=== PATIENT | male | born 1990 | race Caucasian/White ===

== ENCOUNTER → 2019-03-22 16:49 | Outpatient (CLI) | payer OTHER, SELFPAY ==
[2013-05-28 22:03] VITALS: BMI 22.4
== END ==
PROVIDERS: Referring Provider Obstetrics & Gynecology; Visit Provider Obstetrics & Gynecology
DX: Z31.440 Encounter of male for testing for genetic disease carrier status for procreative management (principal)
CPT/HCPCS: 36415

== ENCOUNTER → 2019-12-21 10:20 | Emergency (ER) | payer OTHER, SELFPAY ==
[2019-12-21 10:21] VITALS: BP 130/94; PULSE 104; RESP 16; TEMP 36.6; BMI 27.4
--- NOTE | 2019-12-21 10:32 | ED.DCSUM_ITS ---
History of Present Illness Chief Complaint: Anxiety Informant: Patient Onset: Weeks Context: Gradual Onset Current Severity: Moderate Maximum Severity: Moderate Narrative: Patient presents with vomiting secondary to anxiety. He reports a history of anxiety but stopped his medication about 3 years ago. He has had increased life stressors recently including a recent child support hearing, new baby at home, and a promotion at work. He reports feeling anxious with an upset stomach that leads him to vomit. He is still urinating. He denies suicidal ideation. - Past Medical History (1) Anxiety Status: Chronic Past Medical History - Allergies and Home Meds Allergies/Adverse Reactions: Allergies No Known Allergies Allergy (Verified 12/21/19 10:23) Primary Care Physician: Care Physician,No Primary [Primary Care Provider] - Prior records reviewed: Yes Lives: With Family Smoking Status: Current every day smoker Review of Systems General: Denies: Chills, Fever Eyes: Denies: Visual changes - bilaterally ENT: Denies: Bilateral ear pain Cardiovascular: Denies: Chest pain Respiratory: Denies: Dyspnea, Cough Gastrointestinal: Reports: Nausea, Vomiting. Denies: Abdominal pain, Diarrhea Genitourinary: Denies: Dysuria Musculoskeletal: Denies: Swelling, Extremity Pain Skin: Denies: Rash Psych: Reports: Anxiety. Denies: Suicidal thoughts Hematologic: Denies: Easy bruising, Easy bleeding Allergy: Denies: Uticaria Physical Exam Vital Signs/Narrative: Vital Signs Temp Pulse Resp BP 12/21/19 10:21 97.8 F 104 H 16 130/94 H Inital Vital Signs reviewed: Yes General: Well nourished, Well developed Head: Normocephalic ENT: Moist mucous membranes Neck: Supple Cardiovascular: Regular rate, Regular rhythm Respiratory: No distress, CTA bilaterally Abdomen: Soft, Nontender, Hypoactive bowel sounds Extremities: Nontender Skin: Normal color, No rash Neurological: Alert, Oriented x3, Normal Strength, Normal Sensation Psychological: Normal affect Diagnostic/Tx/Re-eval - Medical Decision Making Patient will be given a dose of Zofran to help with his nausea. We discussed restarting his Ativan that he had been on previously. His physician he had previously seen is retired he will be referred to a new primary care physician. I will also give him information on the behavioral health services to help him with his anxiety. He is given return instructions. ED Disposition - Plan for ED Patient: Disposition: Home or Assisted Living Diagnosis: Anxiety Instructions: ED Stress React Prescriptions: Lorazepam [Ativan] 0.5 - 1 tab PO TID PRN #10 tablet PRN Reason: Anxiety Transmission Status: Sent to [facility] Ondansetron [Zofran Odt] 4 mg PO Q8H PRN PRN #10 tab PRN Reason: Nausea Transmission Status: Pending to [facility] Referrals: Shantanu Segovia MD [NON-STAFF] - As soon as possible Behavioral,Health [facility] [GROUP OF PHYSICIANS] - As soon as possible
[2019-12-21] MEDS: Ondansetron ODT 4 MG Tablet PO (10:47)
--- NOTE | 2019-12-21 11:10 | CM.ED ---
SOCIAL WORK Informant: Dr. Jack Reason for Consult: Anxiety Met with patient in room. Introduced role and reason for referral. Patient reports history of anxiety, social anxiety and ADD. Patient states was treated with Ativan and Adderall in the past. Patient reports stopped taking the medications because he did not like the way they made me feel. Patient reports situational stressors with work and home life that have made him overthink things. Patient reports for the last week and a half would wake up and start thinking about things and then become nauseous and throw up or have diarrhea. Patient states does not have a primary care physician. List of providers reviewed with patient. Patient admits to family history of depression and anxiety and states father and grandfather are alcoholics, it's their way of coping. Patient denies any history of substance abuse for self. Explored options for counseling. Patient states I don't know about counseling. List of agencies given for patient to review. Patient denies any suicidal ideation, plan or intent. Discussed plan of patient getting established with PCP to discuss anxiety and possible medication management. Patient gave permission for this worker to make a follow up phone call to patient to check on status. Patient denies any further needs at this time. Collaboration with Dr. Jack. Dr. Jack writing script for Ativan. Patient to establish with PCP. Plan: Home
== END | disposition home or self-care (01) ==
LOC: ED 10:45
PROVIDERS: Emergency Provider Emergency Medicine
DX: F41.9 Anxiety disorder, unspecified (principal); F17.200 Nicotine dependence, unspecified, uncomplicated
CPT/HCPCS: 99281; 99283

== ENCOUNTER → 2019-12-23 11:47 | Emergency (ER) | payer OTHER, SELFPAY ==
[2019-12-21 10:21] VITALS: BMI 27.4
[2019-12-23 11:48] VITALS: BP 109/81; PULSE 107; RESP 17; TEMP 36.7; O2SAT 99; BMI 27.4
--- NOTE | 2019-12-23 12:11 | EKG12_ITS ---
Test Reason : Blood Pressure : / mmHG Vent. Rate : 082 BPM Atrial Rate : 082 BPM P-R Int : 146 ms QRS Dur : 086 ms QT Int : 348 ms P-R-T Axes : 075 070 062 degrees QTc Int : 406 ms Normal sinus rhythm with sinus arrhythmia Normal ECG Confirmed by MITCH PAZ, BARRON ([id number]), mapping editor MAYA FRANKEL ([id number]) on 12/24/2019 8:25:33 AM Referred By: DURNA Confirmed By:BARRON MEYER MD
[2019-12-23 13:01] LABS: Absolute Lymphocyte Count 1.32 X10^3/uL (0.83-4.51); Absolute Neutrophil Count 3.4 X10^3/uL (2.0-7.7); Basophil# 0.03 X10^3/uL; Basophil% 0.6 % (0-1); Eosinophil# 0.01 X10^3/uL; Eosinophils% 0.2 % (0-5); Hematocrit 47.9 % (40-54); Hemoglobin 16.8 g/dL (13.0-16.5); Lymphocyte # 1.32 X10^3/ul (4.0); Lymphocyte % 25.8 % (19-41); Mean Corp Hgb Conc 35.1 g/dL (32-36); Mean Corpuscular Hgb 30.4 pg (27.0-32.0); Mean Corpuscular Volume 86.8 fL (80-94); Mean Platelet Vol. 9.7 fl (6.2-12.0); Monocyte# 0.35 X10^3/uL; Monocyte% 6.8 % (0-10); NRBC Flagged by Analyzer 0 % (0-5); Neutrophil # 3.39 X10^3/uL (2.7-7.7); Neutrophil % 66.4 % (47-70); Platelet Count 243 K/mm3 (150-450); RBC Distribution Width CV 11.4 % (11.6-14.6); Red Blood Count 5.52 M/mm3 (4.6-6.2); White Blood Count 5.1 K/mm3 (4.4-11.0)
[2019-12-23 13:05] VITALS: BP 109/79
[2019-12-23] MEDS: 0.9% Normal Saline 1,000 ML 1000 ML IV (13:13)
[2019-12-23] MEDS: Ondansetron 4 MG/2 ML Vial IV (13:13)
[2019-12-23 13:14] LABS: AST(SGOT) 13 U/L (15-37); Alanine Aminotransfer ALT/SGPT 24 U/L (16-61); Albumin, Serum 4.2 g/dL (3.2-5.0); Alkaline Phosphatase 50 U/L (45-117); Anion Gap 8 (5-15); BUN 15 mg/dL (7-18); BUN/Creat Ratio 15.4 RATIO (10-20); Bilirubin, Direct 0.24 mg/dL (0.00-0.30); Calcium,Total 9.2 mg/dL (8.5-10.1); Chloride 104 mmol/L (98-107); Creatinine, Serum 0.97 mg/dL (0.70-1.30); EST Glomerular Filtration Rate 95 mL/min (>60); Est Glom Filt Rate - Afr Amer 115 mL/min (>60); Estimated Creatinine Clearance 95.98 ml/min; Globulin 3.6 g/dL (2.2-4.2); Glucose 84 mg/dL (74-106); Lipase 60 U/L (73-393); Protein, Total 7.8 g/dL (6.4-8.2); Sodium Level 139 mmol/L (136-145)
[2019-12-23 13:23] LABS: Lactic Acid 0.9 mmol/L (0.4-1.9)
--- NOTE | 2019-12-23 13:37 | ED.DCSUM_ITS ---
History of Present Illness Chief Complaint: Nausea/Vomiting Narrative: Patient presenting for evaluation secondary to nausea and vomiting. Patient states that over the course about the last 2 weeks he has been dealing with nausea and vomiting. For the initial first week it was associated with vomiting just one time in the morning and then he felt well. Patient states however that this is progressed to him feeling increasingly nauseous throughout the course of the day and having multiple episodes of nonbloody nonbilious emesis throughout the day. Patient was seen about a week ago, it was thought that potentially this was an element of anxiety as he does have a 2-month-old baby at home, new work stressors as well as new life stressors. He has no prior history of chronic anxiety. He was discharged with a course of Ativan which somewhat helps but really did not alleviate his symptoms. Now he states that he is having multiple episodes of emesis per day is having difficulty with tolerating p.o. He has had decreased stooling. There is been no fevers. No sick contacts no recent travel no antibiotic use no exposures to hospitals or been in and around nursing homes. Patient is otherwise healthy. No changes in diet. Review of systems otherwise negative. Past Medical History - Allergies and Home Meds Allergies/Adverse Reactions: Allergies No Known Allergies Allergy (Verified 12/23/19 11:47) Primary Care Physician: Derik Brower DO [Primary Care Provider] - Prior records reviewed: Yes Past Medical History: None Lives: Spouse/ Significant Other Smoking Status: Heavy Smoker (>10/day) Alcohol: None Drugs: None Review of Systems All systems negative except as indicated General: Denies: Chills, Fever, Sweats Eyes: Denies: Visual changes - bilaterally, Diplopia ENT: Denies: Rhinorrhea, Sore throat Cardiovascular: Denies: Chest pain, Palpitations Respiratory: Denies: Dyspnea, Cough, Dyspnea on exertion Gastrointestinal: Reports: Nausea, Vomiting Genitourinary: Denies: Dysuria, Hematuria, Frequency Musculoskeletal: Denies: Back pain, Extremity Pain Skin: Denies: Rash, Wounds Neurological: Denies: Headache, Weakness, Numbness Physical Exam Vital Signs/Narrative: Vital Signs Temp Pulse Resp BP Pulse Ox 12/23/19 13:05 109/79 12/23/19 11:48 98.0 F 107 H 17 109/81 H 99 Inital Vital Signs reviewed: Yes General: Well nourished, Well developed, No Acute Distress Head: Normocephalic, Atraumatic Eyes: Perrl, EOMI ENT: No rhinorrhea, Dry mucous membranes Neck: Supple, Nontender Cardiovascular: Regular rate, Regular rhythm, No murmurs Respiratory: No distress, CTA bilaterally, Chest nontender Abdomen: Soft, Nondistended, Normal bowel sounds, Tender - Left upper quadrant tenderness to palpation with no guarding or rebound. No palpable masses. No evidence of diffuse rigidity. Back: Nontender, Normal Inspection Extremities: Nontender, No edema Skin: Normal color, No rash Neurological: Alert, Oriented x3, Cranial nerves II-XII grossly intact, Normal Strength, Normal Sensation Psychological: Normal affect, Normal Mood Diagnostic/Tx/Re-eval Laboratory Data 12/23/19 12/23/19 12/23/19 12:45 12:45 12:45 WBC 5.1 RBC 5.52 Hgb 16.8 H Hct 47.9 MCV 86.8 MCH 30.4 MCHC 35.1 RDW Std Deviation 36.0 RDW Coeff of Jeancarlos 11.4 L Plt Count 243 MPV 9.7 Immature Gran % (Auto) 0.200 Neut % (Auto) 66.4 Lymph % (Auto) 25.8 [place] % (Auto) 6.8 Eos % (Auto) 0.2 Baso % (Auto) 0.6 Absolute Neuts (auto) 3.4 Absolute Lymphs (auto) 1.32 Nucleated RBC % 0 Sodium 139 Potassium 4.0 Chloride 104 Carbon Dioxide 27.0 Anion Gap 8 BUN 15 Creatinine 0.97 Estim Creat Clear Calc 95.98 Est GFR (MDRD) Af Amer 115 Est GFR (MDRD) Non-Af 95 BUN/Creatinine Ratio 15.4 Glucose 84 Lactic Acid 0.9 Calcium 9.2 Total Bilirubin 0.90 Direct Bilirubin 0.24 AST 13 L ALT 24 Alkaline Phosphatase 50 Total Protein 7.8 Albumin 4.2 Globulin 3.6 Lipase 60 L - EKG Initial EKG Interpretation: - - Sinus rhythm of [address] segments normal T waves normal DE and QTc intervals no evidence of acute ischemia or arrhythmia - Medical Decision Making Patient presented secondary to abdominal pain nausea and vomiting. He has a nonsurgical abdomen, I do not feel that imaging is indicated. IV was established laboratory studies were obtained. He was found to have a somewhat elevated hemoglobin potentially associated with either dehydration or his heavy smoking. Electrolytes are found to be unremarkable. Patient potentially at this point has an element of either gastritis and ulcer versus anxiety versus a combination of both, but I still do not feel he requires admitted. He will be treated with a course of omeprazole and Carafate as well as Phenergan. He will be given a referral to general surgery for upper endoscopy. Patient was discharged. ED Disposition - Plan for ED Patient: Disposition: Home or Assisted Living Diagnosis: PUD (peptic ulcer disease) Instructions: ED PEPTIC ULCER vs GASTRITIS Prescriptions: Sucralfate [Carafate] 1 gm PO 4X/DAY #120 tab Prescription Printed Omeprazole 40 mg PO DAILY #30 capsule.dr Prescription Printed proMETHazine suppository [Phenergan Suppository] 25 mg RECTAL Q6H PRN PRN #6 suppos. PRN Reason: Nausea Prescription Printed proMETHazine tablet [Phenergan] 25 mg PO Q6H PRN PRN #10 tab PRN Reason: Nausea Prescription Printed Referrals: Jose Marques MD [STAFF PHYSICIAN] - As soon as possible
== END | disposition home or self-care (01) ==
PROVIDERS: Emergency Provider Emergency Medicine; PCP Family Medicine
DX: K27.9 Peptic ulcer, site unspecified, unspecified as acute or chronic, without hemorrhage or perforation (principal); F41.9 Anxiety disorder, unspecified; F17.200 Nicotine dependence, unspecified, uncomplicated
CPT/HCPCS: 80048; 80076; 83605; 83690; 85025; 93005; 96361; 96374; 99283; J7030; A4216; J2405

== ENCOUNTER → 2019-12-25 09:56 | Outpatient (CLI) | payer OTHER, SELFPAY ==
[2019-12-23 11:48] VITALS: BMI 27.4
== END ==
PROVIDERS: PCP Family Medicine; Visit Provider Family Medicine
DX: Z20.828 Contact with and (suspected) exposure to other viral communicable diseases (principal); R50.9 Fever, unspecified
CPT/HCPCS: 87635; U0003

== ENCOUNTER 2021-09-20 10:12 | Emergency (ER) | payer OTHER, SELFPAY ==
[2021-09-20 10:13] VITALS: BP 139/89; PULSE 76; RESP 16; TEMP 36.6; O2SAT 100; BMI 23.3
--- NOTE | 2021-09-20 10:22 | EX.ED.UPPERE ---
HPI History of Present Illness Chief Complaint: Upper Extremity Injury Narrative Narrative: This is a 30-year-old male presenting with right shoulder pain for the last 5 days. He states he feels it in the area of the deltoid on the right and in the trapezius on the right. He has no known injury. 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 Patient states he has to move slowly when moving his shoulder. He states that if he leans back on his shoulder blade or holds his shoulder up the pain goes away. No paresthesias. No neck pain. Patient has appointment with orthopedics on but is having worsening pain after waking up this morning. [facility] Medical History (Updated 09/20/21 @ 11:[address] Damir Monahan DO) Shoulder injury Home Medications hydrocodone-acetaminophen 5-325mg 5mg-325mg 1 tab PO Q6H PRN pain 3 days #10 tabs 09/20/21 [Rx Last Taken Unknown] naproxen 500 mg tablet (Naprosyn) 500 mg PO BID PRN pain #20 tabs 09/20/21 [Rx Last Taken Unknown] tizanidine 4 mg capsule (Zanaflex) 4 mg PO Q8H PRN muscle spasticity #14 caps 09/20/21 [Rx Last Taken Unknown] Allergy/AdvReac Type Severity Reaction Status Date / Time No Known Allergies Allergy Verified 09/20/21 10:14 Social History Smoking Status: Heavy Smoker (>10/day) ROS ROS ED Constitutional Constitutional ED: Denies chills, fever(s) or sweats Eyes Eyes: Denies blurry vision or change in vision ENT ENT ED: Denies ear pain, rhinorrhea or sore throat Cardiovascular Cardiovascular: Denies chest pain, palpitations or racing heartbeat Respiratory/Chest Respiratory/Chest: Denies cough, dyspnea or sputum Gastrointestinal Gastrointestinal: Denies abdominal pain, constipation, diarrhea or vomiting Genitourinary Genitourinary ED: Denies dysuria, hematuria or urinary frequency Musculoskeletal Musculoskeletal: Reports other Details: Right shoulder pain ; Denies arthralgias, myalgias or neck pain Integumentary Denies abscess, Abrasions or rash Neurologic Neurologic: Denies headache(s), paresthesias or weakness Psychiatric Psychiatric: Denies anxiety, depression, suicidal ideation or suicidal thoughts Endocrine Endocrinology: Denies polydipsia or polyuria EXAM Physical Exam Const Vital Signs: 09/20/21 10:13 Temperature 97.8 F Temperature Source Temporal Pulse Rate 76 Respiratory Rate 16 Blood Pressure 139/89 H Blood Pressure Mean 105 Pulse Ox 100 Oxygen Delivery Method Room Air Positive well nourished General Appearance ED: NAD HEENT Reports moist mucous membranes Eyes PERRL and EOMs intact bilaterally Chest Wall inspection of chest normal and palpation of chest normal Resp normal respiratory effort and clear to auscultation bilaterally Cardio regular rate and regular rhythm Back/Spine Back/Spine Narrative: There is not appear to be any tenderness to palpation on examination of the trapezius and the right shoulder. There is no cervical spinal tenderness. Patient is able to range his right shoulder actively however he needs slowly. Motor and sensation in the right shoulder and upper extremity seem to be intact. Radial pulse 2+. Brisk cap refill to all 5 fingers of the right hand. Cervical Spine: Negative for cervical spine tenderness Neuro oriented x3 and CN's II-XII intact bilaterally Sensorium / Orientation: alert Psych mental status grossly normal MDM MDM MDM Narrative Medical decision making narrative: Patient was medicated with oxycodone. Right shoulder x-ray on my interpretation shows no acute fracture or subluxation. I do not suspect the patient has a rotator cuff tear. He has a shoulder impingement of some sort. I will give him Naprosyn as an anti-inflammatory. He was given [place] for pain. I did give him a prescription for muscle relaxers that he can alternate but he was counseled not to take them with the [place]. He was also counseled he can take the anti-inflammatory with the [place] or with the muscle relaxer. Patient has follow-up with orthopedics on . Impression: 1. Right shoulder strain Lab Data Attestation: I reviewed the patient's lab results. Discharge Plan Triage Chief Complaint: Upper Extremity Injury ED Provider: Damir Monahan Dx/Rx/DC Orders Instructions: ED Shoulder Impingement Syndrome Prescriptions: New tizanidine [Zanaflex] 4 mg capsule 4 mg PO Q8H PRN (Reason: muscle spasticity) Qty: 14 0RF naproxen [Naprosyn] 500 mg tablet 500 mg PO BID PRN (Reason: pain) Qty: 20 0RF hydrocodone-acetaminophen 5-325 mg tablet 1 tab PO Q6H PRN (Reason: pain) 3 Days Qty: 10 0RF Primary Care Provider: Derik Brower Referrals: Derik Brower DO [Primary Care Provider] - Boris Silverio MD [STAFF PHYSICIAN] - Keep Robert appointment Disposition Disposition: Home, Self Care
[2021-09-20] MEDS: oxyCODONE 5 MG Tablet PO (10:26)
--- NOTE | 2021-09-20 10:30 | RAD_ITS ---
STUDY: X-RAY - RIGHT SHOULDER REASON FOR EXAM: Male, 30 years old. Increasing pain. No history of trauma. TECHNIQUE: 4 view(s) of the shoulder. COMPARISON: None. FINDINGS: Normal glenohumeral articulation. Normal acromioclavicular joint. Normal acromion. Normal humeral head and visualized proximal humerus. The soft tissue structures are unremarkable. Normal visualized pulmonary apex. RAD/Shoulder min 2 Views IMPRESSION: Normal x-ray examination of the shoulder. Electronically Signed: Neel Rodriguez MD at 10:58 EDT ,
== END 2021-09-20 11:25 | disposition home or self-care (01) ==
PROVIDERS: Emergency Provider Student in an Organized Health Care Education/Training Program; PCP Family Medicine; Visit Provider Student in an Organized Health Care Education/Training Program
DX: S46.911A Strain of unspecified muscle, fascia and tendon at shoulder and upper arm level, right arm, initial encounter (principal); X58.XXXA Exposure to other specified factors, initial encounter; M25.811 Other specified joint disorders, right shoulder; F17.200 Nicotine dependence, unspecified, uncomplicated
CPT/HCPCS: 73030; 99283

== ENCOUNTER → 2023-05-09 | Outpatient (CLI) | payer OTHER, SELFPAY ==
--- OUTSIDE RECORDS SUMMARY | 2023-05-09 17:49 | XMS RPT_ITS | CCD ---
Author Name Unknown Address [address] [place] [address] Organization [facility] Care Team Providers Care Field Director Name Role Phone BAY, BRITTANY H Unavailable Unavailable BAY, BRITTANY H Unavailable Unavailable BAY, BRITTANY H Unavailable Unavailable BAY, BRITTANY H Unavailable Unavailable PROVIDER, UNKNOWN Unavailable Unavailable Allergies Allergy Classification Reported Allergen(s) Allergy Type Date of Onset Reaction(s) Facility (1 source) bee venom Drug allergy (disorder) [facility] Repository Results Test Name Value Interpretation Reference Range Facil ity Encounters Encounter Date Encounter Type Care Provider Facility Start: 10-20-2016 End: 10-20-2016 Ambulatory [facility] Payers Date Payer Category Payer Policy ID Unknown [id number] Summary Purpose Family History No Family History Records Found Advance Directives No Advanced Directives Records Found Additional Source Comments (unrecognized sect ion and content) No Status Records Found INFORMATION SOURCE (unrecogn ized section and content) FOR RECORDS PERTAINING TO PATIENTS WHO ARE OR HAVE BEEN ENROLLED IN A CHEMICAL DEPENDENCY/SUBSTANCEABUSE PROGRAM, SOME INFORMATION MAY BE OMITTED. This clinical summary was aggregated from multiple sources. Caution should be exercised in using it in the provision of clinical care. This summary normalizes information from multiple sources, and as a consequence, information in this document may materially change the coding, format and clinical context of patient data. In addition, data may be omitted in some cases. CLINICAL DECISIONS SHOULD BE BASED ON THE PRIMARY CLINICAL RECORDS. [employer] provides no warranty or guarantee of the accuracy or completeness of information in this document.
== END | disposition home or self-care (01) ==
LOC: BFHLAB 13:24 → LABSPEC 13:24
PROVIDERS: PCP Family Medicine; Visit Provider Family Medicine
DX: R31.29 Other microscopic hematuria (principal)
CPT/HCPCS: 87086

== ENCOUNTER 2023-05-17 09:40 | Emergency (ER) | payer OTHER, SELFPAY ==
[2023-05-17 09:41] VITALS: BP 134/110; PULSE 77; RESP 16; TEMP 36.5; O2SAT 100; BMI 26.9
--- NOTE | 2023-05-17 09:56 | CT_ITS ---
STUDY: CT ABDOMEN AND PELVIS WITHOUT CONTRAST REASON FOR EXAM: Male, 32 years old. Right flank pain. History of kidney stone. RADIATION DOSAGE (If Supplied By Facility): CTDIvol = ( 6.21 ) mGy, DLP = ( 325.59 ) mGycm TECHNIQUE: Transaxial images were obtained from the dome of the diaphragm to the symphysis pubis without oral contrast, and without intravenous contrast. Sagittal and coronal images were reconstructed. Individualized dose optimization techniques were used for this CT. COMPARISON: Comparison is made with prior study of August 15, 2016. FINDINGS: The visualized lung bases are unremarkable. The visualized portions of the heart are within normal limits. Normal liver. There is a solitary gallstone. Normal spleen. Normal pancreas. Normal bilateral adrenal glands. Mild degree of right hydronephrosis and right hydroureter. There is a 2 mm calculus at the base of the bladder on the right side suggestive of a recently passed right ureteral calculus. Normal left kidney. Normal visualized stomach. Normal small intestine. Normal colon. The appendix is visualized and appears normal. Normal abdominal aorta. Normal inferior vena cava. Normal retroperitoneum. Normal urinary bladder. There are prostatic calcifications. Normal abdominal wall. Normal osseous structures. CT/Abdomen/Pelvis without Cont IMPRESSION: Solitary gallstone. Findings suggestive of a recently passed calculus from the right ureteral system. The calculus is seen within the base of the bladder. Mild degree of right hydronephrosis and right hydroureter. Electronically Signed: Neel Rodriguez MD at 10:32 EDT ,
--- NOTE | 2023-05-17 09:57 | EDS_ITS ---
HPI History of Present Illness Chief Complaint: Flank Pain Detail of Chief Complaint: Right flank pain Informant: patient Narrative Narrative: Patient presents to the emergency department complaint of right flank pain. Patient tells me has had some blood in his urine off and on for a week. He saw his PCP. Today started having right flank pain that is severe and rates it a 10 out of 10. He said some nausea but no vomiting. He does have history of kidney stones. Denies any falls or injuries. No pain radiating down the legs. PFSH [facility] Medical History (Updated 05/17/23 @ 11:[address] Jose Alfredo Moore DO) Neck pain Shoulder injury Home Medications gabapentin 100 mg capsule 200 mg PO BID 05/17/23 [History Last Taken Unknown] naproxen 500 mg tablet 500 mg PO BID #14 tabs 05/17/23 [Rx Last Taken Unknown] oxycodone-acetaminophen 5 mg-325 mg tablet 1 tab PO Q6H PRN PRN Pain 3 days #12 TABLETS 05/17/23 [Rx Last Taken Unknown] Allergy/AdvReac Type Severity Reaction Status Date / Time No Known Allergies Allergy Verified 05/17/23 09:40 Social History Smoking Status: Heavy Smoker (>10/day) ROS ROS ED Review of Systems ROS Unobtainable: other Constitutional Constitutional ED: Reports lethargy; Denies chills, fever(s), sweats or weight loss Eyes Eyes: Denies blurry vision, change in vision or diplopia ENT ENT ED: Denies rhinorrhea or sore throat Cardiovascular Cardiovascular: Denies chest pain, orthopnea or racing heartbeat Respiratory/Chest Respiratory/Chest: Denies cough, dyspnea, dyspnea on exertion, orthopnea or sputum Gastrointestinal Gastrointestinal: Denies abdominal pain, diarrhea, nausea or vomiting Genitourinary Genitourinary ED: Denies dysuria, hematuria or urinary frequency Musculoskeletal Musculoskeletal: Reports back pain; Denies arthralgias, myalgias or neck pain Integumentary Denies abscess, Abrasions or rash Neurologic Neurologic: Denies headache(s) or weakness Psychiatric Psychiatric: Denies anxiety, depression or suicidal thoughts Endocrine Endocrinology: Denies polydipsia, polyphagia or polyuria Hematologic/Lymphatic Hematologic/Lymphatic: Denies easy bleeding, easy bruising or lymphadenopathy Allergic/Immunologic Allergic/Immunologic ED: Denies mouth swelling, tongue swelling or urticaria EXAM Physical Exam Const Vital Signs: 05/17/23 09:41 05/17/23 09:41 Temperature 97.7 F L Temperature Source Temporal Pulse Rate 77 77 Respiratory Rate 16 16 Blood Pressure 134/110 H Blood Pressure Mean 118 Pulse Ox 100 100 Oxygen Delivery Method Room Air Room Air Positive well nourished and well developed General Appearance ED: well developed and NAD HEENT Reports TM's clear and moist mucous membranes normocephalic and atraumatic; Negative for trauma or tenderness Tympanic Membrane ED: Yes TM's clear Eyes PERRL and EOMs intact bilaterally General Eye ED: Negative for pale conjunctiva or scleral icterus Neck no lymphadenopathy, supple and no JVD General: Negative for tenderness Chest Wall inspection of chest normal and palpation of chest normal Chest: Negative for tenderness Resp normal respiratory effort and clear to auscultation bilaterally Effort and Inspection: Negative for respiratory distress or pain with movement Auscultation: Negative for rhonchi, wheezes or diminished lung sounds Cardio regular rate, regular rhythm, S1 normal heart sound, S2 normal heart sound and no murmurs Peripheral Pulses: pulses 2+ throughout GI normal to inspection, nondistended, normoactive bowel sounds, soft to palpation, non-tender, non-distended and no masses Back/Spine no thoracic nor lumbar tenderness Back/Spine Narrative: CVA tenderness on the right. Extremity normal to inspection General Extremety ED: Negative for edema General Extremity: Negative for edema Neuro oriented x3, CN's II-XII intact bilaterally, no sensory deficits noted and gait normal Sensorium / Orientation: awake, alert, oriented to person, oriented to place and oriented to time Motor Exam: strength 5/5 throughout and strength abnormal Psych mental status grossly normal Skin no rashes or lesions noted and no wounds MDM MDM MDM Narrative Medical decision making narrative: Patient presents with right flank pain typical of kidney stone pain as he has passed stones before. Clinically looks well. IV line established. Patient was medicated with Dilaudid as well as Toradol and Zofran. He had good pain relief with that. Patient has CBC with differential showing a 6.2 with hemoglobin 15 and platelet count of 325. Chemistries unremarkable. Urinalysis showed microscopic blood 25-50 RBCs with no signs of infection otherwise. CT scan of the abdomen pelvis without contrast obtained showed a 2 mm stone within the bladder with signs of recently passed stone such as right-sided hydroureter and mild hydronephrosis. At this point patient will be given urine strainers and he will be discharged to home with a prescription for naproxen and hydrocodone for severe pain. He will be referred to urology for follow-up. Advised to return if worsening pain, fever, vomiting, or condition worsening way. Lab Data Attestation: I reviewed the patient's lab results. Labs: Laboratory Results - last 24 hr 05/17/23 05/17/23 10:02 10:40 WBC 6.2 RBC 5.13 Hgb 15.1 Hct 44.6 MCV 86.9 MCH 29.4 MCHC 33.9 RDW Std Deviation 38.2 RDW Coeff of Jeancarlos 11.9 Plt Count 325 MPV 10.0 Immature Gran % (Auto) 0.300 Neut % (Auto) 39.3 L Lymph % (Auto) 50.5 H [place] % (Auto) 7.1 Eos % (Auto) 1.8 Baso % (Auto) 1.0 Absolute Neuts (auto) 2.5 Absolute Lymphs (auto) 3.14 Nucleated RBC % 0 Sodium 141 Potassium 3.9 Chloride 106 Carbon Dioxide 30.0 Anion Gap 5 BUN 12 Creatinine 0.89 Estim Creat Clear Calc 101.73 Est GFR (MDRD) Af Amer 125 Est GFR (MDRD) Non-Af 103 BUN/Creatinine Ratio 13.4 Glucose 117 H Calcium 9.0 Urine Color Yellow Urine Clarity Cloudy Urine pH 5.0 Ur Specific [place] 1.025 Urine Protein 100 H Urine Glucose (UA) Normal Urine Ketones 5 H Urine Occult Blood 250 H Urine Nitrite Negative Urine Bilirubin Negative Urine Urobilinogen 1 H Ur Leukocyte Esterase 25 H Urine RBC 25-50 SEEN Urine WBC 0-5 SEEN Ur Squamous Epith Cells 0 SEEN Amorphous Sediment 2+ Urine Bacteria 2+ Urine Mucus 0 SEEN Radiography Diagnostic Testing: Clinical Impression(s) from Imaging Studies Abdomen/Pelvis CT 05/17/23 09:56 IMPRESSION: Solitary gallstone. Findings suggestive of a recently passed calculus from the right ureteral system. The calculus is seen within the base of the bladder. Mild degree of right hydronephrosis and right hydroureter. Electronically Signed: Neel Rodriguez MD at 10:32 EDT , Discharge Plan Triage Chief Complaint: Flank Pain ED Provider: Jose Alfredo Moore Dx/Rx/DC Orders Clinical Impression: Urolithiasis Instructions: ED Kidney Stone with Pain Prescriptions: New oxycodone-acetaminophen [oxycodone-acetaminophen] 5-325 mg tablet 1 tab PO Q6H PRN PRN (Reason: Pain) 3 Days Qty: 12 0RF naproxen 500 mg tablet 500 mg PO BID Qty: 14 0RF No Action gabapentin 100 mg capsule 200 mg PO BID Primary Care Provider: Derik Brower Referrals: Miguelangel Sepulveda MD [Med Staff - Active Staff] - 5-7 Days Derik Brower DO [Primary Care Provider] - Disposition Disposition: Home, Self Care
[2023-05-17] MEDS: Ondansetron 4 MG/2 ML Vial IV (10:02)
[2023-05-17] MEDS: Ketorolac 30 MG/ML Syringe IV (10:02)
[2023-05-17] MEDS: HYDROmorphone 1 MG/ML Syringe IV (10:03)
[2023-05-17 10:13] LABS: Absolute Lymphocyte Count 3.14 X10^3/uL (0.83-4.51); Absolute Neutrophil Count 2.5 X10^3/uL (2.0-7.7); Basophil# 0.06 X10^3/uL; Eosinophil# 0.11 X10^3/uL; Eosinophils% 1.8 % (0-5); Hematocrit 44.6 % (40-54); Hemoglobin 15.1 g/dL (13.0-16.5); Lymphocyte # 3.14 X10^3/ul (0.83-4.51); Lymphocyte % 50.5 % (19-41); Mean Corp Hgb Conc 33.9 g/dL (32-36); Mean Corpuscular Hgb 29.4 pg (27.0-32.0); Mean Corpuscular Volume 86.9 fL (80-94); Monocyte# 0.44 X10^3/uL; Monocyte% 7.1 % (0-10); NRBC Flagged by Analyzer 0 % (0-5); Neutrophil # 2.45 X10^3/uL (2.7-7.7); Neutrophil % 39.3 % (47-70); Platelet Count 325 K/mm3 (150-450); RBC Distribution Width CV 11.9 % (11.6-14.6); RBC Distribution Width SD 38.2 fl (35.1-43.9); Red Blood Count 5.13 M/mm3 (4.6-6.2); White Blood Count 6.2 K/mm3 (4.4-11.0)
[2023-05-17 10:26] LABS: Anion Gap 5 (5-15); BUN 12 mg/dL (7-18); BUN/Creat Ratio 13.4 RATIO (10-20); Chloride 106 mmol/L (98-107); Creatinine, Serum 0.89 mg/dL (0.70-1.30); EST Glomerular Filtration Rate 103 mL/min (>60); Est Glom Filt Rate - Afr Amer 125 mL/min (>60); Estimated Creatinine Clearance 101.73 ml/min; Glucose 117 mg/dL (74-106); Potassium 3.9 mmol/L (3.5-5.1); Sodium Level 141 mmol/L (136-145)
[2023-05-17 10:49] LABS: Mucous, Urine 0 SEEN /hpf (<or=2+); Squamous Epithelial Cells - UA 0 SEEN /hpf (0-5)
[2023-05-17 10:53] LABS: Color, Urine Yellow (Yellow); Glucose, Dipstick Normal (Normal); Ketone-Dipstick 5 mg/dl (Negative); Leukocyte Esterase-Dipstick 25 /ul (Negative); Nitrite-Dipstick Negative (Negative); Occult Blood-Urine 250 /ul (Negative); Protein-Dipstick 100 mg/dl (Negative); Specific Gravity, Urine 1.025 (1.002-1.030); Urine Bilirubin Dipstick Negative (Negative); Urine Clarity Cloudy (Clear); Urine Urobilinogen 1 mg/dl (Normal)
[2023-05-17 10:59] LABS: Amorphous Sediment 2+; Bacteria 2+ /hpf (None Seen); Red Blood Cells-Urine 25-50 SEEN /hpf (0-5); White Blood Cells 0-5 SEEN /hpf (0-5)
[2023-05-17 11:22] VITALS: BP 118/78; PULSE 87; RESP 16; TEMP 36.6; O2SAT 99
--- OUTSIDE RECORDS SUMMARY | 2023-05-17 20:04 | XMS RPT_ITS | CCD ---
Author Name Unknown Address [address] [place] [address] Organization [facility] Care Team Providers Care Product Introduction Manager Name Role Phone BAY, BRITTANY H Unavailable Unavailable BAY, BRITTANY H Unavailable Unavailable BAY, BRITTANY H Unavailable Unavailable BAY, BRITTANY H Unavailable Unavailable PROVIDER, UNKNOWN Unavailable Unavailable Allergies Allergy Classification Reported Allergen(s) Allergy Type Date of Onset Reaction(s) Facility (1 source) bee venom Drug allergy (disorder) [facility] Repository Results Test Name Value Interpretation Reference Range Facil ity Encounters Encounter Date Encounter Type Care Provider Facility Start: 10-20-2016 End: 10-20-2016 Ambulatory [facility] Payers Date Payer Category Payer Policy ID Unknown [id number] Summary Purpose Family History No Family History [...] BE BASED ON THE PRIMARY CLINICAL RECORDS. [employer] provides no warranty or guarantee of the accuracy or completeness of information in this document.
== END 2023-05-17 11:25 | disposition home or self-care (01) ==
LOC: ED 11:24
PROVIDERS: Emergency Provider Emergency Medicine; PCP Family Medicine; Visit Provider Emergency Medicine
DX: N21.0 Calculus in bladder (principal); F17.200 Nicotine dependence, unspecified, uncomplicated
CPT/HCPCS: 74176; 80048; 81001; 85025; 96374; 96375; 99282; J7030; A4216; J2405

== ENCOUNTER 2024-10-09 03:20 | Emergency (ER) | payer SELFPAY ==
[2024-10-09 03:21] VITALS: BP 142/87; PULSE 74; RESP 16; TEMP 36.4; O2SAT 100; BMI 26.6
[2024-10-09] MEDS: Lidocaine 2% Viscous15 ML UDC 15 ML PO (03:47)
[2024-10-09] MEDS: 0.9% Normal Saline (1000mL) 1,000 ML 999 ML IV (03:47)
[2024-10-09] MEDS: Pantoprazole Sodium 40 MG in 0.9% Normal Saline (100mL MB+) 100 ML 300 MG IV (03:53)
[2024-10-09 03:55] LABS: Hematocrit 40.7 % (40-54); Hemoglobin 14.2 g/dL (13.0-16.5); Immature Granulocytes Count 0.010 X10^3/uL (0.0-0.0); Mean Corp Hgb Conc 34.9 g/dL (32-36); Mean Corpuscular Volume 86.4 fL (80-94); Mean Platelet Vol. 9.6 fl (6.2-12.0); NRBC Flagged by Analyzer 0 % (0-5); Platelet Count 254 K/mm3 (150-450); RBC Distribution Width CV 11.9 % (11.6-14.6); RBC Distribution Width SD 37.9 fl (35.1-43.9); Red Blood Count 4.71 M/mm3 (4.6-6.2); White Blood Count 5.8 K/mm3 (4.4-11.0)
--- OUTSIDE RECORDS SUMMARY | 2024-10-09 03:59 | XMS RPT_ITS | CCD ---
Author Organization [facility] Care Team Providers Care Cigar Head Holer Name Role Phone EMMA, BRITTANY Mccann Unavailable Unavailable BAY, BRITTANY H Unavailable Unavailable BAY, BRITTANY H Unavailable Unavailable BAY, BRITTANY H Unavailable Unavailable PROVIDER, UNKNOWN Unavailable Unavailable Derik Brower Primary Care Unavailable Derik Brower Attending Unavailable Derik Brower Primary Care Unavailable Jose Alfredo Moore Attending Unavailable Allergies Allergy Classification Reported Allergen(s) Allergy Type Date of Onset Reaction(s) Facility (1 source) bee venom Drug allergy (disorder) [facility] Repository Medications Current Medications Medication Drug Class(es) Dates Sig (Normalized) Sig (Original) acetaminophen 325 mg / oxyCODONE hydrochloride 5 mg oral tablet (1 source) Opioid Agonist Start: 05-17-2023 take 1 tablet by mouth every six hours as needed Oxycodone-Acetami nophen Active 1 TABLET PO EVERY 6 HOURS NEEDED 02 05May 17, 2023 Start: 05-17-2023 take 1 tablet by shira th every six hours as needed Oxycodone-Acetaminophen Active 1 TABLET PO EVERY 6 HOURS NEEDED 12 May 17, 2023 gabapentin 100 mg oral capsule (1 source) Anti-epileptic Agent Start: 05-17-2023 take 200 mg by mouth twice daily Gabapentin Active 200 MG PO TWICE A DAY May 17, 2023 12:00am naproxen 500 mg oral tablet (4 sources) Nonsteroidal Anti-inflammatory Drug Start: 09-20-2021 End: 05-17-2023 take 500 mg by mouth twice daily Naproxen Active 500 MG PO TWICE A DAY May 17, 2023 12:00am Completed/Discontinued Medications Medication Drug Class(es) Dates Sig (Normalized) Sig (Original) acetaminophen 325 mg / HYDROcodone bitartrate 5 mg oral tablet (3 sources) Opioid Agonist Start: 09-20-2021 End: 05-17-2023 take 1 tablet by mouth every six hours Hydrocodone-Acetam inophen Discontinued 1 TABLET PO EVERY 6 HOURS 10 September 20, 2021 May 17, 2023 10:06am tiZANidine 4 mg oral capsule (3 sources) Central alpha-2 Adrenergic Agonist Start: 09-20-2021 End: 05-17-2023 take 1 capsule by mouth every eight hours Tizanidine (Zanaflex) 4 mg capsule Discontinued 4 MG PO Q8H September 20, 2021 12:00am May 17, 2023 10:06am Problems Problem Classification Problem Date Documented Da te Episodic/Chronic Abdominal pain (1 source) Unspecified abdominal pain; Translations: [Unspecified abdominal pain] Onset: 05-23-2023 Episodic Anxiety disorders (3 sources) Anxiety; Translations: [Anxiety disorder, unspecified] 12-21-2019 Chronic Calculus of urinary tract (1 source) Urolithiasis ; Translations: [Urinary calculus, unspecified] 05-17-2023 Episodic Gastroduodenal ulcer (except hemorrhage) (3 sources) Peptic ulcer; Translations: [Peptic ulcer, site unspecified, unspecified as acute or chronic, without hemorrhage or perforation] 12-24-2019 Chronic Genitourinary symptoms and ill-defined conditions (1 source) Other microscopic hematuria; Translations: [Other microscopic hematuria] Onset: 05-14-2023 Episodic Other injuries and conditions due to external causes (3 sources) Injury of shoulder region; Translations: [Unspecified injury of shoulder and upper arm, unspecified arm, initial encounter] 09-20-2021 Episodic Results Test Name Value Interpretation Reference Range Facility Abdomen/Pelvis without Conto n 05-17-2023 Abdomen/Pelvis without Cont [facility] Imaging Services [address] [place] [address] Abdomen/Pelvis without Cont MR#: [id number] Acct: [id number] Name: JIGARAMANDA Hancock Rep #: [id number] : 1990 M 32 From: Neel klein MD PCP: Dr. Derik Brower, DO Status: DEP ER Study: Abdomen/Pelvis without Cont Date of Exam: 05/04 05/27 Exam# [id number] Ordering Dr: Jose Alfredo Moore DO -[id number] STUDY: CT ABDOMEN AND PELVIS WITHOUT CONTRAST REASON FOR EXAM: Male, 32 years old. Right flank pain. History of kidney stone. RADIATION DOSAGE (If Supplied By Facility): CTDIvol = ( 6.21 ) mGy, DLP = ( 325.59 ) mGycm TECHNIQUE: Transaxial images were obtained from the dome of the diaphragm to the symphysis pubis without oral contrast, and without intravenous contrast. Sagittal and coronal images were reconstructed. Individualized dose optimization techniques were used for this CT. COMPARISON: Comparison is made with prior study of August 15, 2016. FINDINGS: The visualized lung bases are unremarkable. The visualized portions of the heart are within normal limits. Normal liver. There is a solitary gallstone. Normal spleen. Normal pancreas. Normal bilateral adrenal glands. Mild degree of right hydronephrosis and right hydroureter. There is a 2 mm calculus at the base of the bladder on the right side suggestive of a recently passed right ureteral calculus. Normal left kidney. Normal visualized stomach. Normal small intestine. Normal colon. The appendix is visualized and appears normal. Normal abdominal aorta. Normal inferior vena cava. Normal retroperitoneum. Normal urinary bladder. There are prostatic calcifications. Normal abdominal wall. Normal osseous structures. CT/Abdomen/Pelvis without Cont IMPRESSION: Solitary gallstone. Findings suggestive of a recently passed calculus from the right ureteral system. The calculus is seen within the base of the bladder. Mild degree of right hydronephrosis and right hydroureter. Electronically Signed: Neel Rodriguez MD at 10:32 EDT , CC: Dr. Derik Brower DO; Dr. Jose Alfredo Moore DO Wireless Sales Associate: Signed Normal [facility] Absolute lymphocyte countOrd ered By: Jose Alfredo Moore on 05-17-2023 Lymphocytes Auto (Unsp spec) [#/Vol] 3.14 10*3/uL 0.83-4.[address] [facility] Amorphous sediment detection in urine sediment by light microscopyOrdered By: Jose Alfredo Moore on 05-17-2023 Amorphous sediment LM Ql (Urine sed) 2+ [facility] Automated lymphocyte count a s percentage of total leukocytesOrdered By: Jose Alfredo Canogeorge on 05-17-2023 Lymphocytes/100 WBC Auto (Unsp spec) 50.5 % 19-[address] [facility] Basic Metabolic Profile (BMP )on 05-17-2023 BUN/CRE 13.4 RATIO Normal 10-[address] [facility] Comment on above: Performed By: #### L 500.2500, L100.0100 #### [facility] [address] [place], [address] CA,Total 9.0 mg/dL Normal 8.5-10.[address] [facility] Comment on above: Performed By: #### L 500.2500, L100.0100 #### [facility] [address] [place], [address] Chloride [Moles/Vol] 106 mmol/L Normal 98-107 [facility] Comment on above: Performed By: #### L 500.2500, L100.0100 #### [facility] [address] [place], [address] CO2 [Moles/Vol] 30.0 mmol/L Normal 21.0-32.[address] [facility] Comment on above: Performed By: #### L 500.2500, L100.0100 #### [facility] [address] [place], [address] Creatinine [Mass/Vol] 0.89 mg/dL Normal 0.70-1.30 [facility] Comment on above: Result Comment: The validity of the calculated GFR GFRAA in patients over 70 years has not been determined. Clinical correlation is essential. Performed By: #### L 500.2500, L100.0100 #### [facility] [address] [place], [address] ECRCL 101.73 ml/min Normal [facility] Comment on above: Performed By: #### L 500.2500, L100.0100 #### [facility] [address] [place], [address] EST GFR - AA 125 mL/min Normal >[address] [facility] Comment on above: Result Comment: Afri can Guamanian GFR Calc Performed By: #### L 500.2500, L100.0100 #### [facility] [address] [place], [address] GAP 5 Normal 5-[address] [facility] Comment on above: Performed By: #### L 500.2500, L100.0100 #### [facility] [address] [place], [address] GFR/1.73 sq M.predicted among non-blacks MDRD (S/P/Bld) [Vol rate/Area] 103 mL/min/{1.73_m2} Normal >[address] [facility] Comment on above: Result Comment: Non- GFR Calc Performed By: #### L 500.2500, L100.0100 #### [facility] [address] [place], [address] Glucose [Mass/Vol] 117 mg/dL High 74-106 [facility] Comment on above: Result Comment: Fast ing Glucose result from 100 to 125 mg/dL suggests IMPAIRED HOMEOSTASIS per A.D.A. criteria. Performed By: #### L 500.2500, L100.0100 #### [facility] [address] [place], [address] Potassium [Moles/Vol] 3.9 mmol/L Normal 3.5-5.1 [facility] Comment on above: Performed By: #### L 500.2500, L100.0100 #### [facility] [address] [place], [address] Sodium [Moles/Vol] 141 mmol/L Normal 136-145 [facility] Comment on above: Performed By: #### L 500.2500, L100.0100 #### [facility] [address] [place], [address] Urea nitrogen [Mass/Vol] 12 mg/dL Normal 7-[address] [facility] Comment on above: Performed By: #### L 500.2500, L100.0100 #### [facility] [address] [place], [address] Basophil percentageOrdered B y: Jose Alfredo Moore on 05-17-2023 Basophil percentage 0-5 SEEN /hpf 0-5 [facility] Basophils/100 WBC (Bld) 1.0 % 0-1 [facility] Chloride [Moles/Vol] 106 mmol/L 98-107 [facility] Eosinophils/100 WBC (Bld) 1.8 % 0-[address] [facility] Glucose [Mass/Vol] 117 mg/dL 74-106 [facility] Comment on above: Fasting Glucose resu lt from 100 to 125 mg/dL suggests IMPAIRED HOMEOSTASIS per A.D.A. criteria. Hemoglobin (Bld) [Mass/Vol] 15.1 g/dL 13.0-16.[address] [facility] Monocytes/100 WBC (Bld) 7.1 % 0-10 [facility] Neutrophils (Bld) [#/Vol] 2.5 10*3/uL 2.0-7.[address] [facility] Neutrophils/100 WBC (Bld) 39.3 % 47-[address] [facility] Potassium [Moles/Vol] 3.9 mmol/L 3.5-5.1 [facility] Sodium [Moles/Vol] 141 mmol/L 136-145 [facility] WBC (Bld) [#/Vol] 6.2 10*3/uL 4.4-11.0 [facility] Bilirubin Test strip Ql (U)O rdered By: Jose Alfredo Moore on 05-17-2023 Bilirubin Ql (U) Negative Negative [facility] CBC W/Diff, Automatedon - Absolute Lymph 3.14 X10 3/uL Normal 0.83-4.[address] [facility] Comment on above: Performed By: #### L 500.2500, L100.0100 #### [facility] [address] [place], [address] Absolute Neut 2.5 X10 3/uL Normal 2.0-7.[address] [facility] Comment on above: Performed By: #### L 500.2500, L100.0100 #### [facility] [address] [place], [address] Basophils/100 WBC (Bld) 1.0 % Normal 0-1 [facility] Comment on above: Performed By: #### L 500.2500, L100.0100 #### [facility] [address] [place], [address] Eosinophils/100 WBC (Bld) 1.8 % Normal 0-[address] [facility] Comment on above: Performed By: #### L 500.2500, L100.0100 #### [facility] [address] [place], [address] Erythrocyte distribution width (RBC) [Ratio] 11.9 % Normal 11.6-14.[address] [facility] Comment on above: Performed By: #### L 500.2500, L100.0100 #### [facility] [address] [place], [address] Hematocrit (Bld) [Volume fraction] 44.6 % Normal 40-[address] [facility] Comment on above: Performed By: #### L 500.2500, L100.0100 #### [facility] [address] [place], [address] Hemoglobin (Bld) [Mass/Vol] 15.1 g/dL Normal 13.0-16.[address] [facility] Comment on above: Performed By: #### L 500.2500, L100.0100 #### [facility] [address] [place], [address] IG% 0.300 Normal 0.0-0.[address] [facility] Comment on above: Result Comment: IG% - Immature Granulocytes (promyelocytes, myelocytes and metamyelocytes) > 1% indicates that a LEFT SHIFT is Present. Performed By: #### L 500.2500, L100.0100 #### [facility] [address] [place], [address] Lymphocytes/100 WBC (Bld) 50.5 % High 19-[address] [facility] Comment on above: Performed By: #### L 500.2500, L100.0100 #### [facility] [address] [place], [address] MCH (RBC) [Entitic mass] 29.4 pg Normal 27.0-32.[address] [facility] Comment on above: Performed By: #### L 500.2500, L100.0100 #### [facility] [address] [place], [address] MCHC (RBC) [Mass/Vol] 33.9 g/dL Normal 32-36 [facility] Comment on above: Performed By: #### L 500.2500, L100.0100 #### [facility] [address] [place], [address] MCV (RBC) [Entitic vol] 86.9 fL Normal 80-94 [facility] Comment on above: Performed By: #### L 500.2500, L100.0100 #### [facility] [address] [place], [address] Monocytes/100 WBC (Bld) 7.1 % Normal 0-10 [facility] Comment on above: Performed By: #### L 500.2500, L100.0100 #### [facility] [address] [place], [address] Neutrophils/100 WBC (Bld) 39.3 % Low 47-[address] [facility] Comment on above: Performed By: #### L 500.2500, L100.0100 #### [facility] [address], [address] Nucleated RBC (Bld) [#/Vol] 0 10*3/uL Normal 0-[address] [facility] Comment on above: Performed By: #### L 500.2500, L100.0100 #### [facility] [address] [place], [address] Platelet mean volume (Bld) [Entitic vol] 10.0 fL Normal 6.2-12.[address] [facility] Comment on above: Performed By: #### L 500.2500, L100.0100 #### [facility] [address] [place], [address] Platelets (Bld) [#/Vol] 325 10*3/uL Normal 150-[address] [facility] Comment on above: Performed By: #### L 500.2500, L100.0100 #### [facility] [address] [place], [address] RBC (Bld) [#/Vol] 5.13 10*6/uL Normal 4.6-6.2 [facility] Comment on above: Performed By: #### L 500.2500, L100.0100 #### [facility] [address] [place], [address] RDW SD 38.2 fl Normal 35.1-43.[address] [facility] Comment on above: Performed By: #### L 500.2500, L100.0100 #### [facility] [address] [place], [address] WBC (Bld) [#/Vol] 6.2 10*3/uL Normal 4.4-11.0 [facility] Comment on above: Performed By: #### L 500.2500, L100.0100 #### [facility] [address] [place], [address] Determination of erythrocyte mean corpuscular volume (MCV)Ordered By: Jose Alfredo Moore on 05-17-2023 MCV (RBC) [Entitic vol] 86.9 fL 80-94 [facility] Emergency Department Summary on 05-17-2023 Emergency Department Summary [facility] Medical Records Department [address] [place] [address] Emergency Department Summary 05/17/23 MR#: [id number] Acct: [id number] Name: AMANDA KIMBALL Rep #: [id number] : 1990 32 From: Jose Alfredo Moore DO PCP: Dr. Derik Brower DO Status:DEP ER Location: ED HPI History of Present Illness Chief Complaint: Flank Pain Detail of Chief Complaint: Right flank pain Informant: patient Narrative Narrative: Patient presents to the emergency department complaint of right flank pain. Patient tells me has had some blood in his urine off and on for a week. He saw his PCP. Today started having right fla nk pain that is severe and rates it a 10 out of 10. He said some nausea but no vomiting. He does have history of kidney stones. Denies any falls or injuries. No pain radiating down the legs. [facility] Medical History (Updated 05/17/23 @ 11:[address] Jose Alfredo Moore DO) Neck pain Shoulder injury Home Medications gabapentin 100 mg capsule 200 mg PO BID 05/17/23 [History Last Taken Unknown] naproxen 500 mg tablet 500 mg PO BID #14 tabs 05/17/23 [Rx Last Taken Unknown] oxycodone-acetamino phen 5 mg-325 mg tablet 1 tab PO Q6H PRN PRN Pain 3 days #12 TABLETS 05/17/23 [Rx Last Taken Unknown] Allergy/AdvReac Type Severity Reaction Status Date / Time No Known Allergies Allergy Verified 05/17/23 09:40 Social History Smoking Status: Heavy Smoker (>10/day) ROS ROS ED Review of Systems ROS Unobtainable: other Constitutional Constitutional ED: Reports lethargy; Denies chills, fever(s), sweats or weight loss Eyes Eyes: Denies blurry vision, change in vision or diplopia ENT ENT ED: Denies rhinorrhea or sore throat Cardiovascular Cardiovascular: Denies chest pain, orthopnea or racing heartbeat Respiratory/Chest Respiratory/Chest: Denies cough, dyspnea, dyspnea on exertion, orthopnea or sputum Gastrointestinal Gastrointestinal: Denies abdominal pain, diarrhea, nausea or vomiting Genitourinary Genitourinary ED: Denies dysuria, hematuria or urinary frequency Musculoskeletal Musculoskeletal: Reports back pain; Denies arthralgias, myalgias or neck pain Integumentary Denies abscess, Abrasions or rash Neurologic Neurologic: Denies headache(s) or weakness Psychiatric Psychiatric: Denies anxiety, depression or suicidal thoughts Endocrine Endocrinology: Denies polydipsia, polyphagia or polyuria Hematologic/Lymphat ic Hematologic/Lymphat ic: Denies easy bleeding, easy bruising or lymphadenopathy Allergic/Immunologi c Allergic/Immunologi c ED: Denies mouth swelling, tongue swelling or urticaria EXAM Physical Exam Const Vital Signs: 05/17/23 09:41 05/17/23 09:41 Temperature 97.7 F L Temperature Source Temporal Pulse Rate 77 77 Respiratory Rate 16 16 Blood Pressure 134/110 H Blood Pressure Mean 118 Pulse Ox 100 100 Oxygen Delivery Method Room Air Room Air Positive well nourished and well developed General Appearance ED: well developed and NAD HEENT Reports TM's clear and moist mucous membranes normocephalic and atraumatic; Negative for trauma or tenderness Tympanic Membrane ED: Yes TM's clear Eyes PERRL and EOMs intact bilaterally General Eye ED: Negative for pale conjunctiva or scleral icterus Neck no lymphadenopathy, supple and no JVD General: Negative for tenderness Chest Wall inspection of chest normal and palpation of chest normal Chest: Negative for tenderness Resp normal respiratory effort and clear to auscultation bilaterally Effort and Inspection: Negative for respiratory distress or pain with movement Auscultation: Negative for rhonchi, wheezes or diminished lung sounds Cardio regular rate, regular rhythm, S1 normal heart sound, S2 normal heart sound and no murmurs Peripheral Pulses: pulses 2+ throughout GI normal to inspection, nondistended, normoactive bowel sounds, soft to palpation, non-tender, non- distended and no masses Back/Spine no thoracic nor lumbar tenderness Back/Spine Narrative: CVA tenderness on the right. Extremity normal to inspection General Extremety ED: Negative for edema General Extremity: Negative for edema Neuro oriented x3, CN's II-XII intact bilaterally, no sensory deficits noted and gait normal Sensorium / Orientation: awake, alert, oriented to person, oriented to place and oriented to time Motor Exam: strength 5/5 throughout and strength abnormal Psych mental status grossly normal Skin no rashes or lesions noted and no wounds MDM MDM MDM Narrative Medical decision making narrative: Patient presents with right flank pain typical of kidney stone pain as he has passed stones before. Clinically looks well. IV line established. Patient was medicated with Dilaudid as well as Toradol and Z (more content not included)... Normal [facility] Erythrocyte distribution wid th ratioOrdered By: Jose Alfredo Moore on 05-17-2023 Erythrocyte distribution width (RBC) [Ratio] 11.9 % 11.6-14.[address] [facility] Erythrocyte distribution wid th standard deviationOrdered By: Jose Alfredo Moore on 05-17-2023 Erythrocyte distribution width (RBC) [Entitic vol] 38.2 fL 35.1-43.9 [facility] Hematocrit Auto (Bld) [Volum e fraction]Ordered By: Jose Alfredo Moore on 05-17-2023 Hematocrit (Bld) [Volume fraction] 44.6 % 40-[address] [facility] Immature granulocytes/100 WB C Auto (Bld)Ordered By: [facility] on 05-17-2023 Immature granulocytes/100 WBC (Bld) 0.300 % 0.0-0.[address] [facility] Comment on above: IG% - Immature Granu locytes (promyelocytes, myelocytes and metamyelocytes) > 1% indicates that a LEFT SHIFT is Present. Ketones Test strip Ql (U)Ord ered By: Jose Alfredo Moore on 05-17-2023 Ketones Ql (U) 5 mg/dl Negative [facility] - Chemistry and C hemistry - challengeOrdered By: Jose Alfredo Moore on 05-17-2023 CO2 [Moles/Vol] 30.0 mmol/L 21.0-32.[address] [facility] Urea nitrogen/Creatinine [Mass ratio] 13.4 mg/mg 10-[address] [facility] - Hematology and Cell countsOrdered By: Jose Alfredo Moore on 05-17-2023 MCH (RBC) [Entitic mass] 29.4 pg 27.0-32.[address] [facility] MCHC (RBC) [Mass/Vol] 33.9 g/dL 32-36 [facility] Nucleated RBC/100 WBC (Bld) [Ratio] 0 % 0-[address] [facility] Platelet mean volume (Bld) [Entitic vol] 10.0 fL 6.2-12.[address] [facility] Platelets (Bld) [#/Vol] 325 10*3/uL 150-[address] [facility] Mucus LM Ql (Urine sed)Order ed By: Jose Alfredo Moore on 05-17-2023 Mucus Ql (Urine sed) 0 SEEN /hpf [facility] Nitrite Test strip Ql (U)Ord ered By: Jose Alfredo Moore on 05-17-2023 Nitrite Ql (U) Negative Negative [facility] No Panel InformationOrdered By: Jose Alfredo Moore on 05-17-2023 Urine RBC 25-50 SEEN /hpf 0-[address] [facility] Estimated Creatinine Clearance Calc 101.73 ml/min [facility] Estimated GFR (MDRD) Amer 125 mL/min >[address] [facility] Comment on above: GFR Calc Estimated GFR (MDRD) Non-Af Amer 103 mL/min >[address] [facility] Comment on above: Non- GFR Calc Protein Test strip Ql (U)Ord ered By: Jose Alfredo Moore on 05-17-2023 Protein Ql (U) 100 mg/dl Negative [facility] RBC Auto (Bld) [#/Vol]Ordere d By: Jose Alfredo Moore on 05-17-2023 RBC (Bld) [#/Vol] 5.13 10*6/uL 4.6-6.[address] [facility] Serum or plasma calcium antionette urement (mass/volume)Ordered By: Jose Alfredo Moore on 05-17-2023 Calcium [Mass/Vol] 9.0 mg/dL 8.5-10.[address] [facility] Serum or plasma creatinine m easurement (mass/volume)Ordered By: Jose Alfredo Moore on 05-17-2023 Creatinine [Mass/Vol] 0.89 mg/dL 0.70-1.30 [facility] Comment on above: The validity of the calculated GFR & GFRAA in patients over 70 years has not been determined. Clinical correlation is essential. Serum or plasma urea nitroge n measurement (mass/volume)Ordered By: Jose Alfredo Moore on 05-17-2023 Urea nitrogen [Mass/Vol] 12 mg/dL 7-[address] [facility] Squamous epithelial cells de tection in urine sediment by light microscopyOrdered By: Jose Alfredo Moore on 05-17-2023 Epithelial cells.squamous LM Ql (Urine sed) 0 SEEN /hpf 0-[address] [facility] Thin prep Papanicolaou smear with manual screeningOrdered By: Jose Alfredo Moore on 05-17-2023 Thin prep Papanicolaou smear with manual screening 5 5-[address] [facility] Urinalysis, Completeon 05-16 AMORPHOUS 2+ Normal [facility] Comment on above: Order Comment: CLEAN CATCH Performed By: #### L 400.0001 #### [facility] [address] [place], [address] BACTERIA 2+ /hpf Normal None Seen [facility] Comment on above: Order Comment: CLEAN CATCH Performed By: #### L 400.0001 #### [facility] [address] [place], [address] RBC 25-50 SEEN Normal 0-[address] [facility] Comment on above: Order Comment: CLEAN CATCH Performed By: #### L 400.0001 #### [facility] [address] [place], [address] WBC 0-5 SEEN Normal 0-[address] [facility] Comment on above: Order Comment: CLEAN CATCH Performed By: #### L 400.0001 #### [facility] [address] [place], [address] EPI,SQUAMOUS 0 SEEN Normal 0-[address] [facility] Comment on above: Order Comment: CLEAN CATCH Performed By: #### L 400.0001 #### [facility] [address] [place], [place], [address] Mucus Ql (Urine sed) 0 SEEN Normal [facility] [facility] Comment on above: Order Comment: CLEAN CATCH Performed By: #### L 400.0001 #### [facility] [address] [place], [place], [address] Urine blood detectionOrdered By: Remus Teresa on 05-17-2023 RBC Ql (U) 250 /ul Negative [facility] Urine clarityOrdered By: Rem us Teresa on 05-17-2023 Clarity (U) Cloudy Clear [facility] Urine color determinationOrd ered By: Remus Moore on 05-17-2023 Color (U) Yellow Yellow [facility] Urine glucose detectionOrder ed By: Remus Teresa on 05-17-2023 Glucose Ql (U) Normal mg/dl Normal [facility] Urine leukocyte esterase det ection by dipstickOrdered By: Remus Moore on 05-17-2023 Leukocyte esterase Test strip Ql (U) 25 /ul Negative [facility] Urine pHOrdered By: Rem Un gur on 05-17-2023 pH (U) 5.0 [pH] 5.0 - 8.[address] [facility] Urine sediment bacteria coun t by microscopy (number/high power field)Ordered By: Jose Alfredo Moore on 05-17-2023 Bacteria LM.HPF (Urine sed) [#/Area] 2 /[HPF] None Seen [facility] Urine specific gravity measu rementOrdered By: Remus Moore on 05-17-2023 Specific gravity (U) [Rel density] 1.025 1.002-1.[address] [facility] Urine urobilinogen measureme ntOrdered By: Remus Teresa on 05-17-2023 Urobilinogen Ql (U) 1 mg/dl Normal [facility] Urine Cultureon 05-10-2023 URC Culture exhibits no growth. Normal [facility] Comment on above: Performed By: #### M 100.2200 #### [facility] [address] [place], [place], [address] Culture, urineOrdered By: Dajuan Brower on 05-09-2023 Bacteria identified Cx Nom (U) Culture exhibits no growth. [facility] CT CHEST W/O CONTRASTon 10-04 CT CHEST W/O CONTRAST [address] [address] Patient: AMANDA KIMBALL Phone#: : 1990 Age: 26 Gender: M Pt. Type: Out Account: [id number] Location: 052 Ordering: [employer] Exam Date: 10/20/2016/13:46 Family Phys: Charge Code: [id number] Physician: Andrews Order #: [id number] DLP Dose#: PROCEDURE: CT CHEST WITHOUT CONTRAST COMPARISON: [facility], CT, CHEST W CON, 06/08/2015, 9:13. INDICATIONS: Pulmonary nodule TECHNIQUE: CT images were created without the administration of contrast material. All CT scans at this facility use dose modulation, iterative reconstruction, and/or weight based dosing when appropriate to reduce radiation dose to as low as reasonably achievable. IV CONTRAST: No IV contrast used,0ml TOTAL DOSE: 3.6 CTDIvol(mGy) FINDINGS: LUNGS: Previously noted nodule in the anterior right upper thorax is similar in size and contour. Associated calcifications are present. There is mild apical pleural thickening at the anterior right upper thorax. No other focal nodule is identified. Previously noted nodular focus in the left lower lobe is stable. VASCULATURE: Normal. Thrombus cannot be excluded without intravenous contrast. ANTONIO: Normal. No mass or adenopathy. MEDIASTINUM: Normal. No mass or adenopathy. CARDIAC: Normal. No enlargement, pericardial thickening, or significant calcification. PLEURA: Normal. No mass or effusion. AORTA: Normal. No aneurysm. CHEST WALL: Normal. No mass or axillary adenopathy. LIMITED ABDOMEN: Abnormal attenuation in the center of the gallbladder raises possibility of a gallbladder calculus. Continued Report - Page 2 of 2 Patient: AMANDA KIMBALL Phone#: : 1990 Age: 26 Gender: M Pt. Type: Out Account: [id number] Location: 052 Ordering: [employer] Exam Date: 10/20/2016/13:46 Family Phys: Charge Code: [id number] Physician: Andrews Order #: [id number] DLP Dose#: BONES: Schmorl's nodes are noted at the lower thoracic and upper lumbar spine. OTHER: Negative. CONCLUSION: 1. Stable right upper lobe and left lower lobe nodular foci. 2. Probable cholelithiasis. Dictated by: Meagan Russo MD on 10/20/2016 at 14:19 Approved by: Meagan Russo MD on 10/20/2016 at 14:19 Normal [facility] Vital Signs Date Time Vital Sign Value Performing Clinician Faci lity 05-17-2023 11:22-0400 Body temperature 97.8 [degF] [facility] 05-17-2023 11:22-0400 Diastolic blood pressure 78 mm[Hg] [facility] 05-17-2023 11:22-0400 Heart rate 87 /min [facility] 05-17-2023 11:22-0400 Respiratory rate 16 /min [facility] 05-17-2023 11:22-0400 SaO2% (BldA) [Mass fraction] 99 % [facility] 05-17-2023 11:22-0400 Systolic blood pressure 118 mm[Hg] [facility] 05-17-2023 09:41-0400 Body height 165.1 cm [facility] 05-17-2023 09:41-0400 Body mass index (BMI) [Ratio] 26.9 kg/m2 [facility] 05-17-2023 09:41-0400 Body weight 73.48 kg [facility] 09-20-2021 10:13-0400 Body height 165.1 cm [facility] Work Phone: 09-20-2021 10:13-0400 Body mass index (BMI) [Ratio] 23.3 kg/m2 [facility] Work Phone: 09-20-2021 10:13-0400 Body temperature 97.8 [degF] [facility] Work Phone: 09-20-2021 10:13-0400 Body weight 63.5 kg [facility] Work Phone: 09-20-2021 10:13-0400 Diastolic blood pressure 89 mm[Hg] [facility] Work Phone: 09-20-2021 10:13-0400 Heart rate 76 /min [facility] Work Phone: 09-20-2021 10:13-0400 Respiratory rate 16 /min [facility] Work Phone: 09-20-2021 10:13-0400 SaO2% (BldA) [Mass fraction] 100 % [facility] Work Phone: 09-20-2021 10:13-0400 Systolic blood pressure 139 mm[Hg] [facility] Work Phone: Encounters Encounter Date Encounter Type Care Provider Facility Start: 05-17-2023 End: 05-17-2023 Emergency department patient visit [facility] Facility:[facility] Start: 05-17-2023 End: 05-17-2023 Emergency department patient visit [facility] Work Phone: Start: 05-09-2023 End: 05-09-2023 [facility] Work Phone: Start: 05-09-2023 End: 05-09-2023 Patient encounter procedure [facility], Specimen Work Phone: Start: 09-20-2021 End: 09-20-2021 Emergency department patient visit [facility] Start: 10-20-2016 End: 10-20-2016 Ambulatory [facility] Procedures Date Procedure Procedure Detail Performing Clinician Start: 05-17-2023 CT of abdomen and pe lvis without contrast Start: 05-09-2023 Urine culture Start: 09-20-2021 Plain X-ray of shoulder Plan of Treatment Date Care Activity Detail Author Start: 05-17-2023 [facility] Patient Education [facility] Work Phone: Patient referral [facility] Work Phone: Payers Date Payer Category Payer Self-pay [id number] 2023 Unknown [id number] Unknown [id number] Unknown [id number] Social History Date Type Detail Facility Start: 09-20-2021 End: 05-17-2023 Tobacco smoking status NHIS Unknown if ever smoked [facility] Start: 12-23-2019 None [facility] Start: 12-23-2019 Spouse/ Signif icant Other [facility] Start: 12-23-2019 Cigarettes [facility] Start: 1990 Sex Assigned At Male [facility] Evaluation note Note Date & Type Note Facility Evaluation note No assessment information availa ble 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 No May 16 24 10:06am Chief Complaint and Reason for Visit Chief Complaint RT SHOULDER PAIN Chief Complaint FLANK PAIN Additional Source Comments (unrecognized sect ion and content) No Status Records FoundNo Status Records Found INFORMATION SOURCE (unrecogn ized section and content) DATE CREATED AUTHOR [facility]/2017 [facility] DATE CREATED AUTHOR AUTHOR'S ORGANIZ ATION 05/24/2023 [facility] Goals (unrecognized section and content) Goals may be documented in a n alternate sectionGoals may be documented in an alternate sectionGoals may be documented in an alternate section Care Teams (unrecognized sec tion and content) Team Status: Active Member Role Status Dates Dr. Brittany Forrest MD Family Provider Active Dr. Derik Brower DO Primary Care Provider Active Team Status: Inactive Member Role Status Dates Dr. Derik Brower DO Primary Care Provider, Attendin g Provider Active Team Status: Inactive Member Role Status Dates Dr. Derik Brower DO Primary Care Provider Active Dr. Jose Alfredo Moore DO Emergency Provider Active FOR RECORDS PERTAINING TO PATIENTS WHO ARE [...] BE BASED ON THE PRIMARY CLINICAL RECORDS. [facility] [employer] provides no warranty or guarantee of the accuracy or completeness of information in this document.
--- NOTE | 2024-10-09 04:10 | RAD_ITS ---
PROCEDURE: ACUTE ABDOMEN INC CHEST 10/09/2024 REASON FOR EXAM: ABD PAIN TECHNIQUE: ACUTE ABDOMEN INC CHEST COMPARISON: CT 05/17/2023 FINDINGS: Normal heart size. Well inflated lungs. Right upper lobe hamartoma. No consolidation, effusion, or pneumothorax. No free air. Nonobstructed bowel. Mild stool. No concerning calcifications. RAD/Acute Abdomen Inc Chest IMPRESSION: Clear lungs. Nonobstructed bowel pattern. Reading [facility]
[2024-10-09 04:23] LABS: AST(SGOT) 35 U/L (<=37); Alanine Aminotransfer ALT/SGPT 36 U/L (<=46); Albumin, Serum 4.3 g/dL (3.5-5.0); Alkaline Phosphatase 62 U/L (40-129); Anion Gap 11 (5-15); BUN 18 mg/dL (4-19); BUN/Creat Ratio 20.8 RATIO (10-20); Bilirubin, Direct 0.11 mg/dL (0.00-0.30); Calcium,Total 9.6 mg/dL (7.6-11.0); Carbon Dioxide 25.8 mmol/L (21.0-32.0); Chloride 104 mmol/L (98-108); Estimated Creatinine Clearance 103.09 ml/min (50-250); Globulin 2.2 g/dL (2.2-4.2); Glucose 117 mg/dL (70-99); Lipase 32 U/L (13-75); Potassium 3.7 mmol/L (3.3-5.1)
[2024-10-09 05:00] VITALS: BP 119/84; PULSE 60; RESP 18; O2SAT 99
--- NOTE | 2024-10-09 05:18 | EDS_ITS ---
HPI History of Present Illness Chief Complaint: Abd Pain Informant: patient Narrative Narrative: Patient is a 33-year-old male with past medical history of anxiety as well as remote history of kidney stone. He states over the past month he has had intermittent upper abdominal discomfort that he describes more as a burning sensation. He states he cannot relate it to physical activity or eating or drinking. He states that typically the symptoms will last for a few minutes or few hours and then resolve spontaneously. He states however this evening the symptoms came on and have not improved keeping him from sleeping and secondary to this he comes in for evaluation [facility] Medical History (Updated 10/09/24 @ 07:[address] Dionte Hendrix, DO) Kidney stones Neck pain Shoulder injury Home Medications ?Medication ?Instructions ?Recorded ?Last Taken ?Type gabapentin 100 mg capsule 200 mg PO BID 05/17/23 Unkno wn History pantoprazole 40 mg tablet,delayed 40 mg PO DAILY 30 da ys #30 tabs 10/09/24 Unknown Rx release (Protonix) Allergy/AdvReac Type Severity Reaction Status Date / Time No Known Allergies Allergy Verified 10/09/24 03:25 Social History Smoking Status: Heavy Smoker (>10/day) ROS ROS ED Constitutional Constitutional ED: Denies chills or fever(s) Eyes Eyes: Denies change in vision ENT ENT ED: Denies sore throat Cardiovascular Cardiovascular: Denies chest pain Respiratory/Chest Respiratory/Chest: Denies cough or dyspnea Gastrointestinal Gastrointestinal: Reports abdominal pain; Denies diarrhea, nausea or vomiting Genitourinary Genitourinary ED: Denies dysuria or hematuria Musculoskeletal Musculoskeletal: Denies back pain Integumentary Denies rash Neurologic Neurologic: Denies headache(s) Psychiatric Psychiatric: Reports anxiety Hematologic/Lymphatic Hematologic/Lymphatic: Denies easy bleeding or easy bruising EXAM Physical Exam Const Vital Signs: 10/09/24 03:21 10/09/24 05:00 10/09/24 05:24 Temperature 97.6 F L 98 F Temperature Source Oral Pulse Rate 74 60 62 Respiratory Rate 16 18 18 Blood Pressure 142/87 H 119/84 H 120/88 H Blood Pressure Mean 105 95 98 Pulse Ox 100 99 100 Oxygen Delivery Method Room Air Room Air Positive well nourished and well developed General Appearance ED: well developed; Negative for pallor HEENT Reports moist mucous membranes HEENT Narrative: No tongue or lip swelling no oral lesions no airway edema or compromise No secondary findings in the posterior pharynx to suggest infection Eyes PERRL and EOMs intact bilaterally General Eye ED: Negative for scleral icterus Neck supple Chest Wall palpation of chest normal Resp normal respiratory effort and clear to auscultation bilaterally Cardio regular rate and regular rhythm Rate: other Other Details: Heart is regular rate and rhythm without murmurs rubs or gallop Radial and carotid pulses are equal and symmetric GI non-distended and no masses GI Narrative: Abdomen is soft and nondistended with normal active bowel sounds. Patient has pain with palpation in the midepigastric and right upper quadrant region. No voluntary guarding or rigidity or pulsatile mass. Negative Pollock sign. Auscultation: normoactive bowel sounds Palpation: soft Back/Spine no CVA tenderness Extremity normal to inspection Neuro oriented x3, CN's II-XII intact bilaterally and no sensory deficits noted Sensorium / Orientation: alert Motor Exam: strength 5/5 throughout Psych Mood & Affect: anxious Skin no rashes or lesions noted and no wounds General Skin Exam: Negative for jaundice or pallor MDM MDM MDM Narrative Medical decision making narrative: Patient arrived to the ER mildly hypertensive but overall stable vitals. With his report of intermittent pain over the past month there is concern for gastritis versus pancreatitis versus biliary colic. His history and exam is most consistent with gastritis as he could not relate the intermittent pain with specific foods or directly tie it towards eating. Basic blood work obtained which showed normal lipase going against acute pancreatitis and normal liver enzymes going against biliary colic or acute cholecystitis. X-ray of the abdomen also revealed no signs of perforation ileus or obstruction. After receiving a GI cocktail and Protonix the patient did report resolution of his symptoms and his abdomen remains soft and nonsurgical. Therefore at this time his workup and exam is most consistent with gastritis and patient's symptoms have resolved with provided care there is no need for CT scan or further intervention in the ER and is otherwise safe for discharge History & Record Review Discussion w/independent historian: Patient Lab Data Attestation: I reviewed the patient's lab results. Labs: Laboratory Results - last 24 hr 10/09/24 03:49 WBC 5.8 RBC 4.71 Hgb 14.2 Hct 40.7 MCV 86.4 MCH 30.1 MCHC 34.9 RDW Std Deviation 37.9 RDW Coeff of Jeancarlos 11.9 Plt Count 254 MPV 9.6 Immature Gran % (Auto) 0.200 Neut % (Auto) 52.8 Lymph % (Auto) 36.4 [place] % (Auto) 8.3 Eos % (Auto) 1.6 Baso % (Auto) 0.7 Absolute Neuts (auto) 3.1 Absolute Lymphs (auto) 2.10 Nucleated RBC % 0 Sodium 140 Potassium 3.7 Chloride 104 Carbon Dioxide 25.8 Anion Gap 11 BUN 18 Creatinine 0.87 Estim Creat Clear Calc 103.09 Est GFR (MDRD) Non-Af 116 BUN/Creatinine Ratio 20.8 H Glucose 117 H Calcium 9.6 Total Bilirubin 0.24 Direct Bilirubin 0.11 AST 35 ALT 36 Alkaline Phosphatase 62 Total Protein 6.5 Albumin 4.3 Globulin 2.2 Lipase 32 Radiography Diagnostic Testing: Clinical Impression(s) from Imaging Studies Acute Abdomen Series 10/09/24 04:10 IMPRESSION: Clear lungs. Nonobstructed bowel pattern. Reading Location: [place] [id number] Acute abdominal series 1 view chest as interpreted by the emergency medicine physician reveals a nonobstructive nonspecific bowel gas pattern and chest x-ray component reveals no acute infiltrate or pneumothorax Discharge Plan Triage Chief Complaint: Abd Pain ED Provider: Dionte Hendrix Dx/Rx/DC Orders Clinical Impression: Gastritis and duodenitis, Anxiety Instructions: Understanding Gastritis, ED Gastritis (Adult) Prescriptions: New pantoprazole [Protonix] 40 mg tablet,delayed release (DR/EC) 40 mg PO DAILY 30 Days Qty: 30 0RF No Action gabapentin 100 mg capsule 200 mg PO BID Primary Care Provider: Derik Brower Referrals: Derik Brower DO [Primary Care Provider] - Activity Restrictions/Additional Instructions: Your history and exam and workup indicate your symptoms are secondary to inflammation throughout the stomach and intestine known as gastritis. Please take the Protonix as prescribed to help reduce your symptoms and control any further pain. Talk to your family doctor about a GI referral for potential EGD and return to the ER should you have any further concerns Print Language: Albanian Disposition Disposition: Home, Self Care Discharge Date/Time: 10/09/24 05:25
[2024-10-09 05:24] VITALS: BP 120/88; PULSE 62; RESP 18; TEMP 36.6; O2SAT 100
== END 2024-10-09 05:25 | disposition home or self-care (01) ==
PROVIDERS: Emergency Provider Emergency Medicine; PCP Family Medicine; Visit Provider Emergency Medicine
DX: K29.70 Gastritis, unspecified, without bleeding (principal); K29.80 Duodenitis without bleeding; F41.9 Anxiety disorder, unspecified; F17.200 Nicotine dependence, unspecified, uncomplicated
CPT/HCPCS: 74022; 80048; 80076; 83690; 85025; 96365; 99283; A4216

== ENCOUNTER 2024-11-17 02:16 | Emergency (ER) | payer BC, SELFPAY ==
[2024-11-17 02:16] VITALS: BP 134/102; PULSE 71; RESP 16; TEMP 36.4; O2SAT 100; BMI 26.7
--- NOTE | 2024-11-17 02:39 | CT_ITS ---
PROCEDURE: ABDOMEN/PELVIS W IV CONT ONLY 11/17/2024 REASON FOR EXAM: EPIGASTRIC ABDOMINAL PAIN Abdominal pain. TECHNIQUE: Procedure Code: [id number] Modality: CT Procedure: ABDOMEN/PELVIS W IV CONT ONLY Coronal and Sagittal reconstruction series were provided. CONTRAST: Isovue 370 VOLUME: 90 mL One or more dose reduction techniques were used (e.g., Automated exposure control, adjustment of the mA and/or kV according to patient size, use of iterative reconstruction technique. RADIATION DOSE SUMMARY: CTDlvol: 30 mGy DLP: 481 mGycm COMPARISON: May 2023. FINDINGS: Lung bases: Negative. ABDOMEN Liver: Negative. Biliary system: Negative. Negative for intrahepatic or extrahepatic ductal dilatation. Gallbladder: Contains stones. Negative for cholecystitis. Spleen: Negative. Pancreas: Negative. Adrenals: Negative. Kidneys: Negative. Negative for kidney stones, cysts or masses. Bowel: Moderate increased stool throughout the colon. Negative for small or large-bowel obstruction. Appendix: Negative. Vasculature: Negative for atherosclerotic vascular calcifications of the abdominal aorta and its branches. Peritoneum / Retroperitoneum: Negative. PELVIS Lymph nodes: Negative for inguinal or iliac adenopathy. Bladder: Urinary bladder negative. Reproductive Organs: Prostate negative. Bones and Soft Tissues: Age appropriate degenerative changes of the lumbar spine hips and pelvis. CT/Abdomen/Pelvis W IV Cont ONLY IMPRESSION: Negative for acute intra-abdominal or pelvic pathology. Cholelithiasis. Reading Location: [id number]
--- NOTE | 2024-11-17 02:41 | EDS_ITS ---
HPI HPI - GI History of Present Illness Chief Complaint: Abd Pain Narrative Narrative: Patient is a 34-year-old male presenting to the emergency department for epigastric abdominal pain. Patient has a past medical history of anxiety as well as kidney stones. States that he was here a month ago for the same pain and was diagnosed with gastritis. States he has been taking his Protonix at home which has been helping with the pain. Reports that this evening around 10:30 PM he developed worsening epigastric pain. It does not radiate anywhere. Denies any chest pain or shortness of breath. Reports nausea with few episodes of nonbloody, nonbilious vomiting. States he has been stooling normally, no diarrhea or constipation. No dysuria or hematuria. Denies any fever or chills. States that the pain was constant since 10:30 PM and he could not fall asleep with it which is why he came in to be evaluated. [facility] Medical History Kidney stones Neck pain Shoulder injury Home Medications ?Medication ?Instructions ?Recorded ?Last Taken ?Type gabapentin 100 mg capsule 200 mg PO BID 05/17/23 Unkno wn History pantoprazole 40 mg tablet,delayed 40 mg PO DAILY 30 da ys #30 tabs 10/09/24 Unknown Rx release (Protonix) sucralfate 1 gram tablet (Carafate) 1 g PO TID 1 week #21 tabs 11/17/24 Unknown Rx Allergy/AdvReac Type Severity Reaction Status Date / Time No Known Allergies Allergy Verified 10/09/24 03:25 Social History Smoking Status: Heavy Smoker (>10/day) ROS ROS ED ROS Narrative See HPI EXAM Physical Exam Narrative Exam Narrative: Vital signs: Reviewed General: Alert and oriented x 3. No acute distress HEENT: Head is normocephalic and atraumatic, sinuses nontender, pupils equal round and reactive. Nares are patent. Oropharynx and throat exams normal. Neck: Supple without lymphadenopathy nontender Cardiovascular: Regular rate and rhythm, no murmurs. No rubs or gallops. Normal S1 and S2 Respiratory: Clear to auscultation bilaterally. No wheezes, rales, rhonchi Abdominal: Soft and tender to palpation in the epigastric and right upper quadrants. No Pollock sign. Normal bowel sounds. No guarding or rebound. Nonsurgical abdomen Extremities: No tenderness. No bruising. Normal range of motion. Normal sensation. Skin: No rash or redness. The rest of the physical exam is unremarkable Const Vital Signs: 11/17/24 02:16 11/17/24 06:52 11/17/24 06:52 Temperature 97.5 F L 97.9 F 97.9 F Temperature Source Oral Oral Pulse Rate 71 68 68 Respiratory Rate 16 16 16 Blood Pressure 134/102 H 120/69 120/69 Blood Pressure Mean 112 86 86 Pulse Ox 100 97 97 Oxygen Delivery Method Room Air Room Air MDM MDM MDM Narrative Medical decision making narrative: Patient is a 34-year-old male presenting to the emergency department for epigastric abdominal pain. Patient was seen and examined. Vitals are stable. He is mildly hypertensive on arrival at 134/102. Differential includes but is not limited to: Gastritis, duodenitis, pancreatitis, biliary colic, less likely perforated ulcer, cholecystitis, choledocholithiasis, ACS Given GI cocktail and protonix as well as zofran for symptomatic control. Labs and imaging ordered. EKG shows sinus bradycardia with a sinus arrhythmia. No ischemic changes. No abnormal T wave inversions, ST elevation or depression. Given the normal EKG and HPI I do not think this is ACS related. CBC with no leukocytosis and normal hemoglobin. CMP with no significant abnormalities. Normal liver enzymes. Normal lipase. CT of the abdomen pelvis negative for acute intra-abdominal abnormalities. There is cholelithiasis but no evidence of acute cholecystitis. Patient reevaluated and feels improved after the GI cocktail and Protonix. Notified of the negative workup. He was prescribed Carafate. States he has been taking his Protonix. I did give him GI follow-up for possible EGD. Patient discharged from the Emergency Department. I do not feel that the patient's evaluation reveals any acute reason for admission at this time. I instructed them to either follow-up with their primary care physician or promptly return to the Emergency Department for reevaluation should symptoms worsen or new symptoms develop. I explained what symptoms would indicate the need to return to the emergency department. Shared decision making was used. The patient voiced understanding of the treatment plan and is agreeable with it. Clinical impression: Gastritis History & Record Review Discussion w/independent historian: Patient Lab Data Attestation: I reviewed the patient's lab results. Labs: Laboratory Results - last 24 hr 11/17/24 02:32 WBC 6.2 RBC 5.00 Hgb 14.9 Hct 42.9 MCV 85.8 MCH 29.8 MCHC 34.7 RDW Std Deviation 36.3 RDW Coeff of Jeancarlos 11.8 Plt Count 273 MPV 9.6 Immature Gran % (Auto) 0.300 Neut % (Auto) 51.5 Lymph % (Auto) 39.3 [place] % (Auto) 7.3 Eos % (Auto) 1.1 Baso % (Auto) 0.5 Absolute Neuts (auto) 3.2 Absolute Lymphs (auto) 2.43 Nucleated RBC % 0 Sodium 140 Potassium 3.8 Chloride 101 Carbon Dioxide 26.8 Anion Gap 12 BUN 15 Creatinine 0.96 Estim Creat Clear Calc 92.53 Est GFR (MDRD) Non-Af 105 BUN/Creatinine Ratio 15.7 Glucose 127 H Calcium 9.5 Total Bilirubin 0.29 AST 19 ALT 16 Alkaline Phosphatase 54 Total Protein 7.1 Albumin 4.5 Globulin 2.6 Albumin/Globulin Ratio 1.7 Lipase 28 Radiography Diagnostic Testing: Clinical Impression(s) from Imaging Studies Abdomen/Pelvis CT 11/17/24 02:39 IMPRESSION: Negative for acute intra-abdominal or pelvic pathology. Cholelithiasis. Reading Location: [id number] Discharge Plan Triage Chief Complaint: Abd Pain ED Provider: Karla Marshall Dx/Rx/DC Orders Clinical Impression: Gastritis Instructions: ED Gastritis (Adult) Prescriptions: New sucralfate [Carafate] 1 gram tablet 1 g PO TID 7 Days Qty: 21 0RF No Action gabapentin 100 mg capsule 200 mg PO BID pantoprazole [Protonix] 40 mg tablet,delayed release (DR/EC) 40 mg PO DAILY 30 Days Qty: 30 0RF Primary Care Provider: Derik Brower Referrals: Derik Brower DO [Primary Care Provider] - Arik Perez DO [Med Staff - Active Staff] - 3-5 Days Activity Restrictions/Additional Instructions: Take the Carafate and Protonix as prescribed. Follow-up with the GI doctor below Dr. Perez. Your evaluation in the Emergency Department did not reveal any acute reason for admission. However, I want to emphasize that you may be early in the course of a disease process or illness even if it is not present. For this reason you should follow-up within 24 hours for reevaluation with either your primary care physician or if necessary back here in the Emergency Department. You should return to the Emergency Department immediately if your symptoms worsen or new symptoms develop. Print Language: Bengali Disposition Disposition: Home, Self Care Discharge Date/Time: 11/17/24 06:54
--- NOTE | 2024-11-17 02:45 | EKG12_ITS ---
Test Reason : DYSRHYTHMIA Blood Pressure : */* mmHG Vent. Rate : 59 BPM Atrial Rate : 59 BPM P-R Int : 160 ms QRS Dur : 88 ms QT Int : 398 ms P-R-T Axes : 77 69 71 degrees QTcB Int : 394 ms Sinus bradycardia with sinus arrhythmia Otherwise normal ECG Confirmed by Nilay Herman ([id number]), newspaper managing editor AUSTEN GOLDSTEIN ([id number]) on 11/18/2024 1:25:06 PM Referred By: Confirmed By: Nilay Herman
[2024-11-17 02:51] LABS: Hematocrit 42.9 % (40-54); Hemoglobin 14.9 g/dL (13.0-16.5); Immature Granulocytes Count 0.020 X10^3/uL (0.0-0.0); Mean Corp Hgb Conc 34.7 g/dL (32-36); Mean Corpuscular Volume 85.8 fL (80-94); Mean Platelet Vol. 9.6 fl (6.2-12.0); NRBC Flagged by Analyzer 0 % (0-5); Platelet Count 273 K/mm3 (150-450); RBC Distribution Width CV 11.8 % (11.6-14.6); RBC Distribution Width SD 36.3 fl (35.1-43.9); Red Blood Count 5.00 M/mm3 (4.6-6.2); White Blood Count 6.2 K/mm3 (4.4-11.0)
[2024-11-17] MEDS: Lidocaine 2% Viscous15 ML UDC 15 ML PO (02:56)
[2024-11-17 03:18] LABS: AST(SGOT) 19 U/L (<=37); Alanine Aminotransfer ALT/SGPT 16 U/L (<=46); Albumin, Serum 4.5 g/dL (3.5-5.0); Alkaline Phosphatase 54 U/L (40-129); Anion Gap 12 (5-15); BUN 15 mg/dL (4-19); BUN/Creat Ratio 15.7 RATIO (10-20); Calcium,Total 9.5 mg/dL (7.6-11.0); Carbon Dioxide 26.8 mmol/L (21.0-32.0); Chloride 101 mmol/L (98-108); Estimated Creatinine Clearance 92.53 ml/min (50-250); Globulin 2.6 g/dL (2.2-4.2); Glucose 127 mg/dL (70-99); Lipase 28 U/L (13-75); Potassium 3.8 mmol/L (3.3-5.1)
--- OUTSIDE RECORDS SUMMARY | 2024-11-17 04:54 | XMS RPT_ITS | CCD ---
Author Organization [facility] Care Team Providers Care Burnisher Name Role Phone EMMA, BRITTANY Mccann Unavailable Unavailable BAY, BRITTANY Mccann Unavailable Unavailable BAY, BRITTANY Mccann Unavailable Unavailable BAY, BRITTANY Mccann Unavailable Unavailable PROVIDER, UNKNOWN Unavailable Unavailable Dr. Derik Brower DO Primary Care Provider [phone] Dr. Diotne Hendrix DO Emergency Provider [phone] Dionte Hendrix Attending Unavailable eDrik Brower Primary Care Unavailable Allergies Allergy Classification Reported Allergen(s) Allergy Type Date of Onset Reaction(s) Facility (1 source) bee venom Drug allergy (disorder) [facility] Repository Medications Current Medications Medication Drug Class(es) Dates Sig (Normalized) Sig (Original) gabapentin 100 mg oral capsule (2 sources) Anti-epileptic Agent Start: 05-17-2023 take 2 capsules by mouth twice daily Gabapentin 100 mg capsule Active 200 mg PO TWICE A DAY May 17, 2023 12:00am Start: 05-17-2023 take 200 mg by mouth twice daily Gabapentin Active 200 MG PO TWICE A DAY May 17, 2023 12:00am pantoprazole 40 mg delayed release oral tablet (1 source) Proton Pump Inhibitor Start: 10-09-2024 take 1 tablet by mouth once daily Pantoprazole (Protonix) 40 mg tablet,delayed release (DR/EC) Active 40 mg PO DAILY 30 30 0 October 09, 2024 12:00am Completed/Discontinued Medications Medication Drug Class(es) Dates Sig (Normalized) Sig (Original) acetaminophen 325 mg / HYDROcodone bitartrate 5 mg oral tablet (4 sources) Opioid Agonist Start: 09-20-2021 End: 05-17-2023 Hydrocodone-Acetami nophen 5-325 mg tablet Discontinued 1 {tbl} PO EVERY 6 HOURS as needed for pain 10 3 0 September 20, 2021 May 17, 2023 10:06am Shoulder injury Start: 09-20-2021 End: 05-17-2023 take 1 tablet by mouth every six hours Hydrocodone-Acetaminophen Discontinued 1 TABLET PO EVERY 6 HOURS 10 September 20, 2021 May 17, 2023 10:06am acetaminophen 325 mg / oxyCODONE hydrochloride 5 mg oral tablet (2 sources) Opioid Agonist Start: 05-17-2023 End: 10-09-2024 Oxycodone-Acetaminophen 5-32 5 mg tablet Discontinued 1 {tbl} PO EVERY 6 HOURS NEEDED as needed for Pain 12 3 May 17, 2023 October 09, 2024 3:24am Urolithiasis Urinary calculus, unspecified Start: 05-17-2023 take 1 tablet by shira th every six hours as needed Oxycodone-Acetaminophen Active 1 TABLET PO EVERY 6 HOURS NEEDED 12 3 May 17, 2023 naproxen 500 mg oral tablet (6 sources) Nonsteroidal Anti-inflammatory Drug Start: 09-20-2021 End: 10-09-2024 take 1 tablet by mouth twice daily Naproxen 500 mg tablet Discontinued 500 mg PO TWICE A DAY 14 0 May 17, 2023 12:00am October 09, 2024 3:24am tiZANidine 4 mg oral capsule (4 sources) Central alpha-2 Adrenergic Agonist Start: 09-20-2021 End: 05-17-2023 take 1 capsule by mouth every eight hours as needed Tizanidine (Zanaflex) 4 mg capsule Discontinued 4 mg PO Q8H as needed for muscle spasticity 14 September 20, 2021 12:00am May 17, 2023 10:06am Problems Problem Classification Problem Date Documented Da te Episodic/Chronic Abdominal pain (1 source) Unspecified abdominal pain; Translations: [Unspecified abdominal pain] Onset: 11-05-2024 Episodic Anxiety disorders (4 sources) Anxiety; Translations: [Anxiety disorder, unspecified] 12-21-2019 Chronic Calculus of urinary tract (2 sources) Urolithiasis ; Translations: [Urinary calculus, unspecified] 05-17-2023 Episodic Gastritis and duodenitis (1 source) Gastroduodenitis; Translations: [Gastroduodenitis, unspecified, without bleeding] 10-09-2024 Episodic Gastroduodenal ulcer (except hemorrhage) (4 sources) Peptic ulcer; Translations: [Peptic ulcer, site unspecified, unspecified as acute or chronic, without hemorrhage or perforation] 12-24-2019 Chronic Other injuries and conditions due to external causes (4 sources) Injury of shoulder region; Translations: [Unspecified injury of shoulder and upper arm, unspecified arm, initial encounter] 09-20-2021 Episodic Results Test Name Value Interpretation Reference Range Facility Absolute lymphocyte countOrd ered By: Dionte Hendrix on 10-09-2024 Lymphocytes Auto (Unsp spec) [#/Vol] 2.10 10*3/uL 0.83-4.51 [facility] Absolute neutrophil countOrd ered By: Dionte Hendrix on 10-09-2024 Neutrophils (Bld) [#/Vol] 3.1 10*3/uL 2.0-7.7 [facility] Acute Abdomen Inc Cheston Acute Abdomen Inc Chest [facility] Imaging Services [address] [place] [address] Acute Abdomen Inc Chest MR#: [id number] Acct: [id number] Name: AMANDA KIMBALL Rep #: [id number] : 1990 M 33 From: Jl Holly MD PCP: Dr. Derik Brower DO Status: REG ER Study: Acute Abdomen Inc Chest Date of Exam: 10/09/24 Exam# [id number] Ordering Dr: Dionte Hendrix DO PROCEDURE: ACUTE ABDOMEN INC CHEST 10/09/2024 REASON FOR EXAM: ABD PAIN TECHNIQUE: ACUTE ABDOMEN INC CHEST COMPARISON: CT 05/17/2023 FINDINGS: Normal heart size. Well inflated lungs. Right upper lobe hamartoma. No consolidation, effusion, or pneumothorax. No free air. Nonobstructed bowel. Mild stool. No concerning calcifications. RAD/Acute Abdomen Inc Chest IMPRESSION: Clear lungs. Nonobstructed bowel pattern. Reading Location: [place] [address] CC: Dr. Derik Brower DO; Dionte Hendrix DO [employer] Supervisor: Signed Normal [facility] Anion gap in Serum or Plasma Ordered By: Dionte Hendrix on 10-09-2024 Anion gap [Moles/Vol] 11 mmol/L 5-15 [facility] Automated lymphocyte count a s percentage of total leukocytesOrdered By: Dionte Hendrix on 10-09-2024 Lymphocytes/100 WBC Auto (Unsp spec) 36.4 % -41 [facility] BUN/creatinine ratioOrdered By: Dionte Hendrix on 10-09-2024 Urea nitrogen/Creatinine [Mass ratio] 20.8 mg/mg High 12-23 [facility] Basic Metabolic Profile (BMP )on 10-09-2024 BUN/CRE 20.8 RATIO High - [facility] Comment on above: Performed By: #### L 500.2500, L501.2450, L100.0100, L500.3400 #### [facility] Laboratory [address] [place], [address] Calcium [Mass/Vol] 9.6 mg/dL Normal 7.6-11.0 [facility] Comment on above: Performed By: #### L 500.2500, L501.2450, L100.0100, L500.3400 #### [facility] Laboratory [address] [place], [address] Chloride [Moles/Vol] 104 mmol/L Normal 98-108 [facility] Comment on above: Performed By: #### L 500.2500, L501.2450, L100.0100, L500.3400 #### [facility] Laboratory [address] [place], [address] CO2 [Moles/Vol] 25.8 mmol/L Normal 21.0-32.0 [facility] Comment on above: Performed By: #### L 500.2500, L501.2450, L100.0100, L500.3400 #### [facility] Laboratory [address] [place], [address] Creatinine [Mass/Vol] 0.87 mg/dL Normal 0.70-1.20 [facility] Comment on above: Performed By: #### L 500.2500, L501.2450, L100.0100, L500.3400 #### [facility] Laboratory [address] [place], [address] ECRCL 103.09 ml/min Normal 50-250 [facility] Comment on above: Performed By: #### L 500.2500, L501.2450, L100.0100, L500.3400 #### [facility] Laboratory [address] [place], [address] GAP 11 Normal 5-15 [facility] Comment on above: Performed By: #### L 500.2500, L501.2450, L100.0100, L500.3400 #### [facility] Laboratory [address] [place], [address] GFR/1.73 sq M.predicted among non-blacks MDRD (S/P/Bld) [Vol rate/Area] 116 mL/min/{1.73_m2} Normal >60 [facility] Comment on above: Result Comment: mL/m in/1.73m2 CKD-EPI Creatinine Equation (2020) Performed By: #### L 500.2500, L501.2450, L100.0100, L500.3400 #### [facility] Laboratory [address] [place], [address] Glucose [Mass/Vol] 117 mg/dL High 70-99 [facility] Comment on above: Performed By: #### L 500.2500, L501.2450, L100.0100, L500.3400 #### [facility] Laboratory [address] [place], [address] Potassium [Moles/Vol] 3.7 mmol/L Normal 3.3-5.1 [facility] Comment on above: Performed By: #### L 500.2500, L501.2450, L100.0100, L500.3400 #### [facility] Laboratory [address] [place], [address] Sodium [Moles/Vol] 140 mmol/L Normal 133-145 [facility] Comment on above: Performed By: #### L 500.2500, L501.2450, L100.0100, L500.3400 #### [facility] Laboratory [address] [place], [address] Urea nitrogen [Mass/Vol] 18 mg/dL Normal 4-19 [facility] Comment on above: Performed By: #### L 500.2500, L501.2450, L100.0100, L500.3400 #### [facility] Laboratory [address] [place], [address] Basophil percentageOrdered B y: Dionte Hendrix on 10-09-2024 Basophils/100 WBC (Bld) 0.7 % 0-1 [facility] Bilirubin directOrdered By: Dionte Hendrix on 10-09-2024 Bilirubin.direct [Mass/Vol] 0.11 mg/dL 0.00-0.30 [facility] Bilirubin, totalOrdered By: Dionte Hendrix on 10-09-2024 Bilirubin [Mass/Vol] 0.24 mg/dL 0.00-1.30 [facility] CBC W/Diff, Automatedon Absolute Lymph 2.10 X10 3/uL Normal 0.83-4.51 [facility] Comment on above: Performed By: #### L 500.2500, L501.2450, L100.0100, L500.3400 #### [facility] Laboratory [address] [place], [address] Absolute Neut 3.1 X10 3/uL Normal 2.0-7.7 [facility] Comment on above: Performed By: #### L 500.2500, L501.2450, L100.0100, L500.3400 #### [facility] Laboratory [address] [place], [address] Basophils/100 WBC (Bld) 0.7 % Normal 0-1 [facility] Comment on above: Performed By: #### L 500.2500, L501.2450, L100.0100, L500.3400 #### [facility] Laboratory [address] [place], [address] Eosinophils/100 WBC (Bld) 1.6 % Normal 0-5 [facility] Comment on above: Performed By: #### L 500.2500, L501.2450, L100.0100, L500.3400 #### [facility] Laboratory [address] [place], [address] Erythrocyte distribution width (RBC) [Ratio] 11.9 % Normal 11.6-14.6 [facility] Comment on above: Performed By: #### L 500.2500, L501.2450, L100.0100, L500.3400 #### [facility] Laboratory [address] [place], [address] Hematocrit (Bld) [Volume fraction] 40.7 % Normal 40-54 [facility] Comment on above: Performed By: #### L 500.2500, L501.2450, L100.0100, L500.3400 #### [facility] Laboratory [address] [place], [address] Hemoglobin (Bld) [Mass/Vol] 14.2 g/dL Normal 13.0-16.5 [facility] Comment on above: Performed By: #### L 500.2500, L501.2450, L100.0100, L500.3400 #### [facility] Laboratory [address] [place], [address] IG% 0.200 Normal 0.0-0.9 [facility] Comment on above: Result Comment: IG% - Immature Granulocytes (promyelocytes, myelocytes and metamyelocytes) > 1% indicates that a LEFT SHIFT is Present. Performed By: #### L 500.2500, L501.2450, L100.0100, L500.3400 #### [facility] Laboratory [address] [place], [address] Lymphocytes/100 WBC (Bld) 36.4 % Normal 19-41 [facility] Comment on above: Performed By: #### L 500.2500, L501.2450, L100.0100, L500.3400 #### [facility] Laboratory [address] [place], [address] MCH (RBC) [Entitic mass] 30.1 pg Normal 27.0-32.0 [facility] Comment on above: Performed By: #### L 500.2500, L501.2450, L100.0100, L500.3400 #### [facility] Laboratory [address] [place], [address] MCHC (RBC) [Mass/Vol] 34.9 g/dL Normal 32-36 [facility] Comment on above: Performed By: #### L 500.2500, L501.2450, L100.0100, L500.3400 #### [facility] Laboratory [address] [place], [address] MCV (RBC) [Entitic vol] 86.4 fL Normal 80-94 [facility] Comment on above: Performed By: #### L 500.2500, L501.2450, L100.0100, L500.3400 #### [facility] Laboratory [address] [place], [address] Monocytes/100 WBC (Bld) 8.3 % Normal 0-10 [facility] Comment on above: Performed By: #### L 500.2500, L501.2450, L100.0100, L500.3400 #### [facility] Laboratory [address] [place], [address] Neutrophils/100 WBC (Bld) 52.8 % Normal 47-70 [facility] Comment on above: Performed By: #### L 500.2500, L501.2450, L100.0100, L500.3400 #### [facility] Laboratory [address] [place], [address] Nucleated RBC (Bld) [#/Vol] 0 10*3/uL Normal 0-5 [facility] Comment on above: Performed By: #### L 500.2500, L501.2450, L100.0100, L500.3400 #### [facility] Laboratory [address] [place], [address] Platelet mean volume (Bld) [Entitic vol] 9.6 fL Normal 6.2-12.0 [facility] Comment on above: Performed By: #### L 500.2500, L501.2450, L100.0100, L500.3400 #### [facility] Laboratory [address] [place], [address] Platelets (Bld) [#/Vol] 254 10*3/uL Normal 150-450 [facility] Comment on above: Performed By: #### L 500.2500, L501.2450, L100.0100, L500.3400 #### [facility] Laboratory [address] [place], [address] RBC (Bld) [#/Vol] 4.71 10*6/uL Normal 4.6-6.2 [facility] Comment on above: Performed By: #### L 500.2500, L501.2450, L100.0100, L500.3400 #### [facility] Laboratory [address] [place], [address] RDW SD 37.9 fl Normal 35.1-43.9 [facility] Comment on above: Performed By: #### L 500.2500, L501.2450, L100.0100, L500.3400 #### [facility] Laboratory [address] [place], [address] WBC (Bld) [#/Vol] 5.8 10*3/uL Normal 4.4-11.0 [facility] Comment on above: Performed By: #### L 500.2500, L501.2450, L100.0100, L500.3400 #### [facility] Laboratory [address] [place], [address] Carbon dioxide, total [Moles /volume] in Central venous bloodOrdered By: Dionte Hendrix on 10-09-2024 CO2 [Moles/Vol] 25.8 mmol/L 21.0-32.0 [facility] Chloride assayOrdered By: Rosa Hendrix on 10-09-2024 Chloride [Moles/Vol] 104 mmol/L 98-108 [facility] Emergency Department Summary on 10-09-2024 Emergency Department Summary [facility] Medical Records Department [address] [place] [address] Emergency Department Summary 10/09/24 MR#: [id number] Acct: [id number] Name: AMANDA KIMBALL Rep #: [id number] : 1990 33 From: Dionte Hendrix DO PCP: Dr. Derik Brower DO Status:DEP ER Location: ED HPI History of Present Illness Chief Complaint: Abd Pain Informant: patient Narrative Narrative: Patient is a 33-year-old male with past medical history of anxiety as well as remote history of kidney stone. He states over the past month he has had intermittent upper abdominal discomfort that he describes more as a burning sensation. He states he cannot relate it to physical activity or eating or drinking. He states that typically the symptoms will last for a few minutes or few hours and then resolve spontaneously. He states however this evening the symptoms came on and have not improved keeping him from sleeping and secondary to this he comes in for evaluation [facility] Medical History (Updated 10/09/24 @ 07:[address] Dionte Hendrix DO) Kidney stones Neck pain Shoulder injury Home Medications ???Medication ???Instructions ???Recorded ???Last Taken ???Type gabapentin 100 mg capsule 200 mg PO BID 05/17/23 Unknown His tory pantoprazole 40 mg tablet,delayed 40 mg PO DAILY 30 days #30 tabs 0 10/09/24 Unknown Rx release (Protonix) Allergy/AdvReac Type Severity Reaction Status Date / Time No Known Allergies Allergy Verified 10/09/24 03:25 Social History Smoking Status: Heavy Smoker (>10/day) ROS ROS ED Constitutional Constitutional ED: Denies chills or fever(s) Eyes Eyes: Denies change in vision ENT ENT ED: Denies sore throat Cardiovascular Cardiovascular: Denies chest pain Respiratory/Chest Respiratory/Chest: Denies cough or dyspnea Gastrointestinal Gastrointestinal: Reports abdominal pain; Denies diarrhea, nausea or vomiting Genitourinary Genitourinary ED: Denies dysuria or hematuria Musculoskeletal Musculoskeletal: Denies back pain Integumentary Denies rash Neurologic Neurologic: Denies headache(s) Psychiatric Psychiatric: Reports anxiety Hematologic/Lymphat ic Hematologic/Lymphat ic: Denies easy bleeding or easy bruising EXAM Physical Exam Const Vital Signs: 10/09/24 03:21 10/09/24 05:00 10/09/24 05:24 Temperature 97.6 F L 98 F Temperature Source Oral Pulse Rate 74 60 62 Respiratory Rate 16 18 18 Blood Pressure 142/87 H 119/84 H 120/88 H Blood Pressure Mean 105 95 98 Pulse Ox 100 99 100 Oxygen Delivery Method Room Air Room Air Positive well nourished and well developed General Appearance ED: well developed; Negative for pallor HEENT Reports moist mucous membranes HEENT Narrative: No tongue or lip swelling no oral lesions no airway edema or compromise No secondary findings in the posterior pharynx to suggest infection Eyes PERRL and EOMs intact bilaterally General Eye ED: Negative for scleral icterus Neck supple Chest Wall palpation of chest normal Resp normal respiratory effort and clear to auscultation bilaterally Cardio regular rate and regular rhythm Rate: other Other Details: Heart is regular rate and rhythm without murmurs rubs or gallop Radial and carotid pulses are equal and symmetric GI non-distended and no masses GI Narrative: Abdomen is soft and nondistended with normal active bowel sounds. Patient has pain with palpation in the midepigastric and right upper quadrant region. No voluntary guarding or rigidity or pulsatile mass. Negative Pollock sign. Auscultation: normoactive bowel sounds Palpation: soft Back/Spine no CVA tenderness Extremity normal to inspection Neuro oriented x3, CN's II-XII intact bilaterally and no sensory deficits noted Sensorium / Orientation: alert Motor Exam: strength 5/5 throughout Psych Mood Affect: anxious Skin no rashes or lesions noted and no wounds General Skin Exam: Negative for jaundice or pallor MDM MDM MDM Narrative Medical decision making narrative: Patient arrived to the ER mildly hypertensive but overall stable vitals. With his report of intermittent pain over the past month there is concern for gastritis versus pancreatitis versus biliary colic. His history and exam is most consistent with gastritis as he could not relate the intermittent pain with specific foods or directly tie it towards eating. Basic blood work obtained which showed normal lipase going against acute pancreatitis and normal liver enzymes going against biliary colic or acute cholecystitis. X-ray of the abdomen also revealed no signs of perforation ileus or obstruction. After receiving a GI cocktail and Protonix the patient did report resolution of his symptoms and his abdomen tom (more content not included)... Normal [facility] Eosinophil percentageOrdered By: Dionte Hendrix on 10-09-2024 Eosinophils/100 WBC (Bld) 1.6 % 0-5 [facility] Erythrocyte distribution wid th ratioOrdered By: Dionte Hendrix on 10-09-2024 Erythrocyte distribution width (RBC) [Ratio] 11.9 % 11.6-14.6 [facility] Erythrocyte distribution wid th standard deviationOrdered By: Dionte Hendrix on 10-09-2024 Erythrocyte distribution width (RBC) [Ratio] 37.9 fl 35.1-43.9 [facility] Glomerular filtration rate ( GFR) estimation/1.73 sq m using serum, plasma, or whole bOrdered By: Dionte Hendrix on 10-09-2024 GFR/1.73 sq M.predicted among non-blacks MDRD (S/P/Bld) [Vol rate/Area] 116 mL/min/{1.73_m2} >60 [facility] Comment on above: mL/min/1.73m2 CKD-EP I Creatinine Equation (2020) Hematocrit Auto (Bld) [Volum e fraction]Ordered By: Dionte Hendrix on 10-09-2024 Hematocrit (Bld) [Volume fraction] 40.7 % 40-54 [facility] Hemoglobin measurementOrdere d By: Dionte Hendrix on 10-09-2024 Hemoglobin (Bld) [Mass/Vol] 14.2 g/dL 13.0-16.5 [facility] Immature granulocytes/100 WB C Auto (Bld)Ordered By: Dionte Hendrix on 10-09-2024 Immature granulocytes/100 WBC (Bld) 0.200 % 0.0-0.9 [facility] Comment on above: IG% - Immature Granu locytes (promyelocytes, myelocytes and metamyelocytes) > 1% indicates that a LEFT SHIFT is Present. Laboratory - Chemistry and C hemistry - challengeOrdered By: Dionte Hendrix on 10-09-2024 AST [Catalytic activity/Vol] 35 U/L <38 [facility] Lipaseon 10-09-2024 Lipase [Catalytic activity/Vol] 32 U/L Normal 13-75 [facility] Comment on above: Result Comment: Marisa vincent note: LIPASE revised reference range effective 22. New Lipase methodology. Expected to produce lower values than the previous assay method. NEW Reference Range: 13 - 75 U/L Performed By: #### L 500.2500, L501.2450, L100.0100, L500.3400 #### [facility] Laboratory [address] [place], [place], [id number] Lipase measurementOrdered By : Dionte Hendrix on 10-09-2024 Lipase [Catalytic activity/Vol] 32 U/L 13-75 [facility] Comment on above: Please note:LIPASE r evised reference range effective 22. New Lipase methodology. Expected to produce lower values than the previous assay method. NEW Reference Range: 13 - 75 U/L Liver Profileon 10-09-2024 Albumin [Mass/Vol] 4.3 g/dL Normal 3.5-5.0 [facility] Comment on above: Performed By: #### L 500.2500, L501.2450, L100.0100, L500.3400 #### [facility] Laboratory [address] [facility] [place], [place], [id number] ALK PHOS 62 U/L Normal 40-129 [facility] Comment on above: Performed By: #### L 500.2500, L501.2450, L100.0100, L500.3400 #### [facility] [address] [place], [address] ALT [Catalytic activity/Vol] 36 U/L Normal <=46 [facility] Comment on above: Performed By: #### L 500.2500, L501.2450, L100.0100, L500.3400 #### [facility] [address] [place], [address] AST [Catalytic activity/Vol] 35 U/L Normal <=37 [facility] Comment on above: Performed By: #### L 500.2500, L501.2450, L100.0100, L500.3400 #### [facility] [address] [place], [address] Bilirubin [Mass/Vol] 0.24 mg/dL Normal 0.00-1.30 [facility] Comment on above: Performed By: #### L 500.2500, L501.2450, L100.0100, L500.3400 #### [facility] [address] [place], [address] Bilirubin.direct [Mass/Vol] 0.11 mg/dL Normal 0.00-0.30 [facility] Comment on above: Performed By: #### L 500.2500, L501.2450, L100.0100, L500.3400 #### [facility] [address] [place], [address] Globulin (S) [Mass/Vol] 2.2 g/dL Normal 2.2-4.2 [facility] Comment on above: Performed By: #### L 500.2500, L501.2450, L100.0100, L500.3400 #### [facility] [address] [place], [address] T PROT 6.5 g/dL Normal 5.9-8.4 [facility] Comment on above: Performed By: #### L 500.2500, L501.2450, L100.0100, L500.3400 #### [facility] Sam Fitzgerald [place], [place], [id number] MCV (mean corpuscular volume ) determinationOrdered By: Dionte Hendrix on 10-09-2024 MCV (RBC) [Entitic vol] 86.4 fL 80-94 [facility] Mean corpuscular hemoglobin (MCH) determinationOrdered By: Dionte Hendrix on 10-09-2024 MCH (RBC) [Entitic mass] 30.1 pg 27.0-32.0 [facility] Mean corpuscular hemoglobin concentration (MCHC) determinationOrdered By: Dionte Hendrix on 10-09-2024 MCHC (RBC) [Mass/Vol] 34.9 g/dL 32-36 [facility] Mean platelet volume determi nationOrdered By: Dionte Hendrix on 10-09-2024 Platelet mean volume (Bld) [Entitic vol] 9.6 fL 6.2-12.0 [facility] Monocyte percentageOrdered B y: Dionte Hendrix on 10-09-2024 Monocytes/100 WBC (Bld) 8.3 % 0-10 [facility] Neutrophil percentageOrdered By: Dionte Hendrix on 10-09-2024 Neutrophils/100 WBC (Bld) 52.8 % 47-70 [facility] Nucleated red blood cell per centageOrdered By: Dionte Hendrix on 10-09-2024 Nucleated RBC/100 WBC (Bld) [Ratio] 0 % 0-5 [facility] Platelet countOrdered By: Rosa Hendrix on 10-09-2024 Platelets (Bld) [#/Vol] 254 10*3/uL 150-450 [facility] Potassium measurement (mass/ volume)Ordered By: Dionte Hendrix on 10-09-2024 Potassium (Unsp spec) [Mass/Vol] 3.7 mmol/L 3.3-5.1 [facility] RBC Auto (Bld) [#/Vol]Ordere d By: Dionte Hendrix on 10-09-2024 RBC (Bld) [#/Vol] 4.71 10*6/uL 4.6-6.2 [facility] Serum creatinine measurement (mass/volume)Ordered By: Dionte Hendrix on 10-09-2024 Creatinine [Mass/Vol] 0.87 mg/dL 0.70-1.20 [facility] Serum globulin measurementOr dered By: Dionte Hendrix on 10-09-2024 Globulin (S) [Mass/Vol] 2.2 g/dL 2.2-4.2 [facility] Serum glucose measurement (m ass/volume)Ordered By: Dionte Hendrix on 10-09-2024 Glucose [Mass/Vol] 117 mg/dL High 70-99 [facility] Serum or plasma alanine smith otransferase (ALT) measurementOrdered By: Dionte Hendrix on 10-09-2024 ALT [Catalytic activity/Vol] 36 U/L <47 [facility] Serum or plasma albumin antionette urement (mass/volume)Ordered By: Dionte Hendrix on 10-09-2024 Albumin [Mass/Vol] 4.3 g/dL 3.5-5.0 [facility] Serum or plasma alkaline jared sphatase measurementOrdered By: Dionte Hendrix on 10-09-2024 ALP [Catalytic activity/Vol] 62 U/L 40-129 [facility] Serum or plasma calcium antionette urement (mass/volume)Ordered By: Dionte Hendrix on 10-09-2024 Calcium [Mass/Vol] 9.6 mg/dL 7.6-11.0 [facility] Serum or plasma urea nitroge n measurement (mass/volume)Ordered By: Dionte Hendrix on 10-09-2024 Urea nitrogen [Mass/Vol] 18 mg/dL 4-19 [facility] Sodium levelOrdered By: Riley Hendrix on 10-09-2024 Sodium [Moles/Vol] 140 mmol/L 133-145 [facility] Total proteinOrdered By: Santos Hendrix on 10-09-2024 Protein [Mass/Vol] 6.5 g/dL 5.9-8.4 [facility] White blood cell (WBC) count Ordered By: Dionte Hendrix on 10-09-2024 WBC (Bld) [#/Vol] 5.8 10*3/uL 4.4-11.0 [facility] Absolute lymphocyte countOrd ered By: Jose Alfredo Moore on 05-17-2023 Lymphocytes Auto (Unsp spec) [#/Vol] 3.14 10*3/uL 0.83-4.51 [facility] Amorphous sediment detection in urine sediment by light microscopyOrdered By: Jose Alfredo Moore on 05-17-2023 Amorphous sediment LM Ql (Urine sed) 2+ [facility] Automated lymphocyte count a s percentage of total leukocytesOrdered By: Jose Alfredo Moore on 05-17-2023 Lymphocytes/100 WBC Auto (Unsp spec) 50.5 % 19-41 [facility] Basophil percentageOrdered B y: Jose Alfredo Moore on 05-17-2023 Basophil percentage 0-5 SEEN /hpf 0-5 [facility] Basophils/100 WBC (Bld) 1.0 % 0-1 [facility] Chloride [Moles/Vol] 106 mmol/L 98-107 [facility] Eosinophils/100 WBC (Bld) 1.8 % 0-5 [facility] Glucose [Mass/Vol] 117 mg/dL 74-106 [facility] Comment on above: Fasting Glucose resu lt from 100 to 125 mg/dL suggests IMPAIRED HOMEOSTASIS per A.D.A. criteria. Hemoglobin (Bld) [Mass/Vol] 15.1 g/dL 13.0-16.5 [facility] Monocytes/100 WBC (Bld) 7.1 % 0-10 [facility] Neutrophils (Bld) [#/Vol] 2.5 10*3/uL 2.0-7.7 [facility] Neutrophils/100 WBC (Bld) 39.3 % 47-70 [facility] Potassium [Moles/Vol] 3.9 mmol/L 3.5-5.1 [facility] Sodium [Moles/Vol] 141 mmol/L 136-145 [facility] WBC (Bld) [#/Vol] 6.2 10*3/uL 4.4-11.0 [facility] Bilirubin Test strip Ql (U)O rdered By: Jose Alfredo Moore on 05-17-2023 Bilirubin Ql (U) Negative Negative [facility] Determination of erythrocyte mean corpuscular volume (MCV)Ordered By: Jose Alfredo Moore on 05-17-2023 MCV (RBC) [Entitic vol] 86.9 fL 80-94 [facility] Erythrocyte distribution wid th ratioOrdered By: Jose Alfredo Moore on 05-17-2023 Erythrocyte distribution width (RBC) [Ratio] 11.9 % 11.6-14.6 [facility] Erythrocyte distribution wid th standard deviationOrdered By: Jose Alfredo Moore on 05-17-2023 Erythrocyte distribution width (RBC) [Entitic vol] 38.2 fL 35.1-43.9 [facility] Hematocrit Auto (Bld) [Volum e fraction]Ordered By: Jose Alfredo Moore on 05-17-2023 Hematocrit (Bld) [Volume fraction] 44.6 % 40-54 [facility] Immature granulocytes/100 WB C Auto (Bld)Ordered By: Jose Alfredo Moore on 05-17-2023 Immature granulocytes/100 WBC (Bld) 0.300 % 0.0-0.9 [facility] Comment on above: IG% - Immature Granu locytes (promyelocytes, myelocytes and metamyelocytes) > 1% indicates that a LEFT SHIFT is Present. Ketones Test strip Ql (U)Ord ered By: Jose Alfredo Moore on 05-17-2023 Ketones Ql (U) 5 mg/dl Negative [facility] - Chemistry and C hemistry - challengeOrdered By: Jose Alfredo Moore on 05-17-2023 CO2 [Moles/Vol] 30.0 mmol/L 21.0-32.0 [facility] Urea nitrogen/Creatinine [Mass ratio] 13.4 mg/mg 10-20 [facility] - Hematology and Cell countsOrdered By: Jose Alfredo Moore on 05-17-2023 MCH (RBC) [Entitic mass] 29.4 pg 27.0-32.0 [facility] MCHC (RBC) [Mass/Vol] 33.9 g/dL 32-36 [facility] Nucleated RBC/100 WBC (Bld) [Ratio] 0 % 0-5 [facility] Platelet mean volume (Bld) [Entitic vol] 10.0 fL 6.2-12.0 [facility] Platelets (Bld) [#/Vol] 325 10*3/uL 150-450 [facility] Mucus LM Ql (Urine sed)Order ed By: Jose Alfredo Moore on 05-17-2023 Mucus Ql (Urine sed) 0 SEEN /hpf [facility] Nitrite Test strip Ql (U)Ord ered By: Jose Alfredo Moore on 05-17-2023 Nitrite Ql (U) Negative Negative [facility] No Panel InformationOrdered By: Jose Alfredo Moore on 05-17-2023 Urine RBC 25-50 SEEN /hpf 0-5 [facility] Estimated Creatinine Clearance Calc 101.73 ml/min [facility] Estimated GFR (MDRD) Amer 125 mL/min >60 [facility] Comment on above: GFR Calc Estimated GFR (MDRD) Non-Af Amer 103 mL/min >60 [facility] Comment on above: Non- GFR Calc Protein Test strip Ql (U)Ord ered By: Jose Alfredo Moore on 05-17-2023 Protein Ql (U) 100 mg/dl Negative [facility] RBC Auto (Bld) [#/Vol]Ordere d By: Jose Alfredo Moore on 05-17-2023 RBC (Bld) [#/Vol] 5.13 10*6/uL 4.6-6.2 [facility] Serum or plasma calcium antionette urement (mass/volume)Ordered By: Jose Alfredo Moore on 05-17-2023 Calcium [Mass/Vol] 9.0 mg/dL 8.5-10.1 [facility] Serum or plasma creatinine m easurement (mass/volume)Ordered By: Jose Alfredo Moore on 05-17-2023 Creatinine [Mass/Vol] 0.89 mg/dL 0.70-1.30 [facility] Comment on above: The validity of the calculated GFR & GFRAA in patients over 70 years has not been determined. Clinical correlation is essential. Serum or plasma urea nitroge n measurement (mass/volume)Ordered By: Jose Alfredo Moore on 05-17-2023 Urea nitrogen [Mass/Vol] 12 mg/dL 7-18 [facility] Squamous epithelial cells de tection in urine sediment by light microscopyOrdered By: Jose Alfredo Moore on 05-17-2023 Epithelial cells.squamous LM Ql (Urine sed) 0 SEEN /hpf 0-5 [facility] Thin prep Papanicolaou smear with manual screeningOrdered By: Jose Alfredo Moore on 05-17-2023 Thin prep Papanicolaou smear with manual screening 5 5-15 [facility] Urine blood detectionOrdered By: Remus Moore on 05-17-2023 RBC Ql (U) 250 /ul Negative [facility] Urine clarityOrdered By: Rem us Teresa on 05-17-2023 Clarity (U) Cloudy Clear [facility] Urine color determinationOrd ered By: Jose Alfredo Moore on 05-17-2023 Color (U) Yellow Yellow [facility] Urine glucose detectionOrder ed By: Remus Moore on 05-17-2023 Glucose Ql (U) Normal mg/dl Normal [facility] Urine leukocyte esterase det ection by dipstickOrdered By: Jose Alfredo Moore on 05-17-2023 Leukocyte esterase Test strip Ql (U) 25 /ul Negative [facility] Urine pHOrdered By: Jose Alfredo Un gur on 05-17-2023 pH (U) 5.0 [pH] 5.0 - 8.0 [facility] Urine sediment bacteria coun t by microscopy (number/high power field)Ordered By: Jose Alfredo Moore on 05-17-2023 Bacteria LM.HPF (Urine sed) [#/Area] 2 /[HPF] None Seen [facility] Urine specific gravity measu rementOrdered By: Jose Alfredo Moore on 05-17-2023 Specific gravity (U) [Rel density] 1.025 1.002-1.030 [facility] Urine urobilinogen measureme ntOrdered By: Jose Alfredo Moore on 05-17-2023 Urobilinogen Ql (U) 1 mg/dl Normal [facility] Culture, urineOrdered By: Dajuan Brower on 05-09-2023 Bacteria identified Cx Nom (U) Culture exhibits no growth. [facility] CT CHEST W/O CONTRASTon 10-04 CT CHEST W/O CONTRAST [place] [address] Patient: AMANDA KIMBALL Phone#: : 1990 Age: 26 Gender: M Pt. Type: Out Account: [id number] Location: 052 Ordering: [email or web address] SHELTON Exam Date: 10/20/2016/13:46 Family Phys: Charge Code: 226623 Physician: [place] Order #: [id number] DLP Dose#: PROCEDURE: CT CHEST WITHOUT CONTRAST COMPARISON: [facility], CT, CHEST W CON, 06/08/2015, 9:13. INDICATIONS: [...] 26 Gender: M Pt. Type: Out Account: [id number] Location: 052 Ordering: [email or web address] SHELTON Exam Date: 10/20/2016/13:46 Family Phys: Charge Code: 544504 Physician: [place] Order #: [id number] DLP Dose#: BONES: Schmorl's nodes are noted at the lower thoracic and upper lumbar spine. OTHER: Negative. CONCLUSION: 1. Stable right upper lobe and left lower lobe nodular foci. 2. Probable cholelithiasis. Dictated by: Meagan Russo MD on 10/20/2016 at 14:19 Approved by: Meagan Russo MD on 10/20/2016 at 14:19 Normal [facility] Vital Signs Date Time Vital Sign Value Performing Clinician [facility] 10-09-2024 05:24-0400 Body temperature 98 [degF] Dr. Derik Brower DO Work Phone: [facility] 10-09-2024 05:24-0400 Diastolic blood pressure 88 mm[Hg] Dr. Derik Brower DO Work Phone: [facility] 10-09-2024 05:24-0400 Heart rate 62 /min Dr. Derik Brower DO Work Phone: [facility] 10-09-2024 05:24-0400 Respiratory rate 18 /min Dr. Derik Brower DO Work Phone: [facility] 10-09-2024 05:24-0400 SaO2% (BldA) [Mass fraction] 100 % Dr. Derik Brower DO Work Phone: [facility] 10-09-2024 05:24-0400 Systolic blood pressure 120 mm[Hg] Dr. Derik Brower DO Work Phone: [facility] 10-09-2024 03:21-0400 Body height 165.[address] Derik Brower DO Work Phone: [facility] 10-09-2024 03:21-0400 Body mass index (BMI) [Ratio] 26.6 kg/m2 Dr. Derik Brower DO Work Phone: [facility] 10-09-2024 03:21-0400 Body weight 72.[address] Derik Brower DO Work Phone: [facility] 05-17-2023 11:22-0400 Body temperature 97.8 [degF] [facility] 05-17-2023 11:22-0400 Diastolic blood pressure 78 mm[Hg] [facility] 05-17-2023 11:22-0400 Heart rate 87 /min [facility] 05-17-2023 11:22-0400 Respiratory rate 16 /min [facility] 05-17-2023 11:22-0400 SaO2% (BldA) [Mass fraction] 99 % [facility] 05-17-2023 11:22-0400 Systolic blood pressure 118 mm[Hg] [facility] 05-17-2023 09:41-0400 Body height 165.1 cm [facility] 05-17-2023 09:41-0400 Body mass index (BMI) [Ratio] 26.9 kg/m2 [facility] 05-17-2023 09:41-0400 Body weight 73.48 kg [facility] 09-20-2021 10:13-0400 Body height 165.1 cm [facility] Work Phone: 09-20-2021 10:13-0400 Body mass index (BMI) [Ratio] 23.3 kg/m2 [facility] Work Phone: 09-20-2021 10:13-0400 Body temperature 97.8 [degF] [facility] Work Phone: 09-20-2021 10:13-0400 Body weight 63.5 kg [facility] Work Phone: 09-20-2021 10:13-0400 Diastolic blood pressure 89 mm[Hg] [facility] Work Phone: 09-20-2021 10:13-0400 Heart rate 76 /min [facility] Work Phone: 09-20-2021 10:13-0400 Respiratory rate 16 /min [facility] Work Phone: 09-20-2021 10:13-0400 SaO2% (BldA) [Mass fraction] 100 % [facility] Work Phone: 09-20-2021 10:13-0400 Systolic blood pressure 139 mm[Hg] [facility] Work Phone: Encounters Encounter Date Encounter Type Care Provider Facility Start: 10-09-2024 End: 10-09-2024 Emergency department patient visit Dr. Derik Brower DO Work Phone: -Emergency Department Work Phone: Start: 05-17-2023 End: 05-17-2023 Emergency department patient visit [facility]Emergency Department Work Phone: Start: 05-09-2023 End: 05-09-2023 ambulatory [facility] Work Phone: Start: 05-09-2023 End: 05-09-2023 Patient encounter procedure [facility]-Laboratory, Specimen Work Phone: Start: 09-20-2021 End: 09-20-2021 Emergency department patient visit [facility]-Emergency Department Start: 10-20-2016 End: 10-20-2016 Ambulatory [facility] Procedures Date Procedure Procedure Detail Performing Clinician Start: 10-09-2024 Plain X-ray abdomen Dr. Derik Brower DO Work Phone: Start: 10-09-[address] Derik Brower DO Work Phone: Start: 05-17-2023 CT of abdomen and pe lvis without contrast Start: 05-09-2023 Urine culture Start: 09-20-2021 Plain X-ray of shoulder Plan of Treatment Date Care Activity Detail Author Start: 10-09-2024 [facility] Start: 10-09-2024 [facility] Start: 05-17-2023 [facility] Patient Education [facility] Work Phone: Patient referral [facility] Work Phone: Payers Date Payer Category Payer Self-pay [id number] 2024 Unknown [id number] Unknown [id number] Unknown [id number] Social History Date Type Detail Facility Start: 09-20-2021 End: 05-17-2023 Tobacco smoking status NHIS Unknown if ever smoked [facility] Start: 12-23-2019 None [facility] Start: 12-23-2019 Spouse/ Signif icant Other [facility] Start: 12-23-2019 Cigarettes [facility] Start: 1990 Sex Assigned At Male [facility] Start: 10-09-2024 Tobacco smoking status NHIS Current Heavy tobacco smoker [facility] Radiology Diagnostic study note 10-09-2024 Note Date & Type Note Facility 10-09-2024 Radiology Diagnostic study note [facility] Imaging Services [address] [place] [address] [facility] Chest MR#: [id number] Acct: [id number] Name: AMANDA KIMBALL Rep #: [id number] : 1990 M 33 From: Bri Holly MD PCP: Dr. Derik Brower DO Status: REG ER Study:Ac[facility] Chest Date of Exam: 10/09/24 Exam# [id number] Ordering Dr: Rosa Hendrix DO PROCEDURE: ACUTE ABDOMEN INC CHEST 10/09/2024 REASON FOR EXAM: ABD PAIN TECHNIQUE: ACUTE ABDOMEN INC CHEST COMPARISON: CT 05/17/2023 FINDINGS: Normal heart size. Well inflated lungs. Right upper lobe hamartoma. No consolidation, effusion, or pneumothorax. No free air. Nonobstructed bowel. Mild stool. No concerning calcifications. RAD/Ac[facility] Chest IMPRESSION: Clear lungs. Nonobstructed bowel pattern. Reading Location: [facility] CC: Dr. Derik Brower DO; Dionte Hendrix DO ~ [employer] Supervisor: Signed [facility] Evaluation note Note Date & Type Note Facility Evaluation note No assessment information availa ble [facility] Work Phone: Hospital Discharge instructions Note Date & Type Note Facility Hospital Discharge instructions Additional Instructions Your history and exam and workup indicate your symptoms are secondary to inflammation throughout the stomach and intestine known as gastritis. Please take the Protonix as prescribed to help reduce your symptoms and control any further pain. Talk to your family doctor about a GI referral for potential EGD and return to the ER should you have any further concerns [facility] Work Phone: Reason for referral (narrative) Note Date & Type Note Facility Reason for referral (narrative) No reason for referral information available [facility] Work Phone: Summary Purpose Family History No Family History Records FoundNo Family History Records Found Advance Directives No Advanced Directives Records Found Advance Directive Response Recorded Date/ Time Living Will No September 20, 2021 10:28am Power of Brim Rounder No September 20 10:28am Advance Directive Response Recorded Date/ Time Living Will No May 17, 2023 10:06am Power of Brim Rounder No May 16 10:06am Advance Directive Response Recorded Date/ Time Do you have a Healthcare Power of Brim Rounder? No October 09, 2024 3:25am Chief Complaint and Reason for Visit Chief Complaint RT SHOULDER PAIN Chief Complaint FLANK PAIN Chief Complaint Admit Date abd pain October 09, 2024 3:2 0am Additional Source Comments (unrecognized sect ion and content) No Status Records FoundNo Status Records Found INFORMATION SOURCE (unrecogn ized section and content) DATE CREATED AUTHOR 08/30/2017 [facility] DATE CREATED AUTHOR AUTHOR'S ORGANIZ ATION 11/06/2024 [facility] Goals (unrecognized section and content) Goals may [...] Jose Alfredo Moore DO Emergency Provider Active Team Status: Active Member Role/Relationship Status Dates Dr. Derik Brower DO Primary Care Provider Active Team Status: Inactive Member Role/Relationship Status Dates Dr. Derik Brower DO Primary Care Provider Active Start: October 09, 2024 End: October 09, 2024 Dr. Dionte Hendrix , Emergency Provider Active Start: October 09, 2024 End: October 09, 2024 FOR RECORDS PERTAINING TO PATIENTS WHO ARE [...] BE BASED ON THE PRIMARY CLINICAL RECORDS. [facility] [employer] [facility]. provides no warranty or guarantee of the accuracy or completeness of information in this document.
[2024-11-17 06:52] VITALS: BP 120/69; PULSE 68; RESP 16; TEMP 36.6; O2SAT 97
== END 2024-11-17 06:54 | disposition home or self-care (01) ==
PROVIDERS: Emergency Provider Student in an Organized Health Care Education/Training Program; PCP Family Medicine; Visit Provider Student in an Organized Health Care Education/Training Program
DX: K29.70 Gastritis, unspecified, without bleeding (principal); K80.20 Calculus of gallbladder without cholecystitis without obstruction; F41.9 Anxiety disorder, unspecified; Z87.442 Personal history of urinary calculi
CPT/HCPCS: 74177; 80053; 83690; 85025; 93005; 96374; 99284; Q9967; A4216; J2405

== ENCOUNTER → 2024-11-19 | Outpatient (CLI) | payer BC, SELFPAY ==
[2024-11-19 15:25] LABS: Hematocrit 44.0 % (40-54); Hemoglobin 15.1 g/dL (13.0-16.5); Immature Granulocytes Count 0.040 X10^3/uL (0.0-0.0); Mean Corp Hgb Conc 34.3 g/dL (32-36); Mean Corpuscular Volume 86.4 fL (80-94); Mean Platelet Vol. 9.3 fl (6.2-12.0); NRBC Flagged by Analyzer 0 % (0-5); Platelet Count 280 K/mm3 (150-450); RBC Distribution Width CV 11.7 % (11.6-14.6); RBC Distribution Width SD 37.0 fl (35.1-43.9); Red Blood Count 5.09 M/mm3 (4.6-6.2); White Blood Count 8.5 K/mm3 (4.4-11.0)
[2024-11-19 16:07] LABS: AST(SGOT) 28 U/L (<=37); Alanine Aminotransfer ALT/SGPT 26 U/L (<=46); Albumin, Serum 4.5 g/dL (3.5-5.0); Alkaline Phosphatase 63 U/L (40-129); Anion Gap 12 (5-15); BUN 16 mg/dL (4-19); BUN/Creat Ratio 21.7 RATIO (10-20); Calcium,Total 9.5 mg/dL (7.6-11.0); Carbon Dioxide 24.4 mmol/L (21.0-32.0); Chloride 103 mmol/L (98-108); Globulin 3.2 g/dL (2.2-4.2); Glucose 110 mg/dL (70-99); Lipase 22 U/L (13-75); Potassium 4.1 mmol/L (3.3-5.1)
== END | disposition home or self-care (01) ==
LOC: LAB 14:54
PROVIDERS: PCP Family Medicine; Referring Provider Student in an Organized Health Care Education/Training Program; Visit Provider Student in an Organized Health Care Education/Training Program
DX: K29.70 Gastritis, unspecified, without bleeding (principal)
CPT/HCPCS: 36415; 80053; 83690; 85025

== ENCOUNTER 2024-11-20 22:19 | Observation (INO) | payer BC, SELFPAY ==
[2024-11-20 22:20] VITALS: BP 125/92; PULSE 86; RESP 18; TEMP 36.5; O2SAT 100
--- NOTE | 2024-11-20 22:31 | CT_ITS ---
PROCEDURE: CT ABDOMEN/PELVIS W IV CONT ONLY 11/20/2024 REASON FOR EXAM: ABD PAIN TECHNIQUE: Procedure Code: [id number] Modality: CT Procedure: ABDOMEN/PELVIS W IV CONT ONLY Coronal and Sagittal reconstruction series were provided. CONTRAST: Isovue 370 VOLUME: 97 mL One or more dose reduction techniques were used (e.g., Automated exposure control, adjustment of the mA and/or kV according to patient size, use of iterative reconstruction technique. RADIATION DOSE SUMMARY: DLP: 528.17 mGycm COMPARISON: 11/17/2024 FINDINGS: Lung bases: Clear. Liver: Unremarkable. Gallbladder: Cholelithiasis. Prominent circumferential gallbladder wall thickening/edema, compatible with acute cholecystitis, new since prior exam. No biliary ductal dilatation. Spleen: Unremarkable. Pancreas: Unremarkable. Adrenals: Unremarkable. Kidneys: Unremarkable. No urolithiasis or hydronephrosis. Bladder: Unremarkable. Reproductive Organs: Unremarkable. Bowel: No evidence of obstruction or active inflammation. Normal appendix. Lymph nodes: No suspicious lymph node enlargement. Vasculature: Normal caliber abdominal aorta and IVC. Peritoneum / Retroperitoneum: No ascites or free air. Bones: Unremarkable. CT/Abdomen/Pelvis W IV Cont ONLY IMPRESSION: Cholelithiasis with acute cholecystitis. No biliary ductal dilatation. Reading Location: [facility]
[2024-11-20] MEDS: 0.9% Normal Saline (1000mL) 1,000 ML 999 ML IV (22:44)
--- NOTE | 2024-11-20 22:45 | EDS_ITS ---
HPI History of Present Illness Chief Complaint: Abd Pain Informant: patient Narrative Narrative: Patient is a 34-year-old male who was seen in October and November 17 secondary to upper abdominal pain. At that time workup was most consistent with gastritis. He followed up with gastroenterology and is on Protonix and Carafate and scheduled to have an EGD. He states that the pain has not completely resolved since his evaluation on November 17 but that it has been bearable. He states that he was sitting at home this evening relaxing roughly 1 hour prior to arrival when he developed severe upper abdominal discomfort that is now starting to radiate to the right lower quadrant. With the worsening pain he presents for evaluation. Patient does state that he smokes and vapes but denies excessive NSAID use or alcohol use. He states he drinks caffeine but only feels this is just a minimal or moderate amount. [facility] Medical History Kidney stones Neck pain Shoulder injury Home Medications ?Medication ?Instructions ?Recorded ?Last Taken ?Type gabapentin 100 mg capsule 200 mg PO BID 05/17/23 Unkno wn History pantoprazole 40 mg tablet,delayed 40 mg PO DAILY 30 da ys #30 tabs 10/09/24 Unknown Rx release (Protonix) sucralfate 1 gram tablet (Carafate) 1 g PO TID 1 week #21 tabs 11/17/24 Unknown Rx sucralfate 100 mg/mL oral 10 ml PO BID #1,000 mL 11/19 Unknown Rx suspension Allergy/AdvReac Type Severity Reaction Status Date / Time No Known Allergies Allergy Verified 11/19/24 14:29 Social History Smoking Status: Heavy Smoker (>10/day) ROS [facility] ED Constitutional Constitutional ED: Denies chills or fever(s) ENT ENT ED: Denies sore throat Cardiovascular Cardiovascular: Denies chest pain Respiratory/Chest Respiratory/Chest: Denies cough or dyspnea Gastrointestinal Gastrointestinal: Reports abdominal pain and nausea; Denies diarrhea or vomiting Genitourinary Genitourinary ED: Denies dysuria Musculoskeletal Musculoskeletal: Denies myalgias Integumentary Denies rash Neurologic Neurologic: Denies headache(s) Hematologic/Lymphatic Hematologic/Lymphatic: Denies easy bleeding or easy bruising EXAM Physical Exam Const Vital Signs: 11/20/24 22:20 11/21/24 00:19 11/21/24 00:22 Temperature 97.7 F L 98.3 F Temperature Source Temporal Pulse Rate 86 80 80 Respiratory Rate 18 18 18 Blood Pressure 125/92 H 108/49 L 108/49 L Blood Pressure Mean 103 68 68 Pulse Ox 100 98 95 Oxygen Delivery Method Room Air Room Air 11/21/24 00:23 Temperature 98.3 F Temperature Source Oral Pulse Rate 80 Respiratory Rate 18 Blood Pressure 108/49 L Blood Pressure Mean 68 Pulse Ox 95 Oxygen Delivery Method Room Air Positive well nourished and well developed General Appearance ED: well developed; Negative for pallor HEENT HEENT Narrative: Normocephalic atraumatic Eyes PERRL and EOMs intact bilaterally General Eye ED: Negative for scleral icterus Neck supple Resp normal respiratory effort and clear to auscultation bilaterally Cardio regular rate and regular rhythm Rate: other Other Details: Heart is regular rate and rhythm without murmurs rubs or gallops Radial and carotid pulses are equal and symmetric GI non-distended GI Narrative: Abdomen is firm and nondistended. Bowel sounds are hypoactive. There is diffuse guarding and pain with palpation without localization. No pulsatile mass. Auscultation: hypoactive bowel sounds Back/Spine no CVA tenderness Extremity normal to inspection Neuro oriented x3, CN's II-XII intact bilaterally and no sensory deficits noted Sensorium / Orientation: alert Motor Exam: strength 5/5 throughout Psych mental status grossly normal Skin no rashes or lesions noted and no wounds General Skin Exam: Negative for jaundice or pallor MDM MDM MDM Narrative Medical decision making narrative: Patient arrived to the ER with stable vitals. He was recently seen for this and had a negative workup including a CT scan with IV contrast. However he reported that the pain was more severe than it has been previously and his abdominal exam showed firmness and guarding concerning for potential infection or perforation. Secondary to this I did elect to perform repeat laboratory studies as well as a CT scan with IV contra. Labs were essentially the same as the previous day with just slight elevation to his AST and ALT which were normal previously. There is no leukocytosis or left shift. The CT scan however does show gallbladder wall thickening and pericholecystic fluid consistent with acute cholecystitis. Secondary to this the case was discussed with general surgery on-call Dr. Sanford. He recommends treatment with Zosyn and admission to his service so that patient can have most likely a laparoscopic cholecystectomy tomorrow. The patient was informed of this plan of care and is agreeable to it. Vitals have remained stable and therefore he is safe for admission to the general medical floor. History & Record Review Discussion w/independent historian: Patient and Family Lab Data Attestation: I reviewed the patient's lab results. Labs: Laboratory Results - last 24 hr 11/20/24 22:45 WBC 7.3 RBC 4.71 Hgb 14.0 Hct 40.3 MCV 85.6 MCH 29.7 MCHC 34.7 RDW Std Deviation 35.9 RDW Coeff of Jeancarlos 11.5 L Plt Count 254 MPV 9.2 Immature Gran % (Auto) 0.300 Neut % (Auto) 56.3 Lymph % (Auto) 34.0 Larue % (Auto) 7.3 Eos % (Auto) 1.7 Baso % (Auto) 0.4 Absolute Neuts (auto) 4.1 Absolute Lymphs (auto) 2.47 Nucleated RBC % 0 Sodium 139 Potassium 3.9 Chloride 102 Carbon Dioxide 25.2 Anion Gap 11 BUN 15 Creatinine 0.83 Est GFR (MDRD) Non-Af 116 BUN/Creatinine Ratio 17.4 Glucose 113 H Calcium 9.4 Total Bilirubin 0.56 Direct Bilirubin 0.29 AST 88 H ALT 57 H Alkaline Phosphatase 75 Total Protein 7.2 Albumin 4.2 Globulin 3.0 Lipase 22 Radiography Diagnostic Testing: Clinical Impression(s) from Imaging Studies Abdomen/Pelvis CT 11/20/24 22:31 IMPRESSION: Cholelithiasis with acute cholecystitis. No biliary ductal dilatation. Reading Location: [facility] Management Discussion w/another healthcare provider: Cv/Cvn Cv Tsc System Operator Discharge Plan Dx/Rx/DC Orders Clinical Impression: Cholelithiasis with acute cholecystitis, Anxiety, Gastritis Disposition Disposition: Acute Care Hospital [facility] Discharge Date/Time: 11/21/24 00:34
[2024-11-20 22:57] LABS: Hematocrit 40.3 % (40-54); Hemoglobin 14.0 g/dL (13.0-16.5); Immature Granulocytes Count 0.020 X10^3/uL (0.0-0.0); Mean Corp Hgb Conc 34.7 g/dL (32-36); Mean Corpuscular Volume 85.6 fL (80-94); Mean Platelet Vol. 9.2 fl (6.2-12.0); NRBC Flagged by Analyzer 0 % (0-5); Platelet Count 254 K/mm3 (150-450); RBC Distribution Width CV 11.5 % (11.6-14.6); RBC Distribution Width SD 35.9 fl (35.1-43.9); Red Blood Count 4.71 M/mm3 (4.6-6.2); White Blood Count 7.3 K/mm3 (4.4-11.0)
[2024-11-20 23:18] LABS: Lipase 22 U/L (13-75)
--- OUTSIDE RECORDS SUMMARY | 2024-11-20 23:18 | XMS RPT_ITS | CCD ---
Author Organization [facility] Care Team Providers Care Development Officer Name Role Phone BAY, MAO H Unavailable Unavailable BAY, MAO H Unavailable Unavailable BAY, MAO H Unavailable Unavailable BAY, MAO H Unavailable Unavailable PROVIDER, UNKNOWN Unavailable Unavailable Dr. Derik Brower DO Primary Care Provider [phone] Dr. Dionte Hendrix DO Emergency Provider Dr. Dionte Hendrix DO Attending Provider Rolando PAZ, Dr. Acosta Emergency Provider Unavailab Dr. Derik Brower DO Referring Provider Torrie Mathur Attending Provider Derik Brower Primary Care Unavailable Karla Marshall Attending Unavailable Ana, Arik Attending Unavailable Derik Brower Primary Care Unavailable Derik Brower Primary Care Unavailable Torrie Cee Referring Unavailable Torrie Cee Attending Unavailable Derik Brower Referring Unavailable Derik Brower Primary Care Unavailable Torrie eCe Attending Unavailable Derik Brower Primary Care Unavailable Dionte Hendrix Attending Unavailable Allergies Allergy Classification Reported Allergen(s) Allergy Type Date of Onset Reaction(s) Facility (1 source) bee venom Drug allergy (disorder) [facility] Repository Medications Current Medications Medication Drug Class(es) Dates Sig (Normalized) Sig (Original) gabapentin 100 mg oral capsule (4 sources) Anti-epileptic Agent Start: 05-17-2023 take 2 capsules by mouth twice daily Gabapentin 100 mg capsule Active 200 mg PO TWICE A DAY May 17, 2023 12:00am Start: 05-17-2023 take 200 mg by mouth twice daily Gabapentin Active 200 MG PO TWICE A DAY May 17, 2023 12:00am pantoprazole 40 mg delayed release oral tablet (3 sources) Proton Pump Inhibitor Start: 10-09-2024 take 1 tablet by mouth once daily Pantoprazole (Protonix) 40 mg tablet,delayed release (DR/EC) Active 40 mg PO DAILY 30 30 0 October 09, 2024 12:00am sucralfate 1000 mg oral tablet (2 sources) Aluminum Complex Start: 11-17-2024 take 1 tablet by mouth three times daily Sucralfate (Carafate) 1 gram tablet Active 1 g PO THREE TIMES A DAY 21 7 0 November 17, 2024 12:00am Sucralfate 100 mg/mL suspension (1 source) Start: 11-19-2024 take 1 mL by mouth twice daily Sucralfate 100 mg/mL suspension Active 10 mL PO TWICE A DAY 1000 1 November 19, 2024 12:00am Completed/Discontinued Medications Medication Drug Class(es) Dates Sig (Normalized) Sig (Original) acetaminophen 325 mg / HYDROcodone bitartrate 5 mg oral tablet (6 sources) Opioid Agonist Start: 09-20-2021 End: 05-17-2023 Hydrocodone-Acetami nophen 5-325 mg tablet Discontinued 1 {tbl} PO EVERY 6 HOURS as needed for pain 10 3 0 September 20, 2021 May 17, 2023 10:06am Shoulder injury Start: 09-20-2021 End: 05-17-2023 take 1 tablet by mouth every six hours Hydrocodone-Acetaminophen Discontinued 1 TABLET PO EVERY 6 HOURS 10 3 September 20, 2021 May 17, 2023 10:06am acetaminophen 325 mg / oxyCODONE hydrochloride 5 mg oral tablet (4 sources) Opioid Agonist Start: 05-17-2023 End: 10-09-2024 Oxycodone-Acetaminophen 5-32 5 mg tablet Discontinued 1 {tbl} PO EVERY 6 HOURS NEEDED as needed for Pain 12 3 0 May 17, 2023 October 09, 2024 3:24am Urolithiasis Urinary calculus, unspecified Start: 05-17-2023 take 1 tablet by shira th every six hours as needed Oxycodone-Acetaminophen Active 1 TABLET PO EVERY 6 HOURS NEEDED 12 3 May 17, 2023 naproxen 500 mg oral tablet (10 sources) Nonsteroidal Anti-inflammatory Drug Start: 09-20-2021 End: 10-09-2024 take 1 tablet by mouth twice daily Naproxen 500 mg tablet Discontinued 500 mg PO TWICE A DAY 14 0 May 17, 2023 12:00am October 09, 2024 3:24am tiZANidine 4 mg oral capsule (6 sources) Central alpha-2 Adrenergic Agonist Start: 09-20-2021 End: 05-17-2023 take 1 capsule by mouth every eight hours as needed Tizanidine (Zanaflex) 4 mg capsule Discontinued 4 mg PO Q8H as needed for muscle spasticity 14 September 20, 2021 12:00am May 17, 2023 10:06am Problems Problem Classification Problem Date Documented Da te Episodic/Chronic Abdominal pain (4 sources) Right upper quadrant pain; Translations: [Right upper quadrant pain] Onset: 11-05-2024 11-19-2024 Episodic Anxiety disorders (6 sources) Anxiety; Translations: [Anxiety disorder, unspecified] 12-21-2019 Chronic Calculus of urinary tract (4 sources) Urolithiasis ; Translations: [Urinary calculus, unspecified] 05-17-2023 Episodic Gastritis and duodenitis (7 sources) Gastroduodenitis; Translations: [Gastroduodenitis, unspecified, without bleeding] Onset: 11-19-2024 10-09-2024 Episodic Gastroduodenal ulcer (except hemorrhage) (6 sources) Peptic ulcer; Translations: [Peptic ulcer, site unspecified, unspecified as acute or chronic, without hemorrhage or perforation] 12-24-2019 Chronic Other injuries and conditions due to external causes (6 sources) Injury of shoulder region; Translations: [Unspecified injury of shoulder and upper arm, unspecified arm, initial encounter] 09-20-2021 Episodic Results Test Name Value Interpretation Reference Range Facility CBC W/Diff, Automatedon 11-04 Absolute Lymph 1.83 X10 3/uL Normal 0.83-4.51 [facility] Comment on above: Performed By: #### L 500.4050, L501.2450, L100.0100 ####[facility] [address] [place], [address] Absolute Neut 5.8 X10 3/uL Normal 2.0-7.7 [facility] Comment on above: Performed By: #### L 500.4050, L501.2450, L100.0100 ####[facility] [address] [place], [address] Basophils/100 WBC (Bld) 0.5 % Normal 0-1 [facility] Comment on above: Performed By: #### L 500.4050, L501.2450, L100.0100 ####[facility] [address] [place], [address] Eosinophils/100 WBC (Bld) 1.5 % Normal 0-5 [facility] Comment on above: Performed By: #### L 500.4050, L501.2450, L100.0100 ####[facility] [address] [place], [address] Erythrocyte distribution width (RBC) [Ratio] 11.7 % Normal 11.6-14.6 [facility] Comment on above: Performed By: #### L 500.4050, L501.2450, L100.0100 ####[facility] [address] [place], [address] Hematocrit (Bld) [Volume fraction] 44.0 % Normal 40-54 [facility] Comment on above: Performed By: #### L 500.4050, L501.2450, L100.0100 ####[facility] [address] [place], [address] Hemoglobin (Bld) [Mass/Vol] 15.1 g/dL Normal 13.0-16.5 [facility] Comment on above: Performed By: #### L 500.4050, L501.2450, L100.0100 ####[facility] [address] [place], [address] IG% 0.500 Normal 0.0-0.9 [facility] Comment on above: Result Comment: IG% - Immature Granulocytes (promyelocytes, myelocytes and metamyelocytes) > 1% indicates that a LEFT SHIFT is Present. Performed By: #### L 500.4050, L501.2450, L100.0100 ####[facility] [address] [place], [address] Lymphocytes/100 WBC (Bld) 21.4 % Normal 19-41 [facility] Comment on above: Performed By: #### L 500.4050, L501.2450, L100.0100 ####[facility] [address] [place], [address] MCH (RBC) [Entitic mass] 29.7 pg Normal 27.0-32.0 [facility] Comment on above: Performed By: #### L 500.4050, L501.2450, L100.0100 ####[facility] [address] [place], [address] MCHC (RBC) [Mass/Vol] 34.3 g/dL Normal 32-36 [facility] Comment on above: Performed By: #### L 500.4050, L501.2450, L100.0100 ####[facility] [address] [place], [address] MCV (RBC) [Entitic vol] 86.4 fL Normal 80-94 [facility] Comment on above: Performed By: #### L 500.4050, L501.2450, L100.0100 ####[facility] [address] [place], [address] Monocytes/100 WBC (Bld) 7.7 % Normal 0-10 [facility] Comment on above: Performed By: #### L 500.4050, L501.2450, L100.0100 ####[facility] [address] [place], [address] Neutrophils/100 WBC (Bld) 68.4 % Normal 47-70 [facility] Comment on above: Performed By: #### L 500.4050, L501.2450, L100.0100 ####[facility] [address] [place], [address] Nucleated RBC (Bld) [#/Vol] 0 10*3/uL Normal 0-5 [facility] Comment on above: Performed By: #### L 500.4050, L501.2450, L100.0100 ####[facility] [address] [place], [address] Platelet mean volume (Bld) [Entitic vol] 9.3 fL Normal 6.2-12.0 [facility] Comment on above: Performed By: #### L 500.4050, L501.2450, L100.0100 ####[facility] [address] [place], [address] Platelets (Bld) [#/Vol] 280 10*3/uL Normal 150-450 [facility] Comment on above: Performed By: #### L 500.4050, L501.2450, L100.0100 ####[facility] [address] [place], [address] RBC (Bld) [#/Vol] 5.09 10*6/uL Normal 4.6-6.2 [facility] Comment on above: Performed By: #### L 500.4050, L501.2450, L100.0100 ####[facility] [address] [place], [address] RDW SD 37.0 fl Normal 35.1-43.9 [facility] Comment on above: Performed By: #### L 500.4050, L501.2450, L100.0100 ####[facility] [address] [place], [address] WBC (Bld) [#/Vol] 8.5 10*3/uL Normal 4.4-11.0 [facility] Comment on above: Performed By: #### L 500.4050, L501.2450, L100.0100 ####[facility] [address] [place], [address] Comprehensive Metabolic Prof ilon 11-19-2024 Albumin [Mass/Vol] 4.5 g/dL Normal 3.5-5.0 [facility] Comment on above: Performed By: #### L 500.4050, L501.2450, L100.0100 ####[facility] [address] [place], [address] Albumin/Globulin [Mass ratio] 1.4 {ratio} Normal 0.9-2.4 [facility] Comment on above: Performed By: #### L 500.4050, L501.2450, L100.0100 ####[facility] [address] [place], [address] ALK PHOS 63 U/L Normal 40-129 [facility] Comment on above: Performed By: #### L 500.4050, L501.2450, L100.0100 ####[facility] [address] [place], [address] ALT [Catalytic activity/Vol] 26 U/L Normal <=46 [facility] Comment on above: Performed By: #### L 500.4050, L501.2450, L100.0100 ####[facility] [address] [place], [address] AST [Catalytic activity/Vol] 28 U/L Normal <=37 [facility] Comment on above: Performed By: #### L 500.4050, L501.2450, L100.0100 ####[facility] [address] [place], [address] Bilirubin [Mass/Vol] 0.45 mg/dL Normal 0.00-1.30 [facility] Comment on above: Performed By: #### L 500.4050, L501.2450, L100.0100 ####[facility] [address] [place], [address] BUN/CRE 21.7 RATIO High 10-20 [facility] Comment on above: Performed By: #### L 500.4050, L501.2450, L100.0100 ####[facility] [address] [place], [address] Calcium [Mass/Vol] 9.5 mg/dL Normal 7.6-11.0 [facility] Comment on above: Performed By: #### L 500.4050, L501.2450, L100.0100 ####[facility] [address] [place], [address] Chloride [Moles/Vol] 103 mmol/L Normal 98-108 [facility] Comment on above: Performed By: #### L 500.4050, L501.2450, L100.0100 ####[facility] [address] [place], [address] CO2 [Moles/Vol] 24.4 mmol/L Normal 21.0-32.0 [facility] Comment on above: Performed By: #### L 500.4050, L501.2450, L100.0100 ####[facility] [address] [place], [address] Creatinine [Mass/Vol] 0.74 mg/dL Normal 0.70-1.20 [facility] Comment on above: Performed By: #### L 500.4050, L501.2450, L100.0100 ####[facility] [address] [place], [address] GAP 12 Normal 5-15 [facility] Comment on above: Performed By: #### L 500.4050, L501.2450, L100.0100 ####[facility] [address] [place], [address] GFR/1.73 sq M.predicted among non-blacks MDRD (S/P/Bld) [Vol rate/Area] 120 mL/min/{1.73_m2} Normal >60 [facility] Comment on above: Result Comment: mL/m in/1.73m2 CKD-EPI Creatinine Equation (2020) Performed By: #### L 500.4050, L501.2450, L100.0100 ####[facility] [address] [place], [address] Globulin (S) [Mass/Vol] 3.2 g/dL Normal 2.2-4.2 [facility] Comment on above: Performed By: #### L 500.4050, L501.2450, L100.0100 ####[facility] [address] [place], [address] Glucose [Mass/Vol] 110 mg/dL High 70-99 [facility] Comment on above: Performed By: #### L 500.4050, L501.2450, L100.0100 ####[facility] [address] [place], [address] Potassium [Moles/Vol] 4.1 mmol/L Normal 3.3-5.1 [facility] Comment on above: Performed By: #### L 500.4050, L501.2450, L100.0100 ####[facility] [address] [place], [address] Sodium [Moles/Vol] 139 mmol/L Normal 133-145 [facility] Comment on above: Performed By: #### L 500.4050, L501.2450, L100.0100 ####[facility] [address] [place], [address] T PROT 7.7 g/dL Normal 5.9-8.4 [facility] Comment on above: Performed By: #### L 500.4050, L501.2450, L100.0100 ####[facility] [address] [place], [address] Urea nitrogen [Mass/Vol] 16 mg/dL Normal 4-19 [facility] Comment on above: Performed By: #### L 500.4050, L501.2450, L100.0100 ####[facility] [address] [place], [address] Gastroenterology Visit Repor ton 11-19-2024 Gastroenterology Visit Report [facility] [address] [place] [address] OFFICE VISIT Date of Service: 11/19/24 MR#: [id number] Acct: [id number] Name: AMANDA KIMBALL Rep #: [id number] : 1990 Provider: EMILY Rahman Age/Sex: 34/M Location: [facility] Status: Signed Intake Vital Signs 11/17/24 02:16 11/18/24 13:14 Height 5 ft 5 in 5 ft 5 in Intake Visit Reasons: ER FU 3-5 DAYS FROM 11/17 Chief Complaint: Abdominal pain Allergies No Known Allergies Allergy (Verified 11/19/24 14:29) Medications ???Medication ???Instructions ???Recorded ???Confirmed ???Type gabapentin 100 mg capsule 200 mg PO BID 05/17/23 11/19/24 Hi story pantoprazole 40 mg tablet,delayed 40 mg PO DAILY 30 days #30 tabs 0 10/09/24 11/19/24 Rx release (Protonix) sucralfate 1 gram tablet (Carafate) 1 g PO TID 1 week #21 tabs 11/0411/19/24 Rx sucralfate 100 mg/mL oral 10 ml PO BID #1,000 mL 11/19/24 Rx suspension PFSH Medical History Kidney stones Neck pain Shoulder injury Social History Smoking Status: Heavy Smoker (>10/day) HPI HPI Chief Complaint: Abdominal pain Details: AMANDA KIMBALL, is a 34 M who presents to the office today for establishment. [facility] ED 10.09.24 intermittent upper abdominal pain and discomfort. Workup unremarkable. GI cocktail and Protonix resolved the symptoms. [facility] 11.17.24 with continued upper abdominal pain. Workup unremarkable. Sent home with Carafate and continue Protonix. OV 11.19.24 patient continues to have upper abdominal pain. Patient feels like the pain is now more right sided and feels swollen. It is worse with certain movements like walking up and down stairs. He has not been eating much so is hard to say if it is worse with eating. Patient continues with Protonix but did not try the Carafate as the pills were too large. He has has not had nausea or vomiting since when he was in the ED. He has never had an EGD or colonoscopy. He does note that he has had gallstones in the past. ROS Const Constitutional: No fatigue, fever(s) or weight change ENT ENT: No difficulty swallowing Gastro GI: Positive for abdominal pain, bloating, excessive flatus, nausea/dyspepsia and vomiting; No belching, change in bowel habits, change in stool character, coffee ground emesis, constipation, cramping, diarrhea, heartburn, difficulty swallowing, feeling full early, incontinent of stools, Vomiting blood/hematemesis, Blood in stool, loose stools, Black,tarry stools, pain with swallowing or other Musc Musculoskeletal: Positive for muscle cramps; No joint pain Skin Skin: No yellowing of the eye or itchy eyes Psych Psychiatric: No anxiety and No depression Endo Endocrine: No fatigue or weight change Aller/Imm Allergy/Immunologic: No itchy eyes Bradley/Lymp Hematologic/Lymphati c: No easy bleeding or easy bruising Exam Const General: cooperative and anxious Nutritional Appearance: average body habitus Orientation: alert HENDC Head: normal to inspection Eyes General: appearance normal, both eyes and all related structures Neck Neck: normal visual inspection Chest Chest palpation inspection: normal inspection of the chest Resp Effort Inspection: normal respiratory effort Cardio Rate: regular rate Rhythm: regular rhythm GI Inspection: normal to inspection and no obesity Auscultation: normal bowel sounds Palpation: soft, no guarding and tender Assessment and Plan Assessment and Plan (1) RUQ pain: Status: Acute Plan: Amanda is a 34-year-old male patient here today for emergency department follow-up. Patient has been having upper abdominal pain over the last 2 months. Pain was intermittent a few times per day but has increased in frequency. Patient was started on Protonix about a month ago which did not provide relief. At his last ED appointment he was started on Carafate however he did not take this as the pills were too large. Workup in the ED was largely unremarkable. CT abdomen pelvis with no acute processes but did show stones within the gallbladder. Will order gallbladder ultrasound to rule out acute cholecystitis. Patient is tender to the right upper quadrant. Patient will also undergo upper endoscopy for assessment of his upper GI tract. Repeat CBC, CMP and lipase ordered. In the interim, he will start sucralfate liquid 10 mL twice daily and continue pantoprazole twice daily. - EGD - Gallbladder ultrasound - CBC, CMP and lipase - Start sucralfate - Increase pantoprazole frequency to 40 mg twice a day (2) Gastritis: Status: Acute Orders: Orders Abdomen Limited Today R10.11 - Right upper quadrant pain CBC W/Diff, Automated Today R10.11 (more content not included)... Normal [facility] Lipaseon 11-19-2024 Lipase [Catalytic activity/Vol] 22 U/L Normal 13-75 [facility] Comment on above: Result Comment: Marisa vincent note: LIPASE revised reference range effective 22. New Lipase methodology. Expected to produce lower values than the previous assay method. NEW Reference Range: 13 - 75 U/L Performed By: #### L 500.4050, L501.2450, L100.0100 ####[facility] [address] [facility] [place], [address] 12 Lead EKGon 11-17-2024 12 Lead EKG [facility] Cardiovascular Services [address] [place] [address] 12 Lead EKG 11/17/24 0300 MR#: [id number] Acct: [id number] Name: AMANDA KIMBALL Rep #: [id number] : 1990 34 From: Nilay Herman MD Attending Dr: Status: DEP ER Ordering Dr: Karla Marshall MD Date: 11/17/24 Location: ED Sex: M C Admitted: Test Reason : DYSRHYTHMIA Blood Pressure : */* mmHG Vent. Rate : 59 BPM Atrial Rate : 59 BPM P-R Int : 160 ms QRS Dur : 88 ms QT Int : 398 ms P-R-T Axes : 77 69 71 degrees QTcB Int : 394 ms Sinus bradycardia with sinus arrhythmia Otherwise normal ECG Confirmed by Nilay Herman ([id number]), communications editor AUSTEN GOLDSTEIN ([id number]) on 11/18/2024 1:25:06 PM Referred By: Confirmed By: Nilay Herman 11/18/24 1325 Date Nilay Herman MD CC: Dr. Karla Marshall MD; Dr. Derik Brower DO Signed Normal [facility] Abdomen/Pelvis W IV Cont ONL Yon 11-17-2024 Abdomen/Pelvis W IV Cont ONLY [facility] Imaging Services [address] [place], [place] [id number] Abdomen/Pelvis W IV Cont ONLY MR#: [id number] Acct: [id number] Name: AMANDA KIMBALL Rep #: [id number] : 1990 M 34 From: Nilay Henriquez MD PCP: Dr. Derik Brower DO Status: REG ER Study: Abdomen/Pelvis W IV Cont ONLY Date of Exam: Exam# [id number] Ordering Dr: Karla Marshall MD PROCEDURE: ABDOMEN/PELVIS W IV CONT ONLY 11/17/2024 REASON FOR EXAM: EPIGASTRIC ABDOMINAL PAIN Abdominal pain. TECHNIQUE: Procedure Code: CTABDPELIV Modality: CT Procedure: ABDOMEN/PELVIS W IV CONT ONLY Coronal and Sagittal reconstruction series were provided. CONTRAST: Isovue 370 VOLUME: 90 mL One or more dose reduction techniques were used (e.g., Automated exposure control, adjustment of the mA and/or kV according to patient size, use of iterative reconstruction technique. RADIATION DOSE SUMMARY: CTDlvol: 30 mGy DLP: 481 mGycm COMPARISON: May 2023. FINDINGS: Lung bases: Negative. ABDOMEN Liver: Negative. Biliary system: Negative. Negative for intrahepatic or extrahepatic ductal dilatation. Gallbladder: Contains stones. Negative for cholecystitis. Spleen: Negative. Pancreas: Negative. Adrenals: Negative. Kidneys: Negative. Negative for kidney stones, cysts or masses. Bowel: Moderate increased stool throughout the colon. Negative for small or large-bowel obstruction. Appendix: Negative. Vasculature: Negative for atherosclerotic vascular calcifications of the abdominal aorta and its branches. Peritoneum / Retroperitoneum: Negative. PELVIS Lymph nodes: Negative for inguinal or iliac adenopathy. Bladder: Urinary bladder negative. Reproductive Organs: Prostate negative. Bones and Soft Tissues: Age appropriate degenerative changes of the lumbar spine hips and pelvis. CT/Abdomen/Pelvis W IV Cont ONLY IMPRESSION: Negative for acute intra-abdominal or pelvic pathology. Cholelithiasis. Reading Location: [facility] CC: Dr. Karla Marshall MD; Dr. Derik Brower DO Care Worker: Signed Normal [facility] Absolute lymphocyte countOrd ered By: Karla Marshall on 11-17-2024 Lymphocytes Auto (Unsp spec) [#/Vol] 2.43 10*3/uL 0.83-4.51 [facility] Absolute neutrophil countOrd ered By: Karla Marshall on 11-17-2024 Neutrophils (Bld) [#/Vol] 3.2 10*3/uL 2.0-7.7 [facility] Anion gap in Serum or Plasma Ordered By: Karla Marshall on 11-17-2024 Anion gap [Moles/Vol] 12 mmol/L 5-15 [facility] Automated lymphocyte count a s percentage of total leukocytesOrdered By: Karla Marshall on 11-17-2024 Lymphocytes/100 WBC Auto (Unsp spec) 39.3 % 19- [facility] BUN/creatinine ratioOrdered By: Karla Marshall on 11-17-2024 Urea nitrogen/Creatinine [Mass ratio] 15.7 mg/mg 10-20 [facility] Basophil percentageOrdered B y: Karla Marshall on 11-17-2024 Basophils/100 WBC (Bld) 0.5 % 0-1 [facility] Bilirubin, totalOrdered By: Karla Marshall on 11-17-2024 Bilirubin [Mass/Vol] 0.29 mg/dL 0.00-1.30 [facility] CBC W/Diff, Automatedon 11-04 Absolute Lymph 2.43 X10 3/uL Normal 0.83-4.51 [facility] Comment on above: Performed By: #### L 100.0100, L500.4050, L501.2450 #### [facility] [address] [place], [address] Absolute Neut 3.2 X10 3/uL Normal 2.0-7.7 [facility] Comment on above: Performed By: #### L 100.0100, L500.4050, L501.2450 #### [facility] [address] [place], [address] Basophils/100 WBC (Bld) 0.5 % Normal 0-1 [facility] Comment on above: Performed By: #### L 100.0100, L500.4050, L501.2450 #### [facility] [address] [place], [address] Eosinophils/100 WBC (Bld) 1.1 % Normal 0-5 [facility] Comment on above: Performed By: #### L 100.0100, L500.4050, L501.2450 #### [facility] [address] [place], [address] Erythrocyte distribution width (RBC) [Ratio] 11.8 % Normal 11.6-14.6 [facility] Comment on above: Performed By: #### L 100.0100, L500.4050, L501.2450 #### [facility] [address] [place], [address] Hematocrit (Bld) [Volume fraction] 42.9 % Normal 40-54 [facility] Comment on above: Performed By: #### L 100.0100, L500.4050, L501.2450 #### [facility] [address] [place], [address] Hemoglobin (Bld) [Mass/Vol] 14.9 g/dL Normal 13.0-16.5 [facility] Comment on above: Performed By: #### L 100.0100, L500.4050, L501.2450 #### [facility] [address] [place], [address] IG% 0.300 Normal 0.0-0.9 [facility] Comment on above: Result Comment: IG% - Immature Granulocytes (promyelocytes, myelocytes and metamyelocytes) > 1% indicates that a LEFT SHIFT is Present. Performed By: #### L 100.0100, L500.4050, L501.2450 #### [facility] [address] [place], [address] Lymphocytes/100 WBC (Bld) 39.3 % Normal 19-41 [facility] Comment on above: Performed By: #### L 100.0100, L500.4050, L501.2450 #### [facility] [address] [place], [address] MCH (RBC) [Entitic mass] 29.8 pg Normal 27.0-32.0 [facility] Comment on above: Performed By: #### L 100.0100, L500.4050, L501.2450 #### [facility] [address] [place], [address] MCHC (RBC) [Mass/Vol] 34.7 g/dL Normal 32-36 [facility] Comment on above: Performed By: #### L 100.0100, L500.4050, L501.2450 #### [facility] [address] [place], [address] MCV (RBC) [Entitic vol] 85.8 fL Normal 80-94 [facility] Comment on above: Performed By: #### L 100.0100, L500.4050, L501.2450 #### [facility] [address] [place], [address] Monocytes/100 WBC (Bld) 7.3 % Normal 0-10 [facility] Comment on above: Performed By: #### L 100.0100, L500.4050, L501.2450 #### [facility] [address] [place], [address] Neutrophils/100 WBC (Bld) 51.5 % Normal 47-70 [facility] Comment on above: Performed By: #### L 100.0100, L500.4050, L501.2450 #### [facility] [address] [place], [address] Nucleated RBC (Bld) [#/Vol] 0 10*3/uL Normal 0-5 [facility] Comment on above: Performed By: #### L 100.0100, L500.4050, L501.2450 #### [facility] [address] [place], [address] Platelet mean volume (Bld) [Entitic vol] 9.6 fL Normal 6.2-12.0 [facility] Comment on above: Performed By: #### L 100.0100, L500.4050, L501.2450 #### [facility] [address] [place], [address] Platelets (Bld) [#/Vol] 273 10*3/uL Normal 150-450 [facility] Comment on above: Performed By: #### L 100.0100, L500.4050, L501.2450 #### [facility] [address] [place], [address] RBC (Bld) [#/Vol] 5.00 10*6/uL Normal 4.6-6.2 [facility] Comment on above: Performed By: #### L 100.0100, L500.4050, L501.2450 #### [facility] [address] [place], [address] RDW SD 36.3 fl Normal 35.1-43.9 [facility] Comment on above: Performed By: #### L 100.0100, L500.4050, L501.2450 #### [facility] [address] [place], [address] WBC (Bld) [#/Vol] 6.2 10*3/uL Normal 4.4-11.0 [facility] Comment on above: Performed By: #### L 100.0100, L500.4050, L501.2450 #### [facility] [address] [place], [address] Carbon dioxide, total [Moles /volume] in Central venous bloodOrdered By: Karla Marshall on 11-17-2024 CO2 [Moles/Vol] 26.8 mmol/L 21.0-32.0 [facility] Chloride assayOrdered By: Gerson Marshall on 11-17-2024 Chloride [Moles/Vol] 101 mmol/L 98-108 [facility] Comprehensive Metabolic Prof ilon 11-17-2024 Albumin [Mass/Vol] 4.5 g/dL Normal 3.5-5.0 [facility] Comment on above: Performed By: #### L 100.0100, L500.4050, L501.2450 ####[facility] [address] [place], [address] Albumin/Globulin [Mass ratio] 1.7 {ratio} Normal 0.9-2.4 [facility] Comment on above: Performed By: #### L 100.0100, L500.4050, L501.2450 ####[facility] [address] [place], [address] ALK PHOS 54 U/L Normal 40-129 [facility] Comment on above: Performed By: #### L 100.0100, L500.4050, L501.2450 ####[facility] [address] [place], [address] ALT [Catalytic activity/Vol] 16 U/L Normal <=46 [facility] Comment on above: Performed By: #### L 100.0100, L500.4050, L501.2450 ####[facility] [address] [place], [address] AST [Catalytic activity/Vol] 19 U/L Normal <=37 [facility] Comment on above: Performed By: #### L 100.0100, L500.4050, L501.2450 ####[facility] [address] [place], [address] Bilirubin [Mass/Vol] 0.29 mg/dL Normal 0.00-1.30 [facility] Comment on above: Performed By: #### L 100.0100, L500.4050, L501.2450 ####[facility] [address] [place], [address] BUN/CRE 15.7 RATIO Normal 10-20 [facility] Comment on above: Performed By: #### L 100.0100, L500.4050, L501.2450 ####[facility] [address] [place], [address] Calcium [Mass/Vol] 9.5 mg/dL Normal 7.6-11.0 [facility] Comment on above: Performed By: #### L 100.0100, L500.4050, L501.2450 ####[facility] [address] [place], [address] Chloride [Moles/Vol] 101 mmol/L Normal 98-108 [facility] Comment on above: Performed By: #### L 100.0100, L500.4050, L501.2450 ####[facility] [address] [place], [address] CO2 [Moles/Vol] 26.8 mmol/L Normal 21.0-32.0 [facility] Comment on above: Performed By: #### L 100.0100, L500.4050, L501.2450 ####[facility] [address] [place], [address] Creatinine [Mass/Vol] 0.96 mg/dL Normal 0.70-1.20 [facility] Comment on above: Performed By: #### L 100.0100, L500.4050, L501.2450 ####[facility] [address] [place], [address] ECRCL 92.53 ml/min Normal 50-250 [facility] Comment on above: Performed By: #### L 100.0100, L500.4050, L501.2450 ####[facility] [address] [place], [address] GAP 12 Normal 5-15 [facility] Comment on above: Performed By: #### L 100.0100, L500.4050, L501.2450 ####[facility] [address] [place], [address] GFR/1.73 sq M.predicted among non-blacks MDRD (S/P/Bld) [Vol rate/Area] 105 mL/min/{1.73_m2} Normal >60 [facility] Comment on above: Result Comment: mL/m in/1.73m2 CKD-EPI Creatinine Equation (2020) Performed By: #### L 100.0100, L500.4050, L501.2450 ####[facility] [address] [place], [address] Globulin (S) [Mass/Vol] 2.6 g/dL Normal 2.2-4.2 [facility] Comment on above: Performed By: #### L 100.0100, L500.4050, L501.2450 ####[facility] [address] [place], [address] Glucose [Mass/Vol] 127 mg/dL High 70-99 [facility] Comment on above: Performed By: #### L 100.0100, L500.4050, L501.2450 ####[facility] [address] [place], [address] Potassium [Moles/Vol] 3.8 mmol/L Normal 3.3-5.1 [facility] Comment on above: Performed By: #### L 100.0100, L500.4050, L501.2450 ####[facility] [address] [place], [address] Sodium [Moles/Vol] 140 mmol/L Normal 133-145 [facility] Comment on above: Performed By: #### L 100.0100, L500.4050, L501.2450 ####[facility] [address] [place], [address] T PROT 7.1 g/dL Normal 5.9-8.4 [facility] Comment on above: Performed By: #### L 100.0100, L500.4050, L501.2450 ####[facility] [address] [place], [address] Urea nitrogen [Mass/Vol] 15 mg/dL Normal 4-19 [facility] Comment on above: Performed By: #### L 100.0100, L500.4050, L501.2450 ####[facility] [address] [place], [address] Emergency Department Summary on 11-17-2024 Emergency Department Summary [facility] Medical Records Department [address] [place] [address] Emergency Department Summary 11/17/24 MR#: [id number] Acct: [id number] Name: AMANDA KIMBALL Rep #: [id number] : 1990 34 From: Karla Marshall MD PCP: Dr. Derik Brower, DO Status:DEP ER Location: ED HPI HPI - GI History of Present Illness Chief Complaint: Abd Pain Narrative Narrative: Patient is a 34-year-old male presenting to the emergency department for epigastric abdominal pain. Patient has a past medical history of anxiety as well as kidney stones. States that he was here a month ago for the same pain and was diagnosed with gastritis. States he has been taking his Protonix at home which has been helping with the pain. Reports that this evening around 10:30 PM he developed worsening epigastric pain. It does not radiate anywhere. Denies any chest pain or shortness of breath. Reports nausea with few episodes of nonbloody, nonbilious vomiting. States he has been stooling normally, no diarrhea or constipation. No dysuria or hematuria. Denies any fever or chills. States that the pain was constant since 10:30 PM and he could not fall asleep with it which is why he came in to be evaluated. [facility] Medical History Kidney stones Neck pain Shoulder injury Home Medications ???Medication ???Instructions ???Recorded ???Last Taken ???Type gabapentin 100 mg capsule 200 mg PO BID 05/17/23 Unknown His tory pantoprazole 40 mg tablet,delayed 40 mg PO DAILY 30 days #30 tabs 0 10/09/24 Unknown Rx release (Protonix) sucralfate 1 gram tablet (Carafate) 1 g PO TID 1 week #21 tabs 11/04 06/28 Unknown Rx Allergy/AdvReac Type Severity Reaction Status Date / Time No Known Allergies Allergy Verified 10/09/24 03:25 Social History Smoking Status: Heavy Smoker (>10/day) ROS ROS ED ROS Narrative See HPI EXAM Physical Exam Narrative Exam Narrative: Vital signs: Reviewed General: Alert and oriented x 3. No acute distress HEENT: Head is normocephalic and atraumatic, sinuses nontender, pupils equal round and reactive. Nares are patent. Oropharynx and throat exams normal. Neck: Supple without lymphadenopathy nontender Cardiovascular: Regular rate and rhythm, no murmurs. No rubs or gallops. Normal S1 and S2 Respiratory: Clear to auscultation bilaterally. No wheezes, rales, rhonchi Abdominal: Soft and tender to palpation in the epigastric and right upper quadrants. No Pollock sign. Normal bowel sounds. No guarding or rebound. Nonsurgical abdomen Extremities: No tenderness. No bruising. Normal range of motion. Normal sensation. Skin: No rash or redness. The rest of the physical exam is unremarkable Const Vital Signs: 11/17/24 02:16 11/17/24 06:52 11/17/24 06:52 Temperature 97.5 F L 97.9 F 97.9 F Temperature Source Oral Oral Pulse Rate 71 68 68 Respiratory Rate 16 16 16 Blood Pressure 134/102 H 120/69 120/69 Blood Pressure Mean 112 86 86 Pulse Ox 100 97 97 Oxygen Delivery Method Room Air Room Air MDM MDM MDM Narrative Medical decision making narrative: Patient is a 34-year-old male presenting to the emergency department for epigastric abdominal pain. Patient was seen and examined. Vitals are stable. He is mildly hypertensive on arrival at 134/102. Differential includes but is not limited to: Gastritis, duodenitis, pancreatitis, biliary colic, less likely perforated ulcer, cholecystitis, choledocholithiasis, ACS Given GI cocktail and protonix as well as zofran for symptomatic control. Labs and imaging ordered. EKG shows sinus bradycardia with a sinus arrhythmia. No ischemic changes. No abnormal T wave inversions, ST elevation or depression. Given the normal EKG and HPI I do not think this is ACS related. CBC with no leukocytosis and normal hemoglobin. CMP with no significant abnormalities. Normal liver enzymes. Normal lipase. CT of the abdomen pelvis negative for acute intra-abdominal abnormalities. There is cholelithiasis but no evidence of acute cholecystitis. Patient reevaluated and feels improved after the GI cocktail and Protonix. Notified of the negative workup. He was prescribed Carafate. States he has been taking his Protonix. I did give him GI follow-up for possible EGD. Patient discharged from the Emergency Department. I do not feel that the patient's evaluation reveals any acute reason for admission at this time. I instructed them to either follow- up with their primary care physician or promptly return to the Emergency Department for reevaluation should symptoms worsen or new symptoms develop. I explained what symptoms would indicate the need to return to the emergency department. Shared decision making was used. The patient voiced (more content not included)... Normal [facility] Eosinophil percentageOrdered By: Karla Marshall on 11-17-2024 Eosinophils/100 WBC (Bld) 1.1 % 0-5 [facility] Erythrocyte distribution wid th ratioOrdered By: [facility] Rolando on 11-17-2024 Erythrocyte distribution width (RBC) [Ratio] 11.8 % 11.6-14.6 [facility] Erythrocyte distribution wid th standard deviationOrdered By: Karlabam Marshall on 11-17-2024 Erythrocyte distribution width (RBC) [Ratio] 36.3 fl 35.1-43.9 [facility] Glomerular filtration rate ( GFR) estimation/1.73 sq m using serum, plasma, or whole bOrdered By: Karlabam Marshall on 11-17-2024 GFR/1.73 sq M.predicted among non-blacks MDRD (S/P/Bld) [Vol rate/Area] 105 mL/min/{1.73_m2} >60 [facility] Comment on above: mL/min/1.73m2 CKD-EP I Creatinine Equation (2020) Hematocrit Auto (Bld) [Volum e fraction]Ordered By: Karla Marshall on 11-17-2024 Hematocrit (Bld) [Volume fraction] 42.9 % 40-54 [facility] Hemoglobin measurementOrdere d By: Karla Marshall on 11-17-2024 Hemoglobin (Bld) [Mass/Vol] 14.9 g/dL 13.0-16.5 [facility] Immature granulocytes/100 WB C Auto (Bld)Ordered By: Karla Marshall on 11-17-2024 Immature granulocytes/100 WBC (Bld) 0.300 % 0.0-0.9 [facility] Comment on above: IG% - Immature Granu locytes (promyelocytes, myelocytes and metamyelocytes) > 1% indicates that a LEFT SHIFT is Present. Laboratory - Chemistry and C hemistry - challengeOrdered By: Karla Marshall on 11-17-2024 AST [Catalytic activity/Vol] 19 U/L <38 [facility] Lipaseon 11-17-2024 Lipase [Catalytic activity/Vol] 28 U/L Normal 13-75 [facility] Comment on above: Result Comment: Marisa vincent note: LIPASE revised reference range effective 22. New Lipase methodology. Expected to produce lower values than the previous assay method. NEW Reference Range: 13 - 75 U/L Performed By: #### L 100.0100, L500.4050, L501.2450 ####[facility] [address] [place], [place], [address] Lipase measurementOrdered By : Karla Marshall on 11-17-2024 Lipase [Catalytic activity/Vol] 28 U/L 13-75 [facility] Comment on above: Please note:LIPASE r evised reference range effective 22. New Lipase methodology. Expected to produce lower values than the previous assay method. NEW Reference Range: 13 - 75 U/L MCV (mean corpuscular volume ) determinationOrdered By: Karla Marshall on 11-17-2024 MCV (RBC) [Entitic vol] 85.8 fL 80-94 [facility] Mean corpuscular hemoglobin (MCH) determinationOrdered By: Karla Marshall on 11-17-2024 MCH (RBC) [Entitic mass] 29.8 pg 27.0-32.0 [facility] Mean corpuscular hemoglobin concentration (MCHC) determinationOrdered By: Karla Marshall on 11-17-2024 MCHC (RBC) [Mass/Vol] 34.7 g/dL 32-36 [facility] Mean platelet volume determi nationOrdered By: Karla Marshall on 11-17-2024 Platelet mean volume (Bld) [Entitic vol] 9.6 fL 6.2-12.0 [facility] Monocyte percentageOrdered B y: Karla Marshall on 11-17-2024 Monocytes/100 WBC (Bld) 7.3 % 0-10 [facility] Neutrophil percentageOrdered By: Karla Marshall on 11-17-2024 Neutrophils/100 WBC (Bld) 51.5 % 47-70 [facility] Nucleated red blood cell per centageOrdered By: Karla Marshall on 11-17-2024 Nucleated RBC/100 WBC (Bld) [Ratio] 0 % 0-5 [facility] Platelet countOrdered By: Gerson Marshall on 11-17-2024 Platelets (Bld) [#/Vol] 273 10*3/uL 150-450 [facility] Potassium measurement (mass/ volume)Ordered By: Karla Marshall on 11-17-2024 Potassium (Unsp spec) [Mass/Vol] 3.8 mmol/L 3.3-5.1 [facility] RBC Auto (Bld) [#/Vol]Ordere d By: Karla Marshall on 11-17-2024 RBC (Bld) [#/Vol] 5.00 10*6/uL 4.6-6.2 [facility] Serum creatinine measurement (mass/volume)Ordered By: Karla Marshall on 11-17-2024 Creatinine [Mass/Vol] 0.96 mg/dL 0.70-1.20 [facility] Serum globulin measurementOr dered By: Karla Marshall on 11-17-2024 Globulin (S) [Mass/Vol] 2.6 g/dL 2.2-4.2 [facility] Serum glucose measurement (m ass/volume)Ordered By: Karla Marshall on 11-17-2024 Glucose [Mass/Vol] 127 mg/dL High 70-99 [facility] Serum or plasma alanine smith otransferase (ALT) measurementOrdered By: Karla Marshall on 11-17-2024 ALT [Catalytic activity/Vol] 16 U/L <47 [facility] Serum or plasma albumin antionette urement (mass/volume)Ordered By: Karla Marshall on 11-17-2024 Albumin [Mass/Vol] 4.5 g/dL 3.5-5.0 [facility] Serum or plasma albumin/glob ulin mass ratioOrdered By: Karla Marshall on 11-17-2024 Albumin/Globulin [Mass ratio] 1.7 {ratio} 0.9-2.4 [facility] Serum or plasma alkaline jared sphatase measurementOrdered By: Karla Marshall on 11-17-2024 ALP [Catalytic activity/Vol] 54 U/L 40-129 [facility] Serum or plasma calcium antionette urement (mass/volume)Ordered By: Karla Marshall on 11-17-2024 Calcium [Mass/Vol] 9.5 mg/dL 7.6-11.0 [facility] Serum or plasma urea nitroge n measurement (mass/volume)Ordered By: Karla Agarwaler on 11-17-2024 Urea nitrogen [Mass/Vol] 15 mg/dL 4-19 [facility] Sodium levelOrdered By: Benitez tang Rolando on 11-17-2024 Sodium [Moles/Vol] 140 mmol/L 133-145 [facility] Total proteinOrdered By: Tiara Agarwaler on 11-17-2024 Protein [Mass/Vol] 7.1 g/dL 5.9-8.4 [facility] White blood cell (WBC) count Ordered By: Karla Agarwaler on 11-17-2024 WBC (Bld) [#/Vol] 6.2 10*3/uL 4.4-11.0 [facility] Absolute lymphocyte countOrd ered By: Diotne Hendrix on 10-09-2024 Lymphocytes Auto (Unsp spec) [#/Vol] 2.10 10*3/uL 0.83-4.51 [facility] Absolute neutrophil countOrd ered By: Dionte Hendrix on 10-09-2024 Neutrophils (Bld) [#/Vol] 3.1 10*3/uL 2.0-7.7 [facility] Acute Abdomen Inc Cheston Acute Abdomen Inc Chest [facility] [address] [place] [address] Acute Abdomen Inc Chest MR#: [id number] Acct: [id number] Name: JIGARAMANDA Hancock Rep #: [id number] : 1990 M 33 From: Jl Holly MD PCP: Dr. Derik Brower, DO Status: REG ER Study: Acute Abdomen Inc Chest Date of Exam: 10/09/24 Exam# [id number] Ordering Dr: Dionte Hendrix DO PROCEDURE: ACUTE ABDOMEN INC CHEST 10/09/2024 REASON FOR EXAM: ABD PAIN TECHNIQUE: ACUTE ABDOMEN INC CHEST COMPARISON: CT 05/17/2023 FINDINGS: Normal heart size. Well inflated lungs. Right upper lobe hamartoma. No consolidation, effusion, or pneumothorax. No free air. Nonobstructed bowel. Mild stool. No concerning calcifications. RAD/Acute Abdomen Inc Chest IMPRESSION: Clear lungs. Nonobstructed bowel pattern. [facility] CC: Dr. Derik Brower DO; Dionte Hendrix DO Care Worker: Signed Normal [facility] Anion gap in Serum or Plasma Ordered By: Dionte Hendrix on 10-09-2024 Anion gap [Moles/Vol] 11 mmol/L 5-15 [facility] Automated lymphocyte count a s percentage of total leukocytesOrdered By: Dionte Hendrix on 10-09-2024 Lymphocytes/100 WBC Auto (Unsp spec) 36.4 % 19-41 [facility] BUN/creatinine ratioOrdered By: Dionte Hendrix on 10-09-2024 Urea nitrogen/Creatinine [Mass ratio] 20.8 mg/mg High 10-20 [facility] Basic Metabolic Profile (BMP )on 10-09-2024 BUN/CRE 20.8 RATIO High 10-20 [facility] Comment on above: Performed By: #### L 500.3400, L500.2500, L501.2450, L100.0100 #### [facility] [address] [place], [address] Calcium [Mass/Vol] 9.6 mg/dL Normal 7.6-11.0 [facility] Comment on above: Performed By: #### L 500.3400, L500.2500, L501.2450, L100.0100 #### [facility] [address] [place], [address] Chloride [Moles/Vol] 104 mmol/L Normal 98-108 [facility] Comment on above: Performed By: #### L 500.3400, L500.2500, L501.2450, L100.0100 #### [facility] [address] [place], [address] CO2 [Moles/Vol] 25.8 mmol/L Normal 21.0-32.0 [facility] Comment on above: Performed By: #### L 500.3400, L500.2500, L501.2450, L100.0100 #### [facility] [address] [place], [address] Creatinine [Mass/Vol] 0.87 mg/dL Normal 0.70-1.20 [facility] Comment on above: Performed By: #### L 500.3400, L500.2500, L501.2450, L100.0100 #### [facility] [address] [place], [address] ECRCL 103.09 ml/min Normal 50-250 [facility] Comment on above: Performed By: #### L 500.3400, L500.2500, L501.2450, L100.0100 #### [facility] [address] [place], [address] GAP 11 Normal 5-15 [facility] Comment on above: Performed By: #### L 500.3400, L500.2500, L501.2450, L100.0100 #### [facility] [address] [place], [address] GFR/1.73 sq M.predicted among non-blacks MDRD (S/P/Bld) [Vol rate/Area] 116 mL/min/{1.73_m2} Normal >60 [facility] Comment on above: Result Comment: mL/m in/1.73m2 CKD-EPI Creatinine Equation (2020) Performed By: #### L 500.3400, L500.2500, L501.2450, L100.0100 #### [facility] [address] [place], [address] Glucose [Mass/Vol] 117 mg/dL High 70-99 [facility] Comment on above: Performed By: #### L 500.3400, L500.2500, L501.2450, L100.0100 #### [facility] [address] [place], [address] Potassium [Moles/Vol] 3.7 mmol/L Normal 3.3-5.1 [facility] Comment on above: Performed By: #### L 500.3400, L500.2500, L501.2450, L100.0100 #### [facility] [address] [place], [address] Sodium [Moles/Vol] 140 mmol/L Normal 133-145 [facility] Comment on above: Performed By: #### L 500.3400, L500.2500, L501.2450, L100.0100 #### [facility] [address] [place], [address] Urea nitrogen [Mass/Vol] 18 mg/dL Normal 4-19 [facility] Comment on above: Performed By: #### L 500.3400, L500.2500, L501.2450, L100.0100 #### [facility] [address] [place], [address] Basophil percentageOrdered B y: Dionte Hendrix on 10-09-2024 Basophils/100 WBC (Bld) 0.7 % 0-1 [facility] Bilirubin directOrdered By: Dionte Hendrix on 10-09-2024 Bilirubin.direct [Mass/Vol] 0.11 mg/dL 0.00-0.30 [facility] Bilirubin, totalOrdered By: Dionte Hendrix on 10-09-2024 Bilirubin [Mass/Vol] 0.24 mg/dL 0.00-1.30 [facility] [facility] CBC W/Diff, Automatedon 08-0 Absolute Lymph 2.10 X10 3/uL Normal 0.83-4.51 [facility] Comment on above: Performed By: #### L 500.3400, L500.2500, L501.2450, L100.0100 #### [facility] [address] [place], [address] Absolute Neut 3.1 X10 3/uL Normal 2.0-7.7 [facility] Comment on above: Performed By: #### L 500.3400, L500.2500, L501.2450, L100.0100 #### [facility] [address] [place], [address] Basophils/100 WBC (Bld) 0.7 % Normal 0-1 [facility] Comment on above: Performed By: #### L 500.3400, L500.2500, L501.2450, L100.0100 #### [facility] [address] [place], [address] Eosinophils/100 WBC (Bld) 1.6 % Normal 0-5 [facility] Comment on above: Performed By: #### L 500.3400, L500.2500, L501.2450, L100.0100 #### [facility] [address] [place], [address] Erythrocyte distribution width (RBC) [Ratio] 11.9 % Normal 11.6-14.6 [facility] Comment on above: Performed By: #### L 500.3400, L500.2500, L501.2450, L100.0100 #### [facility] [address] [place], [address] Hematocrit (Bld) [Volume fraction] 40.7 % Normal 40-54 [facility] Comment on above: Performed By: #### L 500.3400, L500.2500, L501.2450, L100.0100 #### [facility] [address] [place], [address] Hemoglobin (Bld) [Mass/Vol] 14.2 g/dL Normal 13.0-16.5 [facility] Comment on above: Performed By: #### L 500.3400, L500.2500, L501.2450, L100.0100 #### [facility] [address] [place], [address] IG% 0.200 Normal 0.0-0.9 [facility] Comment on above: Result Comment: IG% - Immature Granulocytes (promyelocytes, myelocytes and metamyelocytes) > 1% indicates that a LEFT SHIFT is Present. Performed By: #### L 500.3400, L500.2500, L501.2450, L100.0100 #### [facility] [address] [place], [address] Lymphocytes/100 WBC (Bld) 36.4 % Normal 19-41 [facility] Comment on above: Performed By: #### L 500.3400, L500.2500, L501.2450, L100.0100 #### [facility] [address] [place], [address] MCH (RBC) [Entitic mass] 30.1 pg Normal 27.0-32.0 [facility] Comment on above: Performed By: #### L 500.3400, L500.2500, L501.2450, L100.0100 #### [facility] [address] [place], [address] MCHC (RBC) [Mass/Vol] 34.9 g/dL Normal 32-36 [facility] Comment on above: Performed By: #### L 500.3400, L500.2500, L501.2450, L100.0100 #### [facility] [address] [place], [address] MCV (RBC) [Entitic vol] 86.4 fL Normal 80-94 [facility] Comment on above: Performed By: #### L 500.3400, L500.2500, L501.2450, L100.0100 #### [facility] [address] [place], [address] Monocytes/100 WBC (Bld) 8.3 % Normal 0-10 [facility] Comment on above: Performed By: #### L 500.3400, L500.2500, L501.2450, L100.0100 #### [facility] [address] [place], [address] Neutrophils/100 WBC (Bld) 52.8 % Normal 47-70 [facility] Comment on above: Performed By: #### L 500.3400, L500.2500, L501.2450, L100.0100 #### [facility] [address] [place], [address] Nucleated RBC (Bld) [#/Vol] 0 10*3/uL Normal 0-5 [facility] Comment on above: Performed By: #### L 500.3400, L500.2500, L501.2450, L100.0100 #### [facility] [address] [place], [address] Platelet mean volume (Bld) [Entitic vol] 9.6 fL Normal 6.2-12.0 [facility] Comment on above: Performed By: #### L 500.3400, L500.2500, L501.2450, L100.0100 #### [facility] [address] [place], [address] Platelets (Bld) [#/Vol] 254 10*3/uL Normal 150-450 [facility] Comment on above: Performed By: #### L 500.3400, L500.2500, L501.2450, L100.0100 #### [facility] [address] [place], [address] RBC (Bld) [#/Vol] 4.71 10*6/uL Normal 4.6-6.2 [facility] Comment on above: Performed By: #### L 500.3400, L500.2500, L501.2450, L100.0100 #### [facility] [address] [place], [address] RDW SD 37.9 fl Normal 35.1-43.9 [facility] Comment on above: Performed By: #### L 500.3400, L500.2500, L501.2450, L100.0100 #### [facility] [address] [place], [address] WBC (Bld) [#/Vol] 5.8 10*3/uL Normal 4.4-11.0 [facility] Comment on above: Performed By: #### L 500.3400, L500.2500, L501.2450, L100.0100 #### [facility] [address] [place], [address] Carbon dioxide, total [Moles /volume] in Central venous bloodOrdered By: Dionte Hendrix on 10-09-2024 CO2 [Moles/Vol] 25.8 mmol/L 21.0-32.0 [facility] Chloride assayOrdered By: Rosa Hendrix on 10-09-2024 Chloride [Moles/Vol] 104 mmol/L 98-108 [facility] Emergency Department Summary on 10-09-2024 Emergency Department Summary [facility] Medical Records Department [address] [place] [address] Emergency Department Summary 10/09/24 MR#: [id number] Acct: [id number] Name: AMANDA KIMBALL Rep #: [id number] : 1990 33 From: Dionte Hendrix DO PCP: Dr. Derik Brower, DO Status:DEP ER Location: ED HPI History [...] to this he comes in for evaluation [facility] Medical History (Updated 10/09/24 @ 07:[address] Dionte Hendrix, DO) Kidney stones Neck pain Shoulder injury [...] History Smoking Status: Heavy Smoker (>10/day) ROS [facility] ED Constitutional Constitutional ED: Denies chills or [...] Neurologic: Denies headache(s) Psychiatric Psychiatric: Reports anxiety Hematologic/Lymphati c Hematologic/Lymphati c: Denies easy bleeding or easy bruising EXAM [...] abdomen tom (more content not included)... Normal [facility] Eosinophil percentageOrdered By: Dionte Hendrix on 10-09-2024 Eosinophils/100 WBC (Bld) 1.6 % 0-5 [facility] Erythrocyte distribution wid th ratioOrdered By: Dionte Hendrix on 10-09-2024 Erythrocyte distribution width (RBC) [Ratio] 11.9 % 11.6-14.6 [facility] Erythrocyte distribution wid th standard deviationOrdered By: Dionte Hendrix on 10-09-2024 Erythrocyte distribution width (RBC) [Ratio] 37.9 fl 35.1-43.9 [facility] Glomerular filtration rate ( GFR) estimation/1.73 sq m using serum, plasma, or whole bOrdered By: Dionte Hendrix on 10-09-2024 GFR/1.73 sq M.predicted among non-blacks MDRD (S/P/Bld) [Vol rate/Area] 116 mL/min/{1.73_m2} >60 [facility] Comment on above: mL/min/1.73m2 CKD-EP I Creatinine Equation (2020) Hematocrit Auto (Bld) [Volum e fraction]Ordered By: Dionte Hendrix on 10-09-2024 Hematocrit (Bld) [Volume fraction] 40.7 % 40-54 [facility] Hemoglobin measurementOrdere d By: Dionte Hendrix on 10-09-2024 Hemoglobin (Bld) [Mass/Vol] 14.2 g/dL 13.0-16.5 [facility] Immature granulocytes/100 WB C Auto (Bld)Ordered By: Dionte Hendrix on 10-09-2024 Immature granulocytes/100 WBC (Bld) 0.200 % 0.0-0.9 [facility] Comment on above: IG% - Immature Granu locytes (promyelocytes, myelocytes and metamyelocytes) > 1% indicates that a LEFT SHIFT is Present. Laboratory - Chemistry and C hemistry - challengeOrdered By: Dionte Hendrix on 10-09-2024 AST [Catalytic activity/Vol] 35 U/L <38 [facility] Lipaseon 10-09-2024 Lipase [Catalytic activity/Vol] 32 U/L Normal 13-75 [facility] Comment on above: Result Comment: Pleclyde vincent note: LIPASE revised reference range effective 22. New Lipase methodology. Expected to produce lower values than the previous assay method. NEW Reference Range: 13 - 75 U/L Performed By: #### L 500.3400, L500.2500, L501.2450, L100.0100 #### [facility] [address] [place], [address] Lipase measurementOrdered By : Dionte Hendrix on 10-09-2024 Lipase [Catalytic activity/Vol] 32 U/L 13-75 [facility] Comment on above: Please note:LIPASE r evised reference range effective 22. New Lipase methodology. Expected to produce lower values than the previous assay method. NEW Reference Range: 13 - 75 U/L Liver Profileon 10-09-2024 Albumin [Mass/Vol] 4.3 g/dL Normal 3.5-5.0 [facility] Comment on above: Performed By: #### L 500.3400, L500.2500, L501.2450, L100.0100 #### [facility] [address] [place], [address] ALK PHOS 62 U/L Normal 40-129 [facility] Comment on above: Performed By: #### L 500.3400, L500.2500, L501.2450, L100.0100 #### [facility] [address] [place], [address] ALT [Catalytic activity/Vol] 36 U/L Normal <=46 [facility] Comment on above: Performed By: #### L 500.3400, L500.2500, L501.2450, L100.0100 #### [facility] [address] [place], [address] AST [Catalytic activity/Vol] 35 U/L Normal <=37 [facility] Comment on above: Performed By: #### L 500.3400, L500.2500, L501.2450, L100.0100 #### [facility] [address] [place], [address] Bilirubin [Mass/Vol] 0.24 mg/dL Normal 0.00-1.30 [facility] Comment on above: Performed By: #### L 500.3400, L500.2500, L501.2450, L100.0100 #### [facility] [address] [place], [address] Bilirubin.direct [Mass/Vol] 0.11 mg/dL Normal 0.00-0.30 [facility] Comment on above: Performed By: #### L 500.3400, L500.2500, L501.2450, L100.0100 #### [facility] [address] [place], [address] Globulin (S) [Mass/Vol] 2.2 g/dL Normal 2.2-4.2 [facility] Comment on above: Performed By: #### L 500.3400, L500.2500, L501.2450, L100.0100 #### [facility] [address] [place], [address] T PROT 6.5 g/dL Normal 5.9-8.4 [facility] Comment on above: Performed By: #### L 500.3400, L500.2500, L501.2450, L100.0100 #### [facility] [address] [place], [address] MCV (mean corpuscular volume ) determinationOrdered By: Dionte Hendrix on 10-09-2024 MCV (RBC) [Entitic vol] 86.4 fL 80-94 [facility] Mean corpuscular hemoglobin (MCH) determinationOrdered By: Dionte Hendrix on 10-09-2024 MCH (RBC) [Entitic mass] 30.1 pg 27.0-32.0 [facility] Mean corpuscular hemoglobin concentration (MCHC) determinationOrdered By: Dionte Hendrix on 10-09-2024 MCHC (RBC) [Mass/Vol] 34.9 g/dL 32-36 [facility] Mean platelet volume determi nationOrdered By: Dionte Hendrix on 10-09-2024 Platelet mean volume (Bld) [Entitic vol] 9.6 fL 6.2-12.0 [facility] Monocyte percentageOrdered B y: Dionte Hendrix on 10-09-2024 Monocytes/100 WBC (Bld) 8.3 % 0-10 [facility] Neutrophil percentageOrdered By: Dionte Hendrix on 10-09-2024 Neutrophils/100 WBC (Bld) 52.8 % 47-70 [facility] Nucleated red blood cell per centageOrdered By: Dionte Hendrix on 10-09-2024 Nucleated RBC/100 WBC (Bld) [Ratio] 0 % 0-5 [facility] Platelet countOrdered By: Rosa Hendrix on 10-09-2024 Platelets (Bld) [#/Vol] 254 10*3/uL 150-450 [facility] Potassium measurement (mass/ volume)Ordered By: Dionte Hendrix on 10-09-2024 Potassium (Unsp spec) [Mass/Vol] 3.7 mmol/L 3.3-5.1 [facility] RBC Auto (Bld) [#/Vol]Ordere d By: Dionte Hendrix on 10-09-2024 RBC (Bld) [#/Vol] 4.71 10*6/uL 4.6-6.2 [facility] Serum creatinine measurement (mass/volume)Ordered By: Dionte Hendrix on 10-09-2024 Creatinine [Mass/Vol] 0.87 mg/dL 0.70-1.20 [facility] Serum globulin measurementOr dered By: Dionte Hendrix on 10-09-2024 Globulin (S) [Mass/Vol] 2.2 g/dL 2.2-4.2 [facility] Serum glucose measurement (m ass/volume)Ordered By: Dionte Hendrix on 10-09-2024 Glucose [Mass/Vol] 117 mg/dL High 70-99 [facility] Serum or plasma alanine smith otransferase (ALT) measurementOrdered By: Dionte Hendrix on 10-09-2024 ALT [Catalytic activity/Vol] 36 U/L <47 [facility] Serum or plasma albumin antionette urement (mass/volume)Ordered By: Dionte Hendrix on 10-09-2024 Albumin [Mass/Vol] 4.3 g/dL 3.5-5.0 [facility] Serum or plasma alkaline jared sphatase measurementOrdered By: Dionte Hendrix on 10-09-2024 ALP [Catalytic activity/Vol] 62 U/L 40-129 [facility] Serum or plasma calcium antionette urement (mass/volume)Ordered By: Dionte Hendrix on 10-09-2024 Calcium [Mass/Vol] 9.6 mg/dL 7.6-11.0 [facility] Serum or plasma urea nitroge n measurement (mass/volume)Ordered By: Dionte Hendrix on 10-09-2024 Urea nitrogen [Mass/Vol] 18 mg/dL 4-19 [facility] Sodium levelOrdered By: Riley Hendrix on 10-09-2024 Sodium [Moles/Vol] 140 mmol/L 133-145 [facility] Total proteinOrdered By: Santos Hendrix on 10-09-2024 Protein [Mass/Vol] 6.5 g/dL 5.9-8.4 [facility] White blood cell (WBC) count Ordered By: Dionte Hendrix on 10-09-2024 WBC (Bld) [#/Vol] 5.8 10*3/uL 4.4-11.0 [facility] Absolute lymphocyte countOrd ered By: Jose Alfredo Moore on 05-17-2023 Lymphocytes Auto (Unsp spec) [#/Vol] 3.14 10*3/uL 0.83-4.51 [facility] Amorphous sediment detection in urine sediment by light microscopyOrdered By: Jose Alfredo Moore on 05-17-2023 Amorphous sediment LM Ql (Urine sed) 2+ [facility] Automated lymphocyte count a s percentage of total leukocytesOrdered By: Jose Alfredo Moore on 05-17-2023 Lymphocytes/100 WBC Auto (Unsp spec) 50.5 % 19-41 [facility] Basophil percentageOrdered B y: Jose Alfredo Moore on 05-17-2023 Basophil percentage 0-5 SEEN /hpf 0-5 [facility] Basophils/100 WBC (Bld) 1.0 % 0-1 [facility] Chloride [Moles/Vol] 106 mmol/L 98-107 [facility] Eosinophils/100 WBC (Bld) 1.8 % 0-5 [facility] Glucose [Mass/Vol] 117 mg/dL 74-106 [facility] Comment on above: Fasting Glucose resu lt from 100 to 125 mg/dL suggests IMPAIRED HOMEOSTASIS per A.D.A. criteria. Hemoglobin (Bld) [Mass/Vol] 15.1 g/dL 13.0-16.5 [facility] Monocytes/100 WBC (Bld) 7.1 % 0-10 [facility] Neutrophils (Bld) [#/Vol] 2.5 10*3/uL 2.0-7.7 [facility] Neutrophils/100 WBC (Bld) 39.3 % 47-70 [facility] Potassium [Moles/Vol] 3.9 mmol/L 3.5-5.1 [facility] Sodium [Moles/Vol] 141 mmol/L 136-145 [facility] WBC (Bld) [#/Vol] 6.2 10*3/uL 4.4-11.0 [facility] Bilirubin Test strip Ql (U)O rdered By: Jose Alfredo Moore on 05-17-2023 Bilirubin Ql (U) Negative Negative [facility] Determination of erythrocyte mean corpuscular volume (MCV)Ordered By: Jose Alfredo Moore on 05-17-2023 MCV (RBC) [Entitic vol] 86.9 fL 80-94 [facility] Erythrocyte distribution wid th ratioOrdered By: Jose Alfredo Moore on 05-17-2023 Erythrocyte distribution width (RBC) [Ratio] 11.9 % 11.6-14.6 [facility] Erythrocyte distribution wid th standard deviationOrdered By: Jose Alfredo Moore on 05-17-2023 Erythrocyte distribution width (RBC) [Entitic vol] 38.2 fL 35.1-43.9 [facility] Hematocrit Auto (Bld) [Volum e fraction]Ordered By: Jose Alfredo Moore on 05-17-2023 Hematocrit (Bld) [Volume fraction] 44.6 % 40-54 [facility] Immature granulocytes/100 WB C Auto (Bld)Ordered By: Jose Alfredo Moore on 05-17-2023 Immature granulocytes/100 WBC (Bld) 0.300 % 0.0-0.9 [facility] Comment on above: IG% - Immature Granu locytes (promyelocytes, myelocytes and metamyelocytes) > 1% indicates that a LEFT SHIFT is Present. Ketones Test strip Ql (U)Ord ered By: Jose Alfredo Moore on 05-17-2023 Ketones Ql (U) 5 mg/dl Negative [facility] - Chemistry and C hemistry - challengeOrdered By: Jose Alfredo Moore on 05-17-2023 CO2 [Moles/Vol] 30.0 mmol/L 21.0-32.0 [facility] Urea nitrogen/Creatinine [Mass ratio] 13.4 mg/mg 10-20 [facility] - Hematology and Cell countsOrdered By: Jose Alfredo Moore on 05-17-2023 MCH (RBC) [Entitic mass] 29.4 pg 27.0-32.0 [facility] MCHC (RBC) [Mass/Vol] 33.9 g/dL 32-36 [facility] Nucleated RBC/100 WBC (Bld) [Ratio] 0 % 0-5 [facility] Platelet mean volume (Bld) [Entitic vol] 10.0 fL 6.2-12.0 [facility] Platelets (Bld) [#/Vol] 325 10*3/uL 150-450 [facility] Mucus LM Ql (Urine sed)Order ed By: Jose Alfredo Moore on 05-17-2023 Mucus Ql (Urine sed) 0 SEEN /hpf [facility] Nitrite Test strip Ql (U)Ord ered By: Jose Alfredo Moore on 05-17-2023 Nitrite Ql (U) Negative Negative [facility] No Panel InformationOrdered By: Jose Alfredo Moore on 05-17-2023 Urine RBC 25-50 SEEN /hpf 0-5 [facility] Estimated Creatinine Clearance Calc 101.73 ml/min [facility] Estimated GFR (MDRD) Amer 125 mL/min >60 [facility] Comment on above: GFR Calc Estimated GFR (MDRD) Non-Af Amer 103 mL/min >60 [facility] Comment on above: Non- GFR Calc Protein Test strip Ql (U)Ord ered By: Jose Alfredo Moore on 05-17-2023 Protein Ql (U) 100 mg/dl Negative [facility] RBC Auto (Bld) [#/Vol]Ordere d By: Jose Alfredo Moore on 05-17-2023 RBC (Bld) [#/Vol] 5.13 10*6/uL 4.6-6.2 [facility] Serum or plasma calcium antionette urement (mass/volume)Ordered By: Jose Alfredo Moore on 05-17-2023 Calcium [Mass/Vol] 9.0 mg/dL 8.5-10.1 [facility] Serum or plasma creatinine m easurement (mass/volume)Ordered By: Jose Alfredo Moore on 05-17-2023 Creatinine [Mass/Vol] 0.89 mg/dL 0.70-1.30 [facility] Comment on above: The validity of the calculated GFR & GFRAA in patients over 70 years has not been determined. Clinical correlation is essential. Serum or plasma urea nitroge n measurement (mass/volume)Ordered By: Jose Alfredo Moore on 05-17-2023 Urea nitrogen [Mass/Vol] 12 mg/dL 7-18 [facility] Squamous epithelial cells de tection in urine sediment by light microscopyOrdered By: Jose Alfredo Moore on 05-17-2023 Epithelial cells.squamous LM Ql (Urine sed) 0 SEEN /hpf 0-5 [facility] Thin prep Papanicolaou smear with manual screeningOrdered By: Jose Alfredo Moore on 05-17-2023 Thin prep Papanicolaou smear with manual screening 5 5-15 [facility] Urine blood detectionOrdered By: Jose Alfredo Moore on 05-17-2023 RBC Ql (U) 250 /ul Negative [facility] Urine clarityOrdered By: Eli Moore on 05-17-2023 Clarity (U) Cloudy Clear [facility] Urine color determinationOrd ered By: Jose Alfredo Moore on 05-17-2023 Color (U) Yellow Yellow [facility] Urine glucose detectionOrder ed By: Jose Alfredo Moore on 05-17-2023 Glucose Ql (U) Normal mg/dl Normal [facility] Urine leukocyte esterase det ection by dipstickOrdered By: Jose Alfredo Moore on 05-17-2023 Leukocyte esterase Test strip Ql (U) 25 /ul Negative [facility] Urine pHOrdered By: Jose Alfredo Rodas gur on 05-17-2023 pH (U) 5.0 [pH] 5.0 - 8.0 [facility] Urine sediment bacteria coun t by microscopy (number/high power field)Ordered By: Jose Alfredo Moore on 05-17-2023 Bacteria LM.HPF (Urine sed) [#/Area] 2 /[HPF] None Seen [facility] Urine specific gravity measu rementOrdered By: Jose Alfredo Moore on 05-17-2023 Specific gravity (U) [Rel density] 1.025 1.002-1.030 [facility] Urine urobilinogen measureme ntOrdered By: Jose Alfredo Moore on 05-17-2023 Urobilinogen Ql (U) 1 mg/dl Normal [facility] Culture, urineOrdered By: Dajuan Brower on 05-09-2023 Bacteria identified Cx Nom (U) Culture exhibits no growth. [facility] CT CHEST W/O CONTRASTon 10-04 CT CHEST W/O CONTRAST [place] [address] Patient: AMANDA KIMBALL Phone#: : 1990 Age: 26 Gender: M Pt. Type: Out Account: [id number] Location: [facility] Ordering: MAO FORREST Exam Date: 10/20/2016/13:46 Family Phys: Charge Code: [id number] Physician: Sierra Order #: [id number] DLP Dose#: PROCEDURE: CT CHEST WITHOUT CONTRAST COMPARISON: [facility], CT, CHEST W CON, 06/08/2015, 9:13. [...] 26 Gender: M Pt. Type: Out Account: [id number] Location: 052 Ordering: MAO FORREST Exam Date: 10/20/2016/13:46 Family Phys: Charge Code: 779798 Physician: Sierra Order #: [id number] DLP Dose#: BONES: Schmorl's nodes are noted at the lower thoracic and upper lumbar spine. OTHER: Negative. CONCLUSION: 1. Stable right upper lobe and left lower lobe nodular foci. 2. Probable cholelithiasis. Dictated by: Meagan Russo MD on 10/20/2016 at 14:19 Approved by: Meagan Russo MD on 10/20/2016 at 14:19 Normal [facility] Vital Signs Date Time Vital Sign Value Performing Clinician Faci lity 11-18-2024 13:14-0400 Body height 165.[address] Derik Brower DO Work Phone: [facility] 11-17-2024 06:52-0400 Body temperature 97.9 [degF] Dr. Derik Brower DO Work Phone: [facility] 11-17-2024 06:52-0400 Diastolic blood pressure 69 mm[Hg] Dr. Derik Brower DO Work Phone: [facility] 11-17-2024 06:52-0400 Heart rate 68 /min Dr. Derik Brower DO Work Phone: [facility] 11-17-2024 06:52-0400 Respiratory rate 16 /min Dr. Derik Brower DO Work Phone: [facility] 11-17-2024 06:52-0400 SaO2% (BldA) [Mass fraction] 97 % Dr. Derik Brower DO Work Phone: [facility] 11-17-2024 06:52-0400 Systolic blood pressure 120 mm[Hg] Dr. Derik Brower DO Work Phone: [facility] 11-17-2024 02:16-0400 Body height 165.[address] Derik Brower DO Work Phone: [facility] 11-17-2024 02:16-0400 Body mass index (BMI) [Ratio] 26.7 kg/m2 Dr. Derik Brower DO Work Phone: [facility] 11-17-2024 02:16-0400 Body weight [address] Derik Brower DO Work Phone: [facility] 10-09-2024 05:24-0400 Body temperature 98 [degF] Dr. Derik Brower DO Work Phone: [facility] 10-09-2024 05:24-0400 Diastolic blood pressure 88 mm[Hg] Dr. Derik Brower DO Work Phone: [facility] 10-09-2024 05:24-0400 Heart rate 62 /min Dr. Derik Brower DO Work Phone: [facility] 10-09-2024 05:24-0400 Respiratory rate 18 /min Dr. Derik Brower DO Work Phone: [facility] 10-09-2024 05:24-0400 SaO2% (BldA) [Mass fraction] 100 % Dr. Derik Brower DO Work Phone: [facility] 10-09-2024 05:24-0400 Systolic blood pressure 120 mm[Hg] Dr. Derik Brower DO Work Phone: [facility] 10-09-2024 03:21-0400 Body height 165.[address] Derik Brower DO Work Phone: [facility] 10-09-2024 03:21-0400 Body mass index (BMI) [Ratio] 26.6 kg/m2 Dr. Derik Brower DO Work Phone: [facility] 10-09-2024 03:21-0400 Body weight 72.[address] Derik Brower DO Work Phone: [facility] 05-17-2023 11:22-0400 Body temperature 97.8 [degF] [facility] 05-17-2023 11:22-0400 Diastolic blood pressure 78 mm[Hg] [facility] 05-17-2023 11:22-0400 Heart rate 87 /min [facility] 05-17-2023 11:22-0400 Respiratory rate 16 /min [facility] 05-17-2023 11:22-0400 SaO2% (BldA) [Mass fraction] 99 % [facility] 05-17-2023 11:22-0400 Systolic blood pressure 118 mm[Hg] [facility] 05-17-2023 09:41-0400 Body height 165.1 cm [facility] 05-17-2023 09:41-0400 Body mass index (BMI) [Ratio] 26.9 kg/m2 [facility] 05-17-2023 09:41-0400 Body weight 73.48 kg [facility] 09-20-2021 10:13-0400 Body height 165.1 cm [facility] Work Phone: 09-20-2021 10:13-0400 Body mass index (BMI) [Ratio] 23.3 kg/m2 [facility] Work Phone: 09-20-2021 10:13-0400 Body temperature 97.8 [degF] [facility] Work Phone: 09-20-2021 10:13-0400 Body weight 63.5 kg [facility] Work Phone: 09-20-2021 10:13-0400 Diastolic blood pressure 89 mm[Hg] [facility] Work Phone: 09-20-2021 10:13-0400 Heart rate 76 /min [facility] Work Phone: 09-20-2021 10:13-0400 Respiratory rate 16 /min [facility] Work Phone: 09-20-2021 10:13-0400 SaO2% (BldA) [Mass fraction] 100 % [facility] Work Phone: 09-20-2021 10: Systolic blood pressure 139 mm[Hg] [facility] Work Phone: Encounters Encounter Date Encounter Type Care Provider Facility Start: 11-29-2024 ambulatory Arik Friend Facility :[facility] Start: 11-19-2024 End: 11-19-2024 Patient encounter procedure Torrie DIAZ -[facility] Work Phone: Start: 11-19-2024 End: 11-19-[address] Derik Brower DO Work Phone: -[facility] Start: 11-17-2024 End: 11-17-2024 Emergency department patient visit Dr. Derik Brower DO Work Phone: -Emergency Department Work Phone: Start: 10-09-2024 End: 10-09-2024 Emergency department patient visit Dr. Derik Brower DO Work Phone: -Emergency Department Work Phone: Start: 05-17-2023 End: 05-17-2023 Emergency department patient visit [facility]Emergency Department Work Phone: Start: 05-09-2023 End: 05-09-2023 [facility] Work Phone: Start: 05-09-2023 End: 05-09-2023 Patient encounter procedure [facility]-Laboratory, Specimen Work Phone: Start: 09-20-2021 End: 09-20-2021 Emergency department patient visit [facility]Emergency Department Start: 10-20-2016 End: 10-20-2016 Ambulatory [facility] Procedures Date Procedure Procedure Detail Performing Clinician Start: 11-17-2024 Computed tomography of abdomen and pelvis with intravenous contrast Dr. Derik Brower DO Work Phone: Start: 11-17-[address] Derik Brower DO Work Phone: Start: 10-09-2024 Plain X-ray abdomen Dr. Derik Brower DO Work Phone: Start: 10-09-[address] Derik Brower DO Work Phone: Start: 05-17-2023 CT of abdomen and pe lvis without contrast Start: 05-09-2023 Urine culture Start: 09-20-2021 Plain X-ray of shoulder Plan of Treatment Date Care Activity Detail Author Start: 11-17-2024 [facility] Start: 11-17-2024 [facility] Start: 10-09-2024 [facility] Start: 10-09-2024 [facility] Start: 05-17-2023 [facility] CBC W Auto Different ial panel - Blood [facility] Comprehensive metabo lic 2000 panel - Serum or Plasma [facility] Patient Education [facility] Work Phone: Patient referral [facility] Work Phone: Triacylglycerol lipa se measurement [facility] US Abdomen limited [facility] Payers Date Payer Category Payer Self-pay [id number] 2024 Unknown [id number] Unknown [id number] Unknown [id number] Unknown [id number] Unknown [id number] [id number] Unknown [id number] [id number] [id number] Unknown [id number] Social History Date Type Detail Facility Start: 09-20-2021 End: 05-17-2023 Tobacco smoking status NHIS Unknown if ever smoked [facility] Start: 12-23-2019 None [facility] Start: 12-23-2019 Spouse/ Signif icant Other [facility] Start: 12-23-2019 Cigarettes [facility] Start: 1990 Sex Assigned At Male [facility] Start: 10-09-2024 End: 11-18-2024 Tobacco smoking status NHIS Current Heavy tobacco smoker [facility] Radiology Diagnostic study note 11-17-2024 Note Date & Type Note Facility 11-17-2024 Radiology Diagnostic study note [facility] Imaging Services [address] [place], [place] [id number] Abdomen/Pelvis W IV Cont ONLY MR#: [id number] Acct: [id number] Name: AMANDA KIMBALL Rep #: [id number] : 1990 M 34 From: Issa Henriquez MD PCP: Dr. Derik Brower, DO Status: REG ER Study:Abdomen/Pelvis W IV Cont ONLY Date of E xam: 11/17/24 Exam# [id number] Ordering Dr: Gerson Marshall MD PROCEDURE: ABDOMEN/PELVIS W IV CONT ONLY 11/17/2024 REASON FOR EXAM: EPIGASTRIC ABDOMINAL PAIN Abdominal pain. TECHNIQUE: Procedure Code: [id number] Modality: CT Procedure: ABDOMEN/PELVIS W IV CONT ONLY Coronal and Sagittal reconstruction series were provided. CONTRAST: Isovue 370 VOLUME: 90 mL One or more dose reduction techniques were used (e.g., Automated exposure control, adjustment of the mA and/or kV according to patient size, use of iterative reconstruction technique. RADIATION DOSE SUMMARY: CTDlvol: 30 mGy DLP: 481 mGycm COMPARISON: May 2023. FINDINGS: Lung bases: Negative. ABDOMEN Liver: Negative. Biliary system: Negative. Negative for intrahepatic or extrahepatic ductal dilatation. Gallbladder: Contains stones. Negative for cholecystitis. Spleen: Negative. Pancreas: Negative. Adrenals: Negative. Kidneys: Negative. Negative for kidney stones, cysts or masses. Bowel: Moderate increased stool throughout the colon. Negative for small or large-bowel obstruction. Appendix: Negative. Vasculature: Negative for atherosclerotic vascular calcifications of the abdominal aorta and its branches. Peritoneum / Retroperitoneum: Negative. PELVIS Lymph nodes: Negative for inguinal or iliac adenopathy. Bladder: Urinary bladder negative. Reproductive Organs: Prostate negative. Bones and Soft Tissues: Age appropriate degenerative changes of the lumbar spine hips and pelvis. CT/Abdomen/Pelvis W IV Cont ONLY IMPRESSION: Negative for acute intra-abdominal or pelvic pathology. Cholelithiasis. Reading Location: [id number] CC: Dr. Karla Marshall MD; Dr. Derik Brower DO ~ Care Worker: Signed [facility] Radiology Diagnostic study note 10-09-2024 Note Date & Type Note Facility 10-09-2024 Radiology Diagnostic study note [facility] Imaging Services [address] [place] [id number] Acute Abdomen Inc Chest MR#: [id number] Acct: [id number] Name: AMANDA KIMBALL Rep #: [id number] : 1990 M 33 From: Bri Holly MD PCP: Dr. Derik Brower DO Status: REG ER Study:Acute Abdomen Inc Chest Date of Exam: 10/09/24 Exam# [id number] Ordering Dr: Rosa Hendrix DO PROCEDURE: ACUTE ABDOMEN INC CHEST 10/09/2024 REASON FOR EXAM: ABD PAIN TECHNIQUE: ACUTE ABDOMEN INC CHEST COMPARISON: CT 05/17/2023 FINDINGS: Normal heart size. Well inflated lungs. Right upper lobe hamartoma. No consolidation, effusion, or pneumothorax. No free air. Nonobstructed bowel. Mild stool. No concerning calcifications. RAD/Acute Abdomen Inc Chest IMPRESSION: Clear lungs. Nonobstructed bowel pattern. Reading Location: [facility] CC: Dr. Derik Brower DO; Dionte Hendrix DO ~ Care Worker: Signed [facility] Evaluation note Note Date & Type Note Facility Evaluation note No assessment information availa ble [facility] Work Phone: Evaluation note Note Date & Type Note Facility Evaluation note Diagnosis Onset Date Resolution Gastritis acute Tasha 16th , 2025 2:08pm RUQ pain acute November 2:08pm [facility] Work Phone: Hospital Discharge instructions Note Date [...] ER should you have any further concerns [facility] Work Phone: Hospital Discharge instructions Note Date & Type Note Facility Hospital Discharge instructions Additional Instructions Take the Carafate and Protonix as prescribed. Follow-up with the GI doctor below Dr. Perez. Your evaluation in the Emergency Department did not reveal any acute reason for admission. However, I want to emphasize that you may be early in the course of a disease process or illness even if it is not present. For this reason you should follow-up within 24 hours for reevaluation with either your primary care physician or if necessary back here in the Emergency Department. You should return to the Emergency Department immediately if your symptoms worsen or new symptoms develop. [facility] Work Phone: Reason for referral (narrative) Note Date & Type Note Facility Reason for referral (narrative) No reason for referral information available [facility] Work Phone: Summary Purpose Family History No Family History Records FoundNo Family History Records Found Advance Directives No Advanced Directives Records Found Advance Directive Response Recorded Date/ Time Living Will No September 20, 2021 10:28am Power of Tech Ed/Woodshop Teacher No September 20 10:28am Advance Directive Response Recorded Date/ Time Living Will No May 17, 2023 10:06am Power of Tech Ed/Woodshop Teacher No May 16 10:06am Advance Directive Response Recorded Date/ Time Do you have a Healthcare Power of Tech Ed/Woodshop Teacher? No October 09, 2024 3:25am Advance Directive Response Recorded Date/ Time Do you have a Healthcare Power of Tech Ed/Woodshop Teacher? No October 09, 2024 3:25am Do you have a Healthcare Power of Tech Ed/Woodshop Teacher? No November 17, 2024 2:21am Chief Complaint and Reason for Visit Chief Complaint RT SHOULDER PAIN Chief Complaint FLANK PAIN Chief Complaint Admit Date abd pain October 09, 2024 3:2 0am Chief Complaint Admit Date abd pain October 09, 2024 3:2 0am abd pain November 17, 2024 2:16am Chief Complaint Admit Date abd pain October 09, 2024 3:2 0am abd pain November 17, 2024 2:16am ER FU 3-5 DAYS FROM 11/17November 19, 2024 2:08pm Reason for Visit Admit Date Gastritis November 19, 2024 2:08pm RUQ pain November 19, 2024 2:08pm Additional Source Comments (unrecognized sect ion and content) No Status Records FoundNo Status Records Found INFORMATION SOURCE (unrecogn ized section and content) DATE CREATED AUTHOR 08/30/2017 [facility] DATE CREATED AUTHOR AUTHOR'S ORGANIZ ATION 11/20/2024 [facility] Goals (unrecognized section and content) [...] Status: Active Member Role Status Dates Dr. Mao Forrest MD Family Provider Active Dr. Derik [...] End: October 09, 2024 Dr. Dionte Hendrix DO Emergency Provider Active Start: October 09, 2024 End: October 09, 2024 Team Status: Inactive Member Role/Relationship Status Dates Dr. Derik Brower DO Primary Care Provider Active Start: October 09, 2024 End: October 09, 2024 Dr. Dionte Hendrix DO Attending Provider Active Start: October 09, 2024 End: October 09, 2024 Dr. Dionte Hendrix DO Emergency Provider Active Start: October 09, 2024 End: October 09, 2024 Team Status: Inactive Member Role/Relationship Status Dates Dr. Derik Brower DO Primary Care Provider Active Start: November 17, 2024 End: November 17, 2024 Dr. Karla Marshall MD Emergency Provider Active S tart: November 17, 2024 End: November 17, 2024 Team Status: Inactive Member Role/Relationship Status Dates Dr. Derik Brower DO Primary Care Provider Active Start: November 19, 2024 End: November 19, 2024 Dr. Derik Brower DO Referring Provider Active Start: November 19, 2024 End: November 19, 2024 EMILY Rahman Attending Provider Active Start: November 19, 2024 End: November 19, 2024 FOR RECORDS PERTAINING TO PATIENTS WHO [...] BE BASED ON THE PRIMARY CLINICAL RECORDS. [employer] provides no warranty or guarantee of the accuracy or completeness of information in this document.
[2024-11-20 23:20] LABS: Alanine Aminotransfer ALT/SGPT 57 U/L (<=46); Albumin, Serum 4.2 g/dL (3.5-5.0); Alkaline Phosphatase 75 U/L (40-129); Anion Gap 11 (5-15); BUN 15 mg/dL (4-19); BUN/Creat Ratio 17.4 RATIO (10-20); Bilirubin, Direct 0.29 mg/dL (0.00-0.30); Calcium,Total 9.4 mg/dL (7.6-11.0); Carbon Dioxide 25.2 mmol/L (21.0-32.0); Chloride 102 mmol/L (98-108); Globulin 3.0 g/dL (2.2-4.2); Glucose 113 mg/dL (70-99); Potassium 3.9 mmol/L (3.3-5.1)
[2024-11-20] MEDS: Famotidine 200 MG/20 ML MDV 20 MG in 0.9% Normal Saline (Pres. free 8 ML 300 MG IV (23:25)
[2024-11-20 23:29] LABS: AST(SGOT) 88 U/L (<=37)
[2024-11-21] VITALS (17 sets, daily range): BP systolic 95–130; BP diastolic 49–96; PULSE 61–96; RESP 2–18; TEMP 36.4–36.9; O2SAT 93–100; BMI 25.7
[2024-11-21] MEDS: Piperacil/Tazobactam 3.375 GM in 0.9% Normal Saline (50mL MB+) 50 ML IV ×4 (00:31→21:53)
--- OUTSIDE RECORDS SUMMARY | 2024-11-21 00:35 | XMS RPT_ITS | CCD ---
Author Organization [facility] Care Team Providers Care Material Handler Loader Name Role Phone BAY, MAO H Unavailable Unavailable BAY, MAO H Unavailable Unavailable BAY, MAO H Unavailable Unavailable BAY, MAO H Unavailable Unavailable PROVIDER, UNKNOWN Unavailable Unavailable Dr. Derik Brower DO Primary Care Provider [phone] Dr. Dionte Hendrix DO Emergency Provider Dr. [...] Derik Brower Primary Care Unavailable Torrie Cee Attending Unavailable Derik Brower Primary Care Unavailable Dionte Hendrix Attending Unavailable Allergies Allergy Classification Reported Allergen(s) Allergy Type Date of Onset Reaction(s) Facility (1 source) bee venom Drug allergy (disorder) [facility] Repository Medications Current Medications Medication Drug [...] Absolute Lymph 1.83 X10 3/uL Normal 0.83-4.51 [facility] Comment on above: Performed By: #### L 500.4050, L501.2450, L100.0100 ####[facility] [address] [place], [address] Absolute Neut 5.8 X10 3/uL Normal 2.0-7.7 [facility] Comment on above: Performed By: #### L 500.4050, L501.2450, L100.0100 ####[facility] [address] [place], [address] Basophils/100 WBC (Bld) 0.5 % Normal 0-1 [facility] Comment on above: Performed By: #### L 500.4050, L501.2450, L100.0100 ####[facility] [address] [place], [address] Eosinophils/100 WBC (Bld) 1.5 % Normal 0-5 [facility] Comment on above: Performed By: #### L 500.4050, L501.2450, L100.0100 ####[facility] [address] [place], [address] Erythrocyte distribution width (RBC) [Ratio] 11.7 % Normal 11.6-14.6 [facility] Comment on above: Performed By: #### L 500.4050, L501.2450, L100.0100 ####[facility] [address] [place], [address] Hematocrit (Bld) [Volume fraction] 44.0 % Normal 40-54 [facility] Comment on above: Performed By: #### L 500.4050, L501.2450, L100.0100 ####[facility] [address] [place], [address] Hemoglobin (Bld) [Mass/Vol] 15.1 g/dL Normal 13.0-16.5 [facility] Comment on above: Performed By: #### L 500.4050, L501.2450, L100.0100 ####[facility] [address] [place], [address] IG% 0.500 Normal 0.0-0.9 [facility] Comment on above: Result Comment: IG% - Immature Granulocytes (promyelocytes, myelocytes and metamyelocytes) > 1% indicates that a LEFT SHIFT is Present. Performed By: #### L 500.4050, L501.2450, L100.0100 ####[facility] [address] [place], [address] Lymphocytes/100 WBC (Bld) 21.4 % Normal 19-41 [facility] Comment on above: Performed By: #### L 500.4050, L501.2450, L100.0100 ####[facility] [address] [place], [address] MCH (RBC) [Entitic mass] 29.7 pg Normal 27.0-32.0 [facility] Comment on above: Performed By: #### L 500.4050, L501.2450, L100.0100 ####[facility] [address] [place], [address] MCHC (RBC) [Mass/Vol] 34.3 g/dL Normal 32-36 [facility] Comment on above: Performed By: #### L 500.4050, L501.2450, L100.0100 ####[facility] [address] [place], [address] MCV (RBC) [Entitic vol] 86.4 fL Normal 80-94 [facility] Comment on above: Performed By: #### L 500.4050, L501.2450, L100.0100 ####[facility] [address] [place], [address] Monocytes/100 WBC (Bld) 7.7 % Normal 0-10 [facility] Comment on above: Performed By: #### L 500.4050, L501.2450, L100.0100 ####[facility] [address] [place], [address] Neutrophils/100 WBC (Bld) 68.4 % Normal 47-70 [facility] Comment on above: Performed By: #### L 500.4050, L501.2450, L100.0100 ####[facility] [address] [place], [address] Nucleated RBC (Bld) [#/Vol] 0 10*3/uL Normal 0-5 [facility] Comment on above: Performed By: #### L 500.4050, L501.2450, L100.0100 ####[facility] [address] [place], [address] Platelet mean volume (Bld) [Entitic vol] 9.3 fL Normal 6.2-12.0 [facility] Comment on above: Performed By: #### L 500.4050, L501.2450, L100.0100 ####[facility] [address] [place], [address] Platelets (Bld) [#/Vol] 280 10*3/uL Normal 150-450 [facility] Comment on above: Performed By: #### L 500.4050, L501.2450, L100.0100 ####[facility] [address] [place], [address] RBC (Bld) [#/Vol] 5.09 10*6/uL Normal 4.6-6.2 [facility] Comment on above: Performed By: #### L 500.4050, L501.2450, L100.0100 ####[facility] [address] [place], [address] RDW SD 37.0 fl Normal 35.1-43.9 [facility] Comment on above: Performed By: #### L 500.4050, L501.2450, L100.0100 ####[facility] [address] [place], [address] WBC (Bld) [#/Vol] 8.5 10*3/uL Normal 4.4-11.0 [facility] Comment on above: Performed By: #### L 500.4050, L501.2450, L100.0100 ####[facility] [address] [place], [address] Comprehensive Metabolic Prof ilon 11-19-2024 Albumin [Mass/Vol] 4.5 g/dL Normal 3.5-5.0 [facility] Comment on above: Performed By: #### L 500.4050, L501.2450, L100.0100 ####[facility] [address] [place], [address] Albumin/Globulin [Mass ratio] 1.4 {ratio} Normal 0.9-2.4 [facility] Comment on above: Performed By: #### L 500.4050, L501.2450, L100.0100 ####[facility] [address] [place], [address] ALK PHOS 63 U/L Normal 40-129 [facility] Comment on above: Performed By: #### L 500.4050, L501.2450, L100.0100 ####[facility] [address] [place], [address] ALT [Catalytic activity/Vol] 26 U/L Normal <=46 [facility] Comment on above: Performed By: #### L 500.4050, L501.2450, L100.0100 ####[facility] [address] [place], [address] AST [Catalytic activity/Vol] 28 U/L Normal <=37 [facility] Comment on above: Performed By: #### L 500.4050, L501.2450, L100.0100 ####[facility] [address] [place], [address] Bilirubin [Mass/Vol] 0.45 mg/dL Normal 0.00-1.30 [facility] Comment on above: Performed By: #### L 500.4050, L501.2450, L100.0100 ####[facility] [address] [place], [address] BUN/CRE 21.7 RATIO High 10-20 [facility] Comment on above: Performed By: #### L 500.4050, L501.2450, L100.0100 ####[facility] [address] [place], [address] Calcium [Mass/Vol] 9.5 mg/dL Normal 7.6-11.0 [facility] Comment on above: Performed By: #### L 500.4050, L501.2450, L100.0100 ####[facility] [address] [place], [address] Chloride [Moles/Vol] 103 mmol/L Normal 98-108 [facility] Comment on above: Performed By: #### L 500.4050, L501.2450, L100.0100 ####[facility] [address] [place], [address] CO2 [Moles/Vol] 24.4 mmol/L Normal 21.0-32.0 [facility] Comment on above: Performed By: #### L 500.4050, L501.2450, L100.0100 ####[facility] [address] [place], [address] Creatinine [Mass/Vol] 0.74 mg/dL Normal 0.70-1.20 [facility] Comment on above: Performed By: #### L 500.4050, L501.2450, L100.0100 ####[facility] [address] [place], [address] GAP 12 Normal 5-15 [facility] Comment on above: Performed By: #### L 500.4050, L501.2450, L100.0100 ####[facility] [address] [place], [address] GFR/1.73 sq M.predicted among non-blacks MDRD (S/P/Bld) [Vol rate/Area] 120 mL/min/{1.73_m2} Normal >60 [facility] Comment on above: Result Comment: mL/m in/1.73m2 CKD-EPI Creatinine Equation (2020) Performed By: #### L 500.4050, L501.2450, L100.0100 ####[facility] [address] [place], [address] Globulin (S) [Mass/Vol] 3.2 g/dL Normal 2.2-4.2 [facility] Comment on above: Performed By: #### L 500.4050, L501.2450, L100.0100 ####[facility] [address] [place], [address] Glucose [Mass/Vol] 110 mg/dL High 70-99 [facility] Comment on above: Performed By: #### L 500.4050, L501.2450, L100.0100 ####[facility] [address] [place], [address] Potassium [Moles/Vol] 4.1 mmol/L Normal 3.3-5.1 [facility] Comment on above: Performed By: #### L 500.4050, L501.2450, L100.0100 ####[facility] [address] [place], [address] Sodium [Moles/Vol] 139 mmol/L Normal 133-145 [facility] Comment on above: Performed By: #### L 500.4050, L501.2450, L100.0100 ####[facility] [address] [place], [address] T PROT 7.7 g/dL Normal 5.9-8.4 [facility] Comment on above: Performed By: #### L 500.4050, L501.2450, L100.0100 ####[facility] [address] [place], [address] Urea nitrogen [Mass/Vol] 16 mg/dL Normal 4-19 [facility] Comment on above: Performed By: #### L 500.4050, L501.2450, L100.0100 ####[facility] [address] [place], [address] Gastroenterology Visit Repor ton 11-19-2024 Gastroenterology Visit Report [facility] [address] [place] [place] [address] OFFICE VISIT Date of Service: 11/19/24 MR#: [id number] Acct: [id number] Name: AMANDA KIMBALL Rep #: [id number] : 1990 Provider: EMILY Rahman Age/Sex: 34/M Location: [facility] Status: Signed Intake Vital Signs 11/17/24 02:16 [...] presents to the office today for establishment. [facility] ED 10.09.24 intermittent upper abdominal pain and discomfort. Workup unremarkable. GI cocktail and Protonix resolved the symptoms. [facility] 11.17.24 with continued upper abdominal [...] Nutritional Appearance: average body habitus Orientation: alert HENMS Head: normal to inspection Eyes General: appearance [...] Today R10.11 (more content not included)... Normal [facility] Lipaseon 11-19-2024 Lipase [Catalytic activity/Vol] 22 U/L Normal 13-75 [facility] Comment on above: Result Comment: Marisa vincent note: LIPASE revised reference range effective 22. New Lipase methodology. Expected to produce lower values than the previous assay method. NEW Reference Range: 13 - 75 U/L Performed By: #### L 500.4050, L501.2450, L100.0100 ####[facility] [address] [facility] [place], [address] 12 Lead EKGon 11-17-2024 12 Lead EKG [facility] Cardiovascular Services [address] [place] [address] 12 Lead EKG 11/17/24 0300 MR#: [id number] Acct: [id number] Name: AMANDA KIMBALL Rep #: [id number] : 1990 34 From: Nilay Herman MD [...] Otherwise normal ECG Confirmed by Nilay Herman ([id number]), editor newspaper AUSTEN GOLDSTEIN ([id number]) on 11/18/2024 1:25:06 PM Referred By: Confirmed By: Nilay Herman 11/18/24 1325 Date Nilay Herman MD CC: Dr. Karla Marshall MD; Dr. Derik Brower DO Signed Normal [facility] Abdomen/Pelvis W IV Cont ONL Yon 11-17-2024 Abdomen/Pelvis W IV Cont ONLY [facility] Imaging Services [address] [place], [place] [id number] Abdomen/Pelvis W IV Cont ONLY MR#: [id number] Acct: [id number] Name: AMANDA KIMBALL Rep #: [id number] : 1990 M 34 From: Nilay Henriquez MD PCP: Dr. Derik Brower DO Status: REG ER Study: Abdomen/Pelvis W IV Cont ONLY Date of Exam: Exam# [id number] Ordering Dr: Karla Marshall MD PROCEDURE: ABDOMEN/PELVIS [...] intra-abdominal or pelvic pathology. Cholelithiasis. Reading Location: [facility] CC: Dr. Karla Marshall MD; Dr. Derik Brower DO Cadd Instructor: Signed Normal [facility] Absolute lymphocyte countOrd ered By: Karla Marshall on 11-17-2024 Lymphocytes Auto (Unsp spec) [#/Vol] 2.43 10*3/uL 0.83-4.51 [facility] Absolute neutrophil countOrd ered By: Karla Marshall on 11-17-2024 Neutrophils (Bld) [#/Vol] 3.2 10*3/uL 2.0-7.7 [facility] Anion gap in Serum or Plasma Ordered By: Karla Marshall on 11-17-2024 Anion gap [Moles/Vol] 12 mmol/L 5-15 [facility] Automated lymphocyte count a s percentage of total leukocytesOrdered By: Karla Marshall on 11-17-2024 Lymphocytes/100 WBC Auto (Unsp spec) 39.3 % 19- [facility] BUN/creatinine ratioOrdered By: Karla Marshall on 11-17-2024 Urea nitrogen/Creatinine [Mass ratio] 15.7 mg/mg 10-20 [facility] Basophil percentageOrdered B y: Karla Marshall on 11-17-2024 Basophils/100 WBC (Bld) 0.5 % 0-1 [facility] Bilirubin, totalOrdered By: Karla Marshall on 11-17-2024 Bilirubin [Mass/Vol] 0.29 mg/dL 0.00-1.30 [facility] CBC W/Diff, Automatedon 11-04 Absolute Lymph 2.43 X10 3/uL Normal 0.83-4.51 [facility] Comment on above: Performed By: #### L 100.0100, L500.4050, L501.2450 #### [facility] Laboratory [address] [place], [address] Absolute Neut 3.2 X10 3/uL Normal 2.0-7.7 [facility] Comment on above: Performed By: #### L 100.0100, L500.4050, L501.2450 #### [facility] Laboratory [address] [place], [address] Basophils/100 WBC (Bld) 0.5 % Normal 0-1 [facility] Comment on above: Performed By: #### L 100.0100, L500.4050, L501.2450 #### [facility] Laboratory [address] [place], [address] Eosinophils/100 WBC (Bld) 1.1 % Normal 0-5 [facility] Comment on above: Performed By: #### L 100.0100, L500.4050, L501.2450 #### [facility] Laboratory [address] [place], [address] Erythrocyte distribution width (RBC) [Ratio] 11.8 % Normal 11.6-14.6 [facility] Comment on above: Performed By: #### L 100.0100, L500.4050, L501.2450 #### [facility] Laboratory [address] [place], [address] Hematocrit (Bld) [Volume fraction] 42.9 % Normal 40-54 [facility] Comment on above: Performed By: #### L 100.0100, L500.4050, L501.2450 #### [facility] Laboratory [address] [place], [address] Hemoglobin (Bld) [Mass/Vol] 14.9 g/dL Normal 13.0-16.5 [facility] Comment on above: Performed By: #### L 100.0100, L500.4050, L501.2450 #### [facility] Laboratory [address] [place], [address] IG% 0.300 Normal 0.0-0.9 [facility] Comment on above: Result Comment: IG% - Immature Granulocytes (promyelocytes, myelocytes and metamyelocytes) > 1% indicates that a LEFT SHIFT is Present. Performed By: #### L 100.0100, L500.4050, L501.2450 #### [facility] Laboratory [address] [place], [address] Lymphocytes/100 WBC (Bld) 39.3 % Normal 19-41 [facility] Comment on above: Performed By: #### L 100.0100, L500.4050, L501.2450 #### [facility] Laboratory [address] [place], [address] MCH (RBC) [Entitic mass] 29.8 pg Normal 27.0-32.0 [facility] Comment on above: Performed By: #### L 100.0100, L500.4050, L501.2450 #### [facility] Laboratory [address] [place], [address] MCHC (RBC) [Mass/Vol] 34.7 g/dL Normal 32-36 [facility] Comment on above: Performed By: #### L 100.0100, L500.4050, L501.2450 #### [facility] Laboratory [address] [place], [address] MCV (RBC) [Entitic vol] 85.8 fL Normal 80-94 [facility] Comment on above: Performed By: #### L 100.0100, L500.4050, L501.2450 #### [facility] Laboratory [address] [place], [address] Monocytes/100 WBC (Bld) 7.3 % Normal 0-10 [facility] Comment on above: Performed By: #### L 100.0100, L500.4050, L501.2450 #### [facility] Laboratory [address] [place], [address] Neutrophils/100 WBC (Bld) 51.5 % Normal 47-70 [facility] Comment on above: Performed By: #### L 100.0100, L500.4050, L501.2450 #### [facility] Laboratory [address] [place], [address] Nucleated RBC (Bld) [#/Vol] 0 10*3/uL Normal 0-5 [facility] Comment on above: Performed By: #### L 100.0100, L500.4050, L501.2450 #### [facility] Laboratory [address] [place], [address] Platelet mean volume (Bld) [Entitic vol] 9.6 fL Normal 6.2-12.0 [facility] Comment on above: Performed By: #### L 100.0100, L500.4050, L501.2450 #### [facility] Laboratory [address] [place], [address] Platelets (Bld) [#/Vol] 273 10*3/uL Normal 150-450 [facility] Comment on above: Performed By: #### L 100.0100, L500.4050, L501.2450 #### [facility] Laboratory [address] [place], [address] RBC (Bld) [#/Vol] 5.00 10*6/uL Normal 4.6-6.2 [facility] Comment on above: Performed By: #### L 100.0100, L500.4050, L501.2450 #### [facility] Laboratory [address] [place], [address] RDW SD 36.3 fl Normal 35.1-43.9 [facility] Comment on above: Performed By: #### L 100.0100, L500.4050, L501.2450 #### [facility] Laboratory [address] [place], [address] WBC (Bld) [#/Vol] 6.2 10*3/uL Normal 4.4-11.0 [facility] Comment on above: Performed By: #### L 100.0100, L500.4050, L501.2450 #### [facility] Laboratory [address] [place], [address] Carbon dioxide, total [Moles /volume] in Central venous bloodOrdered By: Karla Marshall on 11-17-2024 CO2 [Moles/Vol] 26.8 mmol/L 21.0-32.0 [facility] Chloride assayOrdered By: Gerson Marshall on 11-17-2024 Chloride [Moles/Vol] 101 mmol/L 98-108 [facility] Comprehensive Metabolic Prof ilon 11-17-2024 Albumin [Mass/Vol] 4.5 g/dL Normal 3.5-5.0 [facility] Comment on above: Performed By: #### L 100.0100, L500.4050, L501.2450 ####[facility] [address] [place], [address] Albumin/Globulin [Mass ratio] 1.7 {ratio} Normal 0.9-2.4 [facility] Comment on above: Performed By: #### L 100.0100, L500.4050, L501.2450 ####[facility] [address] [place], [address] ALK PHOS 54 U/L Normal 40-129 [facility] Comment on above: Performed By: #### L 100.0100, L500.4050, L501.2450 ####[facility] [address] [place], [address] ALT [Catalytic activity/Vol] 16 U/L Normal <=46 [facility] Comment on above: Performed By: #### L 100.0100, L500.4050, L501.2450 ####[facility] [address] [place], [address] AST [Catalytic activity/Vol] 19 U/L Normal <=37 [facility] Comment on above: Performed By: #### L 100.0100, L500.4050, L501.2450 ####[facility] [address] [place], [address] Bilirubin [Mass/Vol] 0.29 mg/dL Normal 0.00-1.30 [facility] Comment on above: Performed By: #### L 100.0100, L500.4050, L501.2450 ####[facility] [address] [place], [address] BUN/CRE 15.7 RATIO Normal 10-20 [facility] Comment on above: Performed By: #### L 100.0100, L500.4050, L501.2450 ####[facility] [address] [place], [address] Calcium [Mass/Vol] 9.5 mg/dL Normal 7.6-11.0 [facility] Comment on above: Performed By: #### L 100.0100, L500.4050, L501.2450 ####[facility] [address] [place], [address] Chloride [Moles/Vol] 101 mmol/L Normal 98-108 [facility] Comment on above: Performed By: #### L 100.0100, L500.4050, L501.2450 ####[facility] [address] [place], [address] CO2 [Moles/Vol] 26.8 mmol/L Normal 21.0-32.0 [facility] Comment on above: Performed By: #### L 100.0100, L500.4050, L501.2450 ####[facility] [address] [place], [address] Creatinine [Mass/Vol] 0.96 mg/dL Normal 0.70-1.20 [facility] Comment on above: Performed By: #### L 100.0100, L500.4050, L501.2450 ####[facility] [address] [place], [address] ECRCL 92.53 ml/min Normal 50-250 [facility] Comment on above: Performed By: #### L 100.0100, L500.4050, L501.2450 ####[facility] [address] [place], [address] GAP 12 Normal 5-15 [facility] Comment on above: Performed By: #### L 100.0100, L500.4050, L501.2450 ####[facility] [address] [place], [address] GFR/1.73 sq M.predicted among non-blacks MDRD (S/P/Bld) [Vol rate/Area] 105 mL/min/{1.73_m2} Normal >60 [facility] Comment on above: Result Comment: mL/m in/1.73m2 CKD-EPI Creatinine Equation (2020) Performed By: #### L 100.0100, L500.4050, L501.2450 ####[facility] [id number] [place], [address] Globulin (S) [Mass/Vol] 2.6 g/dL Normal 2.2-4.2 [facility] Comment on above: Performed By: #### L 100.0100, L500.4050, L501.2450 ####[facility] [id number] [place], [address] Glucose [Mass/Vol] 127 mg/dL High 70-99 [facility] Comment on above: Performed By: #### L 100.0100, L500.4050, L501.2450 ####[facility] [id number] [place], [address] Potassium [Moles/Vol] 3.8 mmol/L Normal 3.3-5.1 [facility] Comment on above: Performed By: #### L 100.0100, L500.4050, L501.2450 ####[facility] [id number] [place], [address] Sodium [Moles/Vol] 140 mmol/L Normal 133-145 [facility] Comment on above: Performed By: #### L 100.0100, L500.4050, L501.2450 ####[facility] [id number] [place], [address] T PROT 7.1 g/dL Normal 5.9-8.4 [facility] Comment on above: Performed By: #### L 100.0100, L500.4050, L501.2450 ####[facility] [id number] [place], [address] Urea nitrogen [Mass/Vol] 15 mg/dL Normal 4-19 [facility] Comment on above: Performed By: #### L 100.0100, L500.4050, L501.2450 ####[facility] [id number] [place], [address] Emergency Department Summary on 11-17-2024 Emergency Department Summary [facility] Medical Records Department [address] [place] [address] Emergency Department Summary 11/17/24 MR#: [id number] Acct: [id number] Name: AMANDA IKMBALL Rep #: [id number] : 1990 34 From: Karla Marshall MD [...] why he came in to be evaluated. [facility] Medical History Kidney stones Neck pain Shoulder [...] patient voiced (more content not included)... Normal [facility] Eosinophil percentageOrdered By: Karla Marshall on 11-17-2024 Eosinophils/100 WBC (Bld) 1.1 % 0-5 [facility] Erythrocyte distribution wid th ratioOrdered By: [facility] Rolando on 11-17-2024 Erythrocyte distribution width (RBC) [Ratio] 11.8 % 11.6-14.6 [facility] Erythrocyte distribution wid th standard deviationOrdered By: Karlabam Marshall on 11-17-2024 Erythrocyte distribution width (RBC) [Ratio] 36.3 fl 35.1-43.9 [facility] Glomerular filtration rate ( GFR) estimation/1.73 sq m using serum, plasma, or whole bOrdered By: Karlabam Marshall on 11-17-2024 GFR/1.73 sq M.predicted among non-blacks MDRD (S/P/Bld) [Vol rate/Area] 105 mL/min/{1.73_m2} >60 [facility] Comment on above: mL/min/1.73m2 CKD-EP I Creatinine Equation (2020) Hematocrit Auto (Bld) [Volum e fraction]Ordered By: Karla Marshall on 11-17-2024 Hematocrit (Bld) [Volume fraction] 42.9 % 40-54 [facility] Hemoglobin measurementOrdere d By: Karla Marshall on 11-17-2024 Hemoglobin (Bld) [Mass/Vol] 14.9 g/dL 13.0-16.5 [facility] Immature granulocytes/100 WB C Auto (Bld)Ordered By: Karla Marshall on 11-17-2024 Immature granulocytes/100 WBC (Bld) 0.300 % 0.0-0.9 [facility] Comment on above: IG% - Immature Granu locytes (promyelocytes, myelocytes and metamyelocytes) > 1% indicates that a LEFT SHIFT is Present. Laboratory - Chemistry and C hemistry - challengeOrdered By: Karla Marshall on 11-17-2024 AST [Catalytic activity/Vol] 19 U/L <38 [facility] Lipaseon 11-17-2024 Lipase [Catalytic activity/Vol] 28 U/L Normal 13-75 [facility] Comment on above: Result Comment: Marisa vincent note: LIPASE revised reference range effective 22. New Lipase methodology. Expected to produce lower values than the previous assay method. NEW Reference Range: 13 - 75 U/L Performed By: #### L 100.0100, L500.4050, L501.2450 ####[facility] [id number] [place], [place], [address] Lipase measurementOrdered By : Karla Marshall on 11-17-2024 Lipase [Catalytic activity/Vol] 28 U/L 13-75 [facility] Comment on above: Please note:LIPASE r evised reference range effective 22. New Lipase methodology. Expected to produce lower values than the previous assay method. NEW Reference Range: 13 - 75 U/L MCV (mean corpuscular volume ) determinationOrdered By: Karla Marshall on 11-17-2024 MCV (RBC) [Entitic vol] 85.8 fL 80-94 [facility] Mean corpuscular hemoglobin (MCH) determinationOrdered By: Karla Marshall on 11-17-2024 MCH (RBC) [Entitic mass] 29.8 pg 27.0-32.0 [facility] Mean corpuscular hemoglobin concentration (MCHC) determinationOrdered By: Karla Marshall on 11-17-2024 MCHC (RBC) [Mass/Vol] 34.7 g/dL 32-36 [facility] Mean platelet volume determi nationOrdered By: Karla Marshall on 11-17-2024 Platelet mean volume (Bld) [Entitic vol] 9.6 fL 6.2-12.0 [facility] Monocyte percentageOrdered B y: Karla Marshall on 11-17-2024 Monocytes/100 WBC (Bld) 7.3 % 0-10 [facility] Neutrophil percentageOrdered By: Karla Marshall on 11-17-2024 Neutrophils/100 WBC (Bld) 51.5 % 47-70 [facility] Nucleated red blood cell per centageOrdered By: Karla Marshall on 11-17-2024 Nucleated RBC/100 WBC (Bld) [Ratio] 0 % 0-5 [facility] Platelet countOrdered By: Gerson Marshall on 11-17-2024 Platelets (Bld) [#/Vol] 273 10*3/uL 150-450 [facility] Potassium measurement (mass/ volume)Ordered By: Karla Marshall on 11-17-2024 Potassium (Unsp spec) [Mass/Vol] 3.8 mmol/L 3.3-5.1 [facility] RBC Auto (Bld) [#/Vol]Ordere d By: Karla Marshall on 11-17-2024 RBC (Bld) [#/Vol] 5.00 10*6/uL 4.6-6.2 [facility] Serum creatinine measurement (mass/volume)Ordered By: Karla Marshall on 11-17-2024 Creatinine [Mass/Vol] 0.96 mg/dL 0.70-1.20 [facility] Serum globulin measurementOr dered By: Karla Marshall on 11-17-2024 Globulin (S) [Mass/Vol] 2.6 g/dL 2.2-4.2 [facility] Serum glucose measurement (m ass/volume)Ordered By: Karla Marshall on 11-17-2024 Glucose [Mass/Vol] 127 mg/dL High 70-99 [facility] Serum or plasma alanine smith otransferase (ALT) measurementOrdered By: Karla Marshall on 11-17-2024 ALT [Catalytic activity/Vol] 16 U/L <47 [facility] Serum or plasma albumin antionette urement (mass/volume)Ordered By: Karla Marshall on 11-17-2024 Albumin [Mass/Vol] 4.5 g/dL 3.5-5.0 [facility] Serum or plasma albumin/glob ulin mass ratioOrdered By: Karla Marshall on 11-17-2024 Albumin/Globulin [Mass ratio] 1.7 {ratio} 0.9-2.4 [facility] Serum or plasma alkaline jared sphatase measurementOrdered By: Karla Marshall on 11-17-2024 ALP [Catalytic activity/Vol] 54 U/L 40-129 [facility] Serum or plasma calcium antionette urement (mass/volume)Ordered By: Karla Marshall on 11-17-2024 Calcium [Mass/Vol] 9.5 mg/dL 7.6-11.0 [facility] Serum or plasma urea nitroge n measurement (mass/volume)Ordered By: Karla Agarwaler on 11-17-2024 Urea nitrogen [Mass/Vol] 15 mg/dL 4-19 [facility] Sodium levelOrdered By: Benitez tang Rolando on 11-17-2024 Sodium [Moles/Vol] 140 mmol/L 133-145 [facility] Total proteinOrdered By: Tiara Agarwaler on 11-17-2024 Protein [Mass/Vol] 7.1 g/dL 5.9-8.4 [facility] White blood cell (WBC) count Ordered By: Karla Agarwaler on 11-17-2024 WBC (Bld) [#/Vol] 6.2 10*3/uL 4.4-11.0 [facility] Absolute lymphocyte countOrd ered By: Dionte Hendrix on 10-09-2024 Lymphocytes Auto (Unsp spec) [#/Vol] 2.10 10*3/uL 0.83-4.51 [facility] Absolute neutrophil countOrd ered By: Dionte Hendrix on 10-09-2024 Neutrophils (Bld) [#/Vol] 3.1 10*3/uL 2.0-7.7 [facility] Acute Abdomen Inc Cheston Acute [facility]domen Inc Chest [facility] Imaging Services [address] [place] [address] Acute [facility]domen Inc Chest MR#: [id number] Acct: [id number] Name: JIGARAMANDA Hancock Rep #: [id number] : 1990 M 33 From: Jl Holly MD PCP: Dr. Derik Brower, DO Status: REG ER Study: Acute [facility]en Inc Chest Date of Exam: 10/09/24 Exam# [id number] Ordering Dr: Dionte Hendrix DO PROCEDURE: ACUTE ABDOMEN INC CHEST 10/09/2024 REASON FOR EXAM: ABD PAIN TECHNIQUE: ACUTE ABDOMEN INC CHEST COMPARISON: CT 05/17/2023 FINDINGS: Normal heart size. Well inflated lungs. Right upper lobe hamartoma. No consolidation, effusion, or pneumothorax. No free air. Nonobstructed bowel. Mild stool. No concerning calcifications. RAD/Acute Abdomen Inc Chest IMPRESSION: Clear lungs. Nonobstructed bowel pattern. Reading [facility] CC: Dr. Derik Brower DO; Dionte Hendrix DO Cadd Instructor: Signed Normal [facility] Anion gap in Serum or Plasma Ordered By: Dionte Hendrix on 10-09-2024 Anion gap [Moles/Vol] 11 mmol/L 5-15 [facility] Automated lymphocyte count a s percentage of total leukocytesOrdered By: Dionte Hendrix on 10-09-2024 Lymphocytes/100 WBC Auto (Unsp spec) 36.4 % 19-41 [facility] BUN/creatinine ratioOrdered By: Dionte Hendrix on 10-09-2024 Urea nitrogen/Creatinine [Mass ratio] 20.8 mg/mg High 10-20 [facility] Basic Metabolic Profile (BMP )on 10-09-2024 BUN/CRE 20.8 RATIO High 10-20 [facility] Comment on above: Performed By: #### L 500.3400, L500.2500, L501.2450, L100.0100 #### [facility] Laboratory [address] [place], [address] Calcium [Mass/Vol] 9.6 mg/dL Normal 7.6-11.0 [facility] Comment on above: Performed By: #### L 500.3400, L500.2500, L501.2450, L100.0100 #### [facility] Laboratory [address] [place], [address] Chloride [Moles/Vol] 104 mmol/L Normal 98-108 [facility] Comment on above: Performed By: #### L 500.3400, L500.2500, L501.2450, L100.0100 #### [facility] Laboratory [address] [place], [address] CO2 [Moles/Vol] 25.8 mmol/L Normal 21.0-32.0 [facility] Comment on above: Performed By: #### L 500.3400, L500.2500, L501.2450, L100.0100 #### [facility] Laboratory [address] [place], [address] Creatinine [Mass/Vol] 0.87 mg/dL Normal 0.70-1.20 [facility] Comment on above: Performed By: #### L 500.3400, L500.2500, L501.2450, L100.0100 #### [facility] Laboratory [address] [place], [address] ECRCL 103.09 ml/min Normal 50-250 [facility] Comment on above: Performed By: #### L 500.3400, L500.2500, L501.2450, L100.0100 #### [facility] Laboratory [address] [place], [address] GAP 11 Normal 5-15 [facility] Comment on above: Performed By: #### L 500.3400, L500.2500, L501.2450, L100.0100 #### [facility] Laboratory [address] [place], [address] GFR/1.73 sq M.predicted among non-blacks MDRD (S/P/Bld) [Vol rate/Area] 116 mL/min/{1.73_m2} Normal >60 [facility] Comment on above: Result Comment: mL/m in/1.73m2 CKD-EPI Creatinine Equation (2020) Performed By: #### L 500.3400, L500.2500, L501.2450, L100.0100 #### [facility] Laboratory [address] [place], [address] Glucose [Mass/Vol] 117 mg/dL High 70-99 [facility] Comment on above: Performed By: #### L 500.3400, L500.2500, L501.2450, L100.0100 #### [facility] Laboratory [address] [place], [address] Potassium [Moles/Vol] 3.7 mmol/L Normal 3.3-5.1 [facility] Comment on above: Performed By: #### L 500.3400, L500.2500, L501.2450, L100.0100 #### [facility] Laboratory [address] [place], [address] Sodium [Moles/Vol] 140 mmol/L Normal 133-145 [facility] Comment on above: Performed By: #### L 500.3400, L500.2500, L501.2450, L100.0100 #### [facility] Laboratory [address] [place], [address] Urea nitrogen [Mass/Vol] 18 mg/dL Normal 4-19 [facility] Comment on above: Performed By: #### L 500.3400, L500.2500, L501.2450, L100.0100 #### [facility] Laboratory [address] [place], [address] Basophil percentageOrdered B y: Dionte Hendrix on 10-09-2024 Basophils/100 WBC (Bld) 0.7 % 0-1 [facility] Bilirubin directOrdered By: Dionte Hendrix on 10-09-2024 Bilirubin.direct [Mass/Vol] 0.11 mg/dL 0.00-0.30 [facility] Bilirubin, totalOrdered By: Dionte Hendrix on 10-09-2024 Bilirubin [Mass/Vol] 0.24 mg/dL 0.00-1.30 [facility] CBC W/Diff, Automatedon 08-0 Absolute Lymph 2.10 X10 3/uL Normal 0.83-4.51 [facility] Comment on above: Performed By: #### L 500.3400, L500.2500, L501.2450, L100.0100 #### [facility] Laboratory [address] [place], [address] Absolute Neut 3.1 X10 3/uL Normal 2.0-7.7 [facility] Comment on above: Performed By: #### L 500.3400, L500.2500, L501.2450, L100.0100 #### [facility] Laboratory [address] [place], [address] Basophils/100 WBC (Bld) 0.7 % Normal 0-1 [facility] Comment on above: Performed By: #### L 500.3400, L500.2500, L501.2450, L100.0100 #### [facility] Laboratory [address] [place], [address] Eosinophils/100 WBC (Bld) 1.6 % Normal 0-5 [facility] Comment on above: Performed By: #### L 500.3400, L500.2500, L501.2450, L100.0100 #### [facility] Laboratory [address] [place], [address] Erythrocyte distribution width (RBC) [Ratio] 11.9 % Normal 11.6-14.6 [facility] Comment on above: Performed By: #### L 500.3400, L500.2500, L501.2450, L100.0100 #### [facility] Laboratory [address] [place], [address] Hematocrit (Bld) [Volume fraction] 40.7 % Normal 40-54 [facility] Comment on above: Performed By: #### L 500.3400, L500.2500, L501.2450, L100.0100 #### [facility] Laboratory [address] [place], [address] Hemoglobin (Bld) [Mass/Vol] 14.2 g/dL Normal 13.0-16.5 [facility] Comment on above: Performed By: #### L 500.3400, L500.2500, L501.2450, L100.0100 #### [facility] Laboratory [address] [place], [address] IG% 0.200 Normal 0.0-0.9 [facility] Comment on above: Result Comment: IG% - Immature Granulocytes (promyelocytes, myelocytes and metamyelocytes) > 1% indicates that a LEFT SHIFT is Present. Performed By: #### L 500.3400, L500.2500, L501.2450, L100.0100 #### [facility] Laboratory [address] [place], [address] Lymphocytes/100 WBC (Bld) 36.4 % Normal 19-41 [facility] Comment on above: Performed By: #### L 500.3400, L500.2500, L501.2450, L100.0100 #### [facility] Laboratory [address] [place], [address] MCH (RBC) [Entitic mass] 30.1 pg Normal 27.0-32.0 [facility] Comment on above: Performed By: #### L 500.3400, L500.2500, L501.2450, L100.0100 #### [facility] Laboratory [address] [place], [address] MCHC (RBC) [Mass/Vol] 34.9 g/dL Normal 32-36 [facility] Comment on above: Performed By: #### L 500.3400, L500.2500, L501.2450, L100.0100 #### [facility] Laboratory [address] [place], [address] MCV (RBC) [Entitic vol] 86.4 fL Normal 80-94 [facility] Comment on above: Performed By: #### L 500.3400, L500.2500, L501.2450, L100.0100 #### [facility] Laboratory [address] [place], [address] Monocytes/100 WBC (Bld) 8.3 % Normal 0-10 [facility] Comment on above: Performed By: #### L 500.3400, L500.2500, L501.2450, L100.0100 #### [facility] Laboratory [address] [place], [address] Neutrophils/100 WBC (Bld) 52.8 % Normal 47-70 [facility] Comment on above: Performed By: #### L 500.3400, L500.2500, L501.2450, L100.0100 #### [facility] Laboratory [address] [place], [address] Nucleated RBC (Bld) [#/Vol] 0 10*3/uL Normal 0-5 [facility] Comment on above: Performed By: #### L 500.3400, L500.2500, L501.2450, L100.0100 #### [facility] Laboratory [address] [place], [address] Platelet mean volume (Bld) [Entitic vol] 9.6 fL Normal 6.2-12.0 [facility] Comment on above: Performed By: #### L 500.3400, L500.2500, L501.2450, L100.0100 #### [facility] Laboratory [address] [place], [address] Platelets (Bld) [#/Vol] 254 10*3/uL Normal 150-450 [facility] Comment on above: Performed By: #### L 500.3400, L500.2500, L501.2450, L100.0100 #### [facility] Laboratory [address] [place], [address] RBC (Bld) [#/Vol] 4.71 10*6/uL Normal 4.6-6.2 [facility] Comment on above: Performed By: #### L 500.3400, L500.2500, L501.2450, L100.0100 #### [facility] Laboratory [address] [place], [address] RDW SD 37.9 fl Normal 35.1-43.9 [facility] Comment on above: Performed By: #### L 500.3400, L500.2500, L501.2450, L100.0100 #### [facility] Laboratory [address] [place], [address] WBC (Bld) [#/Vol] 5.8 10*3/uL Normal 4.4-11.0 [facility] Comment on above: Performed By: #### L 500.3400, L500.2500, L501.2450, L100.0100 #### [facility] Laboratory [address] [place], [address] Carbon dioxide, total [Moles /volume] in Central venous bloodOrdered By: Dionte Hendrix on 10-09-2024 CO2 [Moles/Vol] 25.8 mmol/L 21.0-32.0 [facility] Chloride assayOrdered By: Rosa Hendrix on 10-09-2024 Chloride [Moles/Vol] 104 mmol/L 98-108 [facility] Emergency Department Summary on 10-09-2024 Emergency Department Summary [facility] Medical Records Department [address] [place] [address] Emergency Department Summary 10/09/24 MR#: [id number] Acct: [id number] Name: AMANDA KIMBALL Rep #: [id number] : 1990 33 From: Dionte Hendrix DO [...] to this he comes in for evaluation [facility] Medical History (Updated 10/09/24 @ 07:41 [...] History Smoking Status: Heavy Smoker (>10/day) ROS [facility] ED Constitutional Constitutional ED: Denies chills or [...] (more content not included)... Normal [facility] Eosinophil percentageOrdered By: Dionte Hendrix on 10-09-2024 Eosinophils/100 WBC (Bld) 1.6 % 0-5 [facility] Erythrocyte distribution wid th ratioOrdered By: Dionte Hendrix on 10-09-2024 Erythrocyte distribution width (RBC) [Ratio] 11.9 % 11.6-14.6 [facility] Erythrocyte distribution wid th standard deviationOrdered By: Dionte Hendrix on 10-09-2024 Erythrocyte distribution width (RBC) [Ratio] 37.9 fl 35.1-43.9 [facility] Glomerular filtration rate ( GFR) estimation/1.73 sq m using serum, plasma, or whole bOrdered By: Dionte Hendrix on 10-09-2024 GFR/1.73 sq M.predicted among non-blacks MDRD (S/P/Bld) [Vol rate/Area] 116 mL/min/{1.73_m2} >60 [facility] Comment on above: mL/min/1.73m2 CKD-EP I Creatinine Equation (2020) Hematocrit Auto (Bld) [Volum e fraction]Ordered By: Dionte Hendrix on 10-09-2024 Hematocrit (Bld) [Volume fraction] 40.7 % 40-54 [facility] Hemoglobin measurementOrdere d By: Dionte Hendrix on 10-09-2024 Hemoglobin (Bld) [Mass/Vol] 14.2 g/dL 13.0-16.5 [facility] Immature granulocytes/100 WB C Auto (Bld)Ordered By: Dionte Hendrix on 10-09-2024 Immature granulocytes/100 WBC (Bld) 0.200 % 0.0-0.9 [facility] Comment on above: IG% - Immature Granu locytes (promyelocytes, myelocytes and metamyelocytes) > 1% indicates that a LEFT SHIFT is Present. Laboratory - Chemistry and C hemistry - challengeOrdered By: Dionte Hendrix on 10-09-2024 AST [Catalytic activity/Vol] 35 U/L <38 [facility] Lipaseon 10-09-2024 Lipase [Catalytic activity/Vol] 32 U/L Normal 13-75 [facility] Comment on above: Result Comment: Pleclyde vincent note: LIPASE revised reference range effective 22. New Lipase methodology. Expected to produce lower values than the previous assay method. NEW Reference Range: 13 - 75 U/L Performed By: #### L 500.3400, L500.2500, L501.2450, L100.0100 #### [facility] Laboratory [address] [place], [address] Lipase measurementOrdered By : Dionte Hendrix on 10-09-2024 Lipase [Catalytic activity/Vol] 32 U/L 13-75 [facility] Comment on above: Please note:LIPASE r evised reference range effective 22. New Lipase methodology. Expected to produce lower values than the previous assay method. NEW Reference Range: 13 - 75 U/L Liver Profileon 10-09-2024 Albumin [Mass/Vol] 4.3 g/dL Normal 3.5-5.0 [facility] Comment on above: Performed By: #### L 500.3400, L500.2500, L501.2450, L100.0100 #### [facility] Laboratory [address] [place], [address] ALK PHOS 62 U/L Normal 40-129 [facility] Comment on above: Performed By: #### L 500.3400, L500.2500, L501.2450, L100.0100 #### [facility] Laboratory [address] [place], [address] ALT [Catalytic activity/Vol] 36 U/L Normal <=46 [facility] Comment on above: Performed By: #### L 500.3400, L500.2500, L501.2450, L100.0100 #### [facility] Laboratory [address] [place], [address] AST [Catalytic activity/Vol] 35 U/L Normal <=37 [facility] Comment on above: Performed By: #### L 500.3400, L500.2500, L501.2450, L100.0100 #### [facility] [address] [place], [address] Bilirubin [Mass/Vol] 0.24 mg/dL Normal 0.00-1.30 [facility] Comment on above: Performed By: #### L 500.3400, L500.2500, L501.2450, L100.0100 #### [facility] Laboratory [address] [place], [address] Bilirubin.direct [Mass/Vol] 0.11 mg/dL Normal 0.00-0.30 [facility] Comment on above: Performed By: #### L 500.3400, L500.2500, L501.2450, L100.0100 #### [facility] [address] [place], [address] Globulin (S) [Mass/Vol] 2.2 g/dL Normal 2.2-4.2 [facility] Comment on above: Performed By: #### L 500.3400, L500.2500, L501.2450, L100.0100 #### [facility] [address] [place], [address] T PROT 6.5 g/dL Normal 5.9-8.4 [facility] Comment on above: Performed By: #### L 500.3400, L500.2500, L501.2450, L100.0100 #### [facility] [address] [place], [address] MCV (mean corpuscular volume ) determinationOrdered By: Dionte Hendrix on 10-09-2024 MCV (RBC) [Entitic vol] 86.4 fL 80-94 [facility] Mean corpuscular hemoglobin (MCH) determinationOrdered By: Dionte Hendrix on 10-09-2024 MCH (RBC) [Entitic mass] 30.1 pg 27.0-32.0 [facility] Mean corpuscular hemoglobin concentration (MCHC) determinationOrdered By: Dionte Hendrix on 10-09-2024 MCHC (RBC) [Mass/Vol] 34.9 g/dL 32-36 [facility] Mean platelet volume determi nationOrdered By: Dionte Hendrix on 10-09-2024 Platelet mean volume (Bld) [Entitic vol] 9.6 fL 6.2-12.0 [facility] Monocyte percentageOrdered B y: Dionet Hendrix on 10-09-2024 Monocytes/100 WBC (Bld) 8.3 % 0-10 [facility] Neutrophil percentageOrdered By: Dionte Hendrix on 10-09-2024 Neutrophils/100 WBC (Bld) 52.8 % 47-70 [facility] Nucleated red blood cell per centageOrdered By: Dionte Hendrix on 10-09-2024 Nucleated RBC/100 WBC (Bld) [Ratio] 0 % 0-5 [facility] Platelet countOrdered By: Rosa Hendrix on 10-09-2024 Platelets (Bld) [#/Vol] 254 10*3/uL 150-450 [facility] Potassium measurement (mass/ volume)Ordered By: Dionte Hendrix on 10-09-2024 Potassium (Unsp spec) [Mass/Vol] 3.7 mmol/L 3.3-5.1 [facility] RBC Auto (Bld) [#/Vol]Ordere d By: Dionte Hendrix on 10-09-2024 RBC (Bld) [#/Vol] 4.71 10*6/uL 4.6-6.2 [facility] Serum creatinine measurement (mass/volume)Ordered By: Dionte Hendrix on 10-09-2024 Creatinine [Mass/Vol] 0.87 mg/dL 0.70-1.20 [facility] Serum globulin measurementOr dered By: Dionte Hendrix on 10-09-2024 Globulin (S) [Mass/Vol] 2.2 g/dL 2.2-4.2 [facility] Serum glucose measurement (m ass/volume)Ordered By: Dionte Hendrix on 10-09-2024 Glucose [Mass/Vol] 117 mg/dL High 70-99 [facility] Serum or plasma alanine smith otransferase (ALT) measurementOrdered By: Dionte Hendrix on 10-09-2024 ALT [Catalytic activity/Vol] 36 U/L <47 [facility] Serum or plasma albumin antionette urement (mass/volume)Ordered By: Dionte Hendrix on 10-09-2024 Albumin [Mass/Vol] 4.3 g/dL 3.5-5.0 [facility] Serum or plasma alkaline jared sphatase measurementOrdered By: Dionte Hendrix on 10-09-2024 ALP [Catalytic activity/Vol] 62 U/L 40-129 [facility] Serum or plasma calcium antionette urement (mass/volume)Ordered By: Dionte Hendrix on 10-09-2024 Calcium [Mass/Vol] 9.6 mg/dL 7.6-11.0 [facility] Serum or plasma urea nitroge n measurement (mass/volume)Ordered By: Dionte Hendrix on 10-09-2024 Urea nitrogen [Mass/Vol] 18 mg/dL 4-19 [facility] Sodium levelOrdered By: Riley Hendrix on 10-09-2024 Sodium [Moles/Vol] 140 mmol/L 133-145 [facility] Total proteinOrdered By: Santos Hendrix on 10-09-2024 Protein [Mass/Vol] 6.5 g/dL 5.9-8.4 [facility] White blood cell (WBC) count Ordered By: Dionte Hendrix on 10-09-2024 WBC (Bld) [#/Vol] 5.8 10*3/uL 4.4-11.0 [facility] Absolute lymphocyte countOrd ered By: Jose Alfredo Moore on 05-17-2023 Lymphocytes Auto (Unsp spec) [#/Vol] 3.14 10*3/uL 0.83-4.51 [facility] Amorphous sediment detection in urine sediment by light microscopyOrdered By: Jose Alfredo Moore on 05-17-2023 Amorphous sediment LM Ql (Urine sed) 2+ [facility] Automated lymphocyte count a s percentage of total leukocytesOrdered By: Jose Alfredo Moore on 05-17-2023 Lymphocytes/100 WBC Auto (Unsp spec) 50.5 % 19-41 [facility] Basophil percentageOrdered B y: Jose Alfredo Moore on 05-17-2023 Basophil percentage 0-5 SEEN /hpf 0-5 [facility] Basophils/100 WBC (Bld) 1.0 % 0-1 [facility] Chloride [Moles/Vol] 106 mmol/L 98-107 [facility] Eosinophils/100 WBC (Bld) 1.8 % 0-5 [facility] Glucose [Mass/Vol] 117 mg/dL 74-106 [facility] Comment on above: Fasting Glucose resu lt from 100 to 125 mg/dL suggests IMPAIRED HOMEOSTASIS per A.D.A. criteria. Hemoglobin (Bld) [Mass/Vol] 15.1 g/dL 13.0-16.5 [facility] Monocytes/100 WBC (Bld) 7.1 % 0-10 [facility] Neutrophils (Bld) [#/Vol] 2.5 10*3/uL 2.0-7.7 [facility] Neutrophils/100 WBC (Bld) 39.3 % 47-70 [facility] Potassium [Moles/Vol] 3.9 mmol/L 3.5-5.1 [facility] Sodium [Moles/Vol] 141 mmol/L 136-145 [facility] WBC (Bld) [#/Vol] 6.2 10*3/uL 4.4-11.0 [facility] Bilirubin Test strip Ql (U)O rdered By: Jose Alfredo Moore on 05-17-2023 Bilirubin Ql (U) Negative Negative [facility] Determination of erythrocyte mean corpuscular volume (MCV)Ordered By: Jose Alfredo Moore on 05-17-2023 MCV (RBC) [Entitic vol] 86.9 fL 80-94 [facility] Erythrocyte distribution wid th ratioOrdered By: Jose Alfredo Moore on 05-17-2023 Erythrocyte distribution width (RBC) [Ratio] 11.9 % 11.6-14.6 [facility] Erythrocyte distribution wid th standard deviationOrdered By: Jose Alfredo Moore on 05-17-2023 Erythrocyte distribution width (RBC) [Entitic vol] 38.2 fL 35.1-43.9 [facility] Hematocrit Auto (Bld) [Volum e fraction]Ordered By: Jose Alfredo Moore on 05-17-2023 Hematocrit (Bld) [Volume fraction] 44.6 % 40-54 [facility] Immature granulocytes/100 WB C Auto (Bld)Ordered By: Jose Alfredo Moore on 05-17-2023 Immature granulocytes/100 WBC (Bld) 0.300 % 0.0-0.9 [facility] Comment on above: IG% - Immature Granu locytes (promyelocytes, myelocytes and metamyelocytes) > 1% indicates that a LEFT SHIFT is Present. Ketones Test strip Ql (U)Ord ered By: Jose Alfredo Moore on 05-17-2023 Ketones Ql (U) 5 mg/dl Negative [facility] Laboratory - Chemistry and C hemistry - challengeOrdered By: Jose Alfredo Moore on 05-17-2023 CO2 [Moles/Vol] 30.0 mmol/L 21.0-32.0 [facility] Urea nitrogen/Creatinine [Mass ratio] 13.4 mg/mg 10-20 [facility] Laboratory - Hematology and Cell countsOrdered By: Jose Alfredo Moore on 05-17-2023 MCH (RBC) [Entitic mass] 29.4 pg 27.0-32.0 [facility] MCHC (RBC) [Mass/Vol] 33.9 g/dL 32-36 [facility] Nucleated RBC/100 WBC (Bld) [Ratio] 0 % 0-5 [facility] Platelet mean volume (Bld) [Entitic vol] 10.0 fL 6.2-12.0 [facility] Platelets (Bld) [#/Vol] 325 10*3/uL 150-450 [facility] Mucus LM Ql (Urine sed)Order ed By: Jose Alfredo Moore on 05-17-2023 Mucus Ql (Urine sed) 0 SEEN /hpf [facility] Nitrite Test strip Ql (U)Ord ered By: Jose Alfredo Moore on 05-17-2023 Nitrite Ql (U) Negative Negative [facility] No Panel InformationOrdered By: Jose Alfredo Moore on 05-17-2023 Urine RBC 25-50 SEEN /hpf 0-5 [facility] Estimated Creatinine Clearance Calc 101.73 ml/min [facility] Estimated GFR (MDRD) Amer 125 mL/min >60 [facility] Comment on above: GFR Calc Estimated GFR (MDRD) Non-Af Amer 103 mL/min >60 [facility] Comment on above: Non- GFR Calc Protein Test strip Ql (U)Ord ered By: Jose Alfredo Moore on 05-17-2023 Protein Ql (U) 100 mg/dl Negative [facility] RBC Auto (Bld) [#/Vol]Ordere d By: Jose Alfredo Moore on 05-17-2023 RBC (Bld) [#/Vol] 5.13 10*6/uL 4.6-6.2 [facility] Serum or plasma calcium antionette urement (mass/volume)Ordered By: Jose Alfredo Moore on 05-17-2023 Calcium [Mass/Vol] 9.0 mg/dL 8.5-10.1 [facility] Serum or plasma creatinine m easurement (mass/volume)Ordered By: Jose Alfredo Moore on 05-17-2023 Creatinine [Mass/Vol] 0.89 mg/dL 0.70-1.30 [facility] Comment on above: The validity of the calculated GFR & GFRAA in patients over 70 years has not been determined. Clinical correlation is essential. Serum or plasma urea nitroge n measurement (mass/volume)Ordered By: Jose Alfredo Moore on 05-17-2023 Urea nitrogen [Mass/Vol] 12 mg/dL 7-18 [facility] Squamous epithelial cells de tection in urine sediment by light microscopyOrdered By: Jose Alfredo Moore on 05-17-2023 Epithelial cells.squamous LM Ql (Urine sed) 0 SEEN /hpf 0-5 [facility] Thin prep Papanicolaou smear with manual screeningOrdered By: Jose Alfredo Moore on 05-17-2023 Thin prep Papanicolaou smear with manual screening 5 5-15 [facility] Urine blood detectionOrdered By: Jose Alfredo Moore on 05-17-2023 RBC Ql (U) 250 /ul Negative [facility] Urine clarityOrdered By: Eli Moore on 05-17-2023 Clarity (U) Cloudy Clear [facility] Urine color determinationOrd ered By: Jose Alfredo Moore on 05-17-2023 Color (U) Yellow Yellow [facility] Urine glucose detectionOrder ed By: Jose Alfredo Moore on 05-17-2023 Glucose Ql (U) Normal mg/dl Normal [facility] Urine leukocyte esterase det ection by dipstickOrdered By: Jose Alfredo Moore on 05-17-2023 Leukocyte esterase Test strip Ql (U) 25 /ul Negative [facility] Urine pHOrdered By: Jose Alfredo Rodas gur on 05-17-2023 pH (U) 5.0 [pH] 5.0 - 8.0 [facility] Urine sediment bacteria coun t by microscopy (number/high power field)Ordered By: Jose Alfredo Moore on 05-17-2023 Bacteria LM.HPF (Urine sed) [#/Area] 2 /[HPF] None Seen [facility] Urine specific gravity measu rementOrdered By: Jose Alfredo Moore on 05-17-2023 Specific gravity (U) [Rel density] 1.025 1.002-1.030 [facility] Urine urobilinogen measureme ntOrdered By: Jose Alfredo Moore on 05-17-2023 Urobilinogen Ql (U) 1 mg/dl Normal [facility] Culture, urineOrdered By: Dajuan Brower on 05-09-2023 Bacteria identified Cx Nom (U) Culture exhibits no growth. [facility] CT CHEST W/O CONTRASTon 10-04 CT CHEST W/O CONTRAST [place] [address] Patient: AMANDA KIMBALL Phone#: : 1990 Age: 26 Gender: M Pt. Type: Out Account: [id number] Location: [facility] Ordering: MAO FORREST Exam Date: 10/20/2016/13:46 Family Phys: Charge Code: [id number] Physician: Harris Order #: [id number] DLP Dose#: PROCEDURE: CT CHEST WITHOUT CONTRAST COMPARISON: [facility], CT, CHEST W CON, 06/08/2015, 9:13. [...] 26 Gender: M Pt. Type: Out Account: [id number] Location: 052 Ordering: MAO FORREST Exam Date: 10/20/2016/13:46 Family Phys: Charge Code: [id number] Physician: Harris Order #: [id number] DLP Dose#: BONES: Schmorl's nodes are noted at the lower thoracic and upper lumbar spine. OTHER: Negative. CONCLUSION: 1. Stable right upper lobe and left lower lobe nodular foci. 2. Probable cholelithiasis. Dictated by: Meagan Russo MD on 10/20/2016 at 14:19 Approved by: Meagan Russo MD on 10/20/2016 at 14:[address] [facility] Vital Signs Date Time Vital Sign Value Performing Clinician Faci lity 11-18-2024 13:14-0400 Body height 165.[address] Derik Brower DO Work Phone: [facility] 11-17-2024 06:52-0400 Body temperature 97.9 [degF] Dr. Derik Brower DO Work Phone: [facility] 11-17-2024 06:52-0400 Diastolic blood pressure 69 mm[Hg] Dr. Derik Brower DO Work Phone: [facility] 11-17-2024 06:52-0400 Heart rate 68 /min Dr. Derik Brower DO Work Phone: [facility] 11-17-2024 06:52-0400 Respiratory rate 16 /min Dr. Derik Brower DO Work Phone: [facility] 11-17-2024 06:52-0400 SaO2% (BldA) [Mass fraction] 97 % Dr. Derik Brower DO Work Phone: [facility] 11-17-2024 06:52-0400 Systolic blood pressure 120 mm[Hg] Dr. Derik Brower DO Work Phone: [facility] 11-17-2024 02:16-0400 Body height 165.[address] Derik Brower DO Work Phone: [facility] 11-17-2024 02:16-0400 Body mass index (BMI) [Ratio] 26.7 kg/m2 Dr. Derik Brower DO Work Phone: [facility] 11-17-2024 02:16-0400 Body weight [address] Derik Brower DO Work Phone: [facility] 10-09-2024 05:24-0400 Body temperature 98 [degF] Dr. Derik Brower DO Work Phone: [facility] 10-09-2024 05:24-0400 Diastolic blood pressure 88 mm[Hg] Dr. Derik Brower DO Work Phone: [facility] 10-09-2024 05:24-0400 Heart rate 62 /min Dr. Derik Brower DO Work Phone: [facility] 10-09-2024 05:24-0400 Respiratory rate 18 /min Dr. Derik Brower DO Work Phone: [facility] 10-09-2024 05:24-0400 SaO2% (BldA) [Mass fraction] 100 % Dr. Derik Brower DO Work Phone: [facility] 10-09-2024 05:24-0400 Systolic blood pressure 120 mm[Hg] Dr. Derik Brower DO Work Phone: [facility] 10-09-2024 03:21-0400 Body height 165.[address] Derik Brower DO Work Phone: [facility] 10-09-2024 03:21-0400 Body mass index (BMI) [Ratio] 26.6 kg/m2 Dr. Derik Brower DO Work Phone: [facility] 10-09-2024 03:21-0400 Body weight 72.[address] Derik Brower DO Work Phone: [facility] 05-17-2023 11:22-0400 Body temperature 97.8 [degF] [facility] 05-17-2023 11:22-0400 Diastolic blood pressure 78 mm[Hg] [facility] 05-17-2023 11:22-0400 Heart rate 87 /min [facility] 05-17-2023 11:22-0400 Respiratory rate 16 /min [facility] 05-17-2023 11:22-0400 SaO2% (BldA) [Mass fraction] 99 % [facility] 05-17-2023 11:22-0400 Systolic blood pressure 118 mm[Hg] [facility] 05-17-2023 09:41-0400 Body height 165.1 cm [facility] 05-17-2023 09:41-0400 Body mass index (BMI) [Ratio] 26.9 kg/m2 [facility] 05-17-2023 09:41-0400 Body weight 73.48 kg [facility] 09-20-2021 10:13-0400 Body height 165.1 cm [facility] Work Phone: 09-20-2021 10:13-0400 Body mass index (BMI) [Ratio] 23.3 kg/m2 [facility] Work Phone: 09-20-2021 10:13-0400 Body temperature 97.8 [degF] [facility] Work Phone: 09-20-2021 10:13-0400 Body weight 63.5 kg [facility] Work Phone: 09-20-2021 10:13-0400 Diastolic blood pressure 89 mm[Hg] [facility] Work Phone: 09-20-2021 10:13-0400 Heart rate 76 /min [facility] Work Phone: 09-20-2021 10:13-0400 Respiratory rate 16 /min [facility] Work Phone: 09-20-2021 10:13-0400 SaO2% (BldA) [Mass fraction] 100 % [facility] Work Phone: 09-20-2021 10: Systolic blood pressure 139 mm[Hg] [facility] Work Phone: Encounters Encounter Date Encounter Type Care Provider Facility Start: 11-29-2024 ambulatory Arik Friend Facility :[facility] Start: 11-19-2024 End: 11-19-2024 Patient encounter procedure Torrie DIAZ -[facility] Work Phone: Start: 11-19-2024 End: 11-19-[address] Derik Brower DO Work Phone: -[facility] Start: 11-17-2024 End: 11-17-2024 Emergency department patient visit Dr. Derik Brower DO Work Phone: -Emergency Department Work Phone: Start: 10-09-2024 End: 10-09-2024 Emergency department patient visit Dr. Derik Brower DO Work Phone: -Emergency Department Work Phone: Start: 05-17-2023 End: 05-17-2023 Emergency department patient visit [facility]Emergency Department Work Phone: Start: 05-09-2023 End: 05-09-2023 ambulatory [facility] Work Phone: Start: 05-09-2023 End: 05-09-2023 Patient encounter procedure [facility]-Laboratory, Specimen Work Phone: Start: 09-20-2021 End: 09-20-2021 Emergency department patient visit [facility]-Emergency Department Start: 10-20-2016 End: 10-20-2016 Ambulatory [facility] Procedures Date Procedure Procedure Detail Performing [...] Date Care Activity Detail Author Start: 11-17-2024 [facility] Start: 11-17-2024 [facility] Start: 10-09-2024 [facility] Start: 10-09-2024 [facility] Start: 05-17-2023 [facility] CBC W Auto Different ial panel - Blood [facility] Comprehensive metabo lic 2000 panel - Serum or Plasma [facility] Patient Education [facility] Work Phone: Patient referral [facility] Work Phone: Triacylglycerol lipa se measurement [facility] US Abdomen limited [facility] Payers Date Payer Category Payer Self-pay [id number] 2024 Unknown [id number] Unknown [id number] Unknown [id number] Unknown [id number] [id number] [id number] Unknown [id number] 2.16.8 [id number] Unknown [id number] 2.16.8 [id number] Unknown [id number] 2.16.8 [id number] Social History Date Type Detail Facility Start: 09-20-2021 End: 05-17-2023 Tobacco smoking status NHIS Unknown if ever smoked [facility] Start: 12-23-2019 None [facility] Start: 12-23-2019 Spouse/ Signif icant Other [facility] Start: 12-23-2019 Cigarettes [facility] Start: 1990 Sex Assigned At Male [facility] Start: 10-09-2024 End: 11-18-2024 Tobacco smoking status NHIS Current Heavy tobacco smoker [facility] Radiology Diagnostic study note 11-17-2024 Note Date & Type Note Facility 11-17-2024 Radiology Diagnostic study note [facility] Imaging Services [address] [place], [place] [address] Abdomen/Pelvis W IV Cont ONLY MR#: [id number] Acct: [id number] Name: AMANDA KIMBALL Rep #: [id number] : 1990 M 34 From: Issa Henriquez MD PCP: Dr. Derik Brower, DO Status: REG ER Study:Abdomen/Pelvis W IV Cont ONLY Date of E xam: 11/17/24 Exam# [id number] Ordering Dr: Gerson Marshall MD PROCEDURE: ABDOMEN/PELVIS [...] intra-abdominal or pelvic pathology. Cholelithiasis. Reading Location: [id number] CC: Dr. Karla Marshall MD; Dr. Derik Brower DO ~ Cadd Instructor: Signed [facility] Radiology Diagnostic study note 10-09-2024 Note Date & Type Note Facility 10-09-2024 Radiology Diagnostic study note [facility] Imaging Services [address] [place] [address] Acute Abdomen Inc Chest MR#: [id number] Acct: [id number] Name: AMANDA KIMBALL Rep #: [id number] 21 : 1990 M 33 From: Bri Holly MD PCP: Dr. Derik Brower DO Status: REG ER Study:Acute Abdomen Inc Chest Date of Exam: 10/09/24 Exam# [id number] Ordering Dr: Rosa Hendrix DO PROCEDURE: ACUTE [...] Derik Brower DO; Dionte Hendrix DO ~ Cadd Instructor: Signed [facility] Evaluation note Note Date & Type Note Facility Evaluation note No assessment information availa ble [facility] Work Phone: Evaluation note Note Date & Type Note Facility Evaluation note Diagnosis Onset Date Resolution Gastritis acute Tasha 16th , 2025 2:08pm RUQ pain acute November 2:08pm [facility] Work Phone: Hospital Discharge instructions Note [...] you have any further concerns [facility] Work Phone: Hospital Discharge instructions Note Date [...] your symptoms worsen or new symptoms develop. [facility] Work Phone: Reason for referral (narrative) Note Date & Type Note Facility Reason for referral (narrative) No reason for referral information available [facility] Work Phone: Summary Purpose Family History No Family History Records FoundNo Family History Records Found Advance Directives No Advanced Directives Records Found Advance Directive Response Recorded Date/ Time Living Will No September 20, 2021 10:28am Power of Water Leak Repairer No September 20 10:28am Advance Directive Response Recorded Date/ Time Living Will No May 17, 2023 10:06am Power of Water Leak Repairer No May 16 10:06am Advance Directive Response Recorded Date/ Time Do you have a Healthcare Power of Water Leak Repairer? No October 09, 2024 3:25am Advance Directive Response Recorded Date/ Time Do you have a Healthcare Power of Water Leak Repairer? No October 09, 2024 3:25am Do you have a Healthcare Power of Water Leak Repairer? No November 17, 2024 2:21am Chief Complaint [...] section and content) DATE CREATED AUTHOR 08/30/2017 [facility] DATE CREATED AUTHOR AUTHOR'S ORGANIZ ATION 11/20/2024 [facility] Goals (unrecognized section and content) Goals may [...] BE BASED ON THE PRIMARY CLINICAL RECORDS. [employer] provides no warranty or guarantee of the accuracy or completeness of information in this document.
[2024-11-21] MEDS: 0.9% Normal Saline (1000mL) 1,000 ML 100 ML IV ×2 (01:12→10:06)
[2024-11-21 05:50] LABS: Hematocrit 37.9 % (40-54); Hemoglobin 13.2 g/dL (13.0-16.5); Immature Granulocytes Count 0.010 X10^3/uL (0.0-0.0); Mean Corp Hgb Conc 34.8 g/dL (32-36); Mean Corpuscular Volume 86.7 fL (80-94); Mean Platelet Vol. 9.5 fl (6.2-12.0); NRBC Flagged by Analyzer 0 % (0-5); Platelet Count 223 K/mm3 (150-450); RBC Distribution Width CV 11.6 % (11.6-14.6); RBC Distribution Width SD 36.8 fl (35.1-43.9); Red Blood Count 4.37 M/mm3 (4.6-6.2); White Blood Count 4.4 K/mm3 (4.4-11.0)
--- OUTSIDE RECORDS SUMMARY | 2024-11-21 05:56 | XMS RPT_ITS | CCD ---
Author Organization [facility] CliniSynh Care Team Providers Care [employer] Operator Name Role Phone BAY, MAO H Unavailable Unavailable BAY, MAO H Unavailable Unavailable BAY, MAO H Unavailable Unavailable BAY, MAO H Unavailable Unavailable PROVIDER, UNKNOWN Unavailable Unavailable LeonardaDr. Derik lennon DO Primary Care Provider Dr. Dionte Hendrix DO Emergency Provider Andquique VAIL, Dr. Rapp Attending Provider Rolando PAZ, Dr. Acosta Emergency Provider Unavailab le Leonarda VAIL, Dr. More Referring Provider Torrie Mathur Attending Provider Leonarda, Derik Primary Care Unavailable Karla Marshall Attending Unavailable Ana, Arik Attending Unavailable Leonarda, Derik Primary Care Unavailable Leonarda, Derik Primary Care Unavailable Torrie Cee Referring Unavailable Torrie Cee Attending Unavailable Leonarda, Derik Referring Unavailable Leonarda, Derik Primary Care Unavailable AtanasTorrie guadalupe Attending Unavailable Leonarda, Derik Primary Care Unavailable Dionte Hendrix Attending Unavailable LeonardaDr. Derik lennon DO Primary Care Physician Dr. Dionte Hendrix DO Attending Physician Dr. Dionte Hendrix DO Emergency Department Physic lien Dr. Karla Marshall MD Emergency Department Physici an Unavailable Torrie Mathur Attending Physician Torrie Mathur Referring Provider Juvenal PAZ, Dr. Pina Admitting Physician Dr. Amanda Sanford MD Attending Physician Allergies Allergy Classification Reported Allergen(s) Allergy Type Date of Onset Reaction(s) Facility (1 source) bee venom Drug allergy (disorder) [facility] Repository Medications Current Medications Medication Drug Class(es) Dates Sig (Normalized) Sig (Original) gabapentin 100 mg oral capsule (5 sources) Anti-epileptic Agent Start: 05-17-2023 take 2 capsules by mouth twice daily Gabapentin 100 mg capsule Active 200 mg PO TWICE A DAY May 17, 2023 12:00am Complies with drug therapy Start: 05-17-2023 take 200 mg by mouth twice daily Gabapentin Active 200 MG PO TWICE A DAY May 17, 2023 12:00am pantoprazole 40 mg delayed release oral tablet (4 sources) Proton Pump Inhibitor Start: 10-09-2024 take 1 tablet by mouth once daily Pantoprazole (Protonix) 40 mg tablet,delayed release (DR/EC) Active 40 mg PO DAILY 30 30 0 October 09, 2024 12:00am Complies with drug therapy sucralfate 100 mg/ml oral suspension (4 sources) Aluminum Complex Start: 11-19-2024 take 1 mL by mouth twice daily Sucralfate 100 mg/mL suspension Active 10 mL PO TWICE A DAY 1000 November 19, 2024 12:00am Complies with drug therapy Start: 11-17-2024 take 1 tablet by mouth three t imes daily Sucralfate 100 mg/mL suspension (1 source) Start: 11-19-2024 take 1 mL by mouth twice daily Sucralfate 100 mg/mL suspension Active 10 mL PO TWICE A DAY 1000 November 19, 2024 12:00am Completed/Discontinued Medications Medication Drug Class(es) Dates Sig (Normalized) Sig (Original) acetaminophen 325 mg / HYDROcodone bitartrate 5 mg oral tablet (7 sources) Opioid Agonist Start: 09-20-2021 End: 05-17-2023 [...] / oxyCODONE hydrochloride 5 mg oral tablet (5 sources) Opioid Agonist Start: 05-17-2023 End: 10-09-2024 [...] 17, 2023 naproxen 500 mg oral tablet (12 sources) Nonsteroidal Anti-inflammatory Drug Start: 09-20-2021 End: 10-09-2024 take 1 tablet by mouth twice daily Naproxen 500 mg tablet Discontinued 500 mg PO TWICE A DAY 14 May 17, 2023 12:00am October 09, 2024 3:24am tiZANidine 4 mg oral capsule (7 sources) Central alpha-2 Adrenergic Agonist Start: 09-20-2021 End: 05-17-2023 take 1 capsule by mouth every eight hours as needed Tizanidine (Zanaflex) 4 mg capsule Discontinued 4 mg PO Q8H as needed for muscle spasticity 14 September 20, 2021 12:00am May 17, 2023 10:06am Problems Problem Classification Problem Date Documented Da te Episodic/Chronic Abdominal pain (6 sources) Right upper quadrant pain; Translations: [Right upper quadrant pain] Onset: 11-05-2024 11-19-2024 Episodic Anxiety disorders (7 sources) Anxiety; Translations: [Anxiety disorder, unspecified] 12-21-2019 Chronic Calculus of urinary tract (5 sources) Urolithiasis ; Translations: [Urinary calculus, unspecified] 05-17-2023 Episodic Gastritis and duodenitis (10 sources) Gastroduodenitis; Translations: [Gastroduodenitis, unspecified, without bleeding] Onset: 11-19-2024 10-09-2024 Episodic Gastroduodenal ulcer (except hemorrhage) (7 sources) Peptic ulcer; Translations: [Peptic ulcer, site unspecified, unspecified as acute or chronic, without hemorrhage or perforation] 12-24-2019 Chronic Other injuries and conditions due to external causes (7 sources) Injury of shoulder region; Translations: [Unspecified injury of shoulder and upper arm, unspecified arm, initial encounter] 09-20-2021 Episodic Results Test Name Value Interpretation Reference Range Facility Absolute lymphocyte countOrd ered By: Dionte Hendrix on 11-20-2024 Lymphocytes Auto (Unsp spec) [#/Vol] 2.47 10*3/uL 0.83-4.51 [facility] Absolute neutrophil countOrd ered By: Dionte Hendrix on 11-20-2024 Neutrophils (Bld) [#/Vol] 4.1 10*3/uL 2.0-7.7 [facility] Anion gap in Serum or Plasma Ordered By: Dionte Hendrix on 11-20-2024 Anion gap [Moles/Vol] 11 mmol/L 5-[address] [facility] Automated lymphocyte count a s percentage of total leukocytesOrdered By: Dionte Henrdix on 11-20-2024 Lymphocytes/100 WBC Auto (Unsp spec) 34.0 % 19-41 [facility] BUN/creatinine ratioOrdered By: Dionte Hendrix on 11-20-2024 Urea nitrogen/Creatinine [Mass ratio] 17.4 mg/mg 10-20 [facility] Basophil percentageOrdered B y: Dionte Hendrix on 11-20-2024 Basophils/100 WBC (Bld) 0.4 % 0-1 [facility] Bilirubin directOrdered By: Dionte Hendrix on 11-20-2024 Bilirubin.direct [Mass/Vol] 0.29 mg/dL 0.00-0.30 [facility] Bilirubin, totalOrdered By: Dionte Hendrix on 11-20-2024 Bilirubin [Mass/Vol] 0.56 mg/dL 0.00-1.30 [facility] Carbon dioxide, total [Moles /volume] in Central venous bloodOrdered By: Dionte Hendrix on 11-20-2024 CO2 [Moles/Vol] 25.2 mmol/L 21.0-32.0 [facility] Chloride assayOrdered By: Rosa Hendrix on 11-20-2024 Chloride [Moles/Vol] 102 mmol/L 98-108 [facility] Eosinophil percentageOrdered By: Dionte Hendrix on 11-20-2024 Eosinophils/100 WBC (Bld) 1.7 % 0-5 [facility] Erythrocyte distribution wid th ratioOrdered By: Dionte Hendrix on 11-20-2024 Erythrocyte distribution width (RBC) [Ratio] 11.5 % Low 11.6-14.6 [facility] Erythrocyte distribution wid th standard deviationOrdered By: Dionte Hendrix on 11-20-2024 Erythrocyte distribution width (RBC) [Ratio] 35.9 fl 35.1-43.9 [facility] Glomerular filtration rate ( GFR) estimation/1.73 sq m using serum, plasma, or whole bOrdered By: Dionte Hendrix on 11-20-2024 GFR/1.73 sq M.predicted among non-blacks MDRD (S/P/Bld) [Vol rate/Area] 116 mL/min/{1.73_m2} >60 [facility] Comment on above: mL/min/1.73m2 CKD-EP I Creatinine Equation (2020) Hematocrit Auto (Bld) [Volum e fraction]Ordered By: Dionte Hendrix on 11-20-2024 Hematocrit (Bld) [Volume fraction] 40.3 % 40-54 [facility] Hemoglobin measurementOrdere d By: Dionte Hendrix on 11-20-2024 Hemoglobin (Bld) [Mass/Vol] 14.0 g/dL 13.0-16.5 [facility] Immature granulocytes/100 WB C Auto (Bld)Ordered By: Dionte Hendrix on 11-20-2024 Immature granulocytes/100 WBC (Bld) 0.300 % 0.0-0.9 [facility] Comment on above: IG% - Immature Granu locytes (promyelocytes, myelocytes and metamyelocytes) > 1% indicates that a LEFT SHIFT is Present. Laboratory - Chemistry and C hemistry - challengeOrdered By: Dionte Hendrix on 11-20-2024 AST [Catalytic activity/Vol] 88 U/L High <38 [facility] Lipase measurementOrdered By : Dionte Hendrix on 11-20-2024 Lipase [Catalytic activity/Vol] 22 U/L 13-75 [facility] Comment on above: Please note:LIPASE r evised reference range effective 22. New Lipase methodology. Expected to produce lower values than the previous assay method. NEW Reference Range: 13 - 75 U/L MCV (mean corpuscular volume ) determinationOrdered By: Dionte Hendrix on 11-20-2024 MCV (RBC) [Entitic vol] 85.6 fL 80-94 [facility] Mean corpuscular hemoglobin (MCH) determinationOrdered By: Dionte Hendrix on 11-20-2024 MCH (RBC) [Entitic mass] 29.7 pg 27.0-32.0 [facility] Mean corpuscular hemoglobin concentration (MCHC) determinationOrdered By: Dionte Hendrix on 11-20-2024 MCHC (RBC) [Mass/Vol] 34.7 g/dL 32-[address] [facility] Mean platelet volume determi nationOrdered By: Dionte Hendrix on 11-20-2024 Platelet mean volume (Bld) [Entitic vol] 9.2 fL 6.2-12.0 [facility] Monocyte percentageOrdered B y: Dionte Hendrix on 11-20-2024 Monocytes/100 WBC (Bld) 7.3 % 0-10 [facility] Neutrophil percentageOrdered By: Dionte Hendrix on 11-20-2024 Neutrophils/100 WBC (Bld) 56.3 % 47-70 [facility] Nucleated red blood cell per centageOrdered By: Dionte Hendrix on 11-20-2024 Nucleated RBC/100 WBC (Bld) [Ratio] 0 % 0-5 [facility] Platelet countOrdered By: Rosa Hendrix on 11-20-2024 Platelets (Bld) [#/Vol] 254 10*3/uL 150-450 [facility] Potassium measurement (mass/ volume)Ordered By: Dionte Hendrix on 11-20-2024 Potassium (Unsp spec) [Mass/Vol] 3.9 mmol/L 3.3-5.1 [facility] RBC Auto (Bld) [#/Vol]Ordere d By: Dionte Hendrix on 11-20-2024 RBC (Bld) [#/Vol] 4.71 10*6/uL 4.6-6.[address] [facility] Serum creatinine measurement (mass/volume)Ordered By: Dionte Hendrix on 11-20-2024 Creatinine [Mass/Vol] 0.83 mg/dL 0.70-1.[address] [facility] Serum globulin measurementOr dered By: Dionte Hendrix on 11-20-2024 Globulin (S) [Mass/Vol] 3.0 g/dL 2.2-4.2 [facility] Serum glucose measurement (m ass/volume)Ordered By: Dionte Hendrix on 11-20-2024 Glucose [Mass/Vol] 113 mg/dL High 70-99 [facility] Serum or plasma alanine smith otransferase (ALT) measurementOrdered By: Dionte Hendrix on 11-20-2024 ALT [Catalytic activity/Vol] 57 U/L High <47 [facility] Serum or plasma albumin antionette urement (mass/volume)Ordered By: Dionte Hendrix on 11-20-2024 Albumin [Mass/Vol] 4.2 g/dL 3.5-5.0 [facility] Serum or plasma alkaline jared sphatase measurementOrdered By: Dionte Hendrix on 11-20-2024 ALP [Catalytic activity/Vol] 75 U/L 40-129 [facility] Serum or plasma calcium antionette urement (mass/volume)Ordered By: Dionte Hendrix on 11-20-2024 Calcium [Mass/Vol] 9.4 mg/dL 7.6-11.0 [facility] Serum or plasma urea nitroge n measurement (mass/volume)Ordered By: Dionte Hendrix on 11-20-2024 Urea nitrogen [Mass/Vol] 15 mg/dL 4-19 [facility] Sodium levelOrdered By: Riley Hendrix on 11-20-2024 Sodium [Moles/Vol] 139 mmol/L 133-145 [facility] Total proteinOrdered By: Santos Hendrix on 11-20-2024 Protein [Mass/Vol] 7.2 g/dL 5.9-8.4 [facility] White blood cell (WBC) count Ordered By: Dionte Hendrix on 11-20-2024 WBC (Bld) [#/Vol] 7.3 10*3/uL 4.4-11.0 [facility] Absolute lymphocyte countOrd ered By: Torrie Cee on 11-19-2024 Lymphocytes Auto (Unsp spec) [#/Vol] 1.83 10*3/uL 0.83-4.51 [facility] Absolute neutrophil countOrd ered By: Torrie Cee on 11-19-2024 Neutrophils (Bld) [#/Vol] 5.8 10*3/uL 2.0-7.7 [facility] Anion gap in Serum or Plasma Ordered By: Torrie Cee on 11-19-2024 Anion gap [Moles/Vol] 12 mmol/L 5-[address] [facility] Automated lymphocyte count a s percentage of total leukocytesOrdered By: Torrie Cee on 11-19-2024 Lymphocytes/100 WBC Auto (Unsp spec) 21.4 % - [facility] BUN/creatinine ratioOrdered By: Torrie Cee on 11-19-2024 Urea nitrogen/Creatinine [Mass ratio] 21.7 mg/mg High 10- [facility] Basophil percentageOrdered B y: Torrie Cee on 11-19-2024 Basophils/100 WBC (Bld) 0.5 % 0-1 [facility] Bilirubin, totalOrdered By: Torrie Cee on 11-19-2024 Bilirubin [Mass/Vol] 0.45 mg/dL 0.00-1.30 [facility] CBC W/Diff, Automatedon 11-04 Absolute Lymph 1.83 X10 3/uL Normal 0.83-4.51 [facility] Comment on above: Performed By: #### L 500.4050, L501.2450, L100.0100 ####[facility] [address] [place], [address] Absolute Neut 5.8 X10 3/uL Normal 2.0-7.7 [facility] Comment on above: Performed By: #### L 500.4050, L501.2450, L100.0100 ####[facility] [address] [place], [address] Basophils/100 WBC (Bld) 0.5 % Normal 0-1 [facility] Comment on above: Performed By: #### L 500.4050, L501.2450, L100.0100 ####[facility] [address] [place], [address] Eosinophils/100 WBC (Bld) 1.5 % Normal 0-5 [facility] Comment on above: Performed By: #### L 500.4050, L501.2450, L100.0100 ####[facility] [address] [place], [address] Erythrocyte distribution width (RBC) [Ratio] 11.7 % Normal 11.6-14.6 [facility] Comment on above: Performed By: #### L 500.4050, L501.2450, L100.0100 ####[facility] [address] [place], [address] Hematocrit (Bld) [Volume fraction] 44.0 % Normal 40-54 [facility] Comment on above: Performed By: #### L 500.4050, L501.2450, L100.0100 ####[facility] [address] [place], [address] Hemoglobin (Bld) [Mass/Vol] 15.1 g/dL Normal 13.0-16.5 [facility] Comment on above: Performed By: #### L 500.4050, L501.2450, L100.0100 ####[facility] [address] [place], [address] IG% 0.500 Normal 0.0-0.9 [facility] Comment on above: Result Comment: IG% - Immature Granulocytes (promyelocytes, myelocytes and metamyelocytes) > 1% indicates that a LEFT SHIFT is Present. Performed By: #### L 500.4050, L501.2450, L100.0100 ####[facility] [address] [place], [address] Lymphocytes/100 WBC (Bld) 21.4 % Normal 19-41 [facility] Comment on above: Performed By: #### L 500.4050, L501.2450, L100.0100 ####[facility] [address] [place], [address] MCH (RBC) [Entitic mass] 29.7 pg Normal 27.0-32.0 [facility] Comment on above: Performed By: #### L 500.4050, L501.2450, L100.0100 ####[facility] [address] [place], [address] MCHC (RBC) [Mass/Vol] 34.3 g/dL Normal 32-[address] [facility] Comment on above: Performed By: #### L 500.4050, L501.2450, L100.0100 ####[facility] [address] [place], [address] MCV (RBC) [Entitic vol] 86.4 fL Normal 80-94 [facility] Comment on above: Performed By: #### L 500.4050, L501.2450, L100.0100 ####[facility] [address] [place], [address] Monocytes/100 WBC (Bld) 7.7 % Normal 0-10 [facility] Comment on above: Performed By: #### L 500.4050, L501.2450, L100.0100 ####[facility] [address] [place], [address] Neutrophils/100 WBC (Bld) 68.4 % Normal 47-70 [facility] Comment on above: Performed By: #### L 500.4050, L501.2450, L100.0100 ####[facility] [address] [place], [address] Nucleated RBC (Bld) [#/Vol] 0 10*3/uL Normal 0-5 [facility] Comment on above: Performed By: #### L 500.4050, L501.2450, L100.0100 ####[facility] [address] [place], [address] Platelet mean volume (Bld) [Entitic vol] 9.3 fL Normal 6.2-12.0 [facility] Comment on above: Performed By: #### L 500.4050, L501.2450, L100.0100 ####[facility] [address] [place], [address] Platelets (Bld) [#/Vol] 280 10*3/uL Normal 150-450 [facility] Comment on above: Performed By: #### L 500.4050, L501.2450, L100.0100 ####[facility] [address] [place], [address] RBC (Bld) [#/Vol] 5.09 10*6/uL Normal 4.6-6.[address] [facility] Comment on above: Performed By: #### L 500.4050, L501.2450, L100.0100 ####[facility] [address] [place], [address] RDW SD 37.0 fl Normal 35.1-43.9 [facility] Comment on above: Performed By: #### L 500.4050, L501.2450, L100.0100 ####[facility] [address] [place], [address] WBC (Bld) [#/Vol] 8.5 10*3/uL Normal 4.4-11.0 [facility] Comment on above: Performed By: #### L 500.4050, L501.2450, L100.0100 ####[facility] [address] [place], [address] Carbon dioxide, total [Moles /volume] in Central venous bloodOrdered By: Torrie Cee on 11-19-2024 CO2 [Moles/Vol] 24.4 mmol/L 21.0-32.0 [facility] Chloride assayOrdered By: Karli Cee on 11-19-2024 Chloride [Moles/Vol] 103 mmol/L 98-108 [facility] Comprehensive Metabolic Prof ilon 11-19-2024 Albumin [Mass/Vol] 4.5 g/dL Normal 3.5-5.0 [facility] Comment on above: Performed By: #### L 500.4050, L501.2450, L100.0100 ####[facility] [address] [place], [address] Albumin/Globulin [Mass ratio] 1.4 {ratio} Normal 0.9-2.4 [facility] Comment on above: Performed By: #### L 500.4050, L501.2450, L100.0100 ####[facility] [address] [place], [address] ALK PHOS 63 U/L Normal 40-129 [facility] Comment on above: Performed By: #### L 500.4050, L501.2450, L100.0100 ####[facility] [address] [place], [address] ALT [Catalytic activity/Vol] 26 U/L Normal <=46 [facility] Comment on above: Performed By: #### L 500.4050, L501.2450, L100.0100 ####[facility] [address] [place], [address] AST [Catalytic activity/Vol] 28 U/L Normal <=37 [facility] Comment on above: Performed By: #### L 500.4050, L501.2450, L100.0100 ####[facility] [address] [place], [address] Bilirubin [Mass/Vol] 0.45 mg/dL Normal 0.00-1.30 [facility] Comment on above: Performed By: #### L 500.4050, L501.2450, L100.0100 ####[facility] [address] [place], [address] BUN/CRE 21.7 RATIO High 10-20 [facility] Comment on above: Performed By: #### L 500.4050, L501.2450, L100.0100 ####[facility] [address] [place], [address] Calcium [Mass/Vol] 9.5 mg/dL Normal 7.6-11.0 [facility] Comment on above: Performed By: #### L 500.4050, L501.2450, L100.0100 ####[facility] [address] [place], [address] Chloride [Moles/Vol] 103 mmol/L Normal 98-108 [facility] Comment on above: Performed By: #### L 500.4050, L501.2450, L100.0100 ####[facility] [address] [place], [address] CO2 [Moles/Vol] 24.4 mmol/L Normal 21.0-32.0 [facility] Comment on above: Performed By: #### L 500.4050, L501.2450, L100.0100 ####[facility] [address] [place], [address] Creatinine [Mass/Vol] 0.74 mg/dL Normal 0.70-1.[address] [facility] Comment on above: Performed By: #### L 500.4050, L501.2450, L100.0100 ####[facility] [address] [place], [address] GAP 12 Normal 5-15 [facility] Comment on above: Performed By: #### L 500.4050, L501.2450, L100.0100 ####[facility] [address] [place], [address] GFR/1.73 sq M.predicted among non-blacks MDRD (S/P/Bld) [Vol rate/Area] 120 mL/min/{1.73_m2} Normal >60 [facility] Comment on above: Result Comment: mL/m in/1.73m2 CKD-EPI Creatinine Equation (2020) Performed By: #### L 500.4050, L501.2450, L100.0100 ####[facility] [address] [place], [address] Globulin (S) [Mass/Vol] 3.2 g/dL Normal 2.2-4.2 [facility] Comment on above: Performed By: #### L 500.4050, L501.2450, L100.0100 ####[facility] [address] [place], [address] Glucose [Mass/Vol] 110 mg/dL High 70-99 [facility] Comment on above: Performed By: #### L 500.4050, L501.2450, L100.0100 ####[facility] [address] [place], [address] Potassium [Moles/Vol] 4.1 mmol/L Normal 3.3-5.[address] [facility] Comment on above: Performed By: #### L 500.4050, L501.2450, L100.0100 ####[facility] [address] [place], [address] Sodium [Moles/Vol] 139 mmol/L Normal 133-145 [facility] Comment on above: Performed By: #### L 500.4050, L501.2450, L100.0100 ####[facility] [address] [place], [address] T PROT 7.7 g/dL Normal 5.9-8.4 [facility] Comment on above: Performed By: #### L 500.4050, L501.2450, L100.0100 ####[facility] [address] [place], [address] Urea nitrogen [Mass/Vol] 16 mg/dL Normal 4-19 [facility] Comment on above: Performed By: #### L 500.4050, L501.2450, L100.0100 ####[facility] [address] [place], [address] Eosinophil percentageOrdered By: Torrie Cee on 11-19-2024 Eosinophils/100 WBC (Bld) 1.5 % 0-5 [facility] Erythrocyte distribution wid th ratioOrdered By: Torrie Cee on 11-19-2024 Erythrocyte distribution width (RBC) [Ratio] 11.7 % 11.6-14.6 [facility] Erythrocyte distribution wid th standard deviationOrdered By: Torrie Cee on 11-19-2024 Erythrocyte distribution width (RBC) [Ratio] 37.0 fl 35.1-43.9 [facility] Gastroenterology Visit Repor ton 11-19-2024 Gastroenterology Visit Report [facility] [address] [place] [address] OFFICE VISIT Date of Service: 11/19/24 MR#: [id number] Acct: [id number] Name: AMANDA KIMBALL Rep #: [id number] : 1990 Provider: EMILY Rahman Age/Sex: 34/M Location: [facility] Status: Signed Intake Vital Signs 11/17/24 02:16 [...] presents to the office today for establishment. [facility] 10.09.24 intermittent upper abdominal pain and discomfort. Workup unremarkable. GI cocktail and Protonix resolved the symptoms. [facility] 11.17.24 with continued upper abdominal pain. Workup [...] Nutritional Appearance: average body habitus Orientation: alert HENMT Head: normal to inspection Eyes General: appearance [...] Today R10.11 (more content not included)... Normal [facility] Glomerular filtration rate ( GFR) estimation/1.73 sq m using serum, plasma, or whole bOrdered By: Torrie Cee on 11-19-2024 GFR/1.73 sq M.predicted among non-blacks MDRD (S/P/Bld) [Vol rate/Area] 120 mL/min/{1.73_m2} >60 [facility] Comment on above: mL/min/1.73m2 CKD-EP I Creatinine Equation (2020) Hematocrit Auto (Bld) [Volum e fraction]Ordered By: Torrie Cee on 11-19-2024 Hematocrit (Bld) [Volume fraction] 44.0 % 40-54 [facility] Hemoglobin measurementOrdere d By: Torrie Cee on 11-19-2024 Hemoglobin (Bld) [Mass/Vol] 15.1 g/dL 13.0-16.5 [facility] Immature granulocytes/100 WB C Auto (Bld)Ordered By: Torrie Cee on 11-19-2024 Immature granulocytes/100 WBC (Bld) 0.500 % 0.0-0.9 [facility] Comment on above: IG% - Immature Granu locytes (promyelocytes, myelocytes and metamyelocytes) > 1% indicates that a LEFT SHIFT is Present. Laboratory - Chemistry and C hemistry - challengeOrdered By: Torrie Cee on 11-19-2024 AST [Catalytic activity/Vol] 28 U/L <38 [facility] Lipaseon 11-19-2024 Lipase [Catalytic activity/Vol] 22 U/L Normal 13-75 [facility] Comment on above: Result Comment: Marisa vincent note: LIPASE revised reference range effective 22. New Lipase methodology. Expected to produce lower values than the previous assay method. NEW Reference Range: 13 - 75 U/L Performed By: #### L 500.4050, L501.2450, L100.0100 ####[facility] [address] [place], [address] Lipase measurementOrdered By : Torrie Cee on 11-19-2024 Lipase [Catalytic activity/Vol] 22 U/L 13-75 [facility] Comment on above: Please note:LIPASE r evised reference range effective 22. New Lipase methodology. Expected to produce lower values than the previous assay method. NEW Reference Range: 13 - 75 U/L MCV (mean corpuscular volume ) determinationOrdered By: Torrie Cee on 11-19-2024 MCV (RBC) [Entitic vol] 86.4 fL 80-94 [facility] Mean corpuscular hemoglobin (MCH) determinationOrdered By: Torrie Cee on 11-19-2024 MCH (RBC) [Entitic mass] 29.7 pg 27.0-32.0 [facility] Mean corpuscular hemoglobin concentration (MCHC) determinationOrdered By: Torrie Cee on 11-19-2024 MCHC (RBC) [Mass/Vol] 34.3 g/dL 32-[address] [facility] Mean platelet volume determi nationOrdered By: Torrie Cee on 11-19-2024 Platelet mean volume (Bld) [Entitic vol] 9.3 fL 6.2-12.0 [facility] Monocyte percentageOrdered B y: Torrie Cee on 11-19-2024 Monocytes/100 WBC (Bld) 7.7 % 0-10 [facility] Neutrophil percentageOrdered By: Torrie Cee on 11-19-2024 Neutrophils/100 WBC (Bld) 68.4 % 47-70 [facility] Nucleated red blood cell per centageOrdered By: Torrie Cee on 11-19-2024 Nucleated RBC/100 WBC (Bld) [Ratio] 0 % 0-5 [facility] Platelet countOrdered By: Karli Cee on 11-19-2024 Platelets (Bld) [#/Vol] 280 10*3/uL 150-450 [facility] Potassium measurement (mass/ volume)Ordered By: Torrie Cee on 11-19-2024 Potassium (Unsp spec) [Mass/Vol] 4.1 mmol/L 3.3-5.1 [facility] RBC Auto (Bld) [#/Vol]Ordere d By: Torrie Cee on 11-19-2024 RBC (Bld) [#/Vol] 5.09 10*6/uL 4.6-6.[address] [facility] Serum creatinine measurement (mass/volume)Ordered By: Torrie Cee on 11-19-2024 Creatinine [Mass/Vol] 0.74 mg/dL 0.70-1.[address] [facility] Serum globulin measurementOr dered By: Torrie Cee on 11-19-2024 Globulin (S) [Mass/Vol] 3.2 g/dL 2.2-4.2 [facility] Serum glucose measurement (m ass/volume)Ordered By: Torrei Cee on 11-19-2024 Glucose [Mass/Vol] 110 mg/dL High 70-99 [facility] Serum or plasma alanine smith otransferase (ALT) measurementOrdered By: Torrie Cee on 11-19-2024 ALT [Catalytic activity/Vol] 26 U/L <47 [facility] Serum or plasma albumin antionette urement (mass/volume)Ordered By: Torrie Cee on 11-19-2024 Albumin [Mass/Vol] 4.5 g/dL 3.5-5.0 [facility] Serum or plasma albumin/glob ulin mass ratioOrdered By: Torrie Cee on 11-19-2024 Albumin/Globulin [Mass ratio] 1.4 {ratio} 0.9-2.4 [facility] Serum or plasma alkaline jared sphatase measurementOrdered By: Torrie Cee on 11-19-2024 ALP [Catalytic activity/Vol] 63 U/L 40-129 [facility] Serum or plasma calcium antionette urement (mass/volume)Ordered By: Torrie Cee on 11-19-2024 Calcium [Mass/Vol] 9.5 mg/dL 7.6-11.0 [facility] Serum or plasma urea nitroge n measurement (mass/volume)Ordered By: Torrie Cee on 11-19-2024 Urea nitrogen [Mass/Vol] 16 mg/dL 4-19 [facility] Sodium levelOrdered By: Marino Cee on 11-19-2024 Sodium [Moles/Vol] 139 mmol/L 133-145 [facility] Total proteinOrdered By: Ariana Cee on 11-19-2024 Protein [Mass/Vol] 7.7 g/dL 5.9-8.4 [facility] White blood cell (WBC) count Ordered By: Torrie Cee on 11-19-2024 WBC (Bld) [#/Vol] 8.5 10*3/uL 4.4-11.0 [facility] 12 Lead EKGon 11-17-2024 12 Lead EKG [facility] Cardiovascular Services [address] [place] [address] 12 Lead EKG 11/17/24 0300 MR#: [id number] Acct: [id number] Name: AMANDA KIMBALL Rep #: [id number] : 1990 34 From: Nilay Herman MD [...] Otherwise normal ECG Confirmed by Nilay Herman ([id number]), newspaper editor managing AUSTEN GOLDSTEIN ([id number]) on 11/18/2024 1:25:06 PM Referred By: Confirmed By: Nilay Herman 11/18/24 1325 Date Nilay Herman MD CC: Dr. Karla Marshall MD; Dr. Derik Brower DO Signed Normal [facility] Abdomen/Pelvis W IV Cont ONL Yon 11-17-2024 Abdomen/Pelvis W IV Cont ONLY [facility] Imaging Services [address] [place] [id number] Abdomen/Pelvis W IV Cont ONLY MR#: [id number] Acct: [id number] Name: AMANDA KIMBALL Rep #: [id number] : 1990 M 34 From: Nilay Henriquez MD PCP: Dr. Derik Brower DO Status: REG ER Study: Abdomen/Pelvis W IV Cont ONLY Date of Exam: Exam# [id number] Ordering Dr: Karla Marshall MD PROCEDURE: ABDOMEN/PELVIS [...] intra-abdominal or pelvic pathology. Cholelithiasis. Reading Location: [id number] CC: Dr. Karla Marshall MD; Dr. 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 Automated lymphocyte count a s percentage of total leukocytesOrdered By: Karla Marshall on 11-17-2024 Lymphocytes/100 WBC Auto (Unsp spec) 39.3 % -41 [facility] BUN/creatinine ratioOrdered By: Karla Marshall on 11-17-2024 Urea nitrogen/Creatinine [Mass ratio] 15.7 mg/mg 10-20 [facility] Basophil percentageOrdered B y: Karla Marshall on 11-17-2024 Basophils/100 WBC (Bld) 0.5 % 0-1 [facility] Bilirubin, totalOrdered By: Karla Marshall on 11-17-2024 Bilirubin [Mass/Vol] 0.29 mg/dL 0.00-1.30 [facility] CBC W/Diff, Automatedon 11-04 Absolute Lymph 2.43 X10 3/uL Normal 0.83-4.51 [facility] Comment on above: Performed By: #### L 100.0100, L500.4050, L501.2450 #### [facility] [address] [place], [address] Absolute Neut 3.2 X10 3/uL Normal 2.0-7.7 [facility] Comment on above: Performed By: #### L 100.0100, L500.4050, L501.2450 #### [facility] [address] [place], [address] Basophils/100 WBC (Bld) 0.5 % Normal 0-1 [facility] Comment on above: Performed By: #### L 100.0100, L500.4050, L501.2450 #### [facility] [address] [place], [address] Eosinophils/100 WBC (Bld) 1.1 % Normal 0-5 [facility] Comment on above: Performed By: #### L 100.0100, L500.4050, L501.2450 #### [facility] [address] [place], [address] Erythrocyte distribution width (RBC) [Ratio] 11.8 % Normal 11.6-14.6 [facility] Comment on above: Performed By: #### L 100.0100, L500.4050, L501.2450 #### [facility] [address] [place], [address] Hematocrit (Bld) [Volume fraction] 42.9 % Normal 40-54 [facility] Comment on above: Performed By: #### L 100.0100, L500.4050, L501.2450 #### [facility] [address] [place], [address] Hemoglobin (Bld) [Mass/Vol] 14.9 g/dL Normal 13.0-16.5 [facility] Comment on above: Performed By: #### L 100.0100, L500.4050, L501.2450 #### [facility] [address] [place], [address] IG% 0.300 Normal 0.0-0.9 [facility] Comment on above: Result Comment: IG% - Immature Granulocytes (promyelocytes, myelocytes and metamyelocytes) > 1% indicates that a LEFT SHIFT is Present. Performed By: #### L 100.0100, L500.4050, L501.2450 #### [facility] [address] [place], [address] Lymphocytes/100 WBC (Bld) 39.3 % Normal 19-41 [facility] Comment on above: Performed By: #### L 100.0100, L500.4050, L501.2450 #### [facility] [address] [place], [address] MCH (RBC) [Entitic mass] 29.8 pg Normal 27.0-32.0 [facility] Comment on above: Performed By: #### L 100.0100, L500.4050, L501.2450 #### [facility] [address] [place], [address] MCHC (RBC) [Mass/Vol] 34.7 g/dL Normal 32-[address] [facility] Comment on above: Performed By: #### L 100.0100, L500.4050, L501.2450 #### [facility] [address] [place], [address] MCV (RBC) [Entitic vol] 85.8 fL Normal 80-94 [facility] Comment on above: Performed By: #### L 100.0100, L500.4050, L501.2450 #### [facility] [address] [place], [address] Monocytes/100 WBC (Bld) 7.3 % Normal 0-10 [facility] Comment on above: Performed By: #### L 100.0100, L500.4050, L501.2450 #### [facility] [address] [place], [address] Neutrophils/100 WBC (Bld) 51.5 % Normal 47-70 [facility] Comment on above: Performed By: #### L 100.0100, L500.4050, L501.2450 #### [facility] [address] [place], [address] Nucleated RBC (Bld) [#/Vol] 0 10*3/uL Normal 0-5 [facility] Comment on above: Performed By: #### L 100.0100, L500.4050, L501.2450 #### [facility] [address] [place], [address] Platelet mean volume (Bld) [Entitic vol] 9.6 fL Normal 6.2-12.0 [facility] Comment on above: Performed By: #### L 100.0100, L500.4050, L501.2450 #### [facility] [address] [place], [address] Platelets (Bld) [#/Vol] 273 10*3/uL Normal 150-450 [facility] Comment on above: Performed By: #### L 100.0100, L500.4050, L501.2450 #### [facility] [address] [place], [address] RBC (Bld) [#/Vol] 5.00 10*6/uL Normal 4.6-6.[address] [facility] Comment on above: Performed By: #### L 100.0100, L500.4050, L501.2450 #### [facility] [address] [place], [address] RDW SD 36.3 fl Normal 35.1-43.9 [facility] Comment on above: Performed By: #### L 100.0100, L500.4050, L501.2450 #### [facility] [address] [place], [address] WBC (Bld) [#/Vol] 6.2 10*3/uL Normal 4.4-11.0 [facility] Comment on above: Performed By: #### L 100.0100, L500.4050, L501.2450 #### [facility] [address] [place], [address] Carbon dioxide, total [Moles /volume] in Central venous bloodOrdered By: Karla Marshall on 11-17-2024 CO2 [Moles/Vol] 26.8 mmol/L 21.0-32.0 [facility] Chloride assayOrdered By: Gerson Marshall on 11-17-2024 Chloride [Moles/Vol] 101 mmol/L 98-108 [facility] Comprehensive Metabolic Prof ilon 11-17-2024 Albumin [Mass/Vol] 4.5 g/dL Normal 3.5-5.0 [facility] Comment on above: Performed By: #### L 100.0100, L500.4050, L501.2450 ####[facility] [address] [place], [address] Albumin/Globulin [Mass ratio] 1.7 {ratio} Normal 0.9-2.4 [facility] Comment on above: Performed By: #### L 100.0100, L500.4050, L501.2450 ####[facility] [address] [place], [address] ALK PHOS 54 U/L Normal 40-129 [facility] Comment on above: Performed By: #### L 100.0100, L500.4050, L501.2450 ####[facility] [address] [place], [address] ALT [Catalytic activity/Vol] 16 U/L Normal <=46 [facility] Comment on above: Performed By: #### L 100.0100, L500.4050, L501.2450 ####[facility] [address] [place], [address] AST [Catalytic activity/Vol] 19 U/L Normal <=37 [facility] Comment on above: Performed By: #### L 100.0100, L500.4050, L501.2450 ####[facility] [address] [place], [address] Bilirubin [Mass/Vol] 0.29 mg/dL Normal 0.00-1.30 [facility] Comment on above: Performed By: #### L 100.0100, L500.4050, L501.2450 ####[facility] [address] [place], [address] BUN/CRE 15.7 RATIO Normal 10-20 [facility] Comment on above: Performed By: #### L 100.0100, L500.4050, L501.2450 ####[facility] [address] [place], [address] Calcium [Mass/Vol] 9.5 mg/dL Normal 7.6-11.0 [facility] Comment on above: Performed By: #### L 100.0100, L500.4050, L501.2450 ####[facility] [address] [place], [address] Chloride [Moles/Vol] 101 mmol/L Normal 98-108 [facility] Comment on above: Performed By: #### L 100.0100, L500.4050, L501.2450 ####[facility] [address] [place], [address] CO2 [Moles/Vol] 26.8 mmol/L Normal 21.0-32.0 [facility] Comment on above: Performed By: #### L 100.0100, L500.4050, L501.2450 ####[facility] [address] [place], [address] Creatinine [Mass/Vol] 0.96 mg/dL Normal 0.70-1.[address] [facility] Comment on above: Performed By: #### L 100.0100, L500.4050, L501.2450 ####[facility] [address] [place], [address] ECRCL 92.53 ml/min Normal 50-250 [facility] Comment on above: Performed By: #### L 100.0100, L500.4050, L501.2450 ####[facility] [address] [place], [address] GAP 12 Normal 5-15 [facility] Comment on above: Performed By: #### L 100.0100, L500.4050, L501.2450 ####[facility] [address] [place], [address] GFR/1.73 sq M.predicted among non-blacks MDRD (S/P/Bld) [Vol rate/Area] 105 mL/min/{1.73_m2} Normal >60 [facility] Comment on above: Result Comment: mL/m in/1.73m2 CKD-EPI Creatinine Equation (2020) Performed By: #### L 100.0100, L500.4050, L501.2450 ####[facility] [address] [place], [address] Globulin (S) [Mass/Vol] 2.6 g/dL Normal 2.2-4.2 [facility] Comment on above: Performed By: #### L 100.0100, L500.4050, L501.2450 ####[facility] [address] [place], [address] Glucose [Mass/Vol] 127 mg/dL High 70-99 [facility] Comment on above: Performed By: #### L 100.0100, L500.4050, L501.2450 ####[facility] [address] [place], [address] Potassium [Moles/Vol] 3.8 mmol/L Normal 3.3-5.[address] [facility] Comment on above: Performed By: #### L 100.0100, L500.4050, L501.2450 ####[facility] [address] [place], [address] Sodium [Moles/Vol] 140 mmol/L Normal 133-145 [facility] Comment on above: Performed By: #### L 100.0100, L500.4050, L501.2450 ####[facility] [address] [place], [address] T PROT 7.1 g/dL Normal 5.9-8.4 [facility] Comment on above: Performed By: #### L 100.0100, L500.4050, L501.2450 ####[facility] [address] [place], [address] Urea nitrogen [Mass/Vol] 15 mg/dL Normal 4-19 [facility] Comment on above: Performed By: #### L 100.0100, L500.4050, L501.2450 ####[facility] [address] [place], [address] Emergency Department Summary on 11-17-2024 Emergency Department Summary [facility] Medical Records Department [address] [place] [address] Emergency Department Summary 11/17/24 MR#: [id number] Acct: [id number] Name: AMANDA KIMBALL Rep #: [id number] : 1990 34 From: Karla Marshall MD [...] why he came in to be evaluated. [facility] Medical History Kidney stones Neck pain [...] patient voiced (more content not included)... Normal [facility] Eosinophil percentageOrdered By: Karla Marshall on 11-17-2024 Eosinophils/100 WBC (Bld) 1.1 % 0-5 [facility] Erythrocyte distribution wid th ratioOrdered By: Karlabam Marshall on 11-17-2024 Erythrocyte distribution width (RBC) [Ratio] 11.8 % 11.6-14.6 [facility] Erythrocyte distribution wid th standard deviationOrdered By: Karla Marshall on 11-17-2024 Erythrocyte distribution width (RBC) [Ratio] 36.3 fl 35.1-43.9 [facility] Glomerular filtration rate ( GFR) estimation/1.73 sq m using serum, plasma, or whole bOrdered By: Karla Marshall on 11-17-2024 GFR/1.73 sq M.predicted among non-blacks MDRD (S/P/Bld) [Vol rate/Area] 105 mL/min/{1.73_m2} >60 [facility] Comment on above: mL/min/1.73m2 CKD-EP I Creatinine Equation (2020) Hematocrit Auto (Bld) [Volum e fraction]Ordered By: Karla Marshall on 11-17-2024 Hematocrit (Bld) [Volume fraction] 42.9 % 40-54 [facility] Hemoglobin measurementOrdere d By: Karla Marshall on 11-17-2024 Hemoglobin (Bld) [Mass/Vol] 14.9 g/dL 13.0-16.5 [facility] Immature granulocytes/100 WB C Auto (Bld)Ordered By: Karla Marshall on 11-17-2024 Immature granulocytes/100 WBC (Bld) 0.300 % 0.0-0.9 [facility] Comment on above: IG% - Immature Granu locytes (promyelocytes, myelocytes and metamyelocytes) > 1% indicates that a LEFT SHIFT is Present. Laboratory - Chemistry and C hemistry - challengeOrdered By: Karla Marshall on 11-17-2024 AST [Catalytic activity/Vol] 19 U/L <38 [facility] Lipaseon 11-17-2024 Lipase [Catalytic activity/Vol] 28 U/L Normal 13-75 [facility] Comment on above: Result Comment: Marisa vincent note: LIPASE revised reference range effective 22. New Lipase methodology. Expected to produce lower values than the previous assay method. NEW Reference Range: 13 - 75 U/L Performed By: #### L 100.0100, L500.4050, L501.2450 ####[facility] [address] [place], [address] Lipase measurementOrdered By : Karla Marshall on 11-17-2024 Lipase [Catalytic activity/Vol] 28 U/L 13-75 [facility] Comment on above: Please note:LIPASE r evised reference range effective 22. New Lipase methodology. Expected to produce lower values than the previous assay method. NEW Reference Range: 13 - 75 U/L MCV (mean corpuscular volume ) determinationOrdered By: Karla Marshall on 11-17-2024 MCV (RBC) [Entitic vol] 85.8 fL 80-94 [facility] Mean corpuscular hemoglobin (MCH) determinationOrdered By: Karla Marshall on 11-17-2024 MCH (RBC) [Entitic mass] 29.8 pg 27.0-32.0 [facility] Mean corpuscular hemoglobin concentration (MCHC) determinationOrdered By: Karla Marshall on 11-17-2024 MCHC (RBC) [Mass/Vol] 34.7 g/dL 32-[address] [facility] Mean platelet volume determi nationOrdered By: Karla Marshall on 11-17-2024 Platelet mean volume (Bld) [Entitic vol] 9.6 fL 6.2-12.0 [facility] Monocyte percentageOrdered B y: Karla Marshall on 11-17-2024 Monocytes/100 WBC (Bld) 7.3 % 0-10 [facility] Neutrophil percentageOrdered By: Karla Marshall on 11-17-2024 Neutrophils/100 WBC (Bld) 51.5 % 47-70 [facility] Nucleated red blood cell per centageOrdered By: Karla Marshall on 11-17-2024 Nucleated RBC/100 WBC (Bld) [Ratio] 0 % 0-5 [facility] Platelet countOrdered By: Gerson Marshall on 11-17-2024 Platelets (Bld) [#/Vol] 273 10*3/uL 150-450 [facility] Potassium measurement (mass/ volume)Ordered By: Karla Marshall on 11-17-2024 Potassium (Unsp spec) [Mass/Vol] 3.8 mmol/L 3.3-5.1 [facility] RBC Auto (Bld) [#/Vol]Ordere d By: Karla Marshall on 11-17-2024 RBC (Bld) [#/Vol] 5.00 10*6/uL 4.6-6.[address] [facility] Serum creatinine measurement (mass/volume)Ordered By: Karla Marshall on 11-17-2024 Creatinine [Mass/Vol] 0.96 mg/dL 0.70-1.[address] [facility] Serum globulin measurementOr dered By: Karla Marshall on 11-17-2024 Globulin (S) [Mass/Vol] 2.6 g/dL 2.2-4.2 [facility] Serum glucose measurement (m ass/volume)Ordered By: Karla Marshall on 11-17-2024 Glucose [Mass/Vol] 127 mg/dL High 70-99 [facility] Serum or plasma alanine smith otransferase (ALT) measurementOrdered By: Karla Marshall on 11-17-2024 ALT [Catalytic activity/Vol] 16 U/L <47 [facility] Serum or plasma albumin antionette urement (mass/volume)Ordered By: Karla Marshall on 11-17-2024 Albumin [Mass/Vol] 4.5 g/dL 3.5-5.0 [facility] Serum or plasma albumin/glob ulin mass ratioOrdered By: Karla Marshall on 11-17-2024 Albumin/Globulin [Mass ratio] 1.7 {ratio} 0.9-2.4 [facility] Serum or plasma alkaline jared sphatase measurementOrdered By: Karla Marshall on 11-17-2024 ALP [Catalytic activity/Vol] 54 U/L 40-129 [facility] Serum or plasma calcium antionette urement (mass/volume)Ordered By: Karla Marshall on 11-17-2024 Calcium [Mass/Vol] 9.5 mg/dL 7.6-11.0 [facility] Serum or plasma urea nitroge n measurement (mass/volume)Ordered By: Karla Agarwaler on 11-17-2024 Urea nitrogen [Mass/Vol] 15 mg/dL 4-19 [facility] Sodium levelOrdered By: Benitez tang Rolando on 11-17-2024 Sodium [Moles/Vol] 140 mmol/L 133-145 [facility] Total proteinOrdered By: Tiara Agarwaler on 11-17-2024 Protein [Mass/Vol] 7.1 g/dL 5.9-8.4 [facility] White blood cell (WBC) count Ordered By: Karla Agarwaler on 11-17-2024 WBC (Bld) [#/Vol] 6.2 10*3/uL 4.4-11.0 [facility] Absolute lymphocyte countOrd ered By: Dionte Hendrix on 10-09-2024 Lymphocytes Auto (Unsp spec) [#/Vol] 2.10 10*3/uL 0.83-4.51 [facility] Absolute neutrophil countOrd ered By: Dionte Hendrix on 10-09-2024 Neutrophils (Bld) [#/Vol] 3.1 10*3/uL 2.0-7.7 [facility] Acute Abdomen Inc Cheston Acute [facility]domen Inc Chest [facility] Imaging Services [address] [place] [address] Acute Abdomen Inc Chest MR#: [id number] Acct: [id number] Name: AMANDA KIMBALL Rep #: [id number] : 1990 M 33 From: Jl Holly MD PCP: Dr. Derik Brower, DO Status: REG ER Study: Acute Abdomen Inc Chest Date of Exam: 10/09/24 Exam# [id number] Ordering Dr: Dionte Hendrix DO PROCEDURE: ACUTE ABDOMEN INC CHEST 10/09/2024 REASON FOR EXAM: ABD PAIN TECHNIQUE: ACUTE ABDOMEN INC CHEST COMPARISON: CT 05/17/2023 FINDINGS: Normal heart size. Well inflated lungs. Right upper lobe hamartoma. No consolidation, effusion, or pneumothorax. No free air. Nonobstructed bowel. Mild stool. No concerning calcifications. RAD/Acute Abdomen Inc Chest IMPRESSION: Clear lungs. Nonobstructed bowel pattern. Reading Location: [place] [address] CC: Dr. Derik Brower DO; Dionte Hendrix DO [employer]neyman: Signed Normal [facility] Anion gap in Serum or Plasma Ordered By: Dionte Hendrix on 10-09-2024 Anion gap [Moles/Vol] 11 mmol/L 5-[address] [facility] Automated lymphocyte count a s percentage of total leukocytesOrdered By: Dionte Hendrix on 10-09-2024 Lymphocytes/100 WBC Auto (Unsp spec) 36.4 % 19-41 [facility] BUN/creatinine ratioOrdered By: Dionte Hendrix on 10-09-2024 Urea nitrogen/Creatinine [Mass ratio] 20.8 mg/mg High 10-20 [facility] Basic Metabolic Profile (BMP )on 10-09-2024 BUN/CRE 20.8 RATIO High 10-20 [facility] Comment on above: Performed By: #### L 500.3400, L500.2500, L501.2450, L100.0100 #### [facility] [address] [place], [address] Calcium [Mass/Vol] 9.6 mg/dL Normal 7.6-11.0 [facility] [facility] Comment on above: Performed By: #### L 500.3400, L500.2500, L501.2450, L100.0100 #### [facility] [address] [place], [address] Chloride [Moles/Vol] 104 mmol/L Normal 98-108 [facility] Comment on above: Performed By: #### L 500.3400, L500.2500, L501.2450, L100.0100 #### [facility] [address] [place], [address] CO2 [Moles/Vol] 25.8 mmol/L Normal 21.0-32.0 [facility] Comment on above: Performed By: #### L 500.3400, L500.2500, L501.2450, L100.0100 #### [facility] [address] [place], [address] Creatinine [Mass/Vol] 0.87 mg/dL Normal 0.70-1.[address] [facility] Comment on above: Performed By: #### L 500.3400, L500.2500, L501.2450, L100.0100 #### [facility] [address] [place], [address] ECRCL 103.09 ml/min Normal 50-250 [facility] Comment on above: Performed By: #### L 500.3400, L500.2500, L501.2450, L100.0100 #### [facility] [address] [place], [address] GAP 11 Normal 5-15 [facility] Comment on above: Performed By: #### L 500.3400, L500.2500, L501.2450, L100.0100 #### [facility] [address] [place], [address] GFR/1.73 sq M.predicted among non-blacks MDRD (S/P/Bld) [Vol rate/Area] 116 mL/min/{1.73_m2} Normal >60 [facility] Comment on above: Result Comment: mL/m in/1.73m2 CKD-EPI Creatinine Equation (2020) Performed By: #### L 500.3400, L500.2500, L501.2450, L100.0100 #### [facility] [address] [place], [address] Glucose [Mass/Vol] 117 mg/dL High 70-99 [facility] Comment on above: Performed By: #### L 500.3400, L500.2500, L501.2450, L100.0100 #### [facility] [address] [place], [address] Potassium [Moles/Vol] 3.7 mmol/L Normal 3.3-5.[address] [facility] Comment on above: Performed By: #### L 500.3400, L500.2500, L501.2450, L100.0100 #### [facility] [address] [place], [address] Sodium [Moles/Vol] 140 mmol/L Normal 133-145 [facility] Comment on above: Performed By: #### L 500.3400, L500.2500, L501.2450, L100.0100 #### [facility] [address] [place], [address] Urea nitrogen [Mass/Vol] 18 mg/dL Normal 4-19 [facility] Comment on above: Performed By: #### L 500.3400, L500.2500, L501.2450, L100.0100 #### [facility] [address] [place], [address] Basophil percentageOrdered B y: Dionte Hendrix on 10-09-2024 Basophils/100 WBC (Bld) 0.7 % 0-1 [facility] Bilirubin directOrdered By: Dionte Hendrix on 10-09-2024 Bilirubin.direct [Mass/Vol] 0.11 mg/dL 0.00-0.30 [facility] Bilirubin, totalOrdered By: Dionte Hendrix on 10-09-2024 Bilirubin [Mass/Vol] 0.24 mg/dL 0.00-1.30 [facility] CBC W/Diff, Automatedon 08-0 6-2024 Absolute Lymph 2.10 X10 3/uL Normal 0.83-4.51 [facility] Comment on above: Performed By: #### L 500.3400, L500.2500, L501.2450, L100.0100 #### [facility] [address] [place], [address] Absolute Neut 3.1 X10 3/uL Normal 2.0-7.7 [facility] Comment on above: Performed By: #### L 500.3400, L500.2500, L501.2450, L100.0100 #### [facility] [address] [place], [address] Basophils/100 WBC (Bld) 0.7 % Normal 0-1 [facility] Comment on above: Performed By: #### L 500.3400, L500.2500, L501.2450, L100.0100 #### [facility] [address] [place], [address] Eosinophils/100 WBC (Bld) 1.6 % Normal 0-5 [facility] Comment on above: Performed By: #### L 500.3400, L500.2500, L501.2450, L100.0100 #### [facility] [address] [place], [address] Erythrocyte distribution width (RBC) [Ratio] 11.9 % Normal 11.6-14.6 [facility] Comment on above: Performed By: #### L 500.3400, L500.2500, L501.2450, L100.0100 #### [facility] [address] [place], [address] Hematocrit (Bld) [Volume fraction] 40.7 % Normal 40-54 [facility] Comment on above: Performed By: #### L 500.3400, L500.2500, L501.2450, L100.0100 #### [facility] [address] [place], [address] Hemoglobin (Bld) [Mass/Vol] 14.2 g/dL Normal 13.0-16.5 [facility] Comment on above: Performed By: #### L 500.3400, L500.2500, L501.2450, L100.0100 #### [facility] [address] [place], [address] IG% 0.200 Normal 0.0-0.9 [facility] Comment on above: Result Comment: IG% - Immature Granulocytes (promyelocytes, myelocytes and metamyelocytes) > 1% indicates that a LEFT SHIFT is Present. Performed By: #### L 500.3400, L500.2500, L501.2450, L100.0100 #### [facility] [address] [place], [address] Lymphocytes/100 WBC (Bld) 36.4 % Normal 19-41 [facility] Comment on above: Performed By: #### L 500.3400, L500.2500, L501.2450, L100.0100 #### [facility] [address] [place], [address] MCH (RBC) [Entitic mass] 30.1 pg Normal 27.0-32.0 [facility] Comment on above: Performed By: #### L 500.3400, L500.2500, L501.2450, L100.0100 #### [facility] [address] [place], [address] MCHC (RBC) [Mass/Vol] 34.9 g/dL Normal 32-[address] [facility] Comment on above: Performed By: #### L 500.3400, L500.2500, L501.2450, L100.0100 #### [facility] [address] [place], [address] MCV (RBC) [Entitic vol] 86.4 fL Normal 80-94 [facility] Comment on above: Performed By: #### L 500.3400, L500.2500, L501.2450, L100.0100 #### [facility] [address] [place], [address] Monocytes/100 WBC (Bld) 8.3 % Normal 0-10 [facility] Comment on above: Performed By: #### L 500.3400, L500.2500, L501.2450, L100.0100 #### [facility] [address] [place], [address] Neutrophils/100 WBC (Bld) 52.8 % Normal 47-70 [facility] Comment on above: Performed By: #### L 500.3400, L500.2500, L501.2450, L100.0100 #### [facility] [address] [place], [address] Nucleated RBC (Bld) [#/Vol] 0 10*3/uL Normal 0-5 [facility] Comment on above: Performed By: #### L 500.3400, L500.2500, L501.2450, L100.0100 #### [facility] [address] [place], [address] Platelet mean volume (Bld) [Entitic vol] 9.6 fL Normal 6.2-12.0 [facility] Comment on above: Performed By: #### L 500.3400, L500.2500, L501.2450, L100.0100 #### [facility] [address] [place], [address] Platelets (Bld) [#/Vol] 254 10*3/uL Normal 150-450 [facility] Comment on above: Performed By: #### L 500.3400, L500.2500, L501.2450, L100.0100 #### [facility] [address] [place], [address] RBC (Bld) [#/Vol] 4.71 10*6/uL Normal 4.6-6.[address] [facility] Comment on above: Performed By: #### L 500.3400, L500.2500, L501.2450, L100.0100 #### [facility] [address] [place], [address] RDW SD 37.9 fl Normal 35.1-43.9 [facility] Comment on above: Performed By: #### L 500.3400, L500.2500, L501.2450, L100.0100 #### [facility] [address] [place], [address] WBC (Bld) [#/Vol] 5.8 10*3/uL Normal 4.4-11.0 [facility] Comment on above: Performed By: #### L 500.3400, L500.2500, L501.2450, L100.0100 #### [facility] [address] [place], [address] Carbon dioxide, total [Moles /volume] in Central venous bloodOrdered By: Dionte Hendrix on 10-09-2024 CO2 [Moles/Vol] 25.8 mmol/L 21.0-32.0 [facility] Chloride assayOrdered By: Rosa Hendrix on 10-09-2024 Chloride [Moles/Vol] 104 mmol/L 98-108 [facility] Emergency Department Summary on 10-09-2024 Emergency Department Summary [facility] Medical Records Department [address] [place] [address] Emergency Department Summary 10/09/24 MR#: [id number] Acct: [id number] Name: AMANDA KIMBALL Rep #: [id number] : 1990 33 From: Dionte Hendrix DO [...] to this he comes in for evaluation [facility] Medical History (Updated 10/09/24 @ 07:41 [...] abdomen tom (more content not included)... Normal [facility] Eosinophil percentageOrdered By: Dionte Hendrix on 10-09-2024 Eosinophils/100 WBC (Bld) 1.6 % 0-5 [facility] Erythrocyte distribution wid th ratioOrdered By: Dionte Hendrix on 10-09-2024 Erythrocyte distribution width (RBC) [Ratio] 11.9 % 11.6-14.6 [facility] Erythrocyte distribution wid th standard deviationOrdered By: Dionte Hendrix on 10-09-2024 Erythrocyte distribution width (RBC) [Ratio] 37.9 fl 35.1-43.9 [facility] Glomerular filtration rate ( GFR) estimation/1.73 sq m using serum, plasma, or whole bOrdered By: Dionte Hendrix on 10-09-2024 GFR/1.73 sq M.predicted among non-blacks MDRD (S/P/Bld) [Vol rate/Area] 116 mL/min/{1.73_m2} >60 [facility] Comment on above: mL/min/1.73m2 CKD-EP I Creatinine Equation (2020) Hematocrit Auto (Bld) [Volum e fraction]Ordered By: Dionte Hendrix on 10-09-2024 Hematocrit (Bld) [Volume fraction] 40.7 % 40-54 [facility] Hemoglobin measurementOrdere d By: Dionte Hendrix on 10-09-2024 Hemoglobin (Bld) [Mass/Vol] 14.2 g/dL 13.0-16.5 [facility] Immature granulocytes/100 WB C Auto (Bld)Ordered By: Dionte Hendrix on 10-09-2024 Immature granulocytes/100 WBC (Bld) 0.200 % 0.0-0.9 [facility] Comment on above: IG% - Immature Granu locytes (promyelocytes, myelocytes and metamyelocytes) > 1% indicates that a LEFT SHIFT is Present. Laboratory - Chemistry and C hemistry - challengeOrdered By: Dionte Hendrix on 10-09-2024 AST [Catalytic activity/Vol] 35 U/L <38 [facility] Lipaseon 10-09-2024 Lipase [Catalytic activity/Vol] 32 U/L Normal 13-75 [facility] Comment on above: Result Comment: Marisa vincent note: LIPASE revised reference range effective 22. New Lipase methodology. Expected to produce lower values than the previous assay method. NEW Reference Range: 13 - 75 U/L Performed By: #### L 500.3400, L500.2500, L501.2450, L100.0100 #### [facility] [address] [place], [address] Lipase measurementOrdered By : Dionte Hendrix on 10-09-2024 Lipase [Catalytic activity/Vol] 32 U/L 13-75 [facility] Comment on above: Please note:LIPASE r evised reference range effective 22. New Lipase methodology. Expected to produce lower values than the previous assay method. NEW Reference Range: 13 - 75 U/L Liver Profileon 10-09-2024 Albumin [Mass/Vol] 4.3 g/dL Normal 3.5-5.0 [facility] Comment on above: Performed By: #### L 500.3400, L500.2500, L501.2450, L100.0100 #### [facility] [address] [place], [address] ALK PHOS 62 U/L Normal 40-129 [facility] Comment on above: Performed By: #### L 500.3400, L500.2500, L501.2450, L100.0100 #### [facility] [address] [place], [address] ALT [Catalytic activity/Vol] 36 U/L Normal <=46 [facility] Comment on above: Performed By: #### L 500.3400, L500.2500, L501.2450, L100.0100 #### [facility] [address] [place], [address] AST [Catalytic activity/Vol] 35 U/L Normal <=37 [facility] Comment on above: Performed By: #### L 500.3400, L500.2500, L501.2450, L100.0100 #### [facility] [address] [place], [address] Bilirubin [Mass/Vol] 0.24 mg/dL Normal 0.00-1.30 [facility] Comment on above: Performed By: #### L 500.3400, L500.2500, L501.2450, L100.0100 #### [facility] [address] [place], [address] Bilirubin.direct [Mass/Vol] 0.11 mg/dL Normal 0.00-0.30 [facility] Comment on above: Performed By: #### L 500.3400, L500.2500, L501.2450, L100.0100 #### [facility] [address] [place], [address] Globulin (S) [Mass/Vol] 2.2 g/dL Normal 2.2-4.2 [facility] Comment on above: Performed By: #### L 500.3400, L500.2500, L501.2450, L100.0100 #### [facility] [address] [place], [address] T PROT 6.5 g/dL Normal 5.9-8.4 [facility] Comment on above: Performed By: #### L 500.3400, L500.2500, L501.2450, L100.0100 #### [facility] [address] [place], [address] MCV (mean corpuscular volume ) determinationOrdered By: Dionte Hendrix on 10-09-2024 MCV (RBC) [Entitic vol] 86.4 fL 80-94 [facility] Mean corpuscular hemoglobin (MCH) determinationOrdered By: Dionte Hendrix on 10-09-2024 MCH (RBC) [Entitic mass] 30.1 pg 27.0-32.0 [facility] Mean corpuscular hemoglobin concentration (MCHC) determinationOrdered By: Dionte Hendrix on 10-09-2024 MCHC (RBC) [Mass/Vol] 34.9 g/dL 32-[address] [facility] Mean platelet volume determi nationOrdered By: Dionte Hendrix on 10-09-2024 Platelet mean volume (Bld) [Entitic vol] 9.6 fL 6.2-12.0 [facility] Monocyte percentageOrdered B y: Dionte Hendrix on 10-09-2024 Monocytes/100 WBC (Bld) 8.3 % 0-10 [facility] Neutrophil percentageOrdered By: Dionte Hendrix on 10-09-2024 Neutrophils/100 WBC (Bld) 52.8 % 47-70 [facility] Nucleated red blood cell per centageOrdered By: Dionte Hendrix on 10-09-2024 Nucleated RBC/100 WBC (Bld) [Ratio] 0 % 0-5 [facility] Platelet countOrdered By: Rosa Hendrix on 10-09-2024 Platelets (Bld) [#/Vol] 254 10*3/uL 150-450 [facility] Potassium measurement (mass/ volume)Ordered By: Dionte Hendrix on 10-09-2024 Potassium (Unsp spec) [Mass/Vol] 3.7 mmol/L 3.3-5.1 [facility] RBC Auto (Bld) [#/Vol]Ordere d By: Dionte Hendrix on 10-09-2024 RBC (Bld) [#/Vol] 4.71 10*6/uL 4.6-6.[address] [facility] Serum creatinine measurement (mass/volume)Ordered By: Dionte Hendrix on 10-09-2024 Creatinine [Mass/Vol] 0.87 mg/dL 0.70-1.[address] [facility] Serum globulin measurementOr dered By: Dionte Hendrix on 10-09-2024 Globulin (S) [Mass/Vol] 2.2 g/dL 2.2-4.2 [facility] Serum glucose measurement (m ass/volume)Ordered By: Dionte Hendrix on 10-09-2024 Glucose [Mass/Vol] 117 mg/dL High 70-99 [facility] Serum or plasma alanine smith otransferase (ALT) measurementOrdered By: Dionte Hendrix on 10-09-2024 ALT [Catalytic activity/Vol] 36 U/L <47 [facility] Serum or plasma albumin antionette urement (mass/volume)Ordered By: Dionte Hendrix on 10-09-2024 Albumin [Mass/Vol] 4.3 g/dL 3.5-5.0 [facility] Serum or plasma alkaline jared sphatase measurementOrdered By: Dionte Hendrix on 10-09-2024 ALP [Catalytic activity/Vol] 62 U/L 40-129 [facility] Serum or plasma calcium antionette urement (mass/volume)Ordered By: Dionte Hendrix on 10-09-2024 Calcium [Mass/Vol] 9.6 mg/dL 7.6-11.0 [facility] Serum or plasma urea nitroge n measurement (mass/volume)Ordered By: Dionte Hendrix on 10-09-2024 Urea nitrogen [Mass/Vol] 18 mg/dL 4-19 [facility] Sodium levelOrdered By: Riley Hendrix on 10-09-2024 Sodium [Moles/Vol] 140 mmol/L 133-145 [facility] Total proteinOrdered By: Santos Hendrix on 10-09-2024 Protein [Mass/Vol] 6.5 g/dL 5.9-8.4 [facility] White blood cell (WBC) count Ordered By: Dionte Hendrix on 10-09-2024 WBC (Bld) [#/Vol] 5.8 10*3/uL 4.4-11.0 [facility] Absolute lymphocyte countOrd ered By: Jose Alfredo Moore on 05-17-2023 Lymphocytes Auto (Unsp spec) [#/Vol] 3.14 10*3/uL 0.83-4.51 [facility] Amorphous sediment detection in urine sediment by light microscopyOrdered By: Jose Alfredo Moore on 05-17-2023 Amorphous sediment LM Ql (Urine sed) 2+ [facility] Automated lymphocyte count a s percentage of total leukocytesOrdered By: Jose Alfredo Moore on 05-17-2023 Lymphocytes/100 WBC Auto (Unsp spec) 50.5 % 19-41 [facility] Basophil percentageOrdered B y: Jose Alfredo Moore on 05-17-2023 Basophil percentage 0-5 SEEN /hpf 0-5 [facility] Basophils/100 WBC (Bld) 1.0 % 0-1 [facility] Chloride [Moles/Vol] 106 mmol/L 98-107 [facility] Eosinophils/100 WBC (Bld) 1.8 % 0-5 [facility] Glucose [Mass/Vol] 117 mg/dL 74-106 [facility] Comment on above: Fasting Glucose resu lt from 100 to 125 mg/dL suggests IMPAIRED HOMEOSTASIS per A.D.A. criteria. Hemoglobin (Bld) [Mass/Vol] 15.1 g/dL 13.0-16.5 [facility] Monocytes/100 WBC (Bld) 7.1 % 0-10 [facility] Neutrophils (Bld) [#/Vol] 2.5 10*3/uL 2.0-7.7 [facility] Neutrophils/100 WBC (Bld) 39.3 % 47-70 [facility] Potassium [Moles/Vol] 3.9 mmol/L 3.5-5.[address] [facility] Sodium [Moles/Vol] 141 mmol/L 136-145 [facility] WBC (Bld) [#/Vol] 6.2 10*3/uL 4.4-11.0 [facility] Bilirubin Test strip Ql (U)O rdered By: Jose Alfredo Moore on 05-17-2023 Bilirubin Ql (U) Negative Negative [facility] Determination of erythrocyte mean corpuscular volume (MCV)Ordered By: Jose Alfredo Moore on 05-17-2023 MCV (RBC) [Entitic vol] 86.9 fL 80-94 [facility] Erythrocyte distribution wid th ratioOrdered By: Jose Alfredo Moore on 05-17-2023 Erythrocyte distribution width (RBC) [Ratio] 11.9 % 11.6-14.6 [facility] Erythrocyte distribution wid th standard deviationOrdered By: Jose Alfredo Moore on 05-17-2023 Erythrocyte distribution width (RBC) [Entitic vol] 38.2 fL 35.1-43.9 [facility] Hematocrit Auto (Bld) [Volum e fraction]Ordered By: Jose Alfredo Moore on 05-17-2023 Hematocrit (Bld) [Volume fraction] 44.6 % 40-54 [facility] Immature granulocytes/100 WB C Auto (Bld)Ordered By: Jose Alfredo Moore on 05-17-2023 Immature granulocytes/100 WBC (Bld) 0.300 % 0.0-0.9 [facility] Comment on above: IG% - Immature Granu locytes (promyelocytes, myelocytes and metamyelocytes) > 1% indicates that a LEFT SHIFT is Present. Ketones Test strip Ql (U)Ord ered By: Jose Alfredo Moore on 05-17-2023 Ketones Ql (U) 5 mg/dl Negative [facility] - Chemistry and C hemistry - challengeOrdered By: Jose Alfredo Moore on 05-17-2023 CO2 [Moles/Vol] 30.0 mmol/L 21.0-32.0 [facility] Urea nitrogen/Creatinine [Mass ratio] 13.4 mg/mg 10-20 [facility] - Hematology and Cell countsOrdered By: Jose Alfredo Moore on 05-17-2023 MCH (RBC) [Entitic mass] 29.4 pg 27.0-32.0 [facility] MCHC (RBC) [Mass/Vol] 33.9 g/dL 32-[address] [facility] Nucleated RBC/100 WBC (Bld) [Ratio] 0 % 0-5 [facility] Platelet mean volume (Bld) [Entitic vol] 10.0 fL 6.2-12.0 [facility] Platelets (Bld) [#/Vol] 325 10*3/uL 150-450 [facility] Mucus LM Ql (Urine sed)Order ed By: Jose Alfredo Moore on 05-17-2023 Mucus Ql (Urine sed) 0 SEEN /hpf [facility] Nitrite Test strip Ql (U)Ord ered By: Jose Alfredo Moore on 05-17-2023 Nitrite Ql (U) Negative Negative [facility] No Panel InformationOrdered By: Jose Alfredo Moore on 05-17-2023 Urine RBC 25-50 SEEN /hpf 0-5 [facility] Estimated Creatinine Clearance Calc 101.73 ml/min [facility] Estimated GFR (MDRD) Amer 125 mL/min >60 [facility] Comment on above: GFR Calc Estimated GFR (MDRD) Non-Af Amer 103 mL/min >60 [facility] Comment on above: Non- GFR Calc Protein Test strip Ql (U)Ord ered By: Jose Alfredo Moore on 05-17-2023 Protein Ql (U) 100 mg/dl Negative [facility] RBC Auto (Bld) [#/Vol]Ordere d By: Jose Alfredo Moore on 05-17-2023 RBC (Bld) [#/Vol] 5.13 10*6/uL 4.6-6.[address] [facility] Serum or plasma calcium antionette urement (mass/volume)Ordered By: Jose Alfredo Moore on 03-13-2024 Calcium [Mass/Vol] 9.0 mg/dL 8.5-10.1 [facility] Serum or plasma creatinine m easurement (mass/volume)Ordered By: Jose Alfredo Moore on 05-17-2023 Creatinine [Mass/Vol] 0.89 mg/dL 0.70-1.[address] [facility] Comment on above: The validity of the calculated GFR & GFRAA in patients over 70 years has not been determined. Clinical correlation is essential. Serum or plasma urea nitroge n measurement (mass/volume)Ordered By: Jose Alfredo Moore on 05-17-2023 Urea nitrogen [Mass/Vol] 12 mg/dL 7-18 [facility] Squamous epithelial cells de tection in urine sediment by light microscopyOrdered By: Jose Alfredo Moore on 05-17-2023 Epithelial cells.squamous LM Ql (Urine sed) 0 SEEN /hpf 0-5 [facility] Thin prep Papanicolaou smear with manual screeningOrdered By: Jose Alfredo Moore on 05-17-2023 Thin prep Papanicolaou smear with manual screening 5 5-15 [facility] Urine blood detectionOrdered By: Jose Alfredo Moore on 05-17-2023 RBC Ql (U) 250 /ul Negative [facility] Urine clarityOrdered By: Eli Moore on 05-17-2023 Clarity (U) Cloudy Clear [facility] Urine color determinationOrd ered By: Jose Alfredo Moore on 05-17-2023 Color (U) Yellow Yellow [facility] Urine glucose detectionOrder ed By: Jose Alfredo Moore on 05-17-2023 Glucose Ql (U) Normal mg/dl Normal [facility] Urine leukocyte esterase det ection by dipstickOrdered By: Jose Alfredo Moore on 05-17-2023 Leukocyte esterase Test strip Ql (U) 25 /ul Negative [facility] Urine pHOrdered By: Jose Alfredo Rodas gur on 05-17-2023 pH (U) 5.0 [pH] 5.0 - 8.0 [facility] Urine sediment bacteria coun t by microscopy (number/high power field)Ordered By: Jose Alfredo Moore on 05-17-2023 Bacteria LM.HPF (Urine sed) [#/Area] 2 /[HPF] None Seen [facility] Urine specific gravity measu rementOrdered By: Jose Alfredo Moore on 05-17-2023 Specific gravity (U) [Rel density] 1.025 1.002-1.030 [facility] Urine urobilinogen measureme ntOrdered By: Jose Alfredo Moore on 05-17-2023 Urobilinogen Ql (U) 1 mg/dl Normal [facility] Culture, urineOrdered By: Dajuan Brower on 05-09-2023 Bacteria identified Cx Nom (U) Culture exhibits no growth. [facility] CT CHEST W/O CONTRASTon 10-04 CT CHEST W/O CONTRAST [place] [id number] Patient: AMANDA KIMBALL Phone#: : 1990 Age: 26 Gender: M Pt. Type: Out Account: [id number] Location: [facility] Ordering: MAO FORREST Exam Date: 10/20/2016/13:46 Family Phys: Charge Code: 300257 Physician: Kimble Order #: [id number] DLP Dose#: PROCEDURE: CT CHEST WITHOUT CONTRAST COMPARISON: [facility], CT, CHEST W CON, 06/08/2015, [...] 26 Gender: M Pt. Type: Out Account: [id number] Location: [facility] Ordering: MOA FORREST Exam Date: 10/20/2016/13:46 Family Phys: Charge Code: [id number] Physician: Kimble Order #: [id number] DLP Dose#: BONES: Schmorl's nodes are noted at the lower thoracic and upper lumbar spine. OTHER: Negative. CONCLUSION: 1. Stable right upper lobe and left lower lobe nodular foci. 2. Probable cholelithiasis. Dictated by: Meagan Russo MD on 10/20/2016 at 14:19 Approved by: Meagan Russo MD on 10/20/2016 at 14:19 Normal [facility] Vital Signs Date Time Vital Sign Value Performing Clinician Faci lity 11-21-2024 00:23-0400 Body temperature 98.3 [degF] Dr. Derik Brower DO Work Phone: [facility] 11-21-2024 00:23-0400 Diastolic blood pressure 49 mm[Hg] Dr. Derik Brower DO Work Phone: [facility] 11-21-2024 00:23-0400 Heart rate 80 /min Dr. Derik Brower DO Work Phone: [facility] 11-21-2024 00:23-0400 Respiratory rate 18 /min Dr. Derik Brower DO Work Phone: [facility] 11-21-2024 00:23-0400 SaO2% (BldA) [Mass fraction] 95 % Dr. Derik Brower DO Work Phone: [facility] 11-21-2024 00:23-0400 Systolic blood pressure 108 mm[Hg] Dr. Derik Brower DO Work Phone: [facility] 11-20-2024 22:20-0400 Body height 165.[address] Derik Brower DO Work Phone: [facility] 11-18-2024 13:14-0400 Body height 165.[address] Derik Brower DO Work Phone: [facility] 11-17-2024 06:52-0400 Body temperature 97.9 [degF] Dr. Derik Brower DO Work Phone: [facility] 11-17-2024 06:52-0400 Diastolic blood pressure 69 mm[Hg] Dr. Derik Brower DO Work Phone: [facility] 11-17-2024 06:52-0400 Heart rate 68 /min Dr. Derik Brower DO Work Phone: [facility] 11-17-2024 06:52-0400 Respiratory rate 16 /min Dr. Derik Brower DO Work Phone: [facility] 11-17-2024 06:52-0400 SaO2% (BldA) [Mass fraction] 97 % Dr. Derik Brower DO Work Phone: [facility] 11-17-2024 06:52-0400 Systolic blood pressure 120 mm[Hg] Dr. Derik Brower DO Work Phone: [facility] 11-17-2024 02:16-0400 Body height 165.[address] Derik Brower DO Work Phone: [facility] 11-17-2024 02:16-0400 Body mass index (BMI) [Ratio] 26.7 kg/m2 Dr. Derik Brower DO Work Phone: [facility] 11-17-2024 02:16-0400 Body weight [address] Derik Brower DO Work Phone: [facility] 10-09-2024 05:24-0400 Body temperature 98 [degF] Dr. Derik Brower DO Work Phone: [facility] 10-09-2024 05:24-0400 Diastolic blood pressure 88 mm[Hg] Dr. Derik Brower DO Work Phone: [facility] 10-09-2024 05:24-0400 Heart rate 62 /min Dr. Derik Brower DO Work Phone: [facility] 10-09-2024 05:24-0400 Respiratory rate 18 /min Dr. Derik Brower DO Work Phone: [facility] 10-09-2024 05:24-0400 SaO2% (BldA) [Mass fraction] 100 % Dr. Derik Brower DO Work Phone: [facility] 10-09-2024 05:24-0400 Systolic blood pressure 120 mm[Hg] Dr. Derik Brower DO Work Phone: [facility] 10-09-2024 03:21-0400 Body height 165.[address] Derik Brower DO Work Phone: [facility] 10-09-2024 03:21-0400 Body mass index (BMI) [Ratio] 26.6 kg/m2 Dr. Derik Brower DO Work Phone: [facility] 10-09-2024 03:21-0400 Body weight 72.[address] Derik Brower DO Work Phone: [facility] 05-17-2023 11:22-0400 Body temperature 97.8 [degF] [facility] 05-17-2023 11:22-0400 Diastolic blood pressure 78 mm[Hg] [facility] 05-17-2023 11:22-0400 Heart rate 87 /min [facility] 05-17-2023 11:22-0400 Respiratory rate 16 /min [facility] 05-17-2023 11:22-0400 SaO2% (BldA) [Mass fraction] 99 % [facility] 05-17-2023 11:22-0400 Systolic blood pressure 118 mm[Hg] [facility] 05-17-2023 09:41-0400 Body height 165.1 cm [facility] 05-17-2023 09:41-0400 Body mass index (BMI) [Ratio] 26.9 kg/m2 [facility] 05-17-2023 09:41-0400 Body weight 73.48 kg [facility] 09-20-2021 10:13-0400 Body height 165.1 cm [facility] Work Phone: 09-20-2021 10:13-0400 Body mass index (BMI) [Ratio] 23.3 kg/m2 [facility] Work Phone: 09-20-2021 10:13-0400 Body temperature 97.8 [degF] [facility] Work Phone: 09-20-2021 10:13-0400 Body weight 63.5 kg [facility] Work Phone: 09-20-2021 10:13-0400 Diastolic blood pressure 89 mm[Hg] [facility] Work Phone: 09-20-2021 10:13-0400 Heart rate 76 /min [facility] Work Phone: 09-20-2021 10:13-0400 Respiratory rate 16 /min [facility] Work Phone: 09-20-2021 10:13-0400 SaO2% (BldA) [Mass fraction] 100 % [facility] Work Phone: 09-20-2021 10:13-0400 Systolic blood pressure 139 mm[Hg] [facility] Work Phone: Encounters Encounter Date Encounter Type Care Provider Facility Start: 11-29-2024 ambulatory Arik Friend Facility :[facility] Start: 11-21-2024 Evaluation and management of inpatient Dr. Amanda Sanford MD -Progressive Care Unit Work Phone: Start: 11-19-2024 End: 11-19-2024 Patient encounter procedure Torrie DIAZ -[facility] Work Phone: Start: 11-19-2024 End: 11-19-[address] Derik Brower DO Work Phone: -[facility] Start: 11-17-2024 End: 11-17-2024 Emergency department patient visit Dr. Derik Brower DO Work Phone: -Emergency Department Work Phone: Start: 10-09-2024 End: 10-09-2024 Emergency department patient visit Dr. Derik Brower DO Work Phone: -Emergency Department Work Phone: Start: 05-17-2023 End: 05-17-2023 Emergency department patient visit [facility]-Emergency Department Work Phone: Start: 05-09-2023 End: 05-09-2023 ambulatory [facility] Work Phone: Start: 05-09-2023 End: 05-09-2023 Patient encounter procedure [facility]-Laboratory, Specimen Work Phone: Start: 09-20-2021 End: 09-20-2021 Emergency department patient visit [facility]-Emergency Department Start: 10-20-2016 End: 10-20-2016 Ambulatory [facility] Procedures Date Procedure Procedure Detail Performing Clinician Start: 11-20-2024 Ct abdomen & pelvis w/contrast material Dr. Derik Brower DO Work Phone: Start: 11-17-2024 Computed tomography of abdomen and [...] Treatment Date Care Activity Detail Author Start: 11-21-2024 Hospital admission, emergency, from emergency room, medical nature [facility] Start: 11-17-2024 [facility] Start: 11-17-2024 [facility] Start: 10-09-2024 [facility] Start: 10-09-2024 [facility] Start: 05-17-2023 [facility] CBC W Auto Different ial panel - Blood [facility] Comprehensive metabo lic 2000 panel - Serum or Plasma [facility] Patient Education [facility] Work Phone: Patient referral [facility] Work Phone: Triacylglycerol lipa se measurement [facility] US Abdomen limited [facility] Payers Date Payer Category Payer Self-pay [id number] 2024 Unknown [id number] Unknown [id number] Unknown [id number] Unknown [id number] Unknown [id number] Unknown [id number] Unknown [id number] Social History Date Type Detail Facility Start: 09-20-2021 End: 05-17-2023 Tobacco smoking status NHIS Unknown if ever smoked [facility] Start: 12-23-2019 None [facility] Start: 12-23-2019 Spouse/ Signif icant Other [facility] Start: 12-23-2019 Cigarettes [facility] Start: 1990 Sex Assigned At Male [facility] Start: 10-09-2024 End: 11-20-2024 Tobacco smoking status NHIS Current Heavy tobacco smoker [facility] Sex Male [facility] Radiology Diagnostic study note 11-21-2024 Note Date & Type Note Facility 11-21-2024 Radiology Diagnostic study note [facility] Imaging Services [address] [place] [address] Abdomen/Pelvis W IV Cont ONLY MR#: [id number] Acct: [id number] Name: AMANDA KIMBALL Rep #: [id number] : 1990 M 34 From: Reynold Villavicencio MD PCP: Dr. Derik Brower, Status: REG ER Study:Abdomen/Pelvis W IV Cont ONLY Date of E xam: 11/20/24 Exam# [id number] Ordering Dr: Rosa Hendrix DO PROCEDURE: CT ABDOMEN/PELVIS W IV CONT ONLY 11/20/2024 REASON FOR EXAM: ABD PAIN TECHNIQUE: Procedure Code: [id number] Modality: CT Procedure: ABDOMEN/PELVIS W IV CONT ONLY Coronal and Sagittal reconstruction series were provided. CONTRAST: Isovue 370 VOLUME: 97 mL One or more dose reduction techniques were used (e.g., Automated exposure control, adjustment of the mA and/or kV according to patient size, use of iterative reconstruction technique. RADIATION DOSE SUMMARY: DLP: 528.17 mGycm COMPARISON: 11/17/2024 FINDINGS: Lung bases: Clear. Liver: Unremarkable. Gallbladder: Cholelithiasis. Prominent circumferential gallbladder wall thickening/edema, compatible with acute cholecystitis, new since prior exam. No biliary ductal dilatation. Spleen: Unremarkable. Pancreas: Unremarkable. Adrenals: Unremarkable. Kidneys: Unremarkable. No urolithiasis or hydronephrosis. Bladder: Unremarkable. Reproductive Organs: Unremarkable. Bowel: No evidence of obstruction or active inflammation. Normal appendix. Lymph nodes: No suspicious lymph node enlargement. Vasculature: Normal caliber abdominal aorta and IVC. Peritoneum / Retroperitoneum: No ascites or free air. Bones: Unremarkable. CT/Abdomen/Pelvis W IV Cont ONLY IMPRESSION: Cholelithiasis with acute cholecystitis. No biliary ductal dilatation. Reading Location: [facility] CC: Dr. Derik Brower DO; Dionte Hendrix DO ~ [employer]aste[employer] Journeyman: Signed [facility] Evaluation note 11-19-2024 Note Date & Type Note Facility 11-19-2024 Evaluation note Diagnosis Onset Date Resolution Gastritis acute November 2:08pm RUQ pain acute November 2:08pm [facility] Work Phone: Radiology Diagnostic study note 11-17-2024 Note Date & Type Note Facility 11-17-2024 Radiology Diagnostic study note [facility] Imaging Services [address] [place], [place] [id number] Abdomen/Pelvis W IV Cont ONLY MR#: [id number] Acct: [id number] Name: AMANDA KIMBALL Rep #: [id number] : 1990 M 34 From: Issa Henriquez MD PCP: Dr. Derik Brower DO Status: REG ER Study:Abdomen/Pelvis W IV Cont ONLY Date of E xam: 11/17/24 Exam# [id number] Ordering Dr: Gerson Marshall MD PROCEDURE: ABDOMEN/PELVIS [...] intra-abdominal or pelvic pathology. Cholelithiasis. Reading Location: [id number] CC: Dr. Karla Marshall MD; Dr. 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 Derik Brower DO Status: REG ER Study:Acute Abdomen Inc Chest Date of Exam: 10/09/24 Exam# [id number] Ordering Dr: Rosa Hendrix DO PROCEDURE: ACUTE ABDOMEN INC CHEST 10/09/2024 REASON FOR EXAM: ABD PAIN TECHNIQUE: ACUTE ABDOMEN INC CHEST COMPARISON: CT 05/17/2023 FINDINGS: Normal heart size. Well inflated lungs. Right upper lobe hamartoma. No consolidation, effusion, or pneumothorax. No free air. Nonobstructed bowel. Mild stool. No concerning calcifications. RAD/Acute Abdomen Inc Chest IMPRESSION: Clear lungs. Nonobstructed bowel pattern. Reading Location: [facility] CC: Dr. Derik Brower DO; Dionte Hendrix DO ~ Plasterer Journeyman: Signed [facility] Evaluation note Note Date & Type Note Facility Evaluation note No assessment information availa ble [facility] Work Phone: Evaluation note Note Date & Type Note Facility Evaluation note Diagnosis Onset Date Resolution Gastritis acute November 2:08pm RUQ pain acute November 2:08pm [facility] Work Phone: Hospital Discharge instructions [...] ER should you have any further concerns [facility] Work Phone: Hospital Discharge instructions Note [...] your symptoms worsen or new symptoms develop. [facility] Work Phone: Reason for referral (narrative) Note Date & Type Note Facility Reason for referral (narrative) No reason for referral information available [facility] Work Phone: Summary Purpose Family History No Family History Records FoundNo Family History Records Found Advance Directives Advance Directive Response Recorded Date/ Time Living Will No September 20, 2021 10:28am Power of Laboratory Chief No September 20 10:28am Advance Directive Response Recorded Date/ Time Living Will No May 17, 2023 10:06am Power of Laboratory Chief No May 16 10:06am Advance Directive Response Recorded Date/ Time Do you have a Healthcare Power of Laboratory Chief? No October 09, 2024 3:25am Advance Directive Response Recorded Date/ Time Do you have a Healthcare Power of Laboratory Chief? No October 09, 2024 3:25am Do you have a Healthcare Power of Laboratory Chief? No November 17, 2024 2:21am Advance Directive Response Recorded Date/ Time Do you have a Healthcare Power of Laboratory Chief? No October 09, 2024 3:25am Do you have a Healthcare Power of Laboratory Chief? No November 17, 2024 2:21am Do you have a Healthcare Power of Laboratory Chief? No November 20, 2024 10:49pm Chief Complaint and Reason for Visit Chief [...] 2:08pm RUQ pain November 19, 2024 2:08pm Chief Complaint Admit Date abd pain October 09, 2024 3:2 0am abd pain November 17, 2024 2:16am ER FU 3-5 DAYS FROM 11/17November 19, 2024 2:08pm INT LAB ORDERS November 19, 2024 2:54pm CHOLELITHIASIS WITH ACUTE CHOLECYSTITIS November 21, 2024 12:31am Additional Source Comments (unrecognized sect ion and content) No Status Records FoundNo Status Records Found INFORMATION SOURCE (unrecogn ized section and content) DATE CREATED AUTHOR 08/30/2017 [facility] DATE CREATED AUTHOR AUTHOR'S JESSICA SÁNCHEZ 11/20/2024 [facility] Goals (unrecognized section and content) Goals may [...] MD Family Provider Active Dr. Derik Brower , DO Primary Care Provider Active Team Status: Inactive Member Role Status Dates Dr. Derik Brower , DO Primary Care Provider, Attendin g Provider Active Team Status: Inactive Member Role Status Dates Dr. Derik Brower , DO Primary Care Provider Active Dr. Jose Alfredo Moore , DO Emergency Provider Active Team Status: Active [...] November 19, 2024 End: November 19, 2024 Team Status: Active Member Role/Relationship Status Dates Dr. Derik Brower DO Primary care physician Active Team Status: Inactive Member Role/Relationship Status Dates Dr. Derik Brower DO Primary care physician Active Start: October 09, 2024 End: October 09, 2024 Dr. Dionte Hendrix DO Attending physician Active Start: October 09, 2024 End: October 09, 2024 Dr. Dionte Hendrix DO Emergency Department Physician A ctive Start: October 09, 2024 End: October 09, 2024 Team Status: Inactive Member Role/Relationship Status Dates Dr. Derik Brower DO Primary care physician Active Start: November 17, 2024 End: November 17, 2024 Dr. Karla Marshall MD Emergency Departmen t Physician Active Start: November 17, 2024 End: November 17, 2024 Team Status: Inactive Member Role/Relationship Status Dates Dr. Derik Brower DO Primary care physician Active Start: November 19, 2024 End: November 19, 2024 Dr. Derik Brower DO Referring Provider Active Start: November 19, 2024 End: November 19, 2024 EMILY Rahman Attending physician Active Start: November 19, 2024 End: November 19, 2024 Team Status: Active Member Role/Relationship Status Dates Dr. Derik Brower DO Primary care physician Active Start: November 19, 2024 EMILY Rahman Attending physician Active Start: November 19, 2024 EMILY Rahman Referring Provider Active Start: November 19, 2024 Team Status: Active Member Role/Relationship Status Dates Dr. Derik Brower DO Primary care physician Active Start: November 21, 2024 Dr. Dionte Hendrix DO Emergency Departme nt Physician Active Start: November 21, 2024 Dr. Amanda Sanford MD Admitting physician Active Start: November 21, 2024 Dr. Amanda Sanford MD Attending physician Active Start: November 21, 2024 FOR RECORDS PERTAINING TO PATIENTS WHO [...] BE BASED ON THE PRIMARY CLINICAL RECORDS. [employer] provides no warranty or guarantee of the accuracy or completeness of information in this document.
[2024-11-21 06:14] LABS: AST(SGOT) 555 U/L (<=37); Alanine Aminotransfer ALT/SGPT 402 U/L (<=46); Albumin, Serum 3.8 g/dL (3.5-5.0); Alkaline Phosphatase 113 U/L (40-129); Anion Gap 11 (5-15); BUN 12 mg/dL (4-19); BUN/Creat Ratio 17.2 RATIO (10-20); Calcium,Total 8.7 mg/dL (7.6-11.0); Carbon Dioxide 23.9 mmol/L (21.0-32.0); Chloride 106 mmol/L (98-108); Estimated Creatinine Clearance 125.12 ml/min (50-250); Globulin 2.6 g/dL (2.2-4.2); Glucose 107 mg/dL (70-99); Potassium 4.1 mmol/L (3.3-5.1)
--- NOTE | 2024-11-21 07:39 | PCM.HP.STD ---
HPI - General General Date of Admission: 11/21/24 HPI Narrative AMANDA KIMBALL, is a 34 M who presents with a history of right upper quadrant pain. The patient has been being treated with Carafate and omeprazole. The patient was recently here over the weekend and had a CT that showed cholelithiasis. He reports the pain got worse and he came in last night. Last night CT scan showed thickening of the gallbladder wall along with cholelithiasis. White count was normal. LFTs were slightly elevated. This morning LFTs are more elevated. [facility] Medical History Kidney stones Neck pain Shoulder injury Home Medications ?Medication ?Instructions ?Recorded ?Last Taken ?Type gabapentin 100 mg capsule 200 mg PO BID 05/17/23 Unknown History pantoprazole 40 mg tablet,delayed 40 mg PO DAILY 30 days #30 tabs 10/09/24 Unknown Rx release (Protonix) sucralfate 1 gram tablet (Carafate) 1 g PO TID 1 week #21 tabs 11/17/24 Unknown Rx sucralfate 100 mg/mL oral 10 ml PO BID #1,000 mL 11/19/24 Unknown Rx suspension Allergy/AdvReac Type Severity Reaction Status Date / Time No Known Allergies Allergy Verified 11/19/24 14:29 Social History Smoking Status: Heavy Smoker (>10/day) Vital Signs Vital Signs Vital Signs: 11/20/24 22:20 11/21/24 00:19 11/21/24 00:22 Temperature 97.7 F L 98.3 F Temperature Source Temporal Pulse Rate 86 80 80 Respiratory Rate 18 18 18 Respiratory Effort Respiratory Depth Respiratory Pattern Blood Pressure 125/92 H 108/49 L 108/49 L Blood Pressure Mean 103 68 68 Blood Pressure Source Blood Pressure Position Blood Pressure Location Pulse Ox 100 98 95 Oxygen Delivery Method Room Air Room Air 11/21/24 00:23 11/21/24 00:55 11/21/24 01:06 Temperature 98.3 F 98.3 F Temperature Source Oral Oral Pulse Rate 80 79 Respiratory Rate 18 17 Respiratory Effort Normal Non-Labored Respiratory Depth Normal Respiratory Pattern Normal Blood Pressure 108/49 L 102/80 Blood Pressure Mean 68 87 Blood Pressure Source Blood Pressure Position Blood Pressure Location Pulse Ox 95 100 Oxygen Delivery Method Room Air Room Air Room Air 11/21/24 06:10 Temperature 98.3 F Temperature Source Oral Pulse Rate 61 Respiratory Rate 16 Respiratory Effort Respiratory Depth Respiratory Pattern Blood Pressure 102/72 Blood Pressure Mean 82 Blood Pressure Source Monitor Blood Pressure Position Semi-Fowlers Blood Pressure Location Right Arm Pulse Ox 99 Oxygen Delivery Method Room Air Weight Weight: 155 lb Body Mass Index (BMI) 25.7 Physical Exam Const alert and oriented x3 HEENT normocephalic Eyes PERRL Resp normal respiratory effort and normal air movement Cardio regular rate and regular rhythm GI soft to palpation and non-distended Palpation: tender RUQ Extremity normal to inspection Results Lab / Micro Data 11/21/24 05:13 11/21/24 05:13 Labs: Laboratory Results - last 24 hr 11/20/24 22:45: WBC 7.3, RBC 4.71, Hgb 14.0, Hct 40.3, MCV 85.6, MCH 29.7, MCHC 34.7, RDW Std Deviation 35.9, RDW Coeff of Jeancarlos 11.5 L, Plt Count 254, MPV 9.2, Immature Gran % (Auto) 0.300, Neut % (Auto) 56.3, Lymph % (Auto) 34.0, [place] % (Auto) 7.3, Eos % (Auto) 1.7, Baso % (Auto) 0.4, Absolute Neuts (auto) 4.1, Absolute Lymphs (auto) 2.47, Nucleated RBC % 0, Sodium 139, Potassium 3.9, Chloride 102, Carbon Dioxide 25.2, Anion Gap 11, BUN 15, Creatinine 0.83, Est GFR (MDRD) Non-Af 116, BUN/Creatinine Ratio 17.4, Glucose 113 H, Calcium 9.4, Total Bilirubin 0.56, Direct Bilirubin 0.29, AST 88 H, ALT 57 H, Alkaline Phosphatase 75, Total Protein 7.2, Albumin 4.2, Globulin 3.0, Lipase 22 11/21/24 05:13: WBC 4.4, RBC 4.37 L, Hgb 13.2, Hct 37.9 L, MCV 86.7, MCH 30.2, MCHC 34.8, RDW Std Deviation 36.8, RDW Coeff of Jeancarlos 11.6, Plt Count 223, MPV 9.5, Immature Gran % (Auto) 0.200, Neut % (Auto) 60.8, Lymph % (Auto) 26.8, [place] % (Auto) 10.8 H, Eos % (Auto) 0.9, Baso % (Auto) 0.5, Absolute Neuts (auto) 2.7, Absolute Lymphs (auto) 1.17, Nucleated RBC % 0, Sodium 141, Potassium 4.1, Chloride 106, Carbon Dioxide 23.9, Anion Gap 11, BUN 12, Creatinine 0.71, Estim Creat Clear Calc 125.12, Est GFR (MDRD) Non-Af 122, BUN/Creatinine Ratio 17.2, Glucose 107 H, Calcium 8.7, Total Bilirubin 1.41 H, AST 555 H, ALT 402 H, Alkaline Phosphatase 113, Total Protein 6.4, Albumin 3.8, Globulin 2.6, Albumin/Globulin Ratio 1.5 Imaging Radiology Impression Abdomen/Pelvis CT 11/20/24 22:31 IMPRESSION: Cholelithiasis with acute cholecystitis. No biliary ductal dilatation. Reading Location: [facility] Assessment & Plan Assessment/Plan (1) Cholelithiasis with acute cholecystitis: PLAN: The patient has CT scan that showed cholelithiasis with thickening of the gallbladder wall concerning for acute cholecystitis. The patient has right upper quadrant tenderness. I recommended laparoscopic cholecystectomy with cholangiograms. I discussed the procedure in detail with the patient. I discussed the risks, benefits, and alternatives of the procedure. I discussed the risks including but not limited to bleeding, infection, injury to surrounding organs such as the liver, bile duct, bowels. I did discuss the possibility of having to convert to an open procedure as well as the possibility that if any injuries occurred this may necessitate further surgery at a tertiary care center. I also discussed the possibility of a partial cholecystectomy. Amanda Sanford MD Pager: [facility] [address] [place] [address], [address] [place] [address] Office:
--- NOTE | 2024-11-21 10:52 | PCM.PRE.AN2 ---
ASA Classification* ASA Classification ASA Classification: 2 Assessment & Plan Anesthesia* Anesthesia Assessment Anesthesia Assessment: Discussed sedation and/or anesthesia options, risks, benefits, and alternatives with patient/parents/legal guardian/POA. Questions invited. The patient/parents/legal guardian/POA seems to understand and agrees to proceed with anesthesia plan. Reviewed the physical assessment, medical history, allergy history and patient home medications list prior to surgery/procedure/anesthetic and documented any changes. Performed airway and anesthesia risk assessments. Anesthesia Type Anesthesia Type: General History Source History Obtained from:: Patient and Chart Anesthesia Focused Assessment* Temperature: 97.7 F Pulse Rate: 63 Blood Pressure: 95/68 Respiratory Rate: 18 Pulse Ox: 99 Oxygen Delivery Method: Room Air Airway Assessment Mouth opens: >3 cm Mallampati Score: III Teeth Condition: Dentures (Patient has full upper and lower dentures. Lower dentures are out. Upper dentures will come out.) Neck Range of motion (ROM): Full ROM Comment: Full castelan Labs Anesthesia Preop lab: CBC WBC, (4.4-11.0) 4.4 K/mm3 Today, 05:13 RBC, (4.6-6.2) 4.37 M/mm3 L Today, 05:13 Hgb, (13.0-16.5) 13.2 g/dL Today, 05:13 Hct, (40-54) 37.9 % L Today, 05:13 Plt Count, (150-450) 223 K/mm3 Today, 05:13 CHEMISTRY Potassium, (3.3-5.1) 4.1 mmol/L Today, 05:13 Sodium, (133-145) 141 mmol/L Today, 05:13 BUN, (4-19) 12 mg/dL Today, 05:13 Creatinine, (0.70-1.20) 0.71 mg/dL Today, 05:13 Glucose, (70-99) 107 mg/dL H Today, 05:13 TSH, (0.358-3.74) 1.37 uIU/mL 03/08/16, 13:13 COAG Pre-Assessment Diagnosis/Proposed Procedure Planned Operative Procedure(s): Laparoscopic cholecystectomy with cholangiograms. Anesthesia History Anesthesia History - medical assistant dermatology: Anesthesia History - medical assistant dermatology Hx Hospitalization No 11/18/24 13:14 Any Problems With Anesthesia No 11/21/24 00:54 Cholinesterase deficiency No 11/21/24 00:54 You/Your Family Experience No 11/21/24 00:54 fever (hyperthermia) with Relationship Recent Exposure to Contagious No 11/21/24 00:54 Disease Does patient have nerve No 11/21/24 00:54 stimulator Patient instructed to have No 11/21/24 00:54 device shut off --Does patient have Pacemaker No 11/21/24 06:10 or ICD? When Was Last Pacemaker Check QUESTION #4 FULL TEXT: You/Your Family Experience fever (hyperthermia) with Anesthesia Last Oral Intake Last Oral intake: Last Oral Intake NPO since 01:00 11/21/24 06:10 Meds taken in AM with sips of No 11/21/24 06:10 water? Meds patient instructed to take am of surgery PONV PONV - medical assistant dermatology: PONV - medical assistant dermatology Female HX of Motion Sickness HX of N/V After Surgery Non-Smoker Duration of Surgery greater than 60 minutes Number of Risk Factors PONV Score Height & Weight Height & Weight: Anesthesia: Height & Weight Height 5 ft 5 in 11/21/24 06:10 Weight: 70.307 kg 11/21/24 06:10 Body Mass Index (BMI) 25.7 11/21/24 06:10 Respiratory Assessment Respiratory Assessment - medical assistant dermatology: Respiratory Tract Infection Hx - medical assistant dermatology Hx Respiratory Tract Infection No 11/21/24 00:54 STOP Sleep Apnea STOP Sleep Apnea - medical assistant dermatology: STOP Sleep Apnea - medical assistant dermatology Hx Hypertension No 11/21/24 00:45 Hx Sleep Apnea No 11/21/24 00:45 CPAP BIPAP Do you snore loudly (louder No 11/21/24 00:45 than talking or can be heard Do you often feel tired/ No 11/21/24 00:45 fatigued/ sleepy during daytime? Has anyone observed you stop No 11/21/24 00:45 breathing during sleep? STOP Results Negative 11/21/24 00:45 QUESTION #5 FULL TEXT : Do you snore loudly (louder than talking or can be heard through closed doors)? Tobacco Use History Tobacco Use History - medical assistant dermatology: Tobacco Use History - medical assistant dermatology Tobacco Use Smoking Status Heavy Smoker (>10/day) 11/21/24 00:45 Hx Tobacco Use Yes 11/21/24 00:45 Years Smoking Packs Smoked per Day Smoking Cessation Date was within the last 15 years Hx Smoking Cessation Date Hx Smoking Cessation Counseling Any additional information?: Yes Smoking Status: Current every day smoker (Patient did not smoke today.) Hematologic Medial History Hematologic Hx - medical assistant dermatology: Hematologic Medical Hx - scallop shucker Hx of Blood Transfusion No 11/21/24 00:45 Hx of Transfusion in last 3 No 11/21/24 00:45 Months Date of Last Transfusion (if within last 3 months) Ever experience any problems No 11/21/24 00:45 with transfusion(s)? Specify any problems Hx of Preganancy in last 3 N/A 11/21/24 00:45 Months Nurse Filling Out Transfusion JGALLOWAY 11/21/24 00:45 & Questions: Date: 11/21/24 11/21/24 00:45 Time: 00:58 11/21/24 00:45 Patient unable to answer at this time (ie. confused, unrespo /Reproduction History /Reproductive History - medical assistant dermatology: /Reproductive Hx- medical assistant dermatology Hx Now No 11/21/24 00:54 Gestational Age (in weeks): EDC: Hx Hx Para Hx Section SAB No 11/21/24 00:54 Active Medications Active Medications: Current Medications Generic Name Dose Route Start Last Admin Trade Name Freq PRN Reason Stop Dose Admin Sodium Chloride 1,000 mls @ 100 mls/hr 11/21/24 00:35 11/21/24 10:06 IV 100 mls/hr .Q10H PETER Administration Piperacillin Sod/Tazobactam 50 mls @ 12.5 mls/hr 11/21/24 06:00 11/21/24 10:26 Sod 3.375 gm/ Sodium Chloride IV Infused Q8 PETER Infusion Sodium Chloride 250 mls @ 15 mls/hr 11/21/24 00:46 IV .[id number] PRN Saline Flush Sodium Chloride 250 mls @ 15 mls/hr 11/21/24 00:46 IV .[id number] PRN Additional IVPB Infusion Morphine Sulfate 2 - 4 mg 11/21/24 00:34 Morphine 2 Mg/Ml Syringe IV Q2H PRN PRN Pain Score 4-10 Ondansetron HCl 4 mg 11/21/24 00:34 Ondansetron 4 Mg/2 Ml Vial IV Q6H PRN PRN NAUSEA/VOMITING Sodium Chloride 10 - 40 ml 11/21/24 00:34 0.9% Saline Lock 10 Ml Syringe IV UD PRN SALINE FLUSH Sodium Chloride 10 - 40 ml 11/21/24 00:34 0.9% Saline Lock 10 Ml Syringe IV UD PRN SALINE FLUSH Sodium Chloride 10 - 40 ml 11/21/24 00:46 0.9% Saline Lock 10 Ml Syringe IV UD PRN SALINE FLUSH PFSH Medical History Kidney stones Neck pain Shoulder injury Home Medications ?Medication ?Instructions ?Recorded ?Last Taken ?Type gabapentin 100 mg capsule 200 mg PO BID 05/17/23 Unknown History pantoprazole 40 mg tablet,delayed 40 mg PO DAILY 30 days #30 tabs 10/09/24 Unknown Rx release (Protonix) sucralfate 1 gram tablet (Carafate) 1 g PO TID 1 week #21 tabs 11/17/24 Unknown Rx sucralfate 100 mg/mL oral 10 ml PO BID #1,000 mL 11/19/24 Unknown Rx suspension Allergy/AdvReac Type Severity Reaction Status Date / Time No Known Allergies Allergy Verified 11/19/24 14:29 Social History Smoking Status: Heavy Smoker (>10/day) Review of Systems (Anesthesia) ROS Narrative System reviewed and no additional complaints, except as documented.
[2024-11-21] MEDS: Midazolam 2 MG/2 ML Syringe IV (11:14)
[2024-11-21] MEDS: Lidocaine 1% (5 ml sdv) 5 ML Vial IV (11:21)
[2024-11-21] MEDS: fentaNYL 100 MCG/2 ML Ampul 200 MCG IV (11:31)
--- NOTE | 2024-11-21 11:37 | RAD_ITS ---
PROCEDURE: CHOLANGIOGRAM/ O R,INITIAL 11/21/2024 REASON FOR EXAM: LAP JARED WITH IOC TECHNIQUE: Procedure Code: RADCHO Modality: DX Procedure: CHOLANGIOGRAM/ O R,INITIAL Fluoroscopy time: 21.3 seconds Total images: 1 fluoroscopic series. COMPARISON: November 20, 2024 FINDINGS: Intraoperative fluoroscopic spot image was obtained during an intraoperative cholangiogram. An attempt was made at cannulating the cystic duct remnant. Contrast was instilled with contrast extravasating in the surgical bed. There was no outlining of the intrahepatic or extrahepatic biliary tree. RAD/Cholangiogram/ O R,Initial IMPRESSION: Fluoroscopic localization and guidance. Correlate with surgical note. Reading Location: [facility]
--- NOTE | 2024-11-21 12:02 | CASEMGMT ---
Dx: Acute Cholecystitis LACE: 2 6-Clicks: 23 Medical record reviewed and patient evaluated for identification of discharge planning needs. Based on this review, at this time criteria are not present to indicate a need for discharge planning. Will remain available to assist with discharge planning needs as identified or requested.
[2024-11-21] MEDS: 0.9% Normal Saline (1000mL) 2,000 ML 2000 ML IV (12:15)
--- NOTE | 2024-11-21 12:15 | GALL_PTH ---
PATIENT: AMANDA KIMBALL LOC: [facility] U#:[id number] AGE/SX: 34/M ROOM: [facility] RE11/21/[address]: Dr. Amanda Sanford MD : 1990 BED: 1 DIS: 11/22/2024 SPEC #: [id number] RECD: 11/21/24 13:50 STATUS: FRITZ ABNER #: [id number] CHERYL: 11/21/24 12:[address]: Amanda Sanford DEPT: SURGICAL PATHOLOGY RECD BY: Ayo Hernandez ENTERED: 11/21/24 14:46 SP TYPE: DEMETRI JONES DR: Dr. Derik Brower, DO Tissues: A - Gallbladder, NOS Procedures: Surgery Specimen Level III HEADER OPERATION: Laparoscopic cholecystectomy with IOC PRE-OP DIAGNOSIS: Cholelithiasis with acute cholecystitis TISSUE SUBMITTED: A- Gallbladder MICROSCOPIC DIAGNOSIS A. Gallbladder, laparoscopic cholecystectomy: * Acute on chronic cholecystitis with cholelithiasis. * Reactive epithelial change with focal intestinal metaplasia. * Negative for dysplasia. * Benign pericystic lymph node x1. MICROSCOPIC DESCRIPTION Slides are reviewed. GROSS DESCRIPTION A. Received in formalin labeled with the patient's name and date of . Designated as gallbladder is a 8.3 x 4.2 x 1.6 cm previously opened, crum-pink to red, fatty gallbladder with attached cystic duct (inked black, shaved); the patency is unable to be determined. A 1.4 cm lymph node is present. Opening reveals pink-red trabeculated and granular mucosa with patchy foci of necrosis; sectioning reveals edematous, fatty and somewhat necrotic cut surfaces with maximum wall thickness of 0.8 cm. There are multiple irregular, dark green choleliths within the container, ranging 0.3 cm to 2.5 cm. Cholesterolosis is not present. Masonry Teacher sections are submitted in 3 cassettes as follows: A1: Margin, lymph node (one half), [id number]: Cross-sections OH 11/21/2024 CPT:47735
[2024-11-21] MEDS: Bupiv/Epi 0.25% 30 ML Vial (12:18)
--- NOTE | 2024-11-21 12:21 | OP.PCM_ITS ---
Operative Report (Standard) Operative Information Date of Procedure: 11/21/24 Pre-Operative Diagnosis: Acute cholecystitis Post-Operative Diagnosis: Acute cholecystitis Surgery/Procedure Performed: Laparoscopic cholecystectomy with attempted cholangiograms golf ball marker: Yes Health And Nutrition Specialist: Anais Fernando Tasks completed by bilingual administrative assistant: Opening & closing and Retracting Type of Anesthesia: General/Regional RN Documented Start/Stop Times: Operation Date: 11/21/24 12:15 Case Time Into Pre-Op 11/21/24 10:42 Out of Pre-Op 11/21/24 11:11 Anesthesia Start 11/21/24 11:14 Into Room 11/21/24 11:14 Procedure Start 11/21/24 11:30 Procedure Start Time: 11:30 Procedure Stop Time: 12:30 Select all DRAINS/GRAFTS/IMPLANTS that apply: None Estimated Blood Loss: 10 Specimen collected: Yes Description of specimen(s) removed: Gallbladder and contents Description of surgery: After obtaining informed consent patient was brought back to the operating room. General anesthesia was induced. The abdomen was prepped and draped in usual sterile fashion. A small midline incision was made superior to the umbilicus and deepened to the level of fascia. The fascia was elevated and incised. Next the peritoneum was elevated and incised in the same fashion. Finger sweep was performed and the Parra trocar was placed into the abdomen. The balloon was inflated. The abdomen was inflated to 15 mmHg. Next a camera was introduced into the abdomen and the abdomen was inspected. Next under direct visualization three 5-mm ports were placed one subxiphoid and 2 subcostal. Next the gallbladder was elevated and retracted toward the right shoulder. The peritoneum was stripped from the gallbladder. The infundibulum was located and retracted laterally. Next the triangle of Calot was dissected and the cystic duct and cystic artery were identified. Cholangiograms were attempted. The Guerrero clamp was used to clamp across the infundibulum and the catheter needle was inserted into the gallbladder. Under fluoroscopy contrast was instilled into the gallbladder but I could not get any contrast to enter the cystic duct as it must have been occluded. The clamp was removed as well as the needle and the infundibulum was grasped once more. Three hemolock clips were placed across the cystic duct. The cystic duct was then divided leaving 2 clips on the stump. The cystic artery was clipped and divided in the same fashion. The hook cautery was then used to take the gallbladder off of the gallbladder bed. Hemostasis was obtained. Gallbladder fossa was irrigated and no active bleeding or bile leakage was noted. Next the camera was introduced in the subxiphoid port. An Endopouch bag was placed through the umbilical port and the g allbladder was placed into it. The gallbladder was then removed through the umbilical incision. The camera was then reinserted through the umbilical port. The gallbladder fossa was inspected once more and noted to be hemostatic with no leaking bile. The abdomen was suctioned dry. The 5 mm ports were removed under direct visualization. The umbilical port was then removed and the air was removed from the abdomen. Next using an 0 Vicryl suture the umbilical fascia was closed in a [id number] fashion. The umbilical port site was irrigated local anesthetic was administered to all the incisions. All the incisions were closed with interrupted subcuticular 4-0 Monocryl sutures followed by Steri- Strips and dressings. The patient was awoken and taken to PACU in stable condition. Surgical Findings: Very inflamed gallbladder, wound class contaminated Complications Complications: No Admit VTE Documentation VTE Mechan Device Prophylaxis: SCD's
--- NOTE | 2024-11-21 12:24 | DS.PCM_ITS ---
Providers Date of Admission: 11/21/24 Primary Care Physician: Dr. Derik Brower DO Reason For Visit: ACUTE CHOLECYSTITIS Diagnosis Discharge Diagnosis (1) Cholelithiasis with acute cholecystitis: Status: Acute Code(s): K80.00 - Calculus of gallbladder with acute cholecystitis without obstruction Plan: The patient has CT scan that showed cholelithiasis with thickening of the gallbladder wall concerning for acute cholecystitis. The patient has right upper quadrant tenderness. I recommended laparoscopic cholecystectomy with cholangiograms. I discussed the procedure in detail with the patient. I discussed the risks, benefits, and alternatives of the procedure. I discussed the risks including but not limited to bleeding, infection, injury to surrounding organs such as the liver, bile duct, bowels. I did discuss the possibility of having to convert to an open procedure as well as the possibility that if any injuries occurred this may necessitate further surgery at a tertiary care center. I also discussed the possibility of a partial cholecystectomy. Yovani Sanford MD Pager: [facility] [address] [place] [address] [address] [place] [address] Office: Medications at Discharge Home Medications gabapentin 100 mg capsule 200 mg PO BID 05/17/23 pantoprazole 40 mg tablet,delayed release (Protonix) 40 mg PO DAILY 30 days #30 tabs 10/09/24 sucralfate 1 gram tablet (Carafate) 1 g PO TID 1 week #21 tabs 11/17/24 sucralfate 100 mg/mL oral suspension 10 ml PO BID #1,000 mL 11/19/24 acetaminophen 325 mg tablet 650 mg (2 x 325 mg) PO Q4H PRN PRN Pain 1-10 Or Fever #0 tabs 11/21/24 oxycodone 5 mg tablet 5 - 10 mg (1 - 2 x 5 mg) PO Q4H PRN PRN Pain Score 4-10 5 days #20 tabs 11/21/24 Hospital Course Operations cholecystecomy Procedures None Summary of Care Provided Hospital Course: The patient was admitted with acute cholecystitis. He was taken for surgery and had a laparoscopic cholecystectomy. He tolerated the procedure well. He will be started on a diet and lateral zoey rechecked in the morning as long as labs are doing well and he is tolerating diet he will be discharged home Weight / BMI Weight Weight: 155 lb Body Mass Index (BMI) 25.7 ABG / Lab / Microbiology Data 11/21/24 05:13 11/21/24 05:13 Laboratory: Laboratory Results - last 24 hr 11/20/24 22:45: WBC 7.3, RBC 4.71, Hgb 14.0, Hct 40.3, MCV 85.6, MCH 29.7, MCHC 34.7, RDW Std Deviation 35.9, RDW Coeff of Jeancarlos 11.5 L, Plt Count 254, MPV 9.2, Immature Gran % (Auto) 0.300, Neut % (Auto) 56.3, Lymph % (Auto) 34.0, [place] % (Auto) 7.3, Eos % (Auto) 1.7, Baso % (Auto) 0.4, Absolute Neuts (auto) 4.1, Absolute Lymphs (auto) 2.47, Nucleated RBC % 0, Sodium 139, Potassium 3.9, Chloride 102, Carbon Dioxide 25.2, Anion Gap 11, BUN 15, Creatinine 0.83, Est GFR (MDRD) Non-Af 116, BUN/Creatinine Ratio 17.4, Glucose 113 H, Calcium 9.4, Total Bilirubin 0.56, Direct Bilirubin 0.29, AST 88 H, ALT 57 H, Alkaline Phosphatase 75, Total Protein 7.2, Albumin 4.2, Globulin 3.0, Lipase 22 11/21/24 05:13: WBC 4.4, RBC 4.37 L, Hgb 13.2, Hct 37.9 L, MCV 86.7, MCH 30.2, MCHC 34.8, RDW Std Deviation 36.8, RDW Coeff of Jeancarlos 11.6, Plt Count 223, MPV 9.5, Immature Gran % (Auto) 0.200, Neut % (Auto) 60.8, Lymph % (Auto) 26.8, [place] % (Auto) 10.8 H, Eos % (Auto) 0.9, Baso % (Auto) 0.5, Absolute Neuts (auto) 2.7, Absolute Lymphs (auto) 1.17, Nucleated RBC % 0, Sodium 141, Potassium 4.1, Chloride 106, Carbon Dioxide 23.9, Anion Gap 11, BUN 12, Creatinine 0.71, Estim Creat Clear Calc 125.12, Est GFR (MDRD) Non-Af 122, BUN/Creatinine Ratio 17.2, G lucose 107 H, Calcium 8.7, Total Bilirubin 1.41 H, AST 555 H, ALT 402 H, Alkaline Phosphatase 113, Total Protein 6.4, Albumin 3.8, Globulin 2.6, Albumin/Globulin Ratio 1.5 Radiography Diagnostic Testing: Radiology Impression Abdomen/Pelvis CT 11/20/24 22:31 IMPRESSION: Cholelithiasis with acute cholecystitis. No biliary ductal dilatation. Reading Location: [facility] D/ Instructions Discharge Activity: May Not Drive (for 2-3 days or while taking narcotic pain medications.) and - (Do not drive, work heavy equipment or sign legal documents for 24 hours.) May shower in (days): 1 Lifting Restrictions: 20 lbs for 2 weeks Additional Activity Instructions: Pain medication may cause nausea. You should typically eat light foods as you take your pain medications. Pain medication may also cause constipation. If this is a problem for you, please discuss with your doctor. Alternate ibuprofen and Tylenol for pain control, oxycodone for breakthrough pain Call your doctor if your incision/area has: Continuous Slow Oozing, Sudden Increased Bleeding, Increased Pain/ Swelling, Increased Redness and Foul Smelling Discharge Call your doctor if you observe: Fever of 101 or Higher Suture Line Care: Avoid Pulling/Pushing and Avoid Pinching/Bending Remove Dressing in: 2 days Additional Dressing/Incision Instructions: Leave operative bandaids on for 2 days. When you remove dressing, leave Steri-Strips on until your follow-up appointment, or until the Steri-Strips fall off on their own. DC O2, CPAP, BIPAP Needs Home O2 Discharge instructions: No Please Follow Up With: Yovani Sanford MD When: Please call to schedule 2 week follow up appointment. [phone] Meaningful Use Info Meaningful Use Meaningful Use Diagnoses (Choose all that apply): None applicable Discharge Plan Admission Admit Date/Time: 11/21/24 00:34 Attending Provider: Yovani Sanford Primary Care Provider: Derik Brower Discharge Orders/Prescriptions Prescriptions: New acetaminophen 325 mg Tablet 650 mg PO Q4H PRN PRN (Reason: Pain 1-10 Or Fever) Qty: 0 0RF oxycodone 5 mg Tablet 5 - 10 mg PO Q4H PRN PRN (Reason: Pain Score 4-10) 5 Days Qty: 20 0RF Continued sucralfate 100 mg/mL suspension 10 ml PO BID Qty: 1000 1RF gabapentin 100 mg capsule 200 mg PO BID pantoprazole [Protonix] 40 mg tablet,delayed release (DR/EC) 40 mg PO DAILY 30 Days Qty: 30 0RF sucralfate [Carafate] 1 gram tablet 1 g PO TID 7 Days Qty: 21 0RF Referrals / Follow Up: Derik Brower DO [Primary Care Provider, Family Practice] Disposition Disposition (needs filled in before D/C Order can be placed): Home, Self Care
--- NOTE | 2024-11-21 12:38 | PCM.POST.ANE ---
Anesthesia: Postop Eval I Current Vital Signs Temperature: 97.6 F Pulse Rate: 96 Blood Pressure: 128/87 Respiratory Rate: 2 Pulse Ox: 95 Oxygen Delivery Method: Room Air Assessment Airway patent: Yes Spontaneous unlabored respirations: Yes Mental status: Awake and Calm nausea: No Vomiting: No Anesthesia Complication: No Fluid Hydration Crystalloid volume administer (ml): 1,100 Total IV fluid infused: 1,100 Progress Note Anesthesia document: Postop Eval 1 completed: Yes
--- NOTE | 2024-11-21 16:07 | POSTOPAN2_ITS ---
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
--- NOTE | 2024-11-21 16:07 | PCM.POSTANE2 ---
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
[2024-11-21] MEDS: 0.9% Saline Lock 10 ML Syringe IV (16:58)
[2024-11-22 03:31] VITALS: BP 103/71; PULSE 64; RESP 18; TEMP 36.6; O2SAT 98
[2024-11-22] MEDS: Piperacil/Tazobactam 3.375 GM in 0.9% Normal Saline (50mL MB+) 50 ML IV (05:31)
[2024-11-22 06:31] LABS: Hematocrit 36.9 % (40-54); Hemoglobin 13.0 g/dL (13.0-16.5); Immature Granulocytes Count 0.050 X10^3/uL (0.0-0.0); Mean Corp Hgb Conc 35.2 g/dL (32-36); Mean Corpuscular Volume 85.8 fL (80-94); Mean Platelet Vol. 9.7 fl (6.2-12.0); NRBC Flagged by Analyzer 0 % (0-5); Platelet Count 271 K/mm3 (150-450); RBC Distribution Width CV 11.8 % (11.6-14.6); RBC Distribution Width SD 36.7 fl (35.1-43.9); Red Blood Count 4.30 M/mm3 (4.6-6.2); White Blood Count 8.2 K/mm3 (4.4-11.0)
[2024-11-22 06:50] LABS: AST(SGOT) 241 U/L (<=37); Alanine Aminotransfer ALT/SGPT 351 U/L (<=46); Albumin, Serum 3.6 g/dL (3.5-5.0); Alkaline Phosphatase 115 U/L (40-129); Anion Gap 11 (5-15); BUN 6 mg/dL (4-19); BUN/Creat Ratio 8.0 RATIO (10-20); Calcium,Total 9.0 mg/dL (7.6-11.0); Carbon Dioxide 23.4 mmol/L (21.0-32.0); Chloride 104 mmol/L (98-108); Estimated Creatinine Clearance 125.12 ml/min (50-250); Globulin 2.8 g/dL (2.2-4.2); Glucose 124 mg/dL (70-99); Potassium 3.9 mmol/L (3.3-5.1)
--- NOTE | 2024-11-22 08:45 | PN.SURG_ITS ---
Subjective Subjective Patient's pain much improved from before surgery still has some incisional pain. Patient's LFTs are slightly improved. Objective Data Objective Data Vital Signs: Vital Signs Temp Pulse Resp BP Pulse Ox O2 Del Method 97.8 F 64 18 103/71 98 Room Air 11/22/24 03:31 11/22/24 03:31 11/22/24 03:31 11/22/24 03:31 11/22/24 03:31 11/22/24 03:31 Oxygen Delivery Method Room Air Weight: 155 lb Body Mass Index (BMI) 25.7 Intake & Output: Intake and Output for Last 24 Hours 11/20/24 11/21/24 11/22/24 23:59 23:59 23:59 Intake Total 1010 / 1010 1576.67 / 1576.67 50 / 50 Output Total Balance 1010 / 1010 1556.67 / 1556.67 50 / 50 Lab / Micro Data 11/22/24 05:59 11/22/24 05:59 Labs: Laboratory Results - last 24 hr 11/22/24 05:59: WBC 8.2, RBC 4.30 L, Hgb 13.0, Hct 36.9 L, MCV 85.8, MCH 30.2, MCHC 35.2, RDW Std Deviation 36.7, RDW Coeff of Jeancarlos 11.8, Plt Count 271, MPV 9.7, Immature Gran % (Auto) 0.600, Neut % (Auto) 79.0 H, Lymph % (Auto) 12.9 L, Cochran % (Auto) 7.3, Eos % (Auto) 0.0, Baso % (Auto) 0.2, Absolute Neuts (auto) 6.5, Absolute Lymphs (auto) 1.06, Nucleated RBC % 0, Sodium 138, Potassium 3.9, Chloride 104, Carbon Dioxide 23.4, Anion Gap 11, BUN 6, Creatinine 0.71, Estim Creat Clear Calc 125.12, Est GFR (MDRD) Non-Af 122, BUN/Creatinine Ratio 8.0 L, Glucose 124 H, Calcium 9.0, Total Bilirubin 1.52 H, AST 241 H, ALT 351 H, Alkaline Phosphatase 115, Total Protein 6.4, Albumin 3.6, Globulin 2.8, Albumin/Globulin Ratio 1.3 Radiography Diagnostic Testing: Radiology Impression Cholangiogram 11/21/24 11:37 IMPRESSION: Fluoroscopic localization and guidance. Correlate with surgical note. Reading Location: [id number] Physical Exam Resp normal respiratory effort Cardio regular rate GI GI Narrative: Abdomen: Soft, nondistended, tender near incision's dressed clean dry and intact, no peritoneal signs Assessment & Plan Assessment/Plan (1) Cholelithiasis with acute cholecystitis: PLAN: Patient's LFTs have slightly improved AST and ALT patient's total bilirubin slightly up at 1.52 from 1.41 likely due to acute cholecystitis. Patient states he feels much better than before surgery. Patient is able to tolerate diet we will DC. Will have him recheck LFTs on Monday. And follow-up with Dr. Safnord in 2 weeks. Davida Ulloa M.D. Pager: [phone] [facility] [address] [place] [address], [address] [place] [address] Office: [phone]
[2024-11-22 09:05] LABS: Bilirubin, Direct 0.98 mg/dL (0.00-0.30)
[2024-11-22 09:11] VITALS: BP 123/83; PULSE 74; RESP 18; TEMP 36.7; O2SAT 100
--- NOTE | 2024-11-22 10:07 | PHA.DC.MC.R ---
Pharmacy [facility] Counseling Pharmacy Service has performed discharge medication reconciliation and counseling for this patient. The patient's discharge medication list was reviewed for discrepancies and discrepancies were resolved. The patient was counseled on the following discharge medications and changes in medications for homegoing were reviewed. The Reason for Use, instructions for use, and potential side effects were reviewed for all new medications. The patient's questions regarding all of their medications were answered. 1. Oxycodone 5 -10 mg PO Q4H PRN pain 2. Acetaminophen 650 mg PO Q4H PRN pain The patient was able to verbally demonstrate an understanding of their discharge medications. Medications at Discharge Home Medications gabapentin 100 mg capsule 200 mg PO BID nerve pain 05/17/23 pantoprazole 40 mg tablet,delayed release (Protonix) 40 mg PO DAILY reflux 30 days #30 tabs 10/09/24 sucralfate 1 gram tablet (Carafate) 1 g PO TID 1 week #21 tabs 11/17/24 acetaminophen 325 mg tablet 650 mg (2 x 325 mg) PO Q4H PRN PRN Pain 1-10 Or Fever #0 tabs 11/21/24 oxycodone 5 mg tablet 5 - 10 mg (1 - 2 x 5 mg) PO Q4H PRN PRN Pain Score 4-10 5 days #20 tabs 11/21/24
== END 2024-11-22 13:34 | disposition home or self-care (01) ==
LOC: ED 23:16 → PCU 11-21 05:54
PROVIDERS: Surgery; Admitting Provider Surgery; Emergency Provider Emergency Medicine; PCP Family Medicine; Visit Provider Surgery
PROC: (CPT 47610; principal; 2024-11-21 11:55)
DX: K80.12 Calculus of gallbladder with acute and chronic cholecystitis without obstruction (principal); F17.290 Nicotine dependence, other tobacco product, uncomplicated; Z79.899 Other long term (current) drug therapy; K29.70 Gastritis, unspecified, without bleeding
CPT/HCPCS: 47562; 00790; 36415; 74177; 74300; 76000; 80048; 80053; 80076; 82248; 83690; 85025; 88304; 96365; 96366; 96375; 96376; 99221; 99284; Q9967; A4216; G0378; J2405

== ENCOUNTER 2024-11-24 19:01 | Emergency (ER) | payer BC, SELFPAY ==
[2024-11-24 19:04] VITALS: BP 126/88; PULSE 77; RESP 18; TEMP 36.9; O2SAT 97; BMI 25.6
--- OUTSIDE RECORDS SUMMARY | 2024-11-24 20:14 | XMS RPT_ITS | CCD ---
Author Organization [facility] Care Team Providers Care Founder / Ceo Name Role Phone BAY, MAO H Unavailable Unavailable BAY, MAO H Unavailable Unavailable BAY, MAO H Unavailable Unavailable BAY, MAO H Unavailable Unavailable PROVIDER, UNKNOWN Unavailable Unavailable Dr. Derik Brower DO Primary Care Provider Dr. Dionte Hendrix DO Emergency Provider Andquique VAIL, Dr. Rapp Attending Provider Dr. Karla Marshall MD Emergency Provider Unavailab le Leonarda VAIL, Dr. More Referring Provider Torrie Mathur Attending Provider Dr. Derik Brower DO Primary Care Physician Simeon VAIL, Dr. Rapp Attending Physician Dr. Dionte Hendrix DO Emergency Department Physic lien Dr. Karla Marshall MD Emergency Department Physici an Unavailable Torrie Mathur Attending Physician Torrie Mathur Referring Provider Dr. Amanda Sanford MD Admitting Physician Dr. Amanda Sanford MD Attending Physician Derik Brower Primary Care Unavailable Torrie Cee Attending Unavailable Torrie Cee Referring Unavailable Amanda Sanford Attending Unavailable Amanda Sanford Admitting Unavailable Derik Brower Primary Care Unavailable Derik Brower Primary Care Unavailable Davida Ulloa Attending Unavailable Amanda Sanford Admitting Unavailable Amanda Sanford Consulting Unavailable Amanda Sanford Attending Unavailable Derik Brower Primary Care Unavailable Derik Brower Referring Unavailable Torrie Cee Attending Unavailable Derik Brower Primary Care Unavailable Karla Marshall Attending Unavailable Dionte Hendrix Attending Unavailable Derik Brower Primary Care Unavailable Arik Perez Attending Unavailable Derik Brower Primary Care Unavailable Allergies Allergy Classification Reported Allergen(s) Allergy Type Date of Onset Reaction(s) Facility (1 source) bee venom Drug allergy (disorder) [facility] Medications Current Medications Medication Drug Class(es) [...] Q8H as needed for muscle spasticity 14 0 September 20, 2021 12:00am May 17, 2023 10:06am Problems Problem Classification Problem Date Documented Date Episodic/Chronic Abdominal pain (7 sources) Right upper quadrant pain; Translations: [Right upper quadrant pain] Onset: 11-05-2024 11-19-2024 Episodic Anxiety disorders (7 sources) Anxiety; Translations: [Anxiety disorder, unspecified] 12-21-2019 Chronic Biliary tract disease (2 sources) Calculus of gallbladder with acute cholecystitis without obstruction; Translations: [Calculus of gallbladder with acute cholecystitis without obstruction] Onset: 11-22-2024 Episodic Calculus of urinary tract (5 sources) Urolithiasis [...] arm, unspecified arm, initial encounter] 09-20-2021 Episodic Other screening for suspected conditions (not mental disorders or infectious disease) (1 source) Other specified abnormal findings of blood chemistry; Translations: [Other specified abnormal findings of blood chemistry] Onset: 11-22-2024 Episodic Results Test Name Value Interpretation Reference Range Facility Bilirubin, Directon 11-23-19 25 Bilirubin.direct [Mass/Vol] 0.98 mg/dL High 0.00-0.30 [facility] Comment on above: Order Comment: Comme nts: use AM draw Performed By: #### L 501.4700 ####[facility] [address] [place], [address] CBC W/Diff, Automatedon 11-04 Absolute Lymph 1.06 X10 3/uL Normal 0.83-4.51 [facility] Comment on above: Performed By: #### L 500.4050, L100.0100 ####[facility] [address] [place], [address] Absolute Neut 6.5 X10 3/uL Normal 2.0-7.7 [facility] Comment on above: Performed By: #### L 500.4050, L100.0100 ####[facility] [address] [place], [address] Basophils/100 WBC (Bld) 0.2 % Normal 0-1 [facility] Comment on above: Performed By: #### L 500.4050, L100.0100 ####[facility] [address] [place], [address] Eosinophils/100 WBC (Bld) 0.0 % Normal 0-5 [facility] Comment on above: Performed By: #### L 500.4050, L100.0100 ####[facility] [address] [place], [address] Erythrocyte distribution width (RBC) [Ratio] 11.8 % Normal 11.6-14.6 [facility] Comment on above: Performed By: #### L 500.4050, L100.0100 ####[facility] [address] [place], [address] Hematocrit (Bld) [Volume fraction] 36.9 % Low 40-54 [facility] Comment on above: Performed By: #### L 500.4050, L100.0100 ####[facility] [address] [place], [address] Hemoglobin (Bld) [Mass/Vol] 13.0 g/dL Normal 13.0-16.5 [facility] Comment on above: Performed By: #### L 500.4050, L100.0100 ####[facility] [address] [place], [address] IG% 0.600 Normal 0.0-0.9 [facility] Comment on above: Result Comment: IG% - Immature Granulocytes (promyelocytes, myelocytes and metamyelocytes) > 1% indicates that a LEFT SHIFT is Present. Performed By: #### L 500.4050, L100.0100 ####[facility] [address] [place], [address] Lymphocytes/100 WBC (Bld) 12.9 % Low 19-41 [facility] Comment on above: Performed By: #### L 500.4050, L100.0100 ####[facility] [address] [place], [address] MCH (RBC) [Entitic mass] 30.2 pg Normal 27.0-32.0 [facility] Comment on above: Performed By: #### L 500.4050, L100.0100 ####[facility] [address] [place], [address] MCHC (RBC) [Mass/Vol] 35.2 g/dL Normal 32-36 [facility] Comment on above: Performed By: #### L 500.4050, L100.0100 ####[facility] [address] [place], [address] MCV (RBC) [Entitic vol] 85.8 fL Normal 80-94 [facility] Comment on above: Performed By: #### L 500.4050, L100.0100 ####[facility] [address] [place], [address] Monocytes/100 WBC (Bld) 7.3 % Normal 0-10 [facility] Comment on above: Performed By: #### L 500.4050, L100.0100 ####[facility] [address] [place], [address] Neutrophils/100 WBC (Bld) 79.0 % High 47-70 [facility] Comment on above: Performed By: #### L 500.4050, L100.0100 ####[facility] [address] [place], [address] Nucleated RBC (Bld) [#/Vol] 0 10*3/uL Normal 0-5 [facility] Comment on above: Performed By: #### L 500.4050, L100.0100 ####[facility] [address] [place], [address] Platelet mean volume (Bld) [Entitic vol] 9.7 fL Normal 6.2-12.0 [facility] Comment on above: Performed By: #### L 500.4050, L100.0100 ####[facility] [address] [place], [address] Platelets (Bld) [#/Vol] 271 10*3/uL Normal 150-450 [facility] Comment on above: Performed By: #### L 500.4050, L100.0100 ####[facility] [address] [place], [address] RBC (Bld) [#/Vol] 4.30 10*6/uL Low 4.6-6.2 [facility] Comment on above: Performed By: #### L 500.4050, L100.0100 ####[facility] [address] [place], [address] RDW SD 36.7 fl Normal 35.1-43.9 [facility] Comment on above: Performed By: #### L 500.4050, L100.0100 ####[facility] [address] [place], [address] WBC (Bld) [#/Vol] 8.2 10*3/uL Normal 4.4-11.0 [facility] Comment on above: Performed By: #### L 500.4050, L100.0100 ####[facility] [address] [place], [address] Comprehensive Metabolic Prof [facility] 11-22-2024 Albumin [Mass/Vol] 3.6 g/dL Normal 3.5-5.0 [facility] Comment on above: Performed By: #### L 500.4050, L100.0100 ####[facility] [address] [place], [address] Albumin/Globulin [Mass ratio] 1.3 {ratio} Normal 0.9-2.4 [facility] Comment on above: Performed By: #### L 500.4050, L100.0100 ####[facility] [address] [place], [address] ALK PHOS 115 U/L Normal 40-129 [facility] Comment on above: Performed By: #### L 500.4050, L100.0100 ####[facility] [address] [place], [address] ALT [Catalytic activity/Vol] 351 U/L High <=46 [facility] Comment on above: Performed By: #### L 500.4050, L100.0100 ####[facility] [address] [place], [address] AST [Catalytic activity/Vol] 241 U/L High <=37 [facility] Comment on above: Performed By: #### L 500.4050, L100.0100 ####[facility] [address] [place], [address] Bilirubin [Mass/Vol] 1.52 mg/dL High 0.00-1.30 [facility] Comment on above: Performed By: #### L 500.4050, L100.0100 ####[facility] [address] [place], [address] BUN/CRE 8.0 RATIO Low 10-20 [facility] Comment on above: Performed By: #### L 500.4050, L100.0100 ####[facility] [address] [place], [address] Calcium [Mass/Vol] 9.0 mg/dL Normal 7.6-11.0 [facility] Comment on above: Performed By: #### L 500.4050, L100.0100 ####[facility] [address] [place], [address] Chloride [Moles/Vol] 104 mmol/L Normal 98-108 [facility] Comment on above: Performed By: #### L 500.4050, L100.0100 ####[facility] [address] [place], [address] CO2 [Moles/Vol] 23.4 mmol/L Normal 21.0-32.0 [facility] Comment on above: Performed By: #### L 500.4050, L100.0100 ####[facility] [address], [address] Creatinine [Mass/Vol] 0.71 mg/dL Normal 0.70-1.20 [facility] Comment on above: Performed By: #### L 500.4050, L100.0100 ####[facility] [address] [place], [address] ECRCL 125.12 ml/min Normal 50-250 [facility] Comment on above: Performed By: #### L 500.4050, L100.0100 ####[facility] [address] [place], [address] GAP 11 Normal 5-15 [facility] Comment on above: Performed By: #### L 500.4050, L100.0100 ####[facility] [address] [place], [address] GFR/1.73 sq M.predicted among non-blacks MDRD (S/P/Bld) [Vol rate/Area] 122 mL/min/{1.73_m2} Normal >60 [facility] Comment on above: Result Comment: mL/m in/1.73m2 CKD-EPI Creatinine Equation (2020) Performed By: #### L 500.4050, L100.0100 ####[facility] [address] [place], [address] Globulin (S) [Mass/Vol] 2.8 g/dL Normal 2.2-4.2 [facility] Comment on above: Performed By: #### L 500.4050, L100.0100 ####[facility] [address] [place], [address] Glucose [Mass/Vol] 124 mg/dL High 70-99 [facility] Comment on above: Performed By: #### L 500.4050, L100.0100 ####[facility] [address] [place], [address] Potassium [Moles/Vol] 3.9 mmol/L Normal 3.3-5.1 [facility] Comment on above: Performed By: #### L 500.4050, L100.0100 ####[facility] [address] [place], [address] Sodium [Moles/Vol] 138 mmol/L Normal 133-145 [facility] Comment on above: Performed By: #### L 500.4050, L100.0100 ####[facility] [address] [place], [address] T PROT 6.4 g/dL Normal 5.9-8.4 [facility] Comment on above: Performed By: #### L 500.4050, L100.0100 ####[facility] [address] [place], [address] Urea nitrogen [Mass/Vol] 6 mg/dL Normal 4-19 [facility] Comment on above: Performed By: #### L 500.4050, L100.0100 ####[facility] [address] [place], [address] CBC W/Diff, Automatedon 11-04 Absolute Lymph 1.17 X10 3/uL Normal 0.83-4.51 [facility] Comment on above: Performed By: #### L 500.4050, L100.0100 ####[facility] [address] [place], [address] Absolute Neut 2.7 X10 3/uL Normal 2.0-7.7 [facility] Comment on above: Performed By: #### L 500.4050, L100.0100 ####[facility] [address] [place], [address] Basophils/100 WBC (Bld) 0.5 % Normal 0-1 [facility] Comment on above: Performed By: #### L 500.4050, L100.0100 ####[facility] [address] [place], [address] Eosinophils/100 WBC (Bld) 0.9 % Normal 0-5 [facility] Comment on above: Performed By: #### L 500.4050, L100.0100 ####[facility] [address] [place], [address] Erythrocyte distribution width (RBC) [Ratio] 11.6 % Normal 11.6-14.6 [facility] Comment on above: Performed By: #### L 500.4050, L100.0100 ####[facility] [address] [place], [address] Hematocrit (Bld) [Volume fraction] 37.9 % Low 40-54 [facility] Comment on above: Performed By: #### L 500.4050, L100.0100 ####[facility] [address] [place], [address] Hemoglobin (Bld) [Mass/Vol] 13.2 g/dL Normal 13.0-16.5 [facility] Comment on above: Performed By: #### L 500.4050, L100.0100 ####[facility] [address] [place], [address] IG% 0.200 Normal 0.0-0.9 [facility] Comment on above: Result Comment: IG% - Immature Granulocytes (promyelocytes, myelocytes and metamyelocytes) > 1% indicates that a LEFT SHIFT is Present. Performed By: #### L 500.4050, L100.0100 ####[facility] [address] [place], [address] Lymphocytes/100 WBC (Bld) 26.8 % Normal 19-41 [facility] Comment on above: Performed By: #### L 500.4050, L100.0100 ####[facility] [address] [place], [address] MCH (RBC) [Entitic mass] 30.2 pg Normal 27.0-32.0 [facility] Comment on above: Performed By: #### L 500.4050, L100.0100 ####[facility] [address] [place], [address] MCHC (RBC) [Mass/Vol] 34.8 g/dL Normal 32-36 [facility] Comment on above: Performed By: #### L 500.4050, L100.0100 ####[facility] [address] [place], [address] MCV (RBC) [Entitic vol] 86.7 fL Normal 80-94 [facility] Comment on above: Performed By: #### L 500.4050, L100.0100 ####[facility] [address] [place], [address] Monocytes/100 WBC (Bld) 10.8 % High 0-10 [facility] Comment on above: Performed By: #### L 500.4050, L100.0100 ####[facility] [address] [place], [address] Neutrophils/100 WBC (Bld) 60.8 % Normal 47-70 [facility] Comment on above: Performed By: #### L 500.4050, L100.0100 ####[facility] [address] [place], [address] Nucleated RBC (Bld) [#/Vol] 0 10*3/uL Normal 0-5 [facility] Comment on above: Performed By: #### L 500.4050, L100.0100 ####[facility] [address] [place], [address] Platelet mean volume (Bld) [Entitic vol] 9.5 fL Normal 6.2-12.0 [facility] Comment on above: Performed By: #### L 500.4050, L100.0100 ####[facility] [address] [place], [address] Platelets (Bld) [#/Vol] 223 10*3/uL Normal 150-450 [facility] Comment on above: Performed By: #### L 500.4050, L100.0100 ####[facility] [address] [place], [address] RBC (Bld) [#/Vol] 4.37 10*6/uL Low 4.6-6.2 [facility] Comment on above: Performed By: #### L 500.4050, L100.0100 ####[facility] [address] [place], [address] RDW SD 36.8 fl Normal 35.1-43.9 [facility] Comment on above: Performed By: #### L 500.4050, L100.0100 ####[facility] [address] [place], [address] WBC (Bld) [#/Vol] 4.4 10*3/uL Normal 4.4-11.0 [facility] Comment on above: Performed By: #### L 500.4050, L100.0100 ####[facility] [address] [place], [address] Cholangiogram/ O R,Initialon 11-21-2024 Cholangiogram/ O R,Initial [facility] Imaging Services [address] [place] [address] Cholangiogram/ O R,Initial MR#: [id number] Acct: [id number] Name: AMANDA KIMBALL Rep #: [id number] : 1990 M 34 From: Khoa Arias MD PCP: Dr. Derik Brower DO Status: ADM IN Study: Cholangiogram/ O R,Initial Date of Exam: 11/21 Exam# [id number] Ordering Dr: Amanda Sanford PROCEDURE: CHOLANGIOGRAM/ O R,INITIAL 11/21/2024 REASON FOR EXAM: LAP JARED WITH IOC TECHNIQUE: Procedure Code: RADCHO Modality: DX Procedure: CHOLANGIOGRAM/ O R,INITIAL Fluoroscopy time: 21.3 seconds Total images: 1 fluoroscopic series. COMPARISON: November 20, 2024 FINDINGS: Intraoperative fluoroscopic spot image was obtained during an intraoperative cholangiogram. An attempt was made at cannulating the cystic duct remnant. Contrast was instilled with contrast extravasating in the surgical bed. There was no outlining of the intrahepatic or extrahepatic biliary tree. RAD/Cholangiogram/ O R,Initial IMPRESSION: Fluoroscopic localization and guidance. Correlate with surgical note. Reading Location: [id number] CC: Dr. Amanda Sanford MD; Dr. Derik Brower DO Chief Of Internal Medicine: Signed Normal [facility] Comprehensive Metabolic Prof ilon 11-21-2024 Albumin [Mass/Vol] 3.8 g/dL Normal 3.5-5.0 [facility] Comment on above: Performed By: #### L 500.4050, L100.0100 ####[facility] [address] [place], [address] Albumin/Globulin [Mass ratio] 1.5 {ratio} Normal 0.9-2.4 [facility] Comment on above: Performed By: #### L 500.4050, L100.0100 ####[facility] [address] [place], [address] ALK PHOS 113 U/L Normal 40-129 [facility] Comment on above: Performed By: #### L 500.4050, L100.0100 ####[facility] [address] [place], [address] ALT [Catalytic activity/Vol] 402 U/L High <=46 [facility] Comment on above: Performed By: #### L 500.4050, L100.0100 ####[facility] [address] [place], [address] AST [Catalytic activity/Vol] 555 U/L High <=37 [facility] Comment on above: Performed By: #### L 500.4050, L100.0100 ####[facility] [address] [place], [address] Bilirubin [Mass/Vol] 1.41 mg/dL High 0.00-1.30 [facility] Comment on above: Performed By: #### L 500.4050, L100.0100 ####[facility] [address] [place], [address] BUN/CRE 17.2 RATIO Normal 10-20 [facility] Comment on above: Performed By: #### L 500.4050, L100.0100 ####[facility] [address] [place], [address] Calcium [Mass/Vol] 8.7 mg/dL Normal 7.6-11.0 [facility] Comment on above: Performed By: #### L 500.4050, L100.0100 ####[facility] [address] [place], [address] Chloride [Moles/Vol] 106 mmol/L Normal 98-108 [facility] Comment on above: Performed By: #### L 500.4050, L100.0100 ####[facility] [address] [place], [address] CO2 [Moles/Vol] 23.9 mmol/L Normal 21.0-32.0 [facility] Comment on above: Performed By: #### L 500.4050, L100.0100 ####[facility] [address] [place], [address] Creatinine [Mass/Vol] 0.71 mg/dL Normal 0.70-1.20 [facility] Comment on above: Performed By: #### L 500.4050, L100.0100 ####[facility] [address] [place], [address] ECRCL 125.12 ml/min Normal 50-250 [facility] Comment on above: Performed By: #### L 500.4050, L100.0100 ####[facility] [address] [place], [address] GAP 11 Normal 5-15 [facility] Comment on above: Performed By: #### L 500.4050, L100.0100 ####[facility] [address] [place], [address] GFR/1.73 sq M.predicted among non-blacks MDRD (S/P/Bld) [Vol rate/Area] 122 mL/min/{1.73_m2} Normal >60 [facility] Comment on above: Result Comment: mL/m in/1.73m2 CKD-EPI Creatinine Equation (2020) Performed By: #### L 500.4050, L100.0100 ####[facility] [address] [place], [address] Globulin (S) [Mass/Vol] 2.6 g/dL Normal 2.2-4.2 [facility] Comment on above: Performed By: #### L 500.4050, L100.0100 ####[facility] [address] [place], [address] Glucose [Mass/Vol] 107 mg/dL High 70-99 [facility] Comment on above: Performed By: #### L 500.4050, L100.0100 ####[facility] [address] [place], [address] Potassium [Moles/Vol] 4.1 mmol/L Normal 3.3-5.1 [facility] Comment on above: Performed By: #### L 500.4050, L100.0100 ####[facility] [address] [place], [address] Sodium [Moles/Vol] 141 mmol/L Normal 133-145 [facility] Comment on above: Performed By: #### L 500.4050, L100.0100 ####[facility] [address] [place], [address] T PROT 6.4 g/dL Normal 5.9-8.4 [facility] Comment on above: Performed By: #### L 500.4050, L100.0100 ####[facility] [address] [place], [address] Urea nitrogen [Mass/Vol] 12 mg/dL Normal 4-19 [facility] Comment on above: Performed By: #### L 500.4050, L100.0100 ####[facility] [address] [place], [address] H AND P Exam - Surgicalon H&P Exam - Surgical [facility] Medical Records Department [address] [place] [address] H P Exam - Surgical 11/21/24 0739 MR#: [id number] Acct: [id number] Name: AMANDA KIMBALL Rep #: [id number] : 1990 34 From: Amanda Sanford MD PCP: Dr. Derik Brower, DO Status:ADM IN Location: [facility] [id number] HPI - General General Date of Admission: 11/21/24 HPI Narrative AMANDA KIMBALL, is a 34 M who presents with a history of right upper quadrant pain. The patient has been being treated with Carafate and omeprazole. The patient was recently here over the weekend and had a CT that showed cholelithiasis. He reports the pain got worse and he came in last night. Last night CT scan showed thickening of the gallbladder wall along with cholelithiasis. White count was normal. LFTs were slightly elevated. This morning LFTs are more elevated. [facility] Medical History Kidney stones Neck pain Shoulder injury Home Medications ???Medication ???Instructions ???Recorded ???Last Taken ???Type gabapentin 100 mg capsule 200 mg PO BID 05/17/23 Unknown His tory pantoprazole 40 mg tablet,delayed 40 mg PO DAILY 30 days #30 tabs 0 10/09/24 Unknown Rx release (Protonix) sucralfate 1 gram tablet (Carafate) 1 g PO TID 1 week #21 tabs 11/04 06/28 Unknown Rx sucralfate 100 mg/mL oral 10 ml PO BID #1,000 mL 11/19/24 Un known Rx suspension Allergy/AdvReac Type Severity Reaction Status Date / Time No Known Allergies Allergy Verified 11/19/24 14:29 Social History Smoking Status: Heavy Smoker (>10/day) Vital Signs Vital Signs Vital Signs: 11/20/24 22:20 11/21/24 00:19 11/21/24 00:22 Temperature 97.7 F L 98.3 F Temperature Source Temporal Pulse Rate 86 80 80 Respiratory Rate 18 18 18 Respiratory Effort Respiratory Depth Respiratory Pattern Blood Pressure 125/92 H 108/49 L 108/49 L Blood Pressure Mean 103 68 68 Blood Pressure Source Blood Pressure Position Blood Pressure Location Pulse Ox 100 98 95 Oxygen Delivery Method Room Air Room Air 11/21/24 00:23 11/21/24 00:55 11/21/24 01:06 Temperature 98.3 F 98.3 F Temperature Source Oral Oral Pulse Rate 80 79 Respiratory Rate 18 17 Respiratory Effort Normal Non-Labored Respiratory Depth Normal Respiratory Pattern Normal Blood Pressure 108/49 L 102/80 Blood Pressure Mean 68 87 Blood Pressure Source Blood Pressure Position Blood Pressure Location Pulse Ox 95 100 Oxygen Delivery Method Room Air Room Air Room Air 11/21/24 06:10 Temperature 98.3 F Temperature Source Oral Pulse Rate 61 Respiratory Rate 16 Respiratory Effort Respiratory Depth Respiratory Pattern Blood Pressure 102/72 Blood Pressure Mean 82 Blood Pressure Source Monitor Blood Pressure Position Semi-Fowlers Blood Pressure Location Right Arm Pulse Ox 99 Oxygen Delivery Method Room Air Weight Weight: 155 lb Body Mass Index (BMI) 25.7 Physical Exam Const alert and oriented x3 HEENT normocephalic Eyes PERRL Resp normal respiratory effort and normal air movement Cardio regular rate and regular rhythm GI soft to palpation and non-distended Palpation: tender RUQ Extremity normal to inspection Results Lab / Micro Data 11/21/24 05:13 11/21/24 05:13 Labs: Laboratory Results - last 24 hr 11/20/24 22:45: WBC 7.3, RBC 4.71, Hgb 14.0, Hct 40.3, MCV 85.6, MCH 29.7, MCHC 34.7, RDW Std Deviation 35.9, RDW Coeff of Jeancarlos 11.5 L, Plt Count 254, MPV 9.2, Immature Gran % (Auto) 0.300, Neut % (Auto) 56.3, Lymph % (Auto) 34.0, [place] % (Auto) 7.3, Eos % (Auto) 1.7, Baso % (Auto) 0.4, Absolute Neuts (auto) 4.1, Absolute Lymphs (auto) 2.47, Nucleated RBC % 0, Sodium 139, Potassium 3.9, Chloride 102, Carbon Dioxide 25.2, Anion Gap 11, BUN 15, Creatinine 0.83, Est GFR (MDRD) Non-Af 116, BUN/Creatinine Ratio 17.4, Glucose 113 H, Calcium 9.4, Total Bilirubin 0.56, Direct Bilirubin 0.29, AST 88 H, ALT 57 H, Alkaline Phosphatase 75, Total Protein 7.2, Albumin 4.2, Globulin 3.0, Lipase 22 11/21/24 05:13: WBC 4.4, RBC 4.37 L, Hgb 13.2, Hct 37.9 L, MCV 86.7, MCH 30.2, MCHC 34.8, RDW Std Deviation 36.8, RDW Coeff of Jeancarlos 11.6, Plt Count 223, MPV 9.5, Immature Gran % (Auto) 0.200, Neut % (Auto) 60.8, Lymph % (Auto) 26.8, [place] % (Auto) 10.8 H, Eos % (Auto) 0.9, Baso % (Auto) 0.5, Absolute Neuts (auto) 2.7, Absolute Lymphs (auto) 1.17, Nucleated RBC % 0, Sodium 141, Potassium 4.1, Chloride 106, Carbon Dioxide 23.9, Anion Gap 11, BUN 12, Creatinine 0.71, Estim Creat Clear Calc 125.12, Est GFR (MDRD) Non-Af 122, BUN/Creatinine Ratio 17.2, Glucose 107 H, Calcium 8.7, Total Bilirubin 1.41 H, AST 555 H, AL (more content not included)... Normal [facility] MR/POSTOP.[facility] 11-21-2024 MR/POSTOP.[facility] Medical Records Department [address] [place] [address] Anesthesia Postop Eval I 11/21/24 1238 MR#: [id number] Acct: [id number] Name: AMANDA KIMBALL Rep #: [id number] : 1990 34 From: Jl Barajas CRNA PCP: Dr. Derik Brower, DO Status:ADM IN Y Race: C Location: [place] [address] Anesthesia: Postop Eval I Current Vital Signs Temperature: 97.6 F Pulse Rate: 96 Blood Pressure: 128/87 Respiratory Rate: 2 Pulse Ox: 95 Oxygen Delivery Method: Room Air Assessment Airway patent: Yes Spontaneous unlabored respirations: Yes Mental status: Awake and Calm nausea: No Vomiting: No Anesthesia Complication: No Fluid Hydration Crystalloid volume administer (ml): 1,100 Total IV fluid infused: 1,100 Progress Note Anesthesia document: Postop Eval 1 completed: Yes 11/21/24 1239 Date Jl Barajas CRNA Cosigner Signature: Date CC: Signed Normal [facility] [id number] 11-21-2024 MR/POSTOPAN2 [facility] Medical Records Department [address] [place] [address] Anesthesia Postop Eval II 11/21/24 1607 MR#: [id number] Acct: [id number] Name: AMANDA KIMBALL Rep #: [id number] : 1990 34 From: Dangelo Tolentino MACHINING SUPERVISOR PCP: Dr. Derik Brower, DO Status:ADM IN Y Race: C Location: [place] [address] 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/24 12:39 [email or web address] Spontaneous unlabored Yes 11/21/24 12:39 MACHINING [email or web address] respirations Mental status Awake,Calm 11/21/24 12:39 MACHINING [email or web address] nausea No 11/21/24 12:39 MACHINING [email or web address] Vomiting No 11/21/24 12:39 MACHINING [email or web address] Anesthesia Postop Eval I: Fluid Summary Crystalloid volume administer 1,100 11/21/24 12:39 MACHINING [email or web address] (ml) Colloids volume administered ( ml) Blood Product volume administered (ml) Total IV fluid infused 1,100 11/21/24 12:39 MACHINING [email or web address] Anesthesia Postop Eval I: Summary Notes Anesthesia Complication No 11/21/24 12:39 MACHINING [email or web address] Anesthesia Complication Comment: Post-operative progress note Anesthesia: Postop Eval II Evaluation Mental status: Awake Pain Level: 2 nausea: No Vomiting: No 11/21/24 160 Date Dangelo Tolentino MACHINING SUPERVISOR Cosigner Signature: Date CC: Signed Normal [facility] Operative Reporton 5 Operative Report [facility] Medical Records Department [address] [place] [address] Operative Report 11/21/24 1221 MR#: [id number] Acct: [id number] Name: AMANDA KIMBALL Rep #: [id number] : 1990 34 From: Amanda Sanford MD PCP: Dr. Derik Brower, DO Status:ADM IN Location: [place] [address] Operative Report (Standard) Operative Information Date of Procedure: 11/21/24 Pre-Operative Diagnosis: Acute cholecystitis Post-Operative Diagnosis: Acute cholecystitis Surgery/Procedure Performed: Laparoscopic cholecystectomy with attempted cholangiograms splash line operator: Yes News Clipping Cutter: Anais Fernando Tasks completed by first helper: Opening closing and Retracting Type of Anesthesia: General/Regional RN Documented Start/Stop Times: Operation Date: 11/21/24 12:15 Case Time Into Pre-Op 11/21/24 10:42 Out of Pre-Op 11/21/24 11:11 Anesthesia Start 11/21/24 11:14 Into Room 11/21/24 11:14 Procedure Start 11/21/24 11:30 Procedure Start Time: 11:30 Procedure Stop Time: 12:30 Select all DRAINS/GRAFTS/IMPLAN TS that apply: None Estimated Blood Loss: 10 Specimen collected: Yes Description of specimen(s) removed: Gallbladder and contents Description of surgery: After obtaining informed consent patient was brought back to the operating room. General anesthesia was induced. The abdomen was prepped and draped in usual sterile fashion. A small midline incision was made superior to the umbilicus and deepened to the level of fascia. The fascia was elevated and incised. Next the peritoneum was elevated and incised in the same fashion. Finger sweep was performed and the Parra trocar was placed into the abdomen. The balloon was inflated. The abdomen was inflated to 15 mmHg. Next a camera was introduced into the abdomen and the abdomen was inspected. Next under direct visualization three 5-mm ports were placed one subxiphoid and 2 subcostal. Next the gallbladder was elevated and retracted toward the right shoulder. The peritoneum was stripped from the gallbladder. The infundibulum was located and retracted laterally. Next the triangle of Calot was dissected and the cystic duct and cystic artery were identified. Cholangiograms were attempted. The Guerrero clamp was used to clamp across the infundibulum and the catheter needle was inserted into the gallbladder. Under fluoroscopy contrast was instilled into the gallbladder but I could not get any contrast to enter the cystic duct as it must have been occluded. The clamp was removed as well as the needle and the infundibulum was grasped once more. Three hemolock clips were placed across the cystic duct. The cystic duct was then divided leaving 2 clips on the stump. The cystic artery was clipped and divided in the same fashion. The hook cautery was then used to take the gallbladder off of the gallbladder bed. Hemostasis was obtained. Gallbladder fossa was irrigated and no active bleeding or bile leakage was noted. Next the camera was introduced in the subxiphoid port. An Endopouch bag was placed through the umbilical port and the gallbladder was placed into it. The gallbladder was then removed through the umbilical incision. The camera was then reinserted through the umbilical port. The gallbladder fossa was inspected once more and noted to be hemostatic with no leaking bile. The abdomen was suctioned dry. The 5 mm ports were removed under direct visualization. The umbilical port was then removed and the air was removed from the abdomen. Next using an 0 Vicryl suture the umbilical fascia was closed in a kgxwxc-xv-[id number] fashion. The umbilical port site was irrigated local anesthetic was administered to all the incisions. All the incisions were closed with interrupted subcuticular 4-0 Monocryl sutures followed by Steri-Strips and dressings. The patient was awoken and taken to PACU in stable condition. Surgical Findings: Very inflamed gallbladder, wound class contaminated Complications Complications: No Admit VTE Documentation VTE Mechan Device Prophylaxis: SCD's 11/21/24 1223 Cosigner Signature (if applicable): CC: Dr. Amanda Sanford MD; Dr. Derik Brower DO Signed Normal [facility] Abdomen/Pelvis W IV Cont ONL Yon 11-20-2024 Abdomen/Pelvis W IV Cont ONLY [facility] Imaging Services [address] [place] [id number] Abdomen/Pelvis W IV Cont ONLY MR#: [id number] Acct: [id number] Name: AMANDA KIMBALL Rep #: [id number] : 1990 M 34 From: Randall Villavicencio MD PCP: Dr. Deirk Brower DO Status: REG ER Study: Abdomen/Pelvis W IV Cont ONLY Date of Exam: Exam# [id number] Ordering Dr: Dionte Hendrix DO PROCEDURE: CT ABDOMEN/PELVIS W IV [...] cholecystitis. No biliary ductal dilatation. Reading Location: [facility] CC: Dr. Derik Brower DO; Dionte Hendrix DO Chief Of Internal Medicine: Signed Normal [facility] Absolute lymphocyte countOrd ered By: Dionte Hendrix on 11-20-2024 Lymphocytes Auto (Unsp spec) [#/Vol] 2.47 10*3/uL 0.83-4.51 [facility] Absolute neutrophil countOrd ered By: Dionte Hendrix on 09-17-2025 Neutrophils (Bld) [#/Vol] 4.1 10*3/uL 2.0-7.7 [facility] Anion gap in Serum or Plasma Ordered By: Dionte Hendrix on 11-20-2024 Anion gap [Moles/Vol] 11 mmol/L 5- [facility] Automated lymphocyte count a s percentage of total leukocytesOrdered By: Dionte Hendrix on 11-20-2024 Lymphocytes/100 WBC Auto (Unsp spec) 34.0 % [facility] BUN/creatinine ratioOrdered By: Dionte Hendrix on 11-20-2024 Urea nitrogen/Creatinine [Mass ratio] 17.4 mg/mg - [facility] Basic Metabolic Profile (BMP )on 11-20-2024 BUN/CRE 17.4 RATIO Normal 12-23 [facility] Comment on above: Performed By: #### L 500.2500, L501.2450, L100.0100, L500.3400 ####[facility] [address] [place], [address] Calcium [Mass/Vol] 9.4 mg/dL Normal 7.6-11.0 [facility] Comment on above: Performed By: #### L 500.2500, L501.2450, L100.0100, L500.3400 ####[facility] [address] [place], [address] Chloride [Moles/Vol] 102 mmol/L Normal 98-108 [facility] Comment on above: Performed By: #### L 500.2500, L501.2450, L100.0100, L500.3400 ####[facility] [address] [place], [address] CO2 [Moles/Vol] 25.2 mmol/L Normal 21.0-32.0 [facility] Comment on above: Performed By: #### L 500.2500, L501.2450, L100.0100, L500.3400 ####[facility] [address] [place], [address] Creatinine [Mass/Vol] 0.83 mg/dL Normal 0.70-1.20 [facility] Comment on above: Performed By: #### L 500.2500, L501.2450, L100.0100, L500.3400 ####[facility] [address] [place], [address] GAP 11 Normal 5-15 [facility] Comment on above: Performed By: #### L 500.2500, L501.2450, L100.0100, L500.3400 ####[facility] [address] [place], [address] GFR/1.73 sq M.predicted among non-blacks MDRD (S/P/Bld) [Vol rate/Area] 116 mL/min/{1.73_m2} Normal >60 [facility] Comment on above: Result Comment: mL/m in/1.73m2 CKD-EPI Creatinine Equation (2020) Performed By: #### L 500.2500, L501.2450, L100.0100, L500.3400 ####[facility] [address] [place], [address] Glucose [Mass/Vol] 113 mg/dL High 70-99 [facility] Comment on above: Performed By: #### L 500.2500, L501.2450, L100.0100, L500.3400 ####[facility] [address] [place], [address] Potassium [Moles/Vol] 3.9 mmol/L Normal 3.3-5.1 [facility] Comment on above: Performed By: #### L 500.2500, L501.2450, L100.0100, L500.3400 ####[facility] [address] [place], [address] Sodium [Moles/Vol] 139 mmol/L Normal 133-145 [facility] Comment on above: Performed By: #### L 500.2500, L501.2450, L100.0100, L500.3400 ####[facility] [address] [place], [address] Urea nitrogen [Mass/Vol] 15 mg/dL Normal 4-19 [facility] Comment on above: Performed By: #### L 500.2500, L501.2450, L100.0100, L500.3400 ####[facility] [address] [place], [address] Basophil percentageOrdered B y: Dionte Hendrix on 11-20-2024 Basophils/100 WBC (Bld) 0.4 % 0-1 [facility] Bilirubin directOrdered By: Dionte Hendrix on 11-20-2024 Bilirubin.direct [Mass/Vol] 0.29 mg/dL 0.00-0.30 [facility] Bilirubin, totalOrdered By: Dionte Hendrix on 11-20-2024 Bilirubin [Mass/Vol] 0.56 mg/dL 0.00-1.30 [facility] CBC W/Diff, Automatedon 11-04 Absolute Lymph 2.47 X10 3/uL Normal 0.83-4.51 [facility] Comment on above: Performed By: #### L 500.2500, L501.2450, L100.0100, L500.3400 #### [facility] [address] [place], [address] Absolute Neut 4.1 X10 3/uL Normal 2.0-7.7 [facility] Comment on above: Performed By: #### L 500.2500, L501.2450, L100.0100, L500.3400 #### [facility] [address] [place], [address] Basophils/100 WBC (Bld) 0.4 % Normal 0-1 [facility] Comment on above: Performed By: #### L 500.2500, L501.2450, L100.0100, L500.3400 #### [facility] [address] [place], [address] Eosinophils/100 WBC (Bld) 1.7 % Normal 0-5 [facility] Comment on above: Performed By: #### L 500.2500, L501.2450, L100.0100, L500.3400 #### [facility] [address] [place], [address] Erythrocyte distribution width (RBC) [Ratio] 11.5 % Low 11.6-14.6 [facility] Comment on above: Performed By: #### L 500.2500, L501.2450, L100.0100, L500.3400 #### [facility] [address] [place], [address] Hematocrit (Bld) [Volume fraction] 40.3 % Normal 40-54 [facility] Comment on above: Performed By: #### L 500.2500, L501.2450, L100.0100, L500.3400 #### [facility] [address] [place], [address] Hemoglobin (Bld) [Mass/Vol] 14.0 g/dL Normal 13.0-16.5 [facility] Comment on above: Performed By: #### L 500.2500, L501.2450, L100.0100, L500.3400 #### [facility] [address] [place], [address] IG% 0.300 Normal 0.0-0.9 [facility] Comment on above: Result Comment: IG% - Immature Granulocytes (promyelocytes, myelocytes and metamyelocytes) > 1% indicates that a LEFT SHIFT is Present. Performed By: #### L 500.2500, L501.2450, L100.0100, L500.3400 #### [facility] [address] [place], [address] Lymphocytes/100 WBC (Bld) 34.0 % Normal 19-41 [facility] Comment on above: Performed By: #### L 500.2500, L501.2450, L100.0100, L500.3400 #### [facility] [address] [place], [address] MCH (RBC) [Entitic mass] 29.7 pg Normal 27.0-32.0 [facility] Comment on above: Performed By: #### L 500.2500, L501.2450, L100.0100, L500.3400 #### [facility] [address] [place], [address] MCHC (RBC) [Mass/Vol] 34.7 g/dL Normal 32-36 [facility] Comment on above: Performed By: #### L 500.2500, L501.2450, L100.0100, L500.3400 #### [facility] [address] [place], [address] MCV (RBC) [Entitic vol] 85.6 fL Normal 80-94 [facility] Comment on above: Performed By: #### L 500.2500, L501.2450, L100.0100, L500.3400 #### [facility] [address] [place], [address] Monocytes/100 WBC (Bld) 7.3 % Normal 0-10 [facility] Comment on above: Performed By: #### L 500.2500, L501.2450, L100.0100, L500.3400 #### [facility] [address] [place], [address] Neutrophils/100 WBC (Bld) 56.3 % Normal 47-70 [facility] Comment on above: Performed By: #### L 500.2500, L501.2450, L100.0100, L500.3400 #### [facility] [address] [place], [address] Nucleated RBC (Bld) [#/Vol] 0 10*3/uL Normal 0-5 [facility] Comment on above: Performed By: #### L 500.2500, L501.2450, L100.0100, L500.3400 #### [facility] [address] [place], [address] Platelet mean volume (Bld) [Entitic vol] 9.2 fL Normal 6.2-12.0 [facility] Comment on above: Performed By: #### L 500.2500, L501.2450, L100.0100, L500.3400 #### [facility] [address] [place], [address] Platelets (Bld) [#/Vol] 254 10*3/uL Normal 150-450 [facility] Comment on above: Performed By: #### L 500.2500, L501.2450, L100.0100, L500.3400 #### [facility] [address] [place], [address] RBC (Bld) [#/Vol] 4.71 10*6/uL Normal 4.6-6.2 [facility] Comment on above: Performed By: #### L 500.2500, L501.2450, L100.0100, L500.3400 #### [facility] [address] [place], [address] RDW SD 35.9 fl Normal 35.1-43.9 [facility] Comment on above: Performed By: #### L 500.2500, L501.2450, L100.0100, L500.3400 #### [facility] [address] [place], [address] WBC (Bld) [#/Vol] 7.3 10*3/uL Normal 4.4-11.0 [facility] Comment on above: Performed By: #### L 500.2500, L501.2450, L100.0100, L500.3400 #### [facility] [address] [place], [address] Carbon dioxide, total [Moles /volume] in Central venous bloodOrdered By: Dionte Hendrix on 11-20-2024 CO2 [Moles/Vol] 25.2 mmol/L 21.0-32.0 [facility] Chloride assayOrdered By: Rosa Hendrix on 11-20-2024 Chloride [Moles/Vol] 102 mmol/L 98-108 [facility] Emergency Department Summary on 11-20-2024 Emergency Department Summary [facility] Medical Records Department [address] [place] [address] Emergency Department Summary 11/20/24 MR#: [id number] Acct: [id number] Name: AMANDA KIMBALL Rep #: [id number] : 1990 34 From: Dionte Hendrix DO PCP: Dr. Derik Brower DO Status:ADM IN Location: [place] [address] HPI History of Present Illness Chief Complaint: Abd Pain Informant: patient Narrative Narrative: Patient is a 34-year-old male who was seen in October and November 17 secondary to upper abdominal pain. At that time workup was most consistent with gastritis. He followed up with gastroenterology and is on Protonix and Carafate and scheduled to have an EGD. He states that the pain has not completely resolved since his evaluation on November 17 but that it has been bearable. He states that he was sitting at home this evening relaxing roughly 1 hour prior to arrival when he developed severe upper abdominal discomfort that is now starting to radiate to the right lower quadrant. With the worsening pain he presents for evaluation. Patient does state that he smokes and vapes but denies excessive NSAID use or alcohol use. He states he drinks caffeine but only feels this is just a minimal or moderate amount. [facility] Medical History Kidney stones Neck pain [...] week #21 tabs 11/04 06/28 Unknown Rx sucralfate 100 mg/mL oral 10 ml PO BID #1,000 mL 11/19/24 Un known Rx suspension Allergy/AdvReac Type Severity Reaction Status Date / Time No Known Allergies Allergy Verified 11/19/24 14:29 Social History Smoking Status: Heavy Smoker (>10/day) ROS ROS ED Constitutional Constitutional ED: Denies chills or fever(s) ENT ENT ED: Denies sore throat Cardiovascular Cardiovascular: Denies chest pain Respiratory/Chest Respiratory/Chest: Denies cough or dyspnea Gastrointestinal Gastrointestinal: Reports abdominal pain and nausea; Denies diarrhea or vomiting Genitourinary Genitourinary ED: Denies dysuria Musculoskeletal Musculoskeletal: Denies myalgias Integumentary Denies rash Neurologic Neurologic: Denies headache(s) Hematologic/Lymphati c Hematologic/Lymphati c: Denies easy bleeding or easy bruising EXAM Physical Exam Const Vital Signs: 11/20/24 22:20 11/21/24 00:19 11/21/24 00:22 Temperature 97.7 F L 98.3 F Temperature Source Temporal Pulse Rate 86 80 80 Respiratory Rate 18 18 18 Blood Pressure 125/92 H 108/49 L 108/49 L Blood Pressure Mean 103 68 68 Pulse Ox 100 98 95 Oxygen Delivery Method Room Air Room Air 11/21/24 00:23 Temperature 98.3 F Temperature Source Oral Pulse Rate 80 Respiratory Rate 18 Blood Pressure 108/49 L Blood Pressure Mean 68 Pulse Ox 95 Oxygen Delivery Method Room Air Positive well nourished and well developed General Appearance ED: well developed; Negative for pallor HEENT HEENT Narrative: Normocephalic atraumatic Eyes PERRL and EOMs intact bilaterally General Eye ED: Negative for scleral icterus Neck supple Resp normal respiratory effort and clear to auscultation bilaterally Cardio regular rate and regular rhythm Rate: other Other Details: Heart is regular rate and rhythm without murmurs rubs or gallops Radial and carotid pulses are equal and symmetric GI non-distended GI Narrative: Abdomen is firm and nondistended. Bowel sounds are hypoactive. There is diffuse guarding and pain with palpation without localization. No pulsatile mass. Auscultation: hypoactive bowel sounds Back/Spine no CVA tenderness Extremity normal to inspection Neuro oriented x3, CN's II-XII intact bilaterally and no sensory deficits noted Sensorium / Orientation: alert Motor Exam: strength 5/5 throughout Psych mental status grossly normal Skin no rashes or lesions noted and no wounds General Skin Exam: Negative for jaundice or pallor MDM MDM MDM Narrative Medical decision making narrative: Patient arrived to the ER with stable vitals. He was recently seen for this and had a negative workup including a CT scan with IV contrast. However he reported that the pain was more severe than it has been previously and his abdominal exam showed firmness and guarding concerning for potential infection or perforation. Secondary to this I did elect to perform repeat laboratory studies as well as a CT scan with IV contra. Labs were (more content not included)... Normal [facility] Eosinophil percentageOrdered By: Dionte Hendrix on 11-20-2024 Eosinophils/100 WBC (Bld) 1.7 % 0-5 [facility] Erythrocyte distribution wid th ratioOrdered By: Dionte Hendrix on 11-20-2024 Erythrocyte distribution width (RBC) [Ratio] 11.5 % Low 11.6-14.6 [facility] Erythrocyte distribution wid th standard deviationOrdered By: Dionte Hendrix on 11-20-2024 Erythrocyte distribution width (RBC) [Ratio] 35.9 fl 35.1-43.9 [facility] Glomerular filtration rate ( GFR) estimation/1.73 sq m using serum, plasma, or whole bOrdered By: Dionte Hendrix on 11-20-2024 GFR/1.73 sq M.predicted among non-blacks MDRD (S/P/Bld) [Vol rate/Area] 116 mL/min/{1.73_m2} >60 [facility] Comment on above: mL/min/1.73m2 CKD-EP I Creatinine Equation (2020) Hematocrit Auto (Bld) [Volum e fraction]Ordered By: Dionte Hendrix on 11-20-2024 Hematocrit (Bld) [Volume fraction] 40.3 % 40-54 [facility] Hemoglobin measurementOrdere d By: Dionte Hendrix on 11-20-2024 Hemoglobin (Bld) [Mass/Vol] 14.0 g/dL 13.0-16.5 [facility] Immature granulocytes/100 WB C Auto (Bld)Ordered By: Dionte Hendrix on 11-20-2024 Immature granulocytes/100 WBC (Bld) 0.300 % 0.0-0.9 [facility] Comment on above: IG% - Immature Granu locytes (promyelocytes, myelocytes and metamyelocytes) > 1% indicates that a LEFT SHIFT is Present. Laboratory - Chemistry and C hemistry - challengeOrdered By: Dionte Hendrix on 11-20-2024 AST [Catalytic activity/Vol] 88 U/L High <38 [facility] Lipaseon 11-20-2024 Lipase [Catalytic activity/Vol] 22 U/L Normal 13-75 [facility] Comment on above: Result Comment: Marisa vincent note: LIPASE revised reference range effective 22. New Lipase methodology. Expected to produce lower values than the previous assay method. NEW Reference Range: 13 - 75 U/L Performed By: #### L 500.2500, L501.2450, L100.0100, L500.3400 #### [facility] [address] [facility] [place], [address] Lipase measurementOrdered By : Dionte Hendrix on 11-20-2024 Lipase [Catalytic activity/Vol] 22 U/L 13-75 [facility] Comment on above: Please note:LIPASE r evised reference range effective 22. New Lipase methodology. Expected to produce lower values than the previous assay method. NEW Reference Range: 13 - 75 U/L Liver Profileon 11-20-2024 AST [Catalytic activity/Vol] 88 U/L High <=37 [facility] Comment on above: Performed By: #### L 500.2500, L501.2450, L100.0100, L500.3400 ####[facility] [address] [place], [address] MCV (mean corpuscular volume ) determinationOrdered By: Dionte Hendrix on 11-20-2024 MCV (RBC) [Entitic vol] 85.6 fL 80-94 [facility] Mean corpuscular hemoglobin (MCH) determinationOrdered By: Dionte Hendrix on 11-20-2024 MCH (RBC) [Entitic mass] 29.7 pg 27.0-32.0 [facility] Mean corpuscular hemoglobin concentration (MCHC) determinationOrdered By: Dionte Hendrix on 11-20-2024 MCHC (RBC) [Mass/Vol] 34.7 g/dL 32-36 [facility] Mean platelet volume determi nationOrdered By: Dionte Hendrix on 11-20-2024 Platelet mean volume (Bld) [Entitic vol] 9.2 fL 6.2-12.0 [facility] Monocyte percentageOrdered B y: Dionte Hendrix on 11-20-2024 Monocytes/100 WBC (Bld) 7.3 % 0-10 [facility] Neutrophil percentageOrdered By: Dionte Hendrix on 11-20-2024 Neutrophils/100 WBC (Bld) 56.3 % 47-70 [facility] Nucleated red blood cell per centageOrdered By: Dionte Hendrix on 11-20-2024 Nucleated RBC/100 WBC (Bld) [Ratio] 0 % 0-5 [facility] Platelet countOrdered By: Rosa Hendrix on 11-20-2024 Platelets (Bld) [#/Vol] 254 10*3/uL 150-450 [facility] Potassium measurement (mass/ volume)Ordered By: Dionte Hendrix on 11-20-2024 Potassium (Unsp spec) [Mass/Vol] 3.9 mmol/L 3.3-5.1 [facility] RBC Auto (Bld) [#/Vol]Ordere d By: Dionte Hendrix on 11-20-2024 RBC (Bld) [#/Vol] 4.71 10*6/uL 4.6-6.2 [facility] Serum creatinine measurement (mass/volume)Ordered By: Dionte Hendrix on 11-20-2024 Creatinine [Mass/Vol] 0.83 mg/dL 0.70-1.20 [facility] Serum globulin measurementOr dered By: Dionte Hendrix on 11-20-2024 Globulin (S) [Mass/Vol] 3.0 g/dL 2.2-4.2 [facility] Serum glucose measurement (m ass/volume)Ordered By: Dionte Hendrix on 11-20-2024 Glucose [Mass/Vol] 113 mg/dL High 70-99 [facility] Serum or plasma alanine smith otransferase (ALT) measurementOrdered By: Dionte Hendrix on 11-20-2024 ALT [Catalytic activity/Vol] 57 U/L High <47 [facility] Serum or plasma albumin antionette urement (mass/volume)Ordered By: Dionte Hendrix on 11-20-2024 Albumin [Mass/Vol] 4.2 g/dL 3.5-5.0 [facility] Serum or plasma alkaline jared sphatase measurementOrdered By: Dionte Hendrix on 11-20-2024 ALP [Catalytic activity/Vol] 75 U/L 40-129 [facility] Serum or plasma calcium antionette urement (mass/volume)Ordered By: Dionte Hendrix on 11-20-2024 Calcium [Mass/Vol] 9.4 mg/dL 7.6-11.0 [facility] Serum or plasma urea nitroge n measurement (mass/volume)Ordered By: Dionte Hendrix on 11-20-2024 Urea nitrogen [Mass/Vol] 15 mg/dL 4-19 [facility] Sodium levelOrdered By: Riley Hendrix on 11-20-2024 Sodium [Moles/Vol] 139 mmol/L 133-145 [facility] Total proteinOrdered By: Santos Hendrix on 11-20-2024 Protein [Mass/Vol] 7.2 g/dL 5.9-8.4 [facility] White blood cell (WBC) count Ordered By: Dionte Hendrix on 11-20-2024 WBC (Bld) [#/Vol] 7.3 10*3/uL 4.4-11.0 [facility] Absolute lymphocyte countOrd ered By: Torrie Cee on 11-19-2024 Lymphocytes Auto (Unsp spec) [#/Vol] 1.83 10*3/uL 0.83-4.51 [facility] Absolute neutrophil countOrd ered By: Torrie Cee on 11-19-2024 Neutrophils (Bld) [#/Vol] 5.8 10*3/uL 2.0-7.7 [facility] Anion gap in Serum or Plasma Ordered By: Torrie Cee on 11-19-2024 Anion gap [Moles/Vol] 12 mmol/L - [facility] Automated lymphocyte count a s percentage of total leukocytesOrdered By: Torrie Cee on 11-19-2024 Lymphocytes/100 WBC Auto (Unsp spec) 21.4 % - [facility] BUN/creatinine ratioOrdered By: Torrie Cee on 11-19-2024 Urea nitrogen/Creatinine [Mass ratio] 21.7 mg/mg High 10- [facility] Basophil percentageOrdered B y: Torrie Cee on 11-19-2024 Basophils/100 WBC (Bld) 0.5 % 0-1 [facility] Bilirubin, totalOrdered By: Torrie Cee on 11-19-2024 Bilirubin [Mass/Vol] 0.45 mg/dL 0.00-1.30 [facility] CBC W/Diff, Automatedon 11-04 Absolute Lymph 1.83 X10 3/uL Normal 0.83-4.51 [facility] Comment on above: Performed By: #### L 100.0100, L500.4050, L501.2450 #### [facility] [address] [place], [address] Absolute Neut 5.8 X10 3/uL Normal 2.0-7.7 [facility] Comment on above: Performed By: #### L 100.0100, L500.4050, L501.2450 #### [facility] [address] [place], [address] Basophils/100 WBC (Bld) 0.5 % Normal 0-1 [facility] Comment on above: Performed By: #### L 100.0100, L500.4050, L501.2450 #### [facility] [address] [place], [address] Eosinophils/100 WBC (Bld) 1.5 % Normal 0-5 [facility] Comment on above: Performed By: #### L 100.0100, L500.4050, L501.2450 #### [facility] [address] [place], [address] Erythrocyte distribution width (RBC) [Ratio] 11.7 % Normal 11.6-14.6 [facility] Comment on above: Performed By: #### L 100.0100, L500.4050, L501.2450 #### [facility] [address] [place], [address] Hematocrit (Bld) [Volume fraction] 44.0 % Normal 40-54 [facility] Comment on above: Performed By: #### L 100.0100, L500.4050, L501.2450 #### [facility] [address] [place], [address] Hemoglobin (Bld) [Mass/Vol] 15.1 g/dL Normal 13.0-16.5 [facility] Comment on above: Performed By: #### L 100.0100, L500.4050, L501.2450 #### [facility] [address] [place], [address] IG% 0.500 Normal 0.0-0.9 [facility] Comment on above: Result Comment: IG% - Immature Granulocytes (promyelocytes, myelocytes and metamyelocytes) > 1% indicates that a LEFT SHIFT is Present. Performed By: #### L 100.0100, L500.4050, L501.2450 #### [facility] [address] [place], [address] Lymphocytes/100 WBC (Bld) 21.4 % Normal 19-41 [facility] Comment on above: Performed By: #### L 100.0100, L500.4050, L501.2450 #### [facility] [address] [place], [address] MCH (RBC) [Entitic mass] 29.7 pg Normal 27.0-32.0 [facility] Comment on above: Performed By: #### L 100.0100, L500.4050, L501.2450 #### [facility] [address] [place], [address] MCHC (RBC) [Mass/Vol] 34.3 g/dL Normal 32-36 [facility] Comment on above: Performed By: #### L 100.0100, L500.4050, L501.2450 #### [facility] [address] [place], [address] MCV (RBC) [Entitic vol] 86.4 fL Normal 80-94 [facility] Comment on above: Performed By: #### L 100.0100, L500.4050, L501.2450 #### [facility] [address] [place], [address] Monocytes/100 WBC (Bld) 7.7 % Normal 0-10 [facility] Comment on above: Performed By: #### L 100.0100, L500.4050, L501.2450 #### [facility] [address] [place], [address] Neutrophils/100 WBC (Bld) 68.4 % Normal 47-70 [facility] Comment on above: Performed By: #### L 100.0100, L500.4050, L501.2450 #### [facility] [address] [place], [address] Nucleated RBC (Bld) [#/Vol] 0 10*3/uL Normal 0-5 [facility] Comment on above: Performed By: #### L 100.0100, L500.4050, L501.2450 #### [facility] [address] [place], [address] Platelet mean volume (Bld) [Entitic vol] 9.3 fL Normal 6.2-12.0 [facility] Comment on above: Performed By: #### L 100.0100, L500.4050, L501.2450 #### [facility] [address] [place], [address] Platelets (Bld) [#/Vol] 280 10*3/uL Normal 150-450 [facility] Comment on above: Performed By: #### L 100.0100, L500.4050, L501.2450 #### [facility] [address] [place], [address] RBC (Bld) [#/Vol] 5.09 10*6/uL Normal 4.6-6.2 [facility] Comment on above: Performed By: #### L 100.0100, L500.4050, L501.2450 #### [facility] [address] [place], [address] RDW SD 37.0 fl Normal 35.1-43.9 [facility] Comment on above: Performed By: #### L 100.0100, L500.4050, L501.2450 #### [facility] [address] [place], [address] WBC (Bld) [#/Vol] 8.5 10*3/uL Normal 4.4-11.0 [facility] Comment on above: Performed By: #### L 100.0100, L500.4050, L501.2450 #### [facility] [address] [place], [address] Carbon dioxide, total [Moles /volume] in Central venous bloodOrdered By: Torrie Cee on 11-19-2024 CO2 [Moles/Vol] 24.4 mmol/L 21.0-32.0 [facility] Chloride assayOrdered By: Karli Cee on 11-19-2024 Chloride [Moles/Vol] 103 mmol/L 98-108 [facility] Comprehensive Metabolic Prof ilon 11-19-2024 Albumin [Mass/Vol] 4.5 g/dL Normal 3.5-5.0 [facility] Comment on above: Performed By: #### L 100.0100, L500.4050, L501.2450 #### [facility] [address] [place], [address] Albumin/Globulin [Mass ratio] 1.4 {ratio} Normal 0.9-2.4 [facility] Comment on above: Performed By: #### L 100.0100, L500.4050, L501.2450 #### [facility] [address] [place], [address] ALK PHOS 63 U/L Normal 40-129 [facility] Comment on above: Performed By: #### L 100.0100, L500.4050, L501.2450 #### [facility] [address] [place], [address] ALT [Catalytic activity/Vol] 26 U/L Normal <=46 [facility] Comment on above: Performed By: #### L 100.0100, L500.4050, L501.2450 #### [facility] [address] [place], [address] AST [Catalytic activity/Vol] 28 U/L Normal <=37 [facility] Comment on above: Performed By: #### L 100.0100, L500.4050, L501.2450 #### [facility] [address] [place], [address] Bilirubin [Mass/Vol] 0.45 mg/dL Normal 0.00-1.30 [facility] Comment on above: Performed By: #### L 100.0100, L500.4050, L501.2450 #### [facility] [address] [place], [address] BUN/CRE 21.7 RATIO High 10-20 [facility] Comment on above: Performed By: #### L 100.0100, L500.4050, L501.2450 #### [facility] [address] [place], [address] Calcium [Mass/Vol] 9.5 mg/dL Normal 7.6-11.0 [facility] Comment on above: Performed By: #### L 100.0100, L500.4050, L501.2450 #### [facility] [address] [place], [address] Chloride [Moles/Vol] 103 mmol/L Normal 98-108 [facility] Comment on above: Performed By: #### L 100.0100, L500.4050, L501.2450 #### [facility] [address] [place], [address] CO2 [Moles/Vol] 24.4 mmol/L Normal 21.0-32.0 [facility] Comment on above: Performed By: #### L 100.0100, L500.4050, L501.2450 #### [facility] [address] [place], [address] Creatinine [Mass/Vol] 0.74 mg/dL Normal 0.70-1.20 [facility] Comment on above: Performed By: #### L 100.0100, L500.4050, L501.2450 #### [facility] [address] [place], [address] GAP 12 Normal 5-15 [facility] Comment on above: Performed By: #### L 100.0100, L500.4050, L501.2450 #### [facility] [address] [place], [address] GFR/1.73 sq M.predicted among non-blacks MDRD (S/P/Bld) [Vol rate/Area] 120 mL/min/{1.73_m2} Normal >60 [facility] Comment on above: Result Comment: mL/m in/1.73m2 CKD-EPI Creatinine Equation (2020) Performed By: #### L 100.0100, L500.4050, L501.2450 #### [facility] [address] [place], [address] Globulin (S) [Mass/Vol] 3.2 g/dL Normal 2.2-4.2 [facility] Comment on above: Performed By: #### L 100.0100, L500.4050, L501.2450 #### [facility] [address] [place], [address] Glucose [Mass/Vol] 110 mg/dL High 70-99 [facility] Comment on above: Performed By: #### L 100.0100, L500.4050, L501.2450 #### [facility] [address] [place], [address] Potassium [Moles/Vol] 4.1 mmol/L Normal 3.3-5.1 [facility] Comment on above: Performed By: #### L 100.0100, L500.4050, L501.2450 #### [facility] [address] [place], [address] Sodium [Moles/Vol] 139 mmol/L Normal 133-145 [facility] Comment on above: Performed By: #### L 100.0100, L500.4050, L501.2450 #### [facility] [address] [place], [address] T PROT 7.7 g/dL Normal 5.9-8.4 [facility] Comment on above: Performed By: #### L 100.0100, L500.4050, L501.2450 #### [facility] [address] [place], [address] Urea nitrogen [Mass/Vol] 16 mg/dL Normal 4-19 [facility] Comment on above: Performed By: #### L 100.0100, L500.4050, L501.2450 #### [facility] [address] [place], [address] Eosinophil percentageOrdered By: Torrie Cee on 11-19-2024 Eosinophils/100 WBC (Bld) 1.5 % 0-5 [facility] Erythrocyte distribution wid th ratioOrdered By: Torrie Cee on 11-19-2024 Erythrocyte distribution width (RBC) [Ratio] 11.7 % 11.6-14.6 [facility] Erythrocyte distribution wid th standard deviationOrdered By: Torrie Cee on 11-19-2024 Erythrocyte distribution width (RBC) [Ratio] 37.0 fl 35.1-43.9 [facility] Gastroenterology Visit Repor ton 11-19-2024 Gastroenterology Visit Report [facility] [address] [place] [address] OFFICE VISIT Date of Service: 11/19/24 MR#: [id number] Acct: [id number] Name: AMANDA KIMBALL Rep #: [id number] : 1990 Provider: EMILY Rahman Age/Sex: 34/M Location: [facility] [place] Status: Signed Intake [...] presents to the office today for establishment. [facility] ED .08.28 intermittent upper abdominal pain and discomfort. Workup unremarkable. GI cocktail and Protonix resolved the symptoms. [facility] 11.17.24 with continued upper abdominal pain. Workup [...] Today R10.11 (more content not included)... Normal [facility] Glomerular filtration rate ( GFR) estimation/1.73 sq m using serum, plasma, or whole bOrdered By: Torrie Cee on 11-19-2024 GFR/1.73 sq M.predicted among non-blacks MDRD (S/P/Bld) [Vol rate/Area] 120 mL/min/{1.73_m2} >60 [facility] Comment on above: mL/min/1.73m2 CKD-EP I Creatinine Equation (2020) Hematocrit Auto (Bld) [Volum e fraction]Ordered By: Torrie Cee on 11-19-2024 Hematocrit (Bld) [Volume fraction] 44.0 % 40-54 [facility] Hemoglobin measurementOrdere d By: Torrie Cee on 11-19-2024 Hemoglobin (Bld) [Mass/Vol] 15.1 g/dL 13.0-16.5 [facility] Immature granulocytes/100 WB C Auto (Bld)Ordered By: Torrie Cee on 11-19-2024 Immature granulocytes/100 WBC (Bld) 0.500 % 0.0-0.9 [facility] Comment on above: IG% - Immature Granu locytes (promyelocytes, myelocytes and metamyelocytes) > 1% indicates that a LEFT SHIFT is Present. Laboratory - Chemistry and C hemistry - challengeOrdered By: Torrie Cee on 11-19-2024 AST [Catalytic activity/Vol] 28 U/L <38 [facility] Lipaseon 11-19-2024 Lipase [Catalytic activity/Vol] 22 U/L Normal 13-75 [facility] Comment on above: Result Comment: Marisa vincent note: LIPASE revised reference range effective 22. New Lipase methodology. Expected to produce lower values than the previous assay method. NEW Reference Range: 13 - 75 U/L Performed By: #### L 100.0100, L500.4050, L501.2450 #### [facility] [place], [address] Lipase measurementOrdered By : Torrie Cee on 11-19-2024 Lipase [Catalytic activity/Vol] 22 U/L 13-75 [facility] Comment on above: Please note:LIPASE r evised reference range effective 22. New Lipase methodology. Expected to produce lower values than the previous assay method. NEW Reference Range: 13 - 75 U/L MCV (mean corpuscular volume ) determinationOrdered By: Torrie Cee on 11-19-2024 MCV (RBC) [Entitic vol] 86.4 fL 80-94 [facility] Mean corpuscular hemoglobin (MCH) determinationOrdered By: Torrie Cee on 11-19-2024 MCH (RBC) [Entitic mass] 29.7 pg 27.0-32.0 [facility] Mean corpuscular hemoglobin concentration (MCHC) determinationOrdered By: Torrie Cee on 11-19-2024 MCHC (RBC) [Mass/Vol] 34.3 g/dL 32-36 [facility] Mean platelet volume determi nationOrdered By: Torrie Cee on 11-19-2024 Platelet mean volume (Bld) [Entitic vol] 9.3 fL 6.2-12.0 [facility] Monocyte percentageOrdered B y: Torrie Cee on 11-19-2024 Monocytes/100 WBC (Bld) 7.7 % 0-10 [facility] Neutrophil percentageOrdered By: Torrie Cee on 11-19-2024 Neutrophils/100 WBC (Bld) 68.4 % 47-70 [facility] Nucleated red blood cell per centageOrdered By: Torrie Cee on 11-19-2024 Nucleated RBC/100 WBC (Bld) [Ratio] 0 % 0-5 [facility] Platelet countOrdered By: Karli Cee on 11-19-2024 Platelets (Bld) [#/Vol] 280 10*3/uL 150-450 [facility] Potassium measurement (mass/ volume)Ordered By: Torrie Cee on 11-19-2024 Potassium (Unsp spec) [Mass/Vol] 4.1 mmol/L 3.3-5.1 [facility] RBC Auto (Bld) [#/Vol]Ordere d By: Torrie Cee on 11-19-2024 RBC (Bld) [#/Vol] 5.09 10*6/uL 4.6-6.2 [facility] Serum creatinine measurement (mass/volume)Ordered By: Torrie Cee on 11-19-2024 Creatinine [Mass/Vol] 0.74 mg/dL 0.70-1.20 [facility] Serum globulin measurementOr dered By: Torrie Cee on 11-19-2024 Globulin (S) [Mass/Vol] 3.2 g/dL 2.2-4.2 [facility] Serum glucose measurement (m ass/volume)Ordered By: Torrie Cee on 11-19-2024 Glucose [Mass/Vol] 110 mg/dL High 70-99 [facility] Serum or plasma alanine smith otransferase (ALT) measurementOrdered By: Torrie Cee on 11-19-2024 ALT [Catalytic activity/Vol] 26 U/L <47 [facility] Serum or plasma albumin antionette urement (mass/volume)Ordered By: Torrie Cee on 11-19-2024 Albumin [Mass/Vol] 4.5 g/dL 3.5-5.0 [facility] Serum or plasma albumin/glob ulin mass ratioOrdered By: Torrie Cee on 11-19-2024 Albumin/Globulin [Mass ratio] 1.4 {ratio} 0.9-2.4 [facility] Serum or plasma alkaline jared sphatase measurementOrdered By: Torrie Cee on 11-19-2024 ALP [Catalytic activity/Vol] 63 U/L 40-129 [facility] Serum or plasma calcium antionette urement (mass/volume)Ordered By: Torrie Cee on 11-19-2024 Calcium [Mass/Vol] 9.5 mg/dL 7.6-11.0 [facility] Serum or plasma urea nitroge n measurement (mass/volume)Ordered By: Torrie Cee on 11-19-2024 Urea nitrogen [Mass/Vol] 16 mg/dL 4-19 [facility] Sodium levelOrdered By: Marino Cee on 11-19-2024 Sodium [Moles/Vol] 139 mmol/L 133-145 [facility] Total proteinOrdered By: Ariana Cee on 11-19-2024 Protein [Mass/Vol] 7.7 g/dL 5.9-8.4 [facility] White blood cell (WBC) count Ordered By: Torrie Cee on 11-19-2024 WBC (Bld) [#/Vol] 8.5 10*3/uL 4.4-11.0 [facility] 12 Lead EKGon 11-17-2024 12 Lead EKG [facility] Cardiovascular Services [address] [place] [address] 12 Lead EKG 11/17/24 0300 MR#: [id number] Acct: [id number] Name: AMANDA KIMBALL Rep #: [id number] : 1990 34 From: Nilay Herman MD [...] normal ECG Confirmed by Nilay Herman ([id number]), editor city [place]OLD[place]IN ([id number]) on 11/18/2024 1:25:06 PM Referred By: Confirmed By: Nilay Herman 11/18/24 1325 Date Nilay Herman MD CC: Dr. Karla Marshall MD; Dr. Derik Brower DO Signed Normal [facility] Abdomen/Pelvis W IV Cont ONL Yon 11-17-2024 Abdomen/Pelvis W IV Cont ONLY [facility] Imaging Services [address] [place] [address] Abdomen/Pelvis W IV Cont ONLY MR#: [id number] Acct: [id number] Name: AMANDA KIMBALL Rep #: [id number] : 1990 M 34 From: Nilay Henriquez MD PCP: Dr. Derik Brower DO Status: REG ER Study: Abdomen/Pelvis W IV Cont ONLY Date of Exam: Exam# [id number] Ordering Dr: Karla Marshall MD PROCEDURE: ABDOMEN/PELVIS [...] intra-abdominal or pelvic pathology. Cholelithiasis. Reading Location: [id number] CC: Dr. Karla Marshall MD; Dr. Derik Brower DO Chief Of Internal Medicine: Signed Normal [facility] Absolute lymphocyte countOrd ered By: Karla Marshall on 11-17-2024 Lymphocytes Auto (Unsp spec) [#/Vol] 2.43 10*3/uL 0.83-4.51 [facility] Absolute neutrophil countOrd ered By: Karla Marshall on 11-17-2024 Neutrophils (Bld) [#/Vol] 3.2 10*3/uL 2.0-7.7 [facility] Anion gap in Serum or Plasma Ordered By: Karla Marshall on 11-17-2024 Anion gap [Moles/Vol] 12 mmol/L 5-15 [facility] Automated lymphocyte count a s percentage of total leukocytesOrdered By: Karla Marshall on 11-17-2024 Lymphocytes/100 WBC Auto (Unsp spec) 39.3 % - [facility] BUN/creatinine ratioOrdered By: Karla Marshall on 11-17-2024 Urea nitrogen/Creatinine [Mass ratio] 15.7 mg/mg 10-20 [facility] Basophil percentageOrdered B y: Karla Marshall on 11-17-2024 Basophils/100 WBC (Bld) 0.5 % 0-1 [facility] Bilirubin, totalOrdered By: Karla Marshall on 11-17-2024 Bilirubin [Mass/Vol] 0.29 mg/dL 0.00-1.30 [facility] CBC W/Diff, Automatedon 11-04 Absolute Lymph 2.43 X10 3/uL Normal 0.83-4.51 [facility] Comment on above: Performed By: #### L 501.2450, L100.0100, L500.4050 ####[facility] [address] [place], [address] Absolute Neut 3.2 X10 3/uL Normal 2.0-7.7 [facility] Comment on above: Performed By: #### L 501.2450, L100.0100, L500.4050 ####[facility] [address] [place], [address] Basophils/100 WBC (Bld) 0.5 % Normal 0-1 [facility] Comment on above: Performed By: #### L 501.2450, L100.0100, L500.4050 ####[facility] [address] [place], [address] Eosinophils/100 WBC (Bld) 1.1 % Normal 0-5 [facility] Comment on above: Performed By: #### L 501.2450, L100.0100, L500.4050 ####[facility] [address] [place], [address] Erythrocyte distribution width (RBC) [Ratio] 11.8 % Normal 11.6-14.6 [facility] Comment on above: Performed By: #### L 501.2450, L100.0100, L500.4050 ####[facility] [address] [place], [address] Hematocrit (Bld) [Volume fraction] 42.9 % Normal 40-54 [facility] Comment on above: Performed By: #### L 501.2450, L100.0100, L500.4050 ####[facility] [address] [place], [address] Hemoglobin (Bld) [Mass/Vol] 14.9 g/dL Normal 13.0-16.5 [facility] Comment on above: Performed By: #### L 501.2450, L100.0100, L500.4050 ####[facility] [address] [place], [address] IG% 0.300 Normal 0.0-0.9 [facility] Comment on above: Result Comment: IG% - Immature Granulocytes (promyelocytes, myelocytes and metamyelocytes) > 1% indicates that a LEFT SHIFT is Present. Performed By: #### L 501.2450, L100.0100, L500.4050 ####[facility] [address] [place], [address] Lymphocytes/100 WBC (Bld) 39.3 % Normal 19-41 [facility] Comment on above: Performed By: #### L 501.2450, L100.0100, L500.4050 ####[facility] [address] [place], [address] MCH (RBC) [Entitic mass] 29.8 pg Normal 27.0-32.0 [facility] Comment on above: Performed By: #### L 501.2450, L100.0100, L500.4050 ####[facility] [address] [place], [address] MCHC (RBC) [Mass/Vol] 34.7 g/dL Normal 32-36 [facility] Comment on above: Performed By: #### L 501.2450, L100.0100, L500.4050 ####[facility] [address] [place], [address] MCV (RBC) [Entitic vol] 85.8 fL Normal 80-94 [facility] Comment on above: Performed By: #### L 501.2450, L100.0100, L500.4050 ####[facility] [address] [place], [address] Monocytes/100 WBC (Bld) 7.3 % Normal 0-10 [facility] Comment on above: Performed By: #### L 501.2450, L100.0100, L500.4050 ####[facility] [address] [place], [address] Neutrophils/100 WBC (Bld) 51.5 % Normal 47-70 [facility] Comment on above: Performed By: #### L 501.2450, L100.0100, L500.4050 ####[facility] [address] [place], [address] Nucleated RBC (Bld) [#/Vol] 0 10*3/uL Normal 0-5 [facility] Comment on above: Performed By: #### L 501.2450, L100.0100, L500.4050 ####[facility] [address] [place], [address] Platelet mean volume (Bld) [Entitic vol] 9.6 fL Normal 6.2-12.0 [facility] Comment on above: Performed By: #### L 501.2450, L100.0100, L500.4050 ####[facility] [address] [place], [address] Platelets (Bld) [#/Vol] 273 10*3/uL Normal 150-450 [facility] Comment on above: Performed By: #### L 501.2450, L100.0100, L500.4050 ####[facility] [address] [place], [address] RBC (Bld) [#/Vol] 5.00 10*6/uL Normal 4.6-6.2 [facility] Comment on above: Performed By: #### L 501.2450, L100.0100, L500.4050 ####[facility] [address] [place], [address] RDW SD 36.3 fl Normal 35.1-43.9 [facility] Comment on above: Performed By: #### L 501.2450, L100.0100, L500.4050 ####[facility] [address] [place], [address] WBC (Bld) [#/Vol] 6.2 10*3/uL Normal 4.4-11.0 [facility] Comment on above: Performed By: #### L 501.2450, L100.0100, L500.4050 ####[facility] [address] [place], [address] Carbon dioxide, total [Moles /volume] in Central venous bloodOrdered By: Karla Marshall on 11-17-2024 CO2 [Moles/Vol] 26.8 mmol/L 21.0-32.0 [facility] Chloride assayOrdered By: Gerson Marshall on 11-17-2024 Chloride [Moles/Vol] 101 mmol/L 98-108 [facility] Comprehensive Metabolic Prof ilon 11-17-2024 Albumin [Mass/Vol] 4.5 g/dL Normal 3.5-5.0 [facility] Comment on above: Performed By: #### L 501.2450, L100.0100, L500.4050 ####[facility] [address] [place], [address] Albumin/Globulin [Mass ratio] 1.7 {ratio} Normal 0.9-2.4 [facility] Comment on above: Performed By: #### L 501.2450, L100.0100, L500.4050 ####[facility] [address] [place], [address] ALK PHOS 54 U/L Normal 40-129 [facility] Comment on above: Performed By: #### L 501.2450, L100.0100, L500.4050 ####[facility] [address] [place], [address] ALT [Catalytic activity/Vol] 16 U/L Normal <=46 [facility] Comment on above: Performed By: #### L 501.2450, L100.0100, L500.4050 ####[facility] [address] [place], [address] AST [Catalytic activity/Vol] 19 U/L Normal <=37 [facility] Comment on above: Performed By: #### L 501.2450, L100.0100, L500.4050 ####[facility] [address] [place], [address] Bilirubin [Mass/Vol] 0.29 mg/dL Normal 0.00-1.30 [facility] Comment on above: Performed By: #### L 501.2450, L100.0100, L500.4050 ####[facility] [address] [place], [address] BUN/CRE 15.7 RATIO Normal 10-20 [facility] Comment on above: Performed By: #### L 501.2450, L100.0100, L500.4050 ####[facility] [address] [place], [address] Calcium [Mass/Vol] 9.5 mg/dL Normal 7.6-11.0 [facility] Comment on above: Performed By: #### L 501.2450, L100.0100, L500.4050 ####[facility] [address] [place], [address] Chloride [Moles/Vol] 101 mmol/L Normal 98-108 [facility] Comment on above: Performed By: #### L 501.2450, L100.0100, L500.4050 ####[facility] [address] [place], [address] CO2 [Moles/Vol] 26.8 mmol/L Normal 21.0-32.0 [facility] Comment on above: Performed By: #### L 501.2450, L100.0100, L500.4050 ####[facility] [address] [place], [address] Creatinine [Mass/Vol] 0.96 mg/dL Normal 0.70-1.20 [facility] Comment on above: Performed By: #### L 501.2450, L100.0100, L500.4050 ####[facility] [address] [place], [address] ECRCL 92.53 ml/min Normal 50-250 [facility] Comment on above: Performed By: #### L 501.2450, L100.0100, L500.4050 ####[facility] [address] [place], [address] GAP 12 Normal 5-15 [facility] Comment on above: Performed By: #### L 501.2450, L100.0100, L500.4050 ####[facility] [address] [place], [address] GFR/1.73 sq M.predicted among non-blacks MDRD (S/P/Bld) [Vol rate/Area] 105 mL/min/{1.73_m2} Normal >60 [facility] Comment on above: Result Comment: mL/m in/1.73m2 CKD-EPI Creatinine Equation (2020) Performed By: #### L 501.2450, L100.0100, L500.4050 ####[facility] [address] [place], [address] Globulin (S) [Mass/Vol] 2.6 g/dL Normal 2.2-4.2 [facility] Comment on above: Performed By: #### L 501.2450, L100.0100, L500.4050 ####[facility] [address] [place], [address] Glucose [Mass/Vol] 127 mg/dL High 70-99 [facility] Comment on above: Performed By: #### L 501.2450, L100.0100, L500.4050 ####[facility] [address] [place], [address] Potassium [Moles/Vol] 3.8 mmol/L Normal 3.3-5.1 [facility] Comment on above: Performed By: #### L 501.2450, L100.0100, L500.4050 ####[facility] [address] [place], [address] Sodium [Moles/Vol] 140 mmol/L Normal 133-145 [facility] Comment on above: Performed By: #### L 501.2450, L100.0100, L500.4050 ####[facility] [address] [place], [address] T PROT 7.1 g/dL Normal 5.9-8.4 [facility] Comment on above: Performed By: #### L 501.2450, L100.0100, L500.4050 ####[facility] [address] [place], [address] Urea nitrogen [Mass/Vol] 15 mg/dL Normal 4-19 [facility] Comment on above: Performed By: #### L 501.2450, L100.0100, L500.4050 ####[facility] [address] [place], [address] Emergency Department Summary on 11-17-2024 Emergency Department Summary [facility] Medical Records Department [address] [place] [address] Emergency Department Summary 11/17/24 MR#: [id number] Acct: [id number] Name: AMANDA KIMBALL Rep #: [id number] : 1990 34 From: Karla Marshall MD [...] he came in to be evaluated. [facility] Medical History Kidney stones Neck pain [...] patient voiced (more content not included)... Normal [facility] Eosinophil percentageOrdered By: Karla Marshall on 11-17-2024 Eosinophils/100 WBC (Bld) 1.1 % 0-5 [facility] Erythrocyte distribution wid th ratioOrdered By: Karla Marshall on 11-17-2024 Erythrocyte distribution width (RBC) [Ratio] 11.8 % 11.6-14.6 [facility] Erythrocyte distribution wid th standard deviationOrdered By: Karla Marshall on 11-17-2024 Erythrocyte distribution width (RBC) [Ratio] 36.3 fl 35.1-43.9 [facility] Glomerular filtration rate ( GFR) estimation/1.73 sq m using serum, plasma, or whole bOrdered By: Karla Marshall on 11-17-2024 GFR/1.73 sq M.predicted among non-blacks MDRD (S/P/Bld) [Vol rate/Area] 105 mL/min/{1.73_m2} >60 [facility] Comment on above: mL/min/1.73m2 CKD-EP I Creatinine Equation (2020) Hematocrit Auto (Bld) [Volum e fraction]Ordered By: Karla Marshall on 11-17-2024 Hematocrit (Bld) [Volume fraction] 42.9 % 40-54 [facility] Hemoglobin measurementOrdere d By: Karla Marshall on 11-17-2024 Hemoglobin (Bld) [Mass/Vol] 14.9 g/dL 13.0-16.5 [facility] Immature granulocytes/100 WB C Auto (Bld)Ordered By: Karla Marshall on 11-17-2024 Immature granulocytes/100 WBC (Bld) 0.300 % 0.0-0.9 [facility] Comment on above: IG% - Immature Granu locytes (promyelocytes, myelocytes and metamyelocytes) > 1% indicates that a LEFT SHIFT is Present. Laboratory - Chemistry and C hemistry - challengeOrdered By: Karla Marshall on 11-17-2024 AST [Catalytic activity/Vol] 19 U/L <38 [facility] Lipaseon 11-17-2024 Lipase [Catalytic activity/Vol] 28 U/L Normal 13-75 [facility] Comment on above: Result Comment: Plea se note: LIPASE revised reference range effective 22. New Lipase methodology. Expected to produce lower values than the previous assay method. NEW Reference Range: 13 - 75 U/L Performed By: #### L 501.2450, L100.0100, L500.4050 ####[facility] [address] [place], [address] Lipase measurementOrdered By : Karla Marshall on 11-17-2024 Lipase [Catalytic activity/Vol] 28 U/L 13-75 [facility] Comment on above: Please note:LIPASE r evised reference range effective 22. New Lipase methodology. Expected to produce lower values than the previous assay method. NEW Reference Range: 13 - 75 U/L MCV (mean corpuscular volume ) determinationOrdered By: Karla Marshall on 11-17-2024 MCV (RBC) [Entitic vol] 85.8 fL 80-94 [facility] Mean corpuscular hemoglobin (MCH) determinationOrdered By: Karla Marshall on 11-17-2024 MCH (RBC) [Entitic mass] 29.8 pg 27.0-32.0 [facility] Mean corpuscular hemoglobin concentration (MCHC) determinationOrdered By: Karla Marshall on 11-17-2024 MCHC (RBC) [Mass/Vol] 34.7 g/dL 32-36 [facility] Mean platelet volume determi nationOrdered By: Karla Marshall on 11-17-2024 Platelet mean volume (Bld) [Entitic vol] 9.6 fL 6.2-12.0 [facility] Monocyte percentageOrdered B y: Karla Marshall on 11-17-2024 Monocytes/100 WBC (Bld) 7.3 % 0-10 [facility] Neutrophil percentageOrdered By: Karla Marshall on 11-17-2024 Neutrophils/100 WBC (Bld) 51.5 % 47-70 [facility] Nucleated red blood cell per centageOrdered By: Karla Marshall on 11-17-2024 Nucleated RBC/100 WBC (Bld) [Ratio] 0 % 0-5 [facility] Platelet countOrdered By: Gerson Marshall on 11-17-2024 Platelets (Bld) [#/Vol] 273 10*3/uL 150-450 [facility] Potassium measurement (mass/ volume)Ordered By: Karla Marshall on 11-17-2024 Potassium (Unsp spec) [Mass/Vol] 3.8 mmol/L 3.3-5.1 [facility] RBC Auto (Bld) [#/Vol]Ordere d By: Karla Marshall on 11-17-2024 RBC (Bld) [#/Vol] 5.00 10*6/uL 4.6-6.2 [facility] Serum creatinine measurement (mass/volume)Ordered By: Karla Marshall on 11-17-2024 Creatinine [Mass/Vol] 0.96 mg/dL 0.70-1.20 [facility] Serum globulin measurementOr dered By: Karla Marshall on 11-17-2024 Globulin (S) [Mass/Vol] 2.6 g/dL 2.2-4.2 [facility] Serum glucose measurement (m ass/volume)Ordered By: Karla Marshall on 11-17-2024 Glucose [Mass/Vol] 127 mg/dL High 70-99 [facility] Serum or plasma alanine smith otransferase (ALT) measurementOrdered By: Karla Marshall on 11-17-2024 ALT [Catalytic activity/Vol] 16 U/L <47 [facility] Serum or plasma albumin antionette urement (mass/volume)Ordered By: Karla Marshall on 11-17-2024 Albumin [Mass/Vol] 4.5 g/dL 3.5-5.0 [facility] Serum or plasma albumin/glob ulin mass ratioOrdered By: Karla Marshall on 11-17-2024 Albumin/Globulin [Mass ratio] 1.7 {ratio} 0.9-2.4 [facility] Serum or plasma alkaline jared sphatase measurementOrdered By: Karla Marshall on 11-17-2024 ALP [Catalytic activity/Vol] 54 U/L 40-129 [facility] Serum or plasma calcium antionette urement (mass/volume)Ordered By: Karla Marshall on 11-17-2024 Calcium [Mass/Vol] 9.5 mg/dL 7.6-11.0 [facility] Serum or plasma urea nitroge n measurement (mass/volume)Ordered By: Karla Agarwaler on 11-17-2024 Urea nitrogen [Mass/Vol] 15 mg/dL 4-19 [facility] Sodium levelOrdered By: Benitez a Rolando on 11-17-2024 Sodium [Moles/Vol] 140 mmol/L 133-145 [facility] Total proteinOrdered By: Tiara ca Rolando on 11-17-2024 Protein [Mass/Vol] 7.1 g/dL 5.9-8.4 [facility] White blood cell (WBC) count Ordered By: Karla Agarwaler on 11-17-2024 WBC (Bld) [#/Vol] 6.2 10*3/uL 4.4-11.0 [facility] Absolute lymphocyte countOrd ered By: Dionte Hendrix on 10-09-2024 Lymphocytes Auto (Unsp spec) [#/Vol] 2.10 10*3/uL 0.83-4.51 [facility] Absolute neutrophil countOrd ered By: Dionte Hendrix on 10-09-2024 Neutrophils (Bld) [#/Vol] 3.1 10*3/uL 2.0-7.7 [facility] Acute Abdomen Inc Cheston Acute Abdomen Inc Chest [facility] Imaging Services [address] [place] [address] Acute Abdomen Inc Chest MR#: [id number] Acct: [id number] Name: AMANDA KIMBALL Rep #: [id number] : 1990 M 33 From: Jl Holly MD PCP: Dr. Derik Brower, DO Status: REG ER Study: Acute Abdomen Inc Chest Date of Exam: 10/09/24 Exam# [id number] Ordering Dr: Dionte Hendrix DO PROCEDURE: ACUTE ABDOMEN INC CHEST 10/09/2024 REASON FOR EXAM: ABD PAIN TECHNIQUE: ACUTE ABDOMEN INC CHEST COMPARISON: CT 05/17/2023 FINDINGS: Normal heart size. Well inflated lungs. Right upper lobe hamartoma. No consolidation, effusion, or pneumothorax. No free air. Nonobstructed bowel. Mild stool. No concerning calcifications. RAD/Acute Abdomen Inc Chest IMPRESSION: Clear lungs. Nonobstructed bowel pattern. Reading Location: [facility] CC: Dr. Derik Brower DO; Dionte Hendrix DO Chief Of Internal Medicine: Signed Normal [facility] Anion gap in Serum or Plasma Ordered By: Dionte Hendrix on 10-09-2024 Anion gap [Moles/Vol] 11 mmol/L 5-15 [facility] Automated lymphocyte count a s percentage of total leukocytesOrdered By: Dionte Hendrix on 10-09-2024 Lymphocytes/100 WBC Auto (Unsp spec) 36.4 % 19-41 [facility] BUN/creatinine ratioOrdered By: Dionte Hendrix on 10-09-2024 Urea nitrogen/Creatinine [Mass ratio] 20.8 mg/mg High 10- [facility] Basic Metabolic Profile (BMP )on 10-09-2024 BUN/CRE 20.8 RATIO High 10-20 [facility] Comment on above: Performed By: #### L 501.2450, L100.0100, L500.3400, L500.2500 ####[facility] [address] [place], [address] Calcium [Mass/Vol] 9.6 mg/dL Normal 7.6-11.0 [facility] Comment on above: Performed By: #### L 501.2450, L100.0100, L500.3400, L500.2500 ####[facility] [address] [place], [address] Chloride [Moles/Vol] 104 mmol/L Normal 98-108 [facility] Comment on above: Performed By: #### L 501.2450, L100.0100, L500.3400, L500.2500 ####[facility] [address] [place], [address] CO2 [Moles/Vol] 25.8 mmol/L Normal 21.0-32.0 [facility] Comment on above: Performed By: #### L 501.2450, L100.0100, L500.3400, L500.2500 ####[facility] [address] [place], [address] Creatinine [Mass/Vol] 0.87 mg/dL Normal 0.70-1.20 [facility] Comment on above: Performed By: #### L 501.2450, L100.0100, L500.3400, L500.2500 ####[facility] [address] [place], [address] ECRCL 103.09 ml/min Normal 50-250 [facility] Comment on above: Performed By: #### L 501.2450, L100.0100, L500.3400, L500.2500 ####[facility] [address] [place], [address] GAP 11 Normal 5-15 [facility] Comment on above: Performed By: #### L 501.2450, L100.0100, L500.3400, L500.2500 ####[facility] [address] [place], [address] GFR/1.73 sq M.predicted among non-blacks MDRD (S/P/Bld) [Vol rate/Area] 116 mL/min/{1.73_m2} Normal >60 [facility] Comment on above: Result Comment: mL/m in/1.73m2 CKD-EPI Creatinine Equation (2020) Performed By: #### L 501.2450, L100.0100, L500.3400, L500.2500 ####[facility] [address] [place], [address] Glucose [Mass/Vol] 117 mg/dL High 70-99 [facility] Comment on above: Performed By: #### L 501.2450, L100.0100, L500.3400, L500.2500 ####[facility] [address] [place], [address] Potassium [Moles/Vol] 3.7 mmol/L Normal 3.3-5.1 [facility] Comment on above: Performed By: #### L 501.2450, L100.0100, L500.3400, L500.2500 ####[facility] [address] [place], [address] Sodium [Moles/Vol] 140 mmol/L Normal 133-145 [facility] Comment on above: Performed By: #### L 501.2450, L100.0100, L500.3400, L500.2500 ####[facility] [address] [place], [address] Urea nitrogen [Mass/Vol] 18 mg/dL Normal 4-19 [facility] Comment on above: Performed By: #### L 501.2450, L100.0100, L500.3400, L500.2500 ####[facility] [address] [place], [address] Basophil percentageOrdered B y: Dionte Hendrix on 10-09-2024 Basophils/100 WBC (Bld) 0.7 % 0-1 [facility] Bilirubin directOrdered By: Dionte Hendrix on 10-09-2024 Bilirubin.direct [Mass/Vol] 0.11 mg/dL 0.00-0.30 [facility] Bilirubin, totalOrdered By: Dionte Hendrix on 10-09-2024 Bilirubin [Mass/Vol] 0.24 mg/dL 0.00-1.30 [facility] CBC W/Diff, Automatedon Absolute Lymph 2.10 X10 3/uL Normal 0.83-4.51 [facility] Comment on above: Performed By: #### L 501.2450, L100.0100, L500.3400, L500.2500 ####[facility] [address] [place], [address] Absolute Neut 3.1 X10 3/uL Normal 2.0-7.7 [facility] Comment on above: Performed By: #### L 501.2450, L100.0100, L500.3400, L500.2500 ####[facility] [address] [place], [address] Basophils/100 WBC (Bld) 0.7 % Normal 0-1 [facility] Comment on above: Performed By: #### L 501.2450, L100.0100, L500.3400, L500.2500 ####[facility] [address] [place], [address] Eosinophils/100 WBC (Bld) 1.6 % Normal 0-5 [facility] Comment on above: Performed By: #### L 501.2450, L100.0100, L500.3400, L500.2500 ####[facility] [address] [place], [address] Erythrocyte distribution width (RBC) [Ratio] 11.9 % Normal 11.6-14.6 [facility] Comment on above: Performed By: #### L 501.2450, L100.0100, L500.3400, L500.2500 ####[facility] [address] [place], [address] Hematocrit (Bld) [Volume fraction] 40.7 % Normal 40-54 [facility] Comment on above: Performed By: #### L 501.2450, L100.0100, L500.3400, L500.2500 ####[facility] [address] [place], [address] Hemoglobin (Bld) [Mass/Vol] 14.2 g/dL Normal 13.0-16.5 [facility] Comment on above: Performed By: #### L 501.2450, L100.0100, L500.3400, L500.2500 ####[facility] [address] [place], [address] IG% 0.200 Normal 0.0-0.9 [facility] Comment on above: Result Comment: IG% - Immature Granulocytes (promyelocytes, myelocytes and metamyelocytes) > 1% indicates that a LEFT SHIFT is Present. Performed By: #### L 501.2450, L100.0100, L500.3400, L500.2500 ####[facility] [address] [place], [address] Lymphocytes/100 WBC (Bld) 36.4 % Normal 19-41 [facility] Comment on above: Performed By: #### L 501.2450, L100.0100, L500.3400, L500.2500 ####[facility] [address] [place], [address] MCH (RBC) [Entitic mass] 30.1 pg Normal 27.0-32.0 [facility] Comment on above: Performed By: #### L 501.2450, L100.0100, L500.3400, L500.2500 ####[facility] [address] [place], [address] MCHC (RBC) [Mass/Vol] 34.9 g/dL Normal 32-36 [facility] Comment on above: Performed By: #### L 501.2450, L100.0100, L500.3400, L500.2500 ####[facility] [address] [place], [address] MCV (RBC) [Entitic vol] 86.4 fL Normal 80-94 [facility] Comment on above: Performed By: #### L 501.2450, L100.0100, L500.3400, L500.2500 ####[facility] [address] [place], [address] Monocytes/100 WBC (Bld) 8.3 % Normal 0-10 [facility] Comment on above: Performed By: #### L 501.2450, L100.0100, L500.3400, L500.2500 ####[facility] [address] [place], [address] Neutrophils/100 WBC (Bld) 52.8 % Normal 47-70 [facility] Comment on above: Performed By: #### L 501.2450, L100.0100, L500.3400, L500.2500 ####[facility] [address] [place], [address] Nucleated RBC (Bld) [#/Vol] 0 10*3/uL Normal 0-5 [facility] Comment on above: Performed By: #### L 501.2450, L100.0100, L500.3400, L500.2500 ####[facility] [address] [place], [address] Platelet mean volume (Bld) [Entitic vol] 9.6 fL Normal 6.2-12.0 [facility] Comment on above: Performed By: #### L 501.2450, L100.0100, L500.3400, L500.2500 ####[facility] [address] [place], [address] Platelets (Bld) [#/Vol] 254 10*3/uL Normal 150-450 [facility] Comment on above: Performed By: #### L 501.2450, L100.0100, L500.3400, L500.2500 ####[facility] [address] [place], [address] RBC (Bld) [#/Vol] 4.71 10*6/uL Normal 4.6-6.2 [facility] [facility] Comment on above: Performed By: #### L 501.2450, L100.0100, L500.3400, L500.2500 ####[facility] [address] [place], [address] RDW SD 37.9 fl Normal 35.1-43.9 [facility] Comment on above: Performed By: #### L 501.2450, L100.0100, L500.3400, L500.2500 ####[facility] [address] [place], [address] WBC (Bld) [#/Vol] 5.8 10*3/uL Normal 4.4-11.0 [facility] Comment on above: Performed By: #### L 501.2450, L100.0100, L500.3400, L500.2500 ####[facility] [address] [place], [address] Carbon dioxide, total [Moles /volume] in Central venous bloodOrdered By: Dionte Hendrix on 10-09-2024 CO2 [Moles/Vol] 25.8 mmol/L 21.0-32.0 [facility] Chloride assayOrdered By: Rosa Hendrix on 10-09-2024 Chloride [Moles/Vol] 104 mmol/L 98-108 [facility] Emergency Department Summary on 10-09-2024 Emergency Department Summary [facility] Medical Records Department [address] [place] [address] Emergency Department Summary 10/09/24 MR#: [id number] Acct: [id number] Name: AMANDA KIMBALL Rep #: [id number] : 1990 33 From: Dionte Hendrix DO [...] this he comes in for evaluation [facility] Medical History (Updated 10/09/24 @ 07:41 [...] abdomen tom (more content not included)... Normal [facility] Eosinophil percentageOrdered By: Dionte Hendrix on 10-09-2024 Eosinophils/100 WBC (Bld) 1.6 % 0-5 [facility] Erythrocyte distribution wid th ratioOrdered By: Dionte Hendrix on 10-09-2024 Erythrocyte distribution width (RBC) [Ratio] 11.9 % 11.6-14.6 [facility] Erythrocyte distribution wid th standard deviationOrdered By: Dointe Hendrix on 10-09-2024 Erythrocyte distribution width (RBC) [Ratio] 37.9 fl 35.1-43.9 [facility] Glomerular filtration rate ( GFR) estimation/1.73 sq m using serum, plasma, or whole bOrdered By: Dionte Hendrix on 10-09-2024 GFR/1.73 sq M.predicted among non-blacks MDRD (S/P/Bld) [Vol rate/Area] 116 mL/min/{1.73_m2} >60 [facility] Comment on above: mL/min/1.73m2 CKD-EP I Creatinine Equation (2020) Hematocrit Auto (Bld) [Volum e fraction]Ordered By: Dionte Hendrix on 10-09-2024 Hematocrit (Bld) [Volume fraction] 40.7 % 40-54 [facility] Hemoglobin measurementOrdere d By: Dionte Hendrix on 10-09-2024 Hemoglobin (Bld) [Mass/Vol] 14.2 g/dL 13.0-16.5 [facility] Immature granulocytes/100 WB C Auto (Bld)Ordered By: Dionte Hendrix on 10-09-2024 Immature granulocytes/100 WBC (Bld) 0.200 % 0.0-0.9 [facility] Comment on above: IG% - Immature Granu locytes (promyelocytes, myelocytes and metamyelocytes) > 1% indicates that a LEFT SHIFT is Present. Laboratory - Chemistry and C hemistry - challengeOrdered By: Dionte Hendrix on 10-09-2024 AST [Catalytic activity/Vol] 35 U/L <38 [facility] Lipaseon 10-09-2024 Lipase [Catalytic activity/Vol] 32 U/L Normal 13-75 [facility] Comment on above: Result Comment: Marisa vincent note: LIPASE revised reference range effective 22. New Lipase methodology. Expected to produce lower values than the previous assay method. NEW Reference Range: 13 - 75 U/L Performed By: #### L 501.2450, L100.0100, L500.3400, L500.2500 ####[facility] [address] [place], [address] Lipase measurementOrdered By : Dionte Hendrix on 10-09-2024 Lipase [Catalytic activity/Vol] 32 U/L 13-75 [facility] Comment on above: Please note:LIPASE r evised reference range effective 22. New Lipase methodology. Expected to produce lower values than the previous assay method. NEW Reference Range: 13 - 75 U/L Liver Profileon 10-09-2024 Albumin [Mass/Vol] 4.3 g/dL Normal 3.5-5.0 [facility] Comment on above: Performed By: #### L 501.2450, L100.0100, L500.3400, L500.2500 ####[facility] [address] [place], [address] ALK PHOS 62 U/L Normal 40-129 [facility] Comment on above: Performed By: #### L 501.2450, L100.0100, L500.3400, L500.2500 ####[facility] [address] [place], [address] ALT [Catalytic activity/Vol] 36 U/L Normal <=46 [facility] Comment on above: Performed By: #### L 501.2450, L100.0100, L500.3400, L500.2500 ####[facility] [address] [place], [address] AST [Catalytic activity/Vol] 35 U/L Normal <=37 [facility] Comment on above: Performed By: #### L 501.2450, L100.0100, L500.3400, L500.2500 ####[facility] [address] [place], [address] Bilirubin [Mass/Vol] 0.24 mg/dL Normal 0.00-1.30 [facility] Comment on above: Performed By: #### L 501.2450, L100.0100, L500.3400, L500.2500 ####[facility] [address] [place], [address] Bilirubin.direct [Mass/Vol] 0.11 mg/dL Normal 0.00-0.30 [facility] Comment on above: Performed By: #### L 501.2450, L100.0100, L500.3400, L500.2500 ####[facility] [address] [place], [address] Globulin (S) [Mass/Vol] 2.2 g/dL Normal 2.2-4.2 [facility] Comment on above: Performed By: #### L 501.2450, L100.0100, L500.3400, L500.2500 ####[facility] [address] [place], [address] T PROT 6.5 g/dL Normal 5.9-8.4 [facility] Comment on above: Performed By: #### L 501.2450, L100.0100, L500.3400, L500.2500 ####[facility] [address] [place], [address] MCV (mean corpuscular volume ) determinationOrdered By: Dionte Hendrix on 10-09-2024 MCV (RBC) [Entitic vol] 86.4 fL 80-94 [facility] Mean corpuscular hemoglobin (MCH) determinationOrdered By: Dionte Hendrix on 10-09-2024 MCH (RBC) [Entitic mass] 30.1 pg 27.0-32.0 [facility] Mean corpuscular hemoglobin concentration (MCHC) determinationOrdered By: Dionte Hendrix on 10-09-2024 MCHC (RBC) [Mass/Vol] 34.9 g/dL 32-36 [facility] Mean platelet volume determi nationOrdered By: Dionte Hendrix on 10-09-2024 Platelet mean volume (Bld) [Entitic vol] 9.6 fL 6.2-12.0 [facility] Monocyte percentageOrdered B y: Dionte Hendrix on 10-09-2024 Monocytes/100 WBC (Bld) 8.3 % 0-10 [facility] Neutrophil percentageOrdered By: Dionte Hendrix on 10-09-2024 Neutrophils/100 WBC (Bld) 52.8 % 47-70 [facility] Nucleated red blood cell per centageOrdered By: Dionte Hendrix on 10-09-2024 Nucleated RBC/100 WBC (Bld) [Ratio] 0 % 0-5 [facility] Platelet countOrdered By: Rosa Hendrix on 10-09-2024 Platelets (Bld) [#/Vol] 254 10*3/uL 150-450 [facility] Potassium measurement (mass/ volume)Ordered By: Dionte Hendrix on 10-09-2024 Potassium (Unsp spec) [Mass/Vol] 3.7 mmol/L 3.3-5.1 [facility] RBC Auto (Bld) [#/Vol]Ordere d By: Dionte Hendrix on 10-09-2024 RBC (Bld) [#/Vol] 4.71 10*6/uL 4.6-6.2 [facility] Serum creatinine measurement (mass/volume)Ordered By: Dionte Hendrix on 10-09-2024 Creatinine [Mass/Vol] 0.87 mg/dL 0.70-1.20 [facility] Serum globulin measurementOr dered By: Dionte Hendrix on 10-09-2024 Globulin (S) [Mass/Vol] 2.2 g/dL 2.2-4.2 [facility] Serum glucose measurement (m ass/volume)Ordered By: Dionte Hendrix on 10-09-2024 Glucose [Mass/Vol] 117 mg/dL High 70-99 [facility] Serum or plasma alanine smith otransferase (ALT) measurementOrdered By: Dionte Hendrix on 10-09-2024 ALT [Catalytic activity/Vol] 36 U/L <47 [facility] Serum or plasma albumin antionette urement (mass/volume)Ordered By: Dionte Hendrix on 10-09-2024 Albumin [Mass/Vol] 4.3 g/dL 3.5-5.0 [facility] Serum or plasma alkaline jared sphatase measurementOrdered By: Dionte Hendrix on 10-09-2024 ALP [Catalytic activity/Vol] 62 U/L 40-129 [facility] Serum or plasma calcium antionette urement (mass/volume)Ordered By: Dionte Hendrix on 10-09-2024 Calcium [Mass/Vol] 9.6 mg/dL 7.6-11.0 [facility] Serum or plasma urea nitroge n measurement (mass/volume)Ordered By: Dionte Hendrix on 10-09-2024 Urea nitrogen [Mass/Vol] 18 mg/dL 4-19 [facility] Sodium levelOrdered By: Riley Hendrix on 10-09-2024 Sodium [Moles/Vol] 140 mmol/L 133-145 [facility] Total proteinOrdered By: Santos Hendrix on 10-09-2024 Protein [Mass/Vol] 6.5 g/dL 5.9-8.4 [facility] White blood cell (WBC) count Ordered By: Dionte Hendrix on 10-09-2024 WBC (Bld) [#/Vol] 5.8 10*3/uL 4.4-11.0 [facility] Absolute lymphocyte countOrd ered By: Jose Alfredo Moore on 05-17-2023 Lymphocytes Auto (Unsp spec) [#/Vol] 3.14 10*3/uL 0.83-4.51 [facility] Amorphous sediment detection in urine sediment by light microscopyOrdered By: Jose Alfredo Moore on 05-17-2023 Amorphous sediment LM Ql (Urine sed) 2+ [facility] Automated lymphocyte count a s percentage of total leukocytesOrdered By: Jose Alfredo Moore on 05-17-2023 Lymphocytes/100 WBC Auto (Unsp spec) 50.5 % 19-41 [facility] Basophil percentageOrdered B y: Jose Alfredo Moore on 05-17-2023 Basophil percentage 0-5 SEEN /hpf 0-5 [facility] Basophils/100 WBC (Bld) 1.0 % 0-1 [facility] Chloride [Moles/Vol] 106 mmol/L 98-107 [facility] Eosinophils/100 WBC (Bld) 1.8 % 0-5 [facility] Glucose [Mass/Vol] 117 mg/dL 74-106 [facility] Comment on above: Fasting Glucose resu lt from 100 to 125 mg/dL suggests IMPAIRED HOMEOSTASIS per A.D.A. criteria. Hemoglobin (Bld) [Mass/Vol] 15.1 g/dL 13.0-16.5 [facility] Monocytes/100 WBC (Bld) 7.1 % 0-10 [facility] Neutrophils (Bld) [#/Vol] 2.5 10*3/uL 2.0-7.7 [facility] Neutrophils/100 WBC (Bld) 39.3 % 47-70 [facility] Potassium [Moles/Vol] 3.9 mmol/L 3.5-5.1 [facility] Sodium [Moles/Vol] 141 mmol/L 136-145 [facility] WBC (Bld) [#/Vol] 6.2 10*3/uL 4.4-11.0 [facility] Bilirubin Test strip Ql (U)O rdered By: Jose Alfredo Moore on 05-17-2023 Bilirubin Ql (U) Negative Negative [facility] Determination of erythrocyte mean corpuscular volume (MCV)Ordered By: Jose Alfredo Moore on 05-17-2023 MCV (RBC) [Entitic vol] 86.9 fL 80-94 [facility] Erythrocyte distribution wid th ratioOrdered By: Jose Alfredo Moore on 05-17-2023 Erythrocyte distribution width (RBC) [Ratio] 11.9 % 11.6-14.6 [facility] Erythrocyte distribution wid th standard deviationOrdered By: Jose Alfredo Moore on 05-17-2023 Erythrocyte distribution width (RBC) [Entitic vol] 38.2 fL 35.1-43.9 [facility] Hematocrit Auto (Bld) [Volum e fraction]Ordered By: Jose Alfredo Moore on 05-17-2023 Hematocrit (Bld) [Volume fraction] 44.6 % 40-54 [facility] Immature granulocytes/100 WB C Auto (Bld)Ordered By: Jose Alfredo Moore on 05-17-2023 Immature granulocytes/100 WBC (Bld) 0.300 % 0.0-0.9 [facility] Comment on above: IG% - Immature Granu locytes (promyelocytes, myelocytes and metamyelocytes) > 1% indicates that a LEFT SHIFT is Present. Ketones Test strip Ql (U)Ord ered By: Jose Alfredo Moore on 05-17-2023 Ketones Ql (U) 5 mg/dl Negative [facility] Laboratory - Chemistry and C hemistry - challengeOrdered By: Jose Alfredo Moore on 05-17-2023 CO2 [Moles/Vol] 30.0 mmol/L 21.0-32.0 [facility] Urea nitrogen/Creatinine [Mass ratio] 13.4 mg/mg 10-20 [facility] Laboratory - Hematology and Cell countsOrdered By: Jose Alfredo Moore on 05-17-2023 MCH (RBC) [Entitic mass] 29.4 pg 27.0-32.0 [facility] MCHC (RBC) [Mass/Vol] 33.9 g/dL 32-36 [facility] Nucleated RBC/100 WBC (Bld) [Ratio] 0 % 0-5 [facility] Platelet mean volume (Bld) [Entitic vol] 10.0 fL 6.2-12.0 [facility] Platelets (Bld) [#/Vol] 325 10*3/uL 150-450 [facility] Mucus LM Ql (Urine sed)Order ed By: Jose Alfredo Moore on 05-17-2023 Mucus Ql (Urine sed) 0 SEEN /hpf [facility] Nitrite Test strip Ql (U)Ord ered By: Jose Alfredo Moore on 05-17-2023 Nitrite Ql (U) Negative Negative [facility] No Panel InformationOrdered By: Jose Alfredo Moore on 05-17-2023 Urine RBC 25-50 SEEN /hpf 0-5 [facility] Estimated Creatinine Clearance Calc 101.73 ml/min [facility] Estimated GFR (MDRD) Amer 125 mL/min >60 [facility] Comment on above: GFR Calc Estimated GFR (MDRD) Non-Af Amer 103 mL/min >60 [facility] Comment on above: Non- GFR Calc Protein Test strip Ql (U)Ord ered By: Jose Alfredo Moore on 05-17-2023 Protein Ql (U) 100 mg/dl Negative [facility] RBC Auto (Bld) [#/Vol]Ordere d By: Jose Alfredo Moore on 05-17-2023 RBC (Bld) [#/Vol] 5.13 10*6/uL 4.6-6.2 [facility] Serum or plasma calcium antionette urement (mass/volume)Ordered By: Jose Alfredo Moore on 05-17-2023 Calcium [Mass/Vol] 9.0 mg/dL 8.5-10.1 [facility] Serum or plasma creatinine m easurement (mass/volume)Ordered By: Jose Alfredo Moore on 05-17-2023 Creatinine [Mass/Vol] 0.89 mg/dL 0.70-1.30 [facility] Comment on above: The validity of the calculated GFR & GFRAA in patients over 70 years has not been determined. Clinical correlation is essential. Serum or plasma urea nitroge n measurement (mass/volume)Ordered By: Jose Alfredo Moore on 05-17-2023 Urea nitrogen [Mass/Vol] 12 mg/dL 7-18 [facility] Squamous epithelial cells de tection in urine sediment by light microscopyOrdered By: Jose Alfredo Moore on 05-17-2023 Epithelial cells.squamous LM Ql (Urine sed) 0 SEEN /hpf 0-5 [facility] Thin prep Papanicolaou smear with manual screeningOrdered By: Jose Alfredo Moore on 05-17-2023 Thin prep Papanicolaou smear with manual screening 5 5-15 [facility] Urine blood detectionOrdered By: Jose Alfredo Moore on 05-17-2023 RBC Ql (U) 250 /ul Negative [facility] Urine clarityOrdered By: Eli Moore on 05-17-2023 Clarity (U) Cloudy Clear [facility] Urine color determinationOrd ered By: Jose Alfredo Moore on 05-17-2023 Color (U) Yellow Yellow [facility] Urine glucose detectionOrder ed By: Jose Alfredo Moore on 05-17-2023 Glucose Ql (U) Normal mg/dl Normal [facility] Urine leukocyte esterase det ection by dipstickOrdered By: Jose Alfredo Moore on 05-17-2023 Leukocyte esterase Test strip Ql (U) 25 /ul Negative [facility] Urine pHOrdered By: Jose Alfredo Rodas gur on 05-17-2023 pH (U) 5.0 [pH] 5.0 - 8.0 [facility] Urine sediment bacteria coun t by microscopy (number/high power field)Ordered By: Jose Alfredo Moore on 05-17-2023 Bacteria LM.HPF (Urine sed) [#/Area] 2 /[HPF] None Seen [facility] Urine specific gravity measu rementOrdered By: Jose Alfredo Moore on 05-17-2023 Specific gravity (U) [Rel density] 1.025 1.002-1.030 [facility] Urine urobilinogen measureme ntOrdered By: Jose Alfredo Moore on 05-17-2023 Urobilinogen Ql (U) 1 mg/dl Normal [facility] Culture, urineOrdered By: Dajuan Brower on 05-09-2023 Bacteria identified Cx Nom (U) Culture exhibits no growth. [facility] CT CHEST W/O CONTRASTon 08- CT CHEST W/O CONTRAST [place] [id number] Patient: AMANDA KIMBALL Phone#: : 1990 Age: 26 Gender: M Pt. Type: Out Account: [id number] Location: [facility] Ordering: MAO FORREST Exam Date: 10/20/2016/13:46 Family Phys: Charge Code: [id number] Physician: [place] Order #: [id number] DLP Dose#: PROCEDURE: CT CHEST WITHOUT CONTRAST COMPARISON: [facility], CT, CHEST W CON, 06/08/2015, 9:13. [...] 26 Gender: M Pt. Type: Out Account: [id number] Location: 2 Ordering: MAO RamySudha FORREST Exam Date: 10/20/2016/13:46 Family Phys: Charge Code: [id number] Physician: [place] Order #: [id number] DLP Dose#: BONES: Schmorl's nodes are noted at the lower thoracic and upper lumbar spine. OTHER: Negative. CONCLUSION: 1. Stable right upper lobe and left lower lobe nodular foci. 2. Probable cholelithiasis. Dictated by: Meagan Russo MD on 10/20/2016 at 14:19 Approved by: Meagan Russo MD on 10/20/2016 at 14:19 Normal [facility] Vital Signs Date Time Vital Sign Value Performing Clinician Faci lity 11-21-2024 00:23-0400 Body temperature 98.3 [degF] Dr. Derik Brower DO Work Phone: [facility] 11-21-2024 00:23-0400 Diastolic blood pressure 49 mm[Hg] Dr. Derik Brower DO Work Phone: [facility] 11-21-2024 00:23-0400 Heart rate 80 /min Dr. Derik Brower DO Work Phone: [facility] 11-21-2024 00:23-0400 Respiratory rate 18 /min Dr. Derik Brower DO Work Phone: [facility] 11-21-2024 00:23-0400 SaO2% (BldA) [Mass fraction] 95 % Dr. Derik Brower DO Work Phone: [facility] 11-21-2024 00:23-0400 Systolic blood pressure 108 mm[Hg] Dr. Derik Brower DO Work Phone: [facility] 11-20-2024 22:20-0400 Body height 165.[address] Derik Brower DO Work Phone: [facility] 11-18-2024 13:14-0400 Body height 165.[address] Derik Brower DO Work Phone: [facility] 11-17-2024 06:52-0400 Body temperature 97.9 [degF] Dr. Derik Brower DO Work Phone: [facility] 11-17-2024 06:52-0400 Diastolic blood pressure 69 mm[Hg] Dr. Derik Brower DO Work Phone: [facility] 11-17-2024 06:52-0400 Heart rate 68 /min Dr. Derik Brower DO Work Phone: [facility] 11-17-2024 06:52-0400 Respiratory rate 16 /min Dr. Derik Brower DO Work Phone: [facility] 11-17-2024 06:52-0400 SaO2% (BldA) [Mass fraction] 97 % Dr. Derik Brower DO Work Phone: [facility] 11-17-2024 06:52-0400 Systolic blood pressure 120 mm[Hg] Dr. Derik Brower DO Work Phone: [facility] 11-17-2024 02:16-0400 Body height 165.[address] Derik Brower DO Work Phone: [facility] 11-17-2024 02:16-0400 Body mass index (BMI) [Ratio] 26.7 kg/m2 Dr. Derik Brower DO Work Phone: [facility] 11-17-2024 02:16-0400 Body weight [address] Derik Brower DO Work Phone: [facility] 10-09-2024 05:24-0400 Body temperature 98 [degF] Dr. Derik Brower DO Work Phone: [facility] 10-09-2024 05:24-0400 Diastolic blood pressure 88 mm[Hg] Dr. Derik Brower DO Work Phone: [facility] 10-09-2024 05:24-0400 Heart rate 62 /min Dr. Derik Brower DO Work Phone: [facility] 10-09-2024 05:24-0400 Respiratory rate 18 /min Dr. Derik Brower DO Work Phone: [facility] 10-09-2024 05:24-0400 SaO2% (BldA) [Mass fraction] 100 % Dr. Derik Brower DO Work Phone: [facility] 10-09-2024 05:24-0400 Systolic blood pressure 120 mm[Hg] Dr. Derik Brower DO Work Phone: [facility] 10-09-2024 03:21-0400 Body height 165.[address] Derik Brower DO Work Phone: [facility] 10-09-2024 03:21-0400 Body mass index (BMI) [Ratio] 26.6 kg/m2 Dr. Derik Brower DO Work Phone: [facility] 10-09-2024 03:21-0400 Body weight 72.[address] Derik Brower DO Work Phone: [facility] 05-17-2023 11:22-0400 Body temperature 97.8 [degF] [facility] 05-17-2023 11:22-0400 Diastolic blood pressure 78 mm[Hg] [facility] 05-17-2023 11:22-0400 Heart rate 87 /min [facility] 05-17-2023 11:22-0400 Respiratory rate 16 /min [facility] 05-17-2023 11:22-0400 SaO2% (BldA) [Mass fraction] 99 % [facility] 05-17-2023 11:22-0400 Systolic blood pressure 118 mm[Hg] [facility] 05-17-2023 09:41-0400 Body height 165.1 cm [facility] 05-17-2023 09:41-0400 Body mass index (BMI) [Ratio] 26.9 kg/m2 [facility] 05-17-2023 09:41-0400 Body weight 73.48 kg [facility] 09-20-2021 10:13-0400 Body height 165.1 cm [facility] Work Phone: 09-20-2021 10:13-0400 Body mass index (BMI) [Ratio] 23.3 kg/m2 [facility] Work Phone: 09-20-2021 10:13-0400 Body temperature 97.8 [degF] [facility] Work Phone: 09-20-2021 10:13-0400 Body weight 63.5 kg [facility] Work Phone: 09-20-2021 10:13-0400 Diastolic blood pressure 89 mm[Hg] [facility] Work Phone: 09-20-2021 10:13-0400 Heart rate 76 /min [facility] Work Phone: 09-20-2021 10:13-0400 Respiratory rate 16 /min [facility] Work Phone: 09-20-2021 10:13-0400 SaO2% (BldA) [Mass fraction] 100 % [facility] Work Phone: 09-20-2021 10:13-0400 Systolic blood pressure 139 mm[Hg] [facility] Work Phone: Encounters Encounter Date Encounter Type Care Provider Facility Start: 11-29-2024 ambulatory Arik Perez Facility :[facility] Start: 11-21-2024 ambulatory [facility] Facility: [facility] Start: 11-21-2024 End: 11-22-2024 Evaluation and management of inpatient Dr. Amanda Sanford MD -Progressive Care Unit Work Phone: Start: 11-19-2024 End: 11-19-2024 Patient encounter procedure Torrie DIAZ -[facility] Work Phone: Start: 11-19-2024 End: 11-19-[address] Derik Brower DO Work Phone: -[facility] Start: 11-17-2024 End: 11-17-2024 Emergency department patient visit Dr. Derik Brower DO Work Phone: -Emergency Department Work Phone: Start: 10-09-2024 End: 10-09-2024 Emergency department patient visit Dr. Derik Brower DO Work Phone: -Emergency Department Work Phone: Start: 05-17-2023 End: 05-17-2023 Emergency department patient visit [facility]-Emergency Department Work Phone: Start: 05-09-2023 End: 05-09-2023 ambulatory [facility] Work Phone: Start: 05-09-2023 End: 05-09-2023 Patient encounter procedure [facility]-Laboratory, Specimen Work Phone: Start: 09-20-2021 End: 09-20-2021 Emergency department patient visit [facility]-Emergency Department Start: 10-20-2016 End: 10-20-2016 Ambulatory [facility] Procedures Date Procedure Procedure Detail Performing [...] admission, emergency, from emergency room, medical nature [facility] Start: 11-17-2024 [facility] Start: 11-17-2024 [facility] Start: 10-09-2024 [facility] Start: 10-09-2024 [facility] Start: 05-17-2023 [facility] CBC W Auto Different ial panel - Blood [facility] Comprehensive metabo lic 2000 panel - Serum or Plasma [facility] Patient Education [facility] Work Phone: Patient referral [facility] Work Phone: Triacylglycerol lipa se measurement [facility] US Abdomen limited [facility] Payers Date Payer Category Payer Self-pay [id number] 2024 Unknown [id number] Unknown [id number] Unknown [id number] 2.16.8 [id number] Unknown [id number] 2.16.8 [id number] Unknown [id number] 2.16.8 [id number] Unknown [id number] 2.16.8 [id number] Unknown [id number] 2.16.8 [id number] Unknown [id number] 2.16.8 [id number] Unknown [id number] 2.16.8 [id number] Unknown [id number] 2.16.8 [id number] Social History Date Type Detail Facility Start: 09-20-2021 End: 05-17-2023 Tobacco smoking status NHIS Unknown if ever smoked [facility] Start: 12-23-2019 None [facility] Start: 12-23-2019 Spouse/ Signif icant Other [facility] Start: 12-23-2019 Cigarettes [facility] Start: 1990 Sex Assigned At Male [facility] Start: 10-09-2024 End: 11-20-2024 Tobacco smoking status NHIS Current Heavy tobacco smoker [facility] Sex Male [facility] Discharge summary note 11-21-2024 Note Date & Type Note Facility 11-21-2024 Note [facility] Medical Records Department [address] [place] [id number] Discharge Summary 11/21/24 1224 MR#: [id number] Acct: [id number] Name: AMANDA KIMBALL Rep #: [id number] : 1990 34 From: Amanda Sanford MD PCP: Dr. Derik Brower DO Status:ADM IN Location: [place] [id number] Providers Date of Admission: 11/21/24 Primary Care Physician: Dr. Derik Brower DO Reason For Visit: ACUTE CHOLECYSTITIS Diagnosis Discharge Diagnosis (1) Cholelithiasis with acute cholecystitis: Status: Acute Code(s): K80.00 - Calculus of gallbladder with acute cholecystitis without obstruction Plan: The patient has CT scan that showed cholelithiasis with thickening of the gallbladder wall concerning for acute cholecystitis. The patient has right upper quadrant tenderness. I recommended laparoscopic cholecystectomy with cholangiograms. I discussed the procedure in detail with the patient. I discussed the risks, benefits, and alternatives of the procedure. I discussed the risks including but not limited to bleeding, infection, injury to surrounding organs such as the liver, bile duct, bowels. I did discuss the possibility of having to convert to an open procedure as well as the possibility that if any injuries occurred this may necessitate further surgery at a tertiary care center. I also discussed the possibility of a partial cholecystectomy. Amanda Sanford MD Pager: [facility] [address], [address] [place] [address] Office: Medications at Discharge Home Medications gabapentin 100 mg capsule 200 mg PO BID 05/17/23 pantoprazole 40 mg tablet,delayed release (Protonix) 40 mg PO DAILY 30 days #30 tabs 10/09/24 sucralfate 1 gram tablet (Carafate) 1 g PO TID 1 week #21 tabs 11/17/24 sucralfate 100 mg/mL oral suspension 10 ml PO BID #1,000 mL 11/19/24 acetaminophen 325 mg tablet 650 mg (2 x 325 mg) PO Q4H PRN PRN Pain 1-10 Or Fever #0 tabs 11/21/24 oxycodone 5 mg tablet 5 - 10 mg (1 - 2 x 5 mg) PO Q4H PRN PRN Pain Score 4-10 5 days #20 tabs 11/21/24 Hospital Course Operations cholecystecomy Procedures None Summary of Care Provided Hospital Course: The patient was admitted with acute cholecystitis. He was taken for surgery and had a laparoscopic cholecystectomy. He tolerated the procedure well. He will be started on a diet and lateral zoey rechecked in the morning as long as labs are doing well and he is tolerating diet he will be discharged home Weight / BMI Weight Weight: 155 lb Body Mass Index (BMI) 25.7 ABG / Lab / Microbiology Data 11/21/24 05:13 11/21/24 05:13 Laboratory: Laboratory Results - last 24 hr 11/20/24 22:45: WBC 7.3, RBC 4.71, Hgb 14.0, Hct 40.3, MCV 85.6, MCH 29.7, MCHC 34.7, RDW Std Deviation 35.9, RDW Coeff of Jeancarlos 11.5 L, Plt Count 254, MPV 9.2, Immature Gran % (Auto) 0.300, Neut % (Auto) 56.3, Lymph % (Auto) 34.0, [place] % (Auto) 7.3, Eos % (Auto) 1.7, Baso % (Auto) 0.4, Absolute Neuts (auto) 4.1, Absolute Lymphs (auto) 2.47, Nucleated RBC % 0, Sodium 139, Potassium 3.9, Chloride 102, Carbon Dioxide 25.2, Anion Gap 11, BUN 15, Creatinine 0.83, Est GFR (MDRD) Non-Af 116, BUN/Creatinine Ratio 17.4, Glucose 113 H, Calcium 9.4, Total Bilirubin 0.56, Direct Bilirubin 0.29, AST 88 H, ALT 57 H, Alkaline Phosphatase 75, Total Protein 7.2, Albumin 4.2, Globulin 3.0, Lipase 22 11/21/24 05:13: WBC 4.4, RBC 4.37 L, Hgb 13.2, Hct 37.9 L, MCV 86.7, MCH 30.2, MCHC 34.8, RDW Std Deviation 36.8, RDW Coeff of Jeancarlos 11.6, Plt Count 223, MPV 9.5, Immature Gran % (Auto) 0.200, Neut % (Auto) 60.8, Lymph % (Auto) 26.8, [place] % (Auto) 10.8 H, Eos % (Auto) 0.9, Baso % (Auto) 0.5, Absolute Neuts (auto) 2.7, Absolute Lymphs (auto) 1.17, Nucleated RBC % 0, Sodium 141, Potassium 4.1, Chloride 106, Carbon Dioxide 23.9, Anion Gap 11, BUN 12, Creatinine 0.71, Estim Creat Clear Calc 125.12, Est GFR (MDRD) Non-Af 122, BUN/Creatinine Ratio 17.2, Glucose 107 H, Calcium 8.7, Total Bilirubin 1.41 H, AST 555 H, ALT 402 H, Alkaline Phosphatase 113, Total Protein 6.4, Albumin 3.8, Globulin 2.6, Albumin/Globulin Ratio 1.5 Radiography Diagnostic Testing: Radiology Impression Abdomen/Pelvis CT 11/20/24 22:31 IMPRESSION: Cholelithiasis with acute cholecystitis. No biliary ductal dilatation. Reading Location: [facility] D/C Instructions Discharge Activity: May Not Drive (for 2-3 days or while taking narcotic pain medications.) and - (Do not drive, work heavy equipment or sign legal documents for 24 hours.) May shower in (days): 1 Lifting Restrictions: 20 lbs for 2 weeks Additional Activity Instructions: Pain medication may cause nausea. You should typically eat light foods as you take y (more content not included)... [facility] Radiology Diagnostic study note 11-21-2024 Note Date & Type Note Facility 11-21-2024 Radiology Diagnostic study note [facility] Imaging Services [address] [place] [address] Abdomen/Pelvis W IV Cont ONLY MR#: [id number] Acct: [id number] Name: AMANDA KIMBALL Rep #: [id number] : 1990 M 34 From: Reynold Villavicencio MD PCP: Dr. Derik Brower DO Status: REG ER Study:Abdomen/Pelvis W IV Cont ONLY Date of E xam: 11/20/24 Exam# [id number] Ordering Dr: Rosa Hendrix DO PROCEDURE: CT [...] cholecystitis. No biliary ductal dilatation. Reading Location: [facility] CC: Dr. Derik Brower DO; Dionte Hendrix DO ~ Chief Of Internal Medicine: Signed [facility] Evaluation note 11-19-2024 Note Date & Type Note Facility 11-19-2024 Evaluation note Diagnosis Onset Date Resolution Gastritis acute November 2:08pm RUQ pain acute November 2:08pm [facility] Work Phone: Radiology Diagnostic study note 11-17-2024 Note Date & Type Note Facility 11-17-2024 Radiology Diagnostic study note [facility] Imaging Services [address] [place] [address] Abdomen/Pelvis W IV Cont ONLY MR#: [id number] Acct: [id number] Name: AMANDA KIMBALL Rep #: [id number] : 1990 M 34 From: Issa Henriquez MD PCP: Dr. Derik Brower DO Status: REG ER Study:Abdomen/Pelvis W IV Cont ONLY Date of E xam: 11/17/24 Exam# [id number] Ordering Dr: Gerson Marshall MD PROCEDURE: ABDOMEN/PELVIS [...] intra-abdominal or pelvic pathology. Cholelithiasis. Reading Location: [id number] CC: Dr. Karla Marshall MD; Dr. Derik Brower DO ~ Chief Of Internal Medicine: Signed [facility] Radiology Diagnostic study note 10-09-2024 Note Date & Type Note Facility 10-09-2024 Radiology Diagnostic study note [facility] Imaging Services [address] [place] [address] Acute Abdomen Inc Chest MR#: [id number] Acct: [id number] Name: AAMNDA KIMBALL Rep #: [id number] : 1990 M 33 From: Bri Holly MD PCP: Dr. Derik Brower DO Status: [facility] ER Study:Acute Abdomen Inc Chest Date of Exam: 10/09/24 Exam# [id number] Ordering Dr: Rosa Hendrix DO PROCEDURE: ACUTE ABDOMEN INC CHEST 10/09/2024 REASON FOR EXAM: ABD PAIN TECHNIQUE: ACUTE ABDOMEN INC CHEST COMPARISON: CT 05/17/2023 FINDINGS: Normal heart size. Well inflated lungs. Right upper lobe hamartoma. No consolidation, effusion, or pneumothorax. No free air. Nonobstructed bowel. Mild stool. No concerning calcifications. RAD/Acute Abdomen Inc Chest IMPRESSION: Clear lungs. Nonobstructed bowel pattern. Reading Location: [facility] CC: Dr. Derik Brower DO; Dionte Hendrix DO ~ Chief Of Internal Medicine: Signed [facility] Evaluation note Note Date & Type Note Facility Evaluation note No assessment information availa [facility] Work Phone: Evaluation note Note Date & Type Note Facility Evaluation note Diagnosis Onset Date Resolution Gastritis acute November 2:08pm RUQ pain acute November 2:08pm [facility] Work Phone: Hospital Discharge instructions Note [...] ER should you have any further concerns [facility] Work Phone: Hospital Discharge instructions Note [...] your symptoms worsen or new symptoms develop. [facility] Work Phone: Reason for referral (narrative) Note Date & Type Note Facility Reason for referral (narrative) No reason for referral information available [facility] Work Phone: Summary Purpose Family History No Family History Records FoundNo Family History Records Found Advance Directives No Advanced Directives Records Found Advance Directive Response Recorded Date/ Time Living Will No September 20, 2021 10:28am Power of Warrant Clerk No September 20 10:28am Advance Directive Response Recorded Date/ Time Living Will No May 17, 2023 10:06am Power of Warrant Clerk No May 16 10:06am Advance Directive Response Recorded Date/ Time Do you have a Healthcare Power of Warrant Clerk? No October 09, 2024 3:25am Advance Directive Response Recorded Date/ Time Do you have a Healthcare Power of Warrant Clerk? No October 09, 2024 3:25am Do you have a Healthcare Power of Warrant Clerk? No November 17, 2024 2:21am Advance Directive Response Recorded Date/ Time Do you have a Healthcare Power of Warrant Clerk? No October 09, 2024 3:25am Do you have a Healthcare Power of Warrant Clerk? No November 17, 2024 2:21am Do you have a Healthcare Power of Warrant Clerk? No November 20, 2024 10:49pm Chief Complaint [...] section and content) DATE CREATED AUTHOR 08/30/2017 [facility] DATE CREATED AUTHOR AUTHOR'S DANILOIZ ATION 11/23/2024 [facility] Goals (unrecognized section and content) [...] BE BASED ON THE PRIMARY CLINICAL RECORDS. [facility]. provides no warranty or guarantee of the accuracy or completeness of information in this document.
[2024-11-24 21:03] VITALS: BP 115/78; PULSE 73; RESP 19; O2SAT 98
[2024-11-24 21:22] LABS: Mucous, Urine 0 SEEN /hpf (<or=2+); Red Blood Cells-Urine 0 SEEN /hpf (0-5); Squamous Epithelial Cells - UA 0 SEEN /hpf (0-5)
[2024-11-24] MEDS: 0.9% Normal Saline (1000mL) 1,000 ML 999 ML IV (21:38)
[2024-11-24 21:45] LABS: Color, Urine Yellow (Yellow); Glucose, Dipstick Normal (Normal); Ketone-Dipstick Negative (Negative); Leukocyte Esterase-Dipstick Negative /ul (Negative); Nitrite-Dipstick Negative (Negative); Occult Blood-Urine Negative /ul (Negative); Protein-Dipstick Negative (Negative); Specific Gravity, Urine 1.015 (1.002-1.030); Urine Bilirubin Dipstick Negative (Negative)
[2024-11-24 21:47] LABS: AST(SGOT) 75 U/L (<=37); Alanine Aminotransfer ALT/SGPT 242 U/L (<=46); Albumin, Serum 3.9 g/dL (3.5-5.0); Alkaline Phosphatase 140 U/L (40-129); Anion Gap 12 (5-15); BUN 9 mg/dL (4-19); BUN/Creat Ratio 12.9 RATIO (10-20); Bilirubin, Direct 0.29 mg/dL (0.00-0.30); Calcium,Total 9.3 mg/dL (7.6-11.0); Carbon Dioxide 26.2 mmol/L (21.0-32.0); Chloride 101 mmol/L (98-108); Estimated Creatinine Clearance 123.38 ml/min (50-250); Globulin 3.2 g/dL (2.2-4.2); Glucose 87 mg/dL (70-99); Hematocrit 40.4 % (40-54); Hemoglobin 14.5 g/dL (13.0-16.5); Immature Granulocytes Count 0.020 X10^3/uL (0.0-0.0); Lipase 17 U/L (13-75); Mean Corp Hgb Conc 35.9 g/dL (32-36); Mean Corpuscular Volume 85.4 fL (80-94); Mean Platelet Vol. 9.1 fl (6.2-12.0); NRBC Flagged by Analyzer 0 % (0-5); Platelet Count 338 K/mm3 (150-450); Potassium 4.0 mmol/L (3.3-5.1); RBC Distribution Width CV 11.4 % (11.6-14.6); RBC Distribution Width SD 35.5 fl (35.1-43.9); Red Blood Count 4.73 M/mm3 (4.6-6.2); White Blood Count 7.2 K/mm3 (4.4-11.0)
[2024-11-24 23:00] VITALS: BP 115/82; PULSE 65; RESP 13; O2SAT 98
[2024-11-24 23:59] VITALS: BP 116/84; BP 121/83; BP 124/92; PULSE 70; PULSE 76; PULSE 77
--- NOTE | 2024-11-25 00:02 | EX.ED.DYSGE1 ---
HPI History of Present Illness Chief Complaint: Dizziness Narrative Narrative: Patient is a 34-year-old male with history of anxiety and 3 days postop from laparoscopic cholecystectomy. He is presenting with abdominal pain as well as dizziness. Patient states he has had ongoing abdominal discomfort since surgery. Has been alternating ibuprofen with Motrin. Has not had a significant change in his pain. Does note that since waking up from anesthesia he has had dizziness. Describes it more as feeling off balance. States when he is looking at something sometimes he will have double vision however then when he focuses it will go away. States it is worse when he changes position or stands up/is walking. Has had ringing in his ear but that is not a new symptom. States it feels more like being on a boat. Denies any associated numbness or tingling. Denies any headaches. Denies any fever but does report some intermittent chills since his surgery. Came in for further evaluation. Notes he did have a bowel movement today which was normal. Does have some slight nausea but denies any vomiting. [facility] Medical History Kidney stones Neck pain Shoulder injury Home Medications ?Medication ?Instructions ?Recorded ?Last Taken ?Type gabapentin 100 mg capsule 200 mg PO BID nerve pain 05/17/23 Unknown History pantoprazole 40 mg tablet,delayed 40 mg PO DAILY reflux 30 days #30 10/09/24 Unknown Rx release (Protonix) tabs sucralfate 1 gram tablet (Carafate) 1 g PO TID 1 week #21 tabs 11/17/24 Unknown Rx acetaminophen 325 mg tablet 650 mg (2 x 325 mg) PO Q4H PRN PRN 11/21/24 Unknown Rx Pain 1-10 Or Fever #0 tabs oxycodone 5 mg tablet 5 - 10 mg (1 - 2 x 5 mg) PO Q4H 11/21/24 Unknown Rx PRN PRN Pain Score 4-10 5 days #20 tabs meclizine 25 mg tablet 25 mg PO 4X/DAY PRN PRN Dizziness 11/25/24 Unknown Rx #20 tabs Allergy/AdvReac Type Severity Reaction Status Date / Time No Known Allergies Allergy Verified 11/24/24 19:04 Social History Smoking Status: Current some day smoker tobacco type: cigarettes ROS ROS ED Constitutional Constitutional ED: Reports chills; Denies fever(s) Eyes Eyes: Reports diplopia; Denies blurry vision ENT ENT ED: Denies rhinorrhea or sore throat Respiratory/Chest Respiratory/Chest: Denies cough Gastrointestinal Gastrointestinal: Reports abdominal pain and nausea; Denies constipation, diarrhea, melena or vomiting Genitourinary Genitourinary ED: Denies dysuria Musculoskeletal Musculoskeletal: Denies arthralgias or myalgias Integumentary Denies rash Neurologic Neurologic: Reports other Details: Vertigo ; Denies headache(s), paresthesias or weakness Hematologic/Lymphatic Hematologic/Lymphatic: Denies easy bleeding or easy bruising EXAM Physical Exam Const Vital Signs: 11/24/24 19:04 11/24/24 21:03 11/24/24 23:00 Temperature 98.5 F Temperature Source Oral Pulse Rate 77 73 65 Pulse Rate [Lying] Pulse Rate [Sitting (for 1 minute prior to obtaining)] Pulse Rate [Standing (for 1 minute prior to obtaining)] Respiratory Rate 18 19 H 13 Blood Pressure 126/88 H 115/78 115/82 H Blood Pressure [Lying] Blood Pressure [Sitting (for 1 minute prior to obtaining)] Blood Pressure [Standing (for 1 minute prior to obtaining)] Blood Pressure Mean 100 90 93 Blood Pressure Mean [Lying] Blood Pressure Mean [Sitting (for 1 minute prior to obtaining)] Blood Pressure Mean [Standing (for 1 minute prior to obtaining)] Pulse Ox 97 98 98 Oxygen Delivery Method Room Air Room Air 11/24/24 23:59 Temperature Temperature Source Pulse Rate Pulse Rate [Lying] 70 Pulse Rate [Sitting (for 1 minute prior to obtaining)] 76 Pulse Rate [Standing (for 1 minute prior to obtaining)] 77 Respiratory Rate Blood Pressure Blood Pressure [Lying] 121/83 H Blood Pressure [Sitting (for 1 minute prior to obtaining)] 116/84 H Blood Pressure [Standing (for 1 minute prior to obtaining)] 124/92 H Blood Pressure Mean Blood Pressure Mean [Lying] 95 Blood Pressure Mean [Sitting (for 1 minute prior to obtaining)] 94 Blood Pressure Mean [Standing (for 1 minute prior to obtaining)] 102 Pulse Ox Oxygen Delivery Method Positive well nourished and well developed General Appearance ED: well developed and NAD HEENT Reports TM's clear and moist mucous membranes HEENT Narrative: Normal ear canals. Normal tympanic membranes bilaterally. Normal oropharynx. No tongue deviation present. Tympanic Membrane ED: Yes TM's clear Eyes PERRL and EOMs intact bilaterally Eyes Narrative: Patient has some slight horizontal nystagmus when performing the [place]-Hallpike maneuver on the left when transitioning from sitting to laying down however when he is in the laying down position does not have any further nystagmus. States he did have a temporary episode of his symptoms when he was in the process of laying down which correlates with his nystagmus. Negative [place]-Hallpike maneuver on the right. Chest Wall inspection of chest normal Resp normal respiratory effort and clear to auscultation bilaterally Cardio regular rate and regular rhythm GI GI Narrative: Surgical incisions of the abdominal wall consistent with recent laparoscopic cholecystectomy. Mild bruising noted at the umbilicus. No associated drainage. Wounds appear to be healing appropriately. No surrounding cellulitic changes. Abdomen is soft with normal bowel sounds. Mildly tender in periumbilical and right upper quadrant area. No peritoneal signs. Back/Spine no CVA tenderness Extremity normal to inspection Neuro oriented x3, CN's II-XII intact bilaterally and no sensory deficits noted Neuro Narrative: Normal finger-nose. Normal ding-er-ykud. No truncal ataxia Sensorium / Orientation: alert Motor Exam: strength 5/5 throughout Psych mental status grossly normal Skin no rashes or lesions noted Skin Narrative: Surgical incisions of the abdomen, see abdominal exam MDM MDM MDM Narrative Medical decision making narrative: Patient is evaluated for dizziness since having his surgery that sounds like vertigo as well as postoperative abdominal pain. Differential includes not limited to peripheral vertigo, medication reaction, symptomatic anemia, choledocholithiasis, JOANNE, dehydration and underlying infection. He does not report any chest pain, acute dyspnea, is not tachycardic or tachypneic and has normal O2 saturations have very low suspicion for an atypical presentation of a postoperative PE. He is not reporting any palpitations or chest pain. Do not that he needs cardiac workup or EKG. CBC is normal. He has no anemia or leukocytosis. BMP normal. AST shows normalization of his bilirubin and downtrending AST/ALT. Alkaline phosphatase is mildly elevated which is of undetermined clinical significance. Urinalysis is normal. Lipase is normal. Given his have a leukocytosis, worsening transaminitis or other acute laboratory normalities I do not think he requires repeat abdominal imaging. Patient given meclizine he does have some improvement of symptoms. Is also given a dose of oxycodone for pain in the emergency room. Is given IV fluids. Orthostatic vital signs obtained after IV fluids are normal. Low suspicion for hypovolemia. Case discussed with surgery on-call, Dr. Mendenhall, who is reassured that his labs are improving and he has no leukocytosis. He agrees he does not require any emergent imaging. Agrees that he does not require repeat labs tomorrow as previously scheduled since we did them today. Encouraged the patient to call the office tomorrow to move up his postop appointment. On repeat evaluation patient is agreeable to plan of care. Is given return precautions. Does voice concern that he was supposed to return to work tomorrow. Counseled that I do not think he is ready to return to work and he is in agreement with this. Is given outpatient follow-up for ENT should he have persistent vertigo. Is given a prescription for meclizine. Counseled on the typically waxing and waning course of peripheral vertigo. Patient verbalized agreement understands plan. Discharged home in stable condition. Does have improvement of symptoms while in the emergency room History & Record Review Additional record(s) reviewed:: Prior labs Lab Data Attestation: I reviewed the patient's lab results. Labs: Laboratory Results - last 24 hr 11/24/24 21:15 WBC 7.2 RBC 4.73 Hgb 14.5 Hct 40.4 MCV 85.4 MCH 30.7 MCHC 35.9 RDW Std Deviation 35.5 RDW Coeff of Jeancarlos 11.4 L Plt Count 338 MPV 9.1 Immature Gran % (Auto) 0.300 Neut % (Auto) 63.6 Lymph % (Auto) 28.7 [place] % (Auto) 5.9 Eos % (Auto) 1.1 Baso % (Auto) 0.4 Absolute Neuts (auto) 4.6 Absolute Lymphs (auto) 2.06 Nucleated RBC % 0 Sodium 139 Potassium 4.0 Chloride 101 Carbon Dioxide 26.2 Anion Gap 12 BUN 9 Creatinine 0.72 Estim Creat Clear Calc 123.38 Est GFR (MDRD) Non-Af 121 BUN/Creatinine Ratio 12.9 Glucose 87 Calcium 9.3 Total Bilirubin 0.56 Direct Bilirubin 0.29 AST 75 H ALT 242 H Alkaline Phosphatase 140 H Total Protein 7.1 Albumin 3.9 Globulin 3.2 Lipase 17 Urine Color Yellow Urine Clarity Cloudy Urine pH 8.0 Ur Specific [place] 1.015 Urine Protein Negative Urine Glucose (UA) Normal Urine Ketones Negative Urine Occult Blood Negative Urine Nitrite Negative Urine Bilirubin Negative Urine Urobilinogen Normal Ur Leukocyte Esterase Negative Urine RBC 0 SEEN Urine WBC 0 SEEN Ur Squamous Epith Cells 0 SEEN Amorphous Sediment 1+ Urine Bacteria 0 SEEN Urine Mucus 0 SEEN Management Discussion w/another healthcare provider: Cooky Packer Discharge Plan Triage Chief Complaint: Dizziness ED Provider: Radha Bashir Dx/Rx/DC Orders Clinical Impression: Vertigo, Postoperative abdominal pain Instructions: ED Wound Care After Surgery- Pain, ED Vertigo, Unspecified Prescriptions: New meclizine 25 mg tablet 25 mg PO 4X/DAY PRN PRN (Reason: Dizziness) Qty: 20 0RF No Action gabapentin 100 mg capsule 200 mg PO BID pantoprazole [Protonix] 40 mg tablet,delayed release (DR/EC) 40 mg PO DAILY 30 Days Qty: 30 0RF sucralfate [Carafate] 1 gram tablet 1 g PO TID 7 Days Qty: 21 0RF acetaminophen 325 mg Tablet 650 mg PO Q4H PRN PRN (Reason: Pain 1-10 Or Fever) Qty: 0 0RF oxycodone 5 mg Tablet 5 - 10 mg PO Q4H PRN PRN (Reason: Pain Score 4-10) 5 Days Qty: 20 0RF Primary Care Provider: Derik Brower Referrals: Yovani Sanford MD [Med Staff - Active Staff, General Surgery] Ramon Myles MD [Med Staff - Active Staff, Ear Nose Throat (ENT)] Activity Restrictions/Additional Instructions: If you continue to have episodes of vertigo please follow-up with ENT. Call the office for Dr. Myles or one of his partners to follow-up. You do not need to go for your blood work tomorrow as we did the blood work jose. Please call general surgery office tomorrow to see if they can move up your follow-up appointment per conversation with Dr. Za garcia Print Language: Japanese Disposition Disposition: Home, Self Care
[2024-11-25 00:08] VITALS: BP 118/85; PULSE 66; RESP 16; TEMP 36.9; O2SAT 99
== END 2024-11-25 00:15 | disposition home or self-care (01) ==
PROVIDERS: Emergency Provider Emergency Medicine; PCP Family Medicine; Visit Provider Emergency Medicine
DX: R42 Dizziness and giddiness (principal); R10.11 Right upper quadrant pain; R10.33 Periumbilical pain; G89.18 Other acute postprocedural pain; F17.210 Nicotine dependence, cigarettes, uncomplicated; Z90.49 Acquired absence of other specified parts of digestive tract
CPT/HCPCS: 80048; 80076; 81001; 83690; 85025; 96360; 96361; 99284; A4216

== ENCOUNTER 2024-11-30 00:15 | Emergency (ER) | payer BC, SELFPAY ==
[2024-11-30 00:17] VITALS: BP 124/78; PULSE 83; RESP 16; TEMP 36.9; O2SAT 98; BMI 25.8
--- NOTE | 2024-11-30 01:27 | EX.ED.DYSGE1 ---
HPI History of Present Illness Chief Complaint: Numb/Ting PFSH [facility] Medical History Kidney stones Neck pain Shoulder injury Home Medications ?Medication ?Instructions ?Recorded ?Last Taken ?Type gabapentin 100 mg capsule 200 mg PO BID nerve pain 05/17/23 Unknown History pantoprazole 40 mg tablet,delayed 40 mg PO DAILY reflux 30 days #30 10/09/24 Unknown Rx release (Protonix) tabs acetaminophen 325 mg tablet 650 mg (2 x 325 mg) PO Q4H PRN PRN 11/21/24 Unknown Rx Pain 1-10 Or Fever #0 tabs oxycodone 5 mg tablet 5 - 10 mg (1 - 2 x 5 mg) PO Q4H 11/21/24 Unknown Rx PRN PRN Pain Score 4-10 5 days #20 tabs Allergy/AdvReac Type Severity Reaction Status Date / Time No Known Allergies Allergy Verified 11/30/24 00:17 Family History no significant family his Social History Smoking Status: Current some day smoker tobacco type: cigarettes EXAM Physical Exam Const Vital Signs: 11/30/24 00:17 Temperature 98.4 F Temperature Source Oral Pulse Rate 83 Respiratory Rate 16 Blood Pressure 124/78 H Blood Pressure Mean 93 Pulse Ox 98 Oxygen Delivery Method Room Air [facility] MDM Narrative Medical decision making narrative: HISTORY OF PRESENT ILLNESS: Chief complaint: Numbness/tingling 34-year-old male history of anxiety, gastritis, vertigo presents with concern for numbness and tingling and pain behind right calf he states his last known well was. Patient notes he had a recent surgery. Has gallbladder removed on 11/21/2024. He notes tonight he developed right leg pain that is since resolved. He also notes after this happened he started becoming anxious and felt numbness and tingling around bilateral hands and feet. REVIEW OF SYSTEMS: Pertinent positives: Numbness/tingling/calf pain Pertinent negatives: Chest pain, shortness breath, syncope PHYSICAL EXAM: Nursing triage notes reviewed, Vital signs reviewed Constitutional: please see mdm HENT: MMM Eyes: Pupils equal round and reactive to light, Extraocular muscles intact Neck: No stridor, no JVD, full neck ROM Lungs: Clear to auscultation, No wheezing or rales. No increased work of breathing, no conversational dyspnea, no accessory muscle use, no nasal flaring. No respiratory distress noted Heart: Regular rate and rhythm, No murmurs, No rubs and No gallops, 2+ distal pulses (radial, femoral, posterior tibial) in all extremities Abdomen: Soft, there is no tenderness, rigidity, rebound or guarding, no obvious peritoneal signs, no palpable pulsatile abdominal masses, no auscultated abdominal bruit : No CVAT Extremities: No edema, no TTP over right calf. Compartments are soft. Neuro: Alert and oriented x3, neuro exam at baseline, cranial nerves II through XII are intact. No pain with extraocular muscle movement. There is negative test of skew. 5 of 5 strength in upper and lower extremities in flexion extension. Intact sensation to light touch in upper and lower extremity dermatomes. No truncal or extremity ataxia. No dysdiadochokinesia. Normal gait. 2+ reflexes in upper and lower extremities. No meningeal signs. Negative Babinski. NIH of 0. Skin: No rash or lesions noted MEDICAL DECISION MAKING: Chief Complaint: please see [facility] External records reviewed: Reviewed prior imaging studies: No recent [facility] imaging of the brain Factors affecting care: as per HPI Social determinants of health: denies illicit drug use History obtained from others: none Consults: none [facility] Narrative: The patient was initially hemodynamically stable, afebrile and nontoxic-appearing. Initial neurologic exam was intact. NIH of 0. No signs of acute CVA with no indication for advanced imaging. I considered the following differential diagnosis: DVT, acute CVA Unfortunately do not have DVT or duplex ultrasound available at this hour. Patient was given a prophylactic dose of Lovenox given recent surgery and ordered outpatient duplex ultrasound. Strict return precautions will be discussed. The patient is appropriate discharge at this time. The patient and/or family, caregivers express understanding. The patient and/or family, caregivers agrees with the plan. Shared decision making: I will have a discussion with the patient and or visitors regarding risk/benefits of further testing or admission. They will be made aware of of the risk/benefits inherent in this decision they will be given the opportunity to voice understanding. Total critical care time today provided was at least 0 minutes. This excludes separately billable procedures. Critical care time (if documented) is secondary to the patient having high probability of clinically significant/life threatening deterioration in the patient's condition which required my urgent intervention. Impression: 1. Acute leg pain 2. Paresthesias Dispo: Discharge home This note was generated with [employer] dictation software. It may contain incorrect words, spelling, and punctuation that were not noted in review of the chart prior to signing. Discharge Plan Triage Chief Complaint: Numb/Ting ED Provider: Kishore Moses Dx/Rx/DC Orders Prescriptions: No Action gabapentin 100 mg capsule 200 mg PO BID pantoprazole [Protonix] 40 mg tablet,delayed release (DR/EC) 40 mg PO DAILY 30 Days Qty: 30 0RF acetaminophen 325 mg Tablet 650 mg PO Q4H PRN PRN (Reason: Pain 1-10 Or Fever) Qty: 0 0RF oxycodone 5 mg Tablet 5 - 10 mg PO Q4H PRN PRN (Reason: Pain Score 4-10) 5 Days Qty: 20 0RF Other Ambulatory Orders: Venous Duplex US, Unilateral (Stat) Facility: [facility] - Location: [facility] Ordered By: Dr. Kishore Moses Primary Care Provider: Derik Brower Referrals: Derik Brower DO [Primary Care Provider, Family Practice] Activity Restrictions/Additional Instructions: Thank you for trusting us with your care today! You have been given a medication to treat blood clots before your definitive diagnosis because do not have ultrasound available at this hour An outpatient ultrasound is been ordered for you. Please present to the ED tomorrow morning we will try to call the railway yard assistant into obtain your ultrasound Please take Tylenol (2 pills, 650 mg) every 6 hours as needed for pain and fever control. Please return to the emergency department if your symptoms change or worsen. Specifically develop chest pain, shortness of breath or if you lose consciousness. Please follow with your primary care physician for further outpatient evaluation and management. Print Language: Belgian Disposition Disposition: Home, Self Care
[2024-11-30 02:11] VITALS: BP 110/78; PULSE 71; RESP 18; TEMP 36.9; O2SAT 98
[2024-11-30 02:17] VITALS: BP 110/78; PULSE 72; RESP 18; O2SAT 98
== END 2024-11-30 02:49 | disposition home or self-care (01) ==
PROVIDERS: Emergency Provider Emergency Medicine; PCP Family Medicine; Visit Provider Emergency Medicine
DX: R20.2 Paresthesia of skin (principal); M79.662 Pain in left lower leg; F17.210 Nicotine dependence, cigarettes, uncomplicated
CPT/HCPCS: 96372; 99282

== ENCOUNTER → 2024-11-30 | Outpatient (CLI) | payer BC, SELFPAY ==
--- NOTE | 2024-11-30 11:44 | VDLE_ITS ---
Reason For Study Reason For Study: Pain RLE RIGHT LEFT GSV is normal. CFV is compressible, spontaneous, phasic, competent, CFV is compressible, spontaneous, phasic, competent and demonstrates normal augmentation. and demonstrates normal augmentation. FV is compressible, spontaneous, phasic, competent and demonstrates normal augmentation. POP V is compressible, spontaneous, phasic, competent and demonstrates normal augmentation. T/P Trunk is compressible. PTV is compressible. RT PerV is compressible. Procedure This is a venous duplex using B-mode, color flow and spectral Doppler. Exam performed in department. A preliminary report was called and/or faxed to ED. VL/Venous Duplex US, Unilateral Interpretation Summary Deep veins of the right lower extremity are patent and compressible segmentally . There is no evidence of right lower extremity deep vein thrombosis. Valvular competence appears intact within the p roximal deep venous system on the right . The right great saphenous vein appears patent and compressible segmentally. The left common femoral vein is patent and compressible . Ordering Physician: Kishore Moses Referring Physician: Derik Brower Performed By: Reva Vargas, JUANITO, RVT
== END | disposition home or self-care (01) ==
LOC: CVS 11:43
PROVIDERS: PCP Family Medicine; Visit Provider Emergency Medicine
DX: M79.604 Pain in right leg (principal)
CPT/HCPCS: 93971

== ENCOUNTER → 2024-12-05 | Outpatient (CLI) | payer BC, SELFPAY ==
[2024-12-05 15:05] LABS: AST(SGOT) 24 U/L (<=37); Alanine Aminotransfer ALT/SGPT 42 U/L (<=46); Albumin, Serum 4.3 g/dL (3.5-5.0); Alkaline Phosphatase 84 U/L (40-129); Bilirubin, Direct 0.18 mg/dL (0.00-0.30); Globulin 2.5 g/dL (2.2-4.2)
== END | disposition home or self-care (01) ==
PROVIDERS: PCP Family Medicine; Referring Provider Physician Assistant; Visit Provider Physician Assistant
DX: R79.89 Other specified abnormal findings of blood chemistry (principal)
CPT/HCPCS: 36415; 80076